=== PATIENT | male | born 1955 | race Caucasian/White ===

== ENCOUNTER → 2019-06-04 08:03 | Outpatient (BNVA) | payer MEDICARE, SELFPAY | PROVIDERS: Family Provider Nurse Practitioner; PCP Nurse Practitioner; Visit Provider Nurse Practitioner Psychiatric/Mental Health | DX: F20.9 Schizophrenia, unspecified (principal); F17.210 Nicotine dependence, cigarettes, uncomplicated; G25.71 Drug induced akathisia | CPT/HCPCS: 99213 ==

== ENCOUNTER → 2019-09-03 07:47 | Outpatient (BNVA) | payer MEDICARE, SELFPAY | PROVIDERS: Family Provider Nurse Practitioner; PCP Nurse Practitioner; Visit Provider Nurse Practitioner Psychiatric/Mental Health | DX: F20.9 Schizophrenia, unspecified (principal); F17.210 Nicotine dependence, cigarettes, uncomplicated; G25.71 Drug induced akathisia | CPT/HCPCS: 99213 ==

== ENCOUNTER → 2019-12-03 08:00 | Outpatient (BNVA) | payer MEDICARE, SELFPAY | PROVIDERS: Family Provider Nurse Practitioner; PCP Nurse Practitioner; Visit Provider Nurse Practitioner Psychiatric/Mental Health | DX: F20.9 Schizophrenia, unspecified (principal); F17.210 Nicotine dependence, cigarettes, uncomplicated; G25.71 Drug induced akathisia; F33.41 Major depressive disorder, recurrent, in partial remission; F41.8 Other specified anxiety disorders | CPT/HCPCS: 99213 ==

== ENCOUNTER → 2020-02-15 12:07 | Outpatient (BNVA) | payer MEDICARE, SELFPAY | PROVIDERS: Family Provider Nurse Practitioner; PCP Nurse Practitioner; Visit Provider Nurse Practitioner Family | DX: E55.9 Vitamin D deficiency, unspecified (principal); E78.2 Mixed hyperlipidemia; I10 Essential (primary) hypertension; Z79.899 Other long term (current) drug therapy; J44.9 Chronic obstructive pulmonary disease, unspecified | CPT/HCPCS: 80053; 80061; 81003; 82306; 83036; 84443; 85025 ==

== ENCOUNTER → 2020-03-03 09:44 | Outpatient (BNVA) | payer MEDICARE, SELFPAY | PROVIDERS: Family Provider Nurse Practitioner; PCP Nurse Practitioner; Visit Provider Nurse Practitioner Psychiatric/Mental Health | DX: F20.9 Schizophrenia, unspecified (principal); F17.210 Nicotine dependence, cigarettes, uncomplicated; G25.71 Drug induced akathisia | CPT/HCPCS: 99214 ==

== ENCOUNTER → 2020-04-05 11:49 | Outpatient (BNVA) | payer MEDICARE, SELFPAY | PROVIDERS: Family Provider Nurse Practitioner; PCP Nurse Practitioner; Visit Provider Nurse Practitioner Family | DX: J44.9 Chronic obstructive pulmonary disease, unspecified (principal); R06.00 Dyspnea, unspecified | CPT/HCPCS: 71046 ==

== ENCOUNTER → 2020-05-12 00:01 | Outpatient (BNVA) | payer MEDICARE, SELFPAY | PROVIDERS: Family Provider Nurse Practitioner; PCP Nurse Practitioner Family; Visit Provider Nurse Practitioner Family | DX: Z20.822 Contact with and (suspected) exposure to COVID-19 (principal); J44.9 Chronic obstructive pulmonary disease, unspecified | CPT/HCPCS: 87635 ==

== ENCOUNTER 2020-05-15 10:58 | Outpatient (CLI) | payer MEDICARE, SELFPAY ==
--- NOTE | 2020-05-15 11:15 | PFTS_ITS ---
Date of Study:05/15/20 Date of Dictation: MECHANICS: Forced vital capacity (FVC) is reduced. Forced expiratory volume in one second (FEV1) is reduced. FEV1/FVC is reduced. FLOW VOLUME LOOP: Reduced flow at all lung volumes. LUNG VOLUMES: Not measured DIFFUSING CAPACITY FOR CARBON MONOXIDE: Normal INTERPRETATION: The prebronchodilator spirometry is consistent with severe airflow obstruction. A component of restriction cannot be ruled out in the absence of lung volume measurement. Gas exchange (DLCO) is normal. MTDD
== END 2020-05-15 10:59 | disposition home or self-care (01) ==
LOC: RT 11:03
PROVIDERS: PCP Nurse Practitioner Family; Visit Provider Internal Medicine Pulmonary Disease
DX: J44.9 Chronic obstructive pulmonary disease, unspecified (principal)
CPT/HCPCS: 94010; 94729

== ENCOUNTER → 2020-06-09 08:42 | Outpatient (BNVA) | payer MEDICARE, SELFPAY | PROVIDERS: PCP Nurse Practitioner Family; Visit Provider Nurse Practitioner Psychiatric/Mental Health | DX: F20.9 Schizophrenia, unspecified (principal); F17.210 Nicotine dependence, cigarettes, uncomplicated; G25.71 Drug induced akathisia | CPT/HCPCS: 99214 ==

== ENCOUNTER → 2020-07-25 09:12 | Outpatient (BNVA) | payer MEDICARE, SELFPAY | PROVIDERS: PCP Nurse Practitioner Family; Visit Provider Nurse Practitioner Family | DX: D64.9 Anemia, unspecified (principal); Z79.899 Other long term (current) drug therapy; N40.0 Benign prostatic hyperplasia without lower urinary tract symptoms | CPT/HCPCS: 80053; 80164; 82607; 82746; 85025 ==

== ENCOUNTER → 2020-12-01 08:12 | Outpatient (BNVA) | payer MEDICARE, SELFPAY | PROVIDERS: PCP Nurse Practitioner Family; Visit Provider Nurse Practitioner Psychiatric/Mental Health | DX: F20.9 Schizophrenia, unspecified (principal); F17.210 Nicotine dependence, cigarettes, uncomplicated; G25.71 Drug induced akathisia; Z79.899 Other long term (current) drug therapy | CPT/HCPCS: 99214 ==

== ENCOUNTER → 2021-01-25 12:11 | Outpatient (BNVA) | payer MEDICARE, SELFPAY | PROVIDERS: PCP Nurse Practitioner Family; Visit Provider Nurse Practitioner Family | DX: I10 Essential (primary) hypertension (principal); D64.9 Anemia, unspecified; Z79.899 Other long term (current) drug therapy; E55.9 Vitamin D deficiency, unspecified; N40.0 Benign prostatic hyperplasia without lower urinary tract symptoms; E78.2 Mixed hyperlipidemia; L98.9 Disorder of the skin and subcutaneous tissue, unspecified | CPT/HCPCS: 80053; 80061; 80164; 81003; 82306; 82746; 83036; 84443; 85025; G0103 ==

== ENCOUNTER → 2021-03-09 08:17 | Outpatient (BNVA) | payer MEDICARE, SELFPAY | PROVIDERS: PCP Nurse Practitioner Family; Visit Provider Nurse Practitioner Psychiatric/Mental Health | DX: F20.9 Schizophrenia, unspecified (principal); F17.210 Nicotine dependence, cigarettes, uncomplicated; G25.71 Drug induced akathisia; Z79.899 Other long term (current) drug therapy | CPT/HCPCS: 81003; 87077; 87086; 87184; 99214 ==

== ENCOUNTER → 2021-04-30 10:54 | Outpatient (BNVA) | payer MEDICARE, SELFPAY | PROVIDERS: PCP Nurse Practitioner Family; Visit Provider Nurse Practitioner Family | DX: I10 Essential (primary) hypertension (principal); D64.9 Anemia, unspecified; Z79.899 Other long term (current) drug therapy | CPT/HCPCS: 80053; 80061; 80164; 81003; 83036; 85025; 87077; 87086; 87184 ==

== ENCOUNTER 2021-05-14 11:16 | Inpatient (IN) | payer MEDICARE, SELFPAY ==
[2021-05-14] VITALS (11 sets, daily range): BP systolic 108–184; BP diastolic 57–99; PULSE 60–100; RESP 16–23; TEMP 36.4–37.3; O2SAT 94–100; BMI 24.4
--- NOTE | 2021-05-14 11:17 | ECG_ITS ---
[facility] Test Date: 2021-05-14 Pat Name: Herson Ovalle Department: Room: Gender: Male Claims Configuration Analyst: : 1955 Requested By: Kelly Cartagena Order Number: [id number] Reading MD: Ricardo Song M.D. Measurements Intervals [place] Rate: 60 P: 84 NV: 148 QRS: 78 QRSD: 90 T: 74 QT: 393 QTc: 395 Interpretive Statements SINUS RHYTHM MODERATE ST DEPRESSION [0.05+ mV ST DEPRESSION] Compared to ECG 04/09/2016 05:36:46 ST (T wave) deviation now present Electronically Signed On 05-15-2021 9:16:55 CDT by Ricardo Song M.D. [email or web address]
--- NOTE | 2021-05-14 11:31 | CT_ITS ---
WS: [email or web address] CT HEAD TECHNIQUE: Noncontrast CT of the head obtained from the skullbase to the vertex. CLINICAL INFORMATION: ams COMPARISON: None. DLP: 1019.[address] scans at [facility] use at least one of these dose optimization techniques: automated e xposure control; mA and/or kV adjustment per patient size (includes targeted exams where dose is matc hed to clinical indication); or iterative reconstruction. FINDINGS: Some images degraded by motion. No evidence of intracranial hemorrhage or mass effect. Ventricular system and basal cisterns are garcia nt. Moderate small vessel changes with moderate parenchymal volume loss. Benign basal ganglia calcifi cations. Tiny chronic lacunar infarct LEFT caudate. No extra-axial fluid collections. No evidence of mass or mass effect. Partial opacification the mastoid tips. Paranasal sinuses are well aerated. IMPRESSION: 1. No evidence of intracranial hemorrhage or mass effect. 2. Moderate small vessel changes with moderate parenchymal volume loss. 3. Partial opacification mastoid tips. 4. No acute intracranial findings.
--- NOTE | 2021-05-14 11:31 | XR_ITS ---
WS: [email or web address] XR femur RT min 2V* 11055 REASON FOR EXAM: fall FINDINGS: Transcervical/intertrochanteric fracture of the right hip. The greater trochanter and lesser trochanter are intact. There may be a small intracapsular fragment inferiorly. Acetabulum appears intact. Superior and inferior pubic rami are intact. From the intertrochanteric region to the knee no abnormality of the right femur is noted. XR/XR femur RT min 2V* 05743 IMPRESSION: Right hip fracture as above.
--- NOTE | 2021-05-14 11:31 | ED_ITS ---
HPI - General Adult General: Chief complaint: Weakness Stated complaint: INCREASED WEAKNESS Time Seen by Provider: 05/14/21 11:17 History of Present Illness: Patient is a 65-year-old male with a history of prior UTI, COPD, anemia, hyperlipidemia, chronic schizophrenia who presents from [facility] for concerns of increased generalized weakness and confusion and fall. On Friday, patient had an unwitnessed episode of fall. Patient complained of generalized weakness and difficulty walking. Per nursing staff, patient was noted to have decreased activity and energy throughout the day. Patient tells me that on Friday he fell and hit his head and has had right thigh pain since then. Patient denies having any chest pain any shortness of breath palpitation or lightheadedness, nausea/vomiting, diarrhea melena hematochezia since Friday. Per EMS, patient drinks excessively water at [facility] and has had found to have hyponatremia in the past. Onset:unknonwn duration of confusion, fall since Friday Duration:ongoing Location:[facility] Severity: moderate Associated symptoms: Deny chest pain, dyspnea, nausea, rash, palpitations or vomiting Review of Systems Const: Denies: fever(s) or chills Eyes: Denies: change in vision ENMT: Denies: mouth pain Card: Denies: chest pain or palpitations Resp: Denies: dyspnea or non-productive cough GI: Denies: abdominal pain, nausea, vomiting or diarrhea : Denies: dysuria Musc: Reports: extremity pain (+R thigh pain) Skin/Breast: Denies: rash or new lesions Neuro: Reports: other (+confusion); Denies: weakness in extremities Psych: Reports: other (Normal mood) Casey/Lymph: Denies: easy bruising PFSH ED PFSH: Medical History (Updated 05/14/21 @ 14:41 by Zoe Moreau MD) Anemia BPH (benign prostatic hyperplasia) Chronic schizophrenia COPD (chronic obstructive pulmonary disease) Essential hypertension Mixed hyperlipidemia Nicotine dependence, cigarettes, uncomplicated On valproate therapy Psychiatric care Tardive akathisia Vitamin D deficiency Social History Smoking and tobacco status: never smoked Quit status (tobacco): not considering quitting Second hand smoke exposure: Yes Smoking risk assessment/counseling performed?: Yes Alcohol intake: former Caregiver/support person: Yes Lives independently: No Household members: other Housing: Assisted Living Facility Marital status: Single service: No Current occupational status: disabled Pets and animals: Yes History of recent travel: No Current gender identity: Male Physical Exam Const: COMMON NORMALS: alert HENMT: COMMON NORMALS: atraumatic HEAD & SCALP: atraumatic MOUTH: moist mucous membranes not abnormal Eye: COMMON NORMALS: EOMs intact bilaterally and conjunctivae normal CONJU NCTIVA: Yes conjunctivae normal Neck/C-Spine: COMMON NORMALS: full ROM and supple Resp: COMMON NORMALS: normal respiratory effort and clear to auscultation bilaterally AUSCULTATION: clear to auscultation bilaterally Cardio: COMMON NORMALS: regular rate RATE: regular rate GI: COMMON NORMALS: Soft to palpation and non-tender PALPATION: Yes Soft to palpation Extremity: COMMON NORMALS: full ROM NARRATIVE EXTREMITY EXAM: + Right lower extreme knee appears to be slightly shortened compared to the left side. Range of motion of the right knee and right hip with mild pain. +Mild mid thigh tenderness to palpation, + 2+ DP/TP pulses on the right lower extremity, sensation and strength in the right lower extremity intact Neuro: SENSORIUM/ORIENTATION: Yes alert MOTOR EXAM: No Abnormal motor strength present and Other motor observations present (no focal motor deficits) OTHER: AAOx 2 (self and location only), following all commands, moving all extremities, cranial nerves II to III are grossly intact. Psych: COMMON NORMALS: speech normal SPEECH: Yes normal speech MOOD & AFFECT: Yes euthymic mood Course Vital Signs: Vital signs: Vital Signs Temperature 98.1 F 05/14/21 11:18 Pulse Rate 64 05/14/21 14:07 Respiratory Rate 22 H 05/14/21 14:07 Blood Pressure 184/87 05/14/21 14:07 Pulse Oximetry 100 05/14/21 14:07 [facility] - General Adult Medical Decision Making Patient is a 65-year-old male with history of UTI, COPD, anemia, hyperlipidemia, schizophrenia who presents from [facility] for concerns of generalized weakness, fall and confusion since Friday. On arrival, patient is AAO x1 but following commands. Patient has mild tenderness to palpation over the right thigh and pain to range of motion of the right hip and right knee. Neurovascular exam of the right lower extremity intact. We will obtain x-ray imaging and CT brain for evaluation of possible fractures and brain bleed. Given new set onset of confusion, we will evaluate to determine whether patient has any medical causes for confusion and altered mental status. Workup: CBC, CMP, Lipase, UA, EKG x 2/ troponin x2, ammonia, XR chest, UA, CT head Intervention: observation, pain control Troponin of 33 with delta < 5. EKG is non ischemic. Hemoglobin 10.6 down from baseline of 12. Rectal exam negative for hemoocult positive stool. No suspicion for GI bleeding. X-ray of the right hip showed right-sided hip fracture. Delta troponin within normal limit. UA showed 2+ leukocyte esterase with 15-25 WBC per high-power field improved compared to prior UA. 3+ urine blood similar to prior. However, given need for possible surgery, will treat empirically with abx. S/p ceftriaxone IV. Case discussed with Dr. Yates who will evaluate patient decide whether patient is a candidate for surgery. Disposition: admission Lab Data : 05/14/21 11:38 05/14/21 11:38 Radiology Impressions Chest X-Ray 05/14/21 11:31 IMPRESSION: No acute abnormality identified. Femur X-Ray 05/14/21 11:31 IMPRESSION: Right hip fracture as above. Hip/Pelvis X-Ray 05/14/21 11:31 IMPRESSION: Right hip fracture. Knee X-Ray 05/14/21 11:31 IMPRESSION: Joint effusion. Soft tissue injury. No bony or joint abnormality. Laboratory Results WBC 10.8 10^3/uL (4.0-10.0) H 05/14/21 11:38 RBC 3.33 10^6/uL (4.1-5.3) L 05/14/21 11:38 Hgb 10.6 g/dL (11.7-16.6) L 05/14/21 11:38 Hct 32.7 % (42.0-52.0) L 05/14/21 11:38 MCV 98.2 fl (80-94) H 05/14/21 11:38 MCH 31.8 pg (28.0-34.0) 05/14/21 11:38 MCHC 32.4 g/dL (30.0-36.0) 05/14/21 11:38 RDW 14.8 % (12.1-15.1) 05/14/21 11:38 Plt Count 159 10^3/cmm (130-400) 05/14/21 11:38 MPV 10.2 fL (7.4-10.4) 05/14/21 11:38 Neut % (Auto) 68.2 % 05/14/21 11:38 Lymph % (Auto) 16.0 % 05/14/21 11:38 [place] % (Auto) 11.7 % 05/14/21 11:38 Eos % (Auto) 3.2 % 05/14/21 11:38 Baso % (Auto) 0.5 % 05/14/21 11:38 Neut # (Auto) 7.35 10^3/uL (1.8-7.7) 05/14/21 11:38 Lymph # (Auto) 1.7 10^3/uL (0.8-4.8) 05/14/21 11:38 [place] # (Auto) 1.3 10^3/uL (0.2-0.9) H 05/14/21 11:38 Eos # (Auto) 0.3 10^3/uL (0.0-0.8) 05/14/21 11:38 Baso # (Auto) 0.1 10^3/uL (0.0-0.1) 05/14/21 11:38 Nucleated RBC % (auto) 0 % 05/14/21 11:38 Nucleated RBCs # 0.0 /100WBC 05/14/21 11:38 Sodium 139 mmol/L (136-145) 05/14/21 11:38 Potassium 4.0 mmol/L (3.5-5.1) 05/14/21 11:38 Chloride 105 mmol/L (98-107) 05/14/21 11:38 Carbon Dioxide 27 mmol/L (22-29) 05/14/21 11:38 Anion Gap 11.0 (5-19) 05/14/21 11:38 BUN 16 mg/dL (8-23) 05/14/21 11:38 Creatinine 0.4 mg/dL (0.7-1.2) L 05/14/21 11:38 GFR Calculation 215.9 mL/min (90-130) H 05/14/21 11:38 Glucose 97 mg/dL (65-115) 05/14/21 11:38 Calculated Osmolality 289 mOsm/kg (285-295) 05/14/21 11:38 Calcium 8.3 mg/dL (8.5-10.5) L 05/14/21 11:38 Total Bilirubin 0.3 mg/dL (0.15-1.2) 05/14/21 11:38 AST 15 U/L (0-40) 05/14/21 11:38 ALT 14 U/L (0-41) 05/14/21 11:38 Alkaline Phosphatase 57 IU/L (40-130) 05/14/21 11:38 Ammonia 48 umol/L (16-60) 05/14/21 11:38 Creatine Kinase 197 U/L (39-308) 05/14/21 11:38 Troponin T Baseline 33 ng/L (0-15) H 05/14/21 11:38 Troponin T 120 Minute 32.74 ng/L (0-15) H 05/14/21 13:38 Delta Troponin T -0.26 ABS# (0-10) L 05/14/21 13:38 Total Protein 6.1 g/dL (6.6-8.7) L 05/14/21 11:38 Albumin 3.5 g/dL (3.5-5.2) 05/14/21 11:38 Globulin 2.6 g/dL (1.3-4.6) 05/14/21 11:38 Lipase 22 U/L (13-60) 05/14/21 11:38 Urine Color Yellow (Yellow) 05/14/21 12:56 Urine Appearance Sl hazy (CLEAR) 05/14/21 12:56 Urine pH 6.5 (5-7) 05/14/21 12:56 Ur Specific [place] 1.015 (1.005-1.030) 05/14/21 12:56 Urine Protein Neg (Negative) 05/14/21 12:56 Urine Glucose (UA) Norm (Normal) 05/14/21 12:56 Urine Ketones Negative (Negative) 05/14/21 12:56 Urine Blood 3+ (Negative) H 05/14/21 12:56 Urine Nitrate Negative (Negative) 05/14/21 12:56 Urine Bilirubin Neg (Negative) 05/14/21 12:56 Urine Urobilinogen Norm mg/dL (Negative) 05/14/21 12:56 Ur Leukocyte Esterase 2+ (Negative) H 05/14/21 12:56 Urine RBC 25-40 /hpf (0-2) H 05/14/21 12:56 Urine WBC 15-25 /hpf (0-5) H 05/14/21 12:56 Ur Squamous Epith Cells 0-4 /hpf (0-5) H 05/14/21 12:56 Amorphous Sediment Not Reportable 05/14/21 12:56 Urine Bacteria 1+ /hpf (NONE) H 05/14/21 12:56 Urine Mucus 3+ /hpf 05/14/21 12:56 Imaging Data Other Imaging: Radiologist's impression: [address] [address] XRay Report Signed Patient: Herson Ovalle Unit #: [id number] : 1955 Age/Sex: 65 / M ADM Date: 05/14/21 Loc: ER Room/Bed: Attending Dr: Ordering Provider/Ordering MD: Kelly Cartagena MD Date of Service: 05/14/21 Procedure(s): XR knee RT 1-2V 00218 Accession Number(s): [id number] Report Number: [id number] WS: [email or web address] XR knee RT 1-2V 80998 REASON FOR EXAM: fall FINDINGS: No fracture or focal bone lesion. Joint spaces of the right knee joint are intact and well preserved. There may be a small joint effusion. There is edema in the infrapatellar fat pad. XR/XR knee RT 1-2V 89306 IMPRESSION: Joint effusion. Soft tissue injury. No bony or joint abnormality. ? ? Dictated By: Philip Mcfarland Jr, MD Signed By: Philip Mcfarland Jr, MD Signed Date/Time: 05/14/21 1227 DD/ [address] [address] XRay Report Signed Patient: Herson Ovalle Unit #: [id number] : 1955 Age/Sex: 65 / M ADM Date: 05/14/21 Loc: ER Room/Bed: Attending Dr: Ordering Provider/Ordering MD: Kelly Cartagena MD Date of Service: 05/14/21 Procedure(s): XR hip RT 2-3V wo/w pel* 78242 Accession Number(s): [id number] Report Number: [id number] WS: [email or web address] XR hip RT 2-3V wo/w pel* 56566 REASON FOR EXAM: fall FINDINGS: Fracture of the right hip. See report of right femur for details. XR/XR hip RT 2-3V wo/w pel* 61974 IMPRESSION: Right hip fracture. ? ? Dictated By: Philip Mcfarland Jr, MD Signed By: Philip Mcfarland Jr, MD Signed Date/Time: 05/14/211255 DD/ [address] [address] [address] Scan Report Signed Patient: Herson Ovalle Unit #: [id number] : 1955 Age/Sex: 65 / M ADM Date: 05/14/21 Loc: ER Room/Bed: Attending Dr: Ordering Provider/Ordering MD: Kelly Cartagena MD Date of Service: 05/14/21 Procedure(s): CT head wo con* 60015 Accession Number(s): [id number] Report Number: [id number] WS: [email or web address] CT HEAD TECHNIQUE: Noncontrast CT of the head obtained from the skullbase to the vertex. CLINICAL INFORMATION: ams COMPARISON: None. DLP: 1019.[address] scans at [facility] use at least one of these dose optimization techniques: automated exposure control; mA and/or kV adjustment per patient size (includes targeted exams where dose is matched to clinical indication); or iterative reconstruction. FINDINGS: Some images degraded by motion. No evidence of intracranial hemorrhage or mass effect. Ventricular system and basal cisterns are patent. Moderate small vessel changes with moderate parenchymal volume loss. Benign basal ganglia calcifications. Tiny chronic lacunar infarct LEFT caudate. No extra-axial fluid collections. No evidence of mass or mass effect. Partial opacification the mastoid tips. Paranasal sinuses are well aerated. ?IMPRESSION: 1.? No evidence of intracranial hemorrhage or mass effect. 2.? Moderate small vessel changes with moderate parenchymal volume loss. 3.? Partial opacification mastoid tips. 4.? No acute intracranial findings. Dictated By: James Carrera MD Signed By: James Carrera MD Signed Date/Time: 05/14/21 1255 DD/ [address] [address] XRay Report Signed Patient: Herson Ovalle Unit #: [id number] : 1955 Age/Sex: 65 / M ADM Date: 05/14/21 Loc: ER Room/Bed: Attending Dr: Ordering Provider/Ordering MD: Kelly Cartagena MD Date of Service: 05/14/21 Procedure(s): XR femur RT min 2V* 23453 Accession Number(s): [id number] Report Number: [id number] WS: [email or web address] XR femur RT min 2V* 82517 REASON FOR EXAM: fall FINDINGS: Transcervical/intertrochanteric fracture of the right hip. The greater trochanter and lesser trochanter are intact. There may be a small intracapsular fragment inferiorly. Acetabulum appears intact. Superior and inferior pubic rami are intact. From the intertrochanteric region to the knee no abnormality of the right femur is noted. XR/XR femur RT min 2V* 04634 IMPRESSION: Right hip fracture as above. ? ? Dictated By: Philip Mcfarland Jr, MD Signed By: Philip Mcfarland Jr, MD Signed Date/Time: 05/14/21 1236 DD/ [address] [address] XRay Report Signed Patient: Herson Ovalle Unit #: [id number] : 1955 Age/Sex: 65 / M ADM Date: 05/14/21 Loc: ER Room/Bed: Attending Dr: Ordering Provider/Ordering MD: Kelly Cartagena MD Date of Service: 05/14/21 Procedure(s): XR femur RT min 2V* 42125 Accession Number(s): [id number] Report Number: [id number] WS: [email or web address] XR femur RT min 2V* 51949 REASON FOR EXAM: fall FINDINGS: Transcervical/intertrochanteric fracture of the right hip. The greater trochanter and lesser trochanter are intact. There may be a small intracapsular fragment inferiorly. Acetabulum appears intact. Superior and inferior pubic rami are intact. From the intertrochanteric region to the knee no abnormality of the right femur is noted. XR/XR femur RT min 2V* 72715 IMPRESSION: Right hip fracture as above. ? ? Dictated By: Philip Mcfarland Jr, MD Signed By: Philip Mcfarland Jr, MD Signed Date/Time: 05/14/21 1236 DD/ [address] [address] XRay Report Signed Patient: Herson Ovalle Unit #: [id number] : 1955 Age/Sex: 65 / M ADM Date: 05/14/21 Loc: ER Room/Bed: Attending Dr: Ordering Provider/Ordering MD: Kelly Cartagena MD Date of Service: 05/14/21 Procedure(s): XR chest 1V portable 77516 Accession Number(s): [id number] Report Number: [id number] WS: [email or web address] XR chest 1V portable 32522 REASON FOR EXAM: fall FINDINGS: The chest is significantly rotated. Moderate tortuosity the thoracic aorta without aneurysmal dilatation. No significant cardiomegaly. Calcified granulomatous disease in both hemithoraces. No acute pulmonary parenchymal or pleural abnormality. No acute abnormality of the bony thorax. Moderate to severe degenerative spondylosis in the mid and lower thoracic spine. XR/XR chest 1V portable 95024 IMPRESSION: No acute abnormality identified. ? ? Dictated By: Philip Mcfarland Jr, MD Signed By: Philip Mcfarland Jr, MD Signed Date/Time: 05/14/21 1209 DD/ 1207 Discharge Plan Discharge Patient Disposition: Admitted As Inpatient Clinical Impression: Confusion, Generalized weakness, Closed hip fracture Condition: Stable Coding Level of Care Code ED Title Department Manager for Chg Fwd Exam Comprehensive
--- NOTE | 2021-05-14 11:31 | XR_ITS ---
WS: [email or web address] XR hip RT 2-3V wo/w pel* 05672 REASON FOR EXAM: fall FINDINGS: Fracture of the right hip. See report of right femur for details. XR/XR hip RT 2-3V wo/w pel* 64372 IMPRESSION: Right hip fracture.
--- NOTE | 2021-05-14 11:31 | XR_ITS ---
WS: [email or web address] XR knee RT 1-2V 58432 REASON FOR EXAM: fall FINDINGS: No fracture or focal bone lesion. Joint spaces of the right knee joint are intact and well preserved. There may be a small joint effusion. There is edema in the infrapatellar fat pad. XR/XR knee RT 1-2V 86273 IMPRESSION: Joint effusion. Soft tissue injury. No bony or joint abnormality.
--- NOTE | 2021-05-14 11:31 | XR_ITS ---
WS: [email or web address] XR chest 1V portable 78513 REASON FOR EXAM: fall FINDINGS: The chest is significantly rotated. Moderate tortuosity the thoracic aorta without aneurysmal dilatation. No significant cardiomegaly. Calcified granulomatous disease in both hemithoraces. No acute pulmonary parenchymal or pleural abnormality. No acute abnormality of the bony thorax. Moderate to severe degenerative spondylosis in the mid and l ower thoracic spine. XR/XR chest 1V portable 48624 IMPRESSION: No acute abnormality identified.
--- NOTE | 2021-05-14 11:50 | PC.NURSE ---
Pt attempted to give UA sample; unsuccessful. Will have pt try again later.
[2021-05-14 12:15] LABS: Basophils # 0.1 10^3/uL (0.0-0.1); Basophils % 0.5 %; Eosinophils # 0.3 10^3/uL (0.0-0.8); Eosinophils % 3.2 %; Hematocrit 32.7 % (42.0-52.0); Hemoglobin 10.6 g/dL (11.7-16.6); Lymphocytes # 1.7 10^3/uL (0.8-4.8); Mean Corpuscular HGB Conc 32.4 g/dL (30.0-36.0); Mean Corpuscular Hemoglobin 31.8 pg (28.0-34.0); Mean Corpuscular Volume 98.2 fl (80-94); Mean Platelet Volume 10.2 fL (7.4-10.4); Monocytes # 1.3 10^3/uL (0.2-0.9); Monocytes % 11.7 %; Neutrophils # 7.35 10^3/uL (1.8-7.7); Neutrophils % 68.2 %; Nucleated Red Blood Cells % 0 %; Platelet Count 159 10^3/cmm (130-400); Red Blood Count 3.33 10^6/uL (4.1-5.3); Red Cell Distribution Width 14.8 % (12.1-15.1); White Blood Count 10.8 10^3/uL (4.0-10.0)
[2021-05-14 12:33] LABS: Slide Review Slide Review Perform
[2021-05-14 12:36] LABS: Ammonia 48 umol/L (16-60)
[2021-05-14 12:43] LABS: Troponin(5th) Baseline 33 ng/L (0-15)
[2021-05-14 12:48] LABS: Alanine Aminotransferase 14 U/L (0-41); Albumin Level 3.5 g/dL (3.5-5.2); Alkaline Phosphatase 57 IU/L (40-130); Aspartate Amino Transferase 15 U/L (0-40); Blood Urea Nitrogen 16 mg/dL (8-23); Calcium 8.3 mg/dL (8.5-10.5); Carbon Dioxide 27 mmol/L (22-29); Chloride 105 mmol/L (98-107); Globulin 2.6 g/dL (1.3-4.6); Glomerular Filtration Rate 215.9 mL/min (90-130); Glucose 97 mg/dL (65-115); Lipase 22 U/L (13-60); Osmolality Calculated 289 mOsm/kg (285-295); Sodium 139 mmol/L (136-145); Total Bilirubin 0.3 mg/dL (0.15-1.2); Total Protein 6.1 g/dL (6.6-8.7)
[2021-05-14 13:15] LABS: Specific Gravity, Urine 1.015 (1.005-1.030); Urine Appearance SL Hazy (CLEAR); Urine Color Yellow (Yellow); pH Urine 6.5 (5-7)
[2021-05-14 13:16] LABS: Add Urine Culture? Yes; Add Urine Microscopic? YES; Bacteria Urine 1+ /hpf; Bilirubin Urine Neg (Negative); Blood Urine 3+ (Negative); Glucose Urine UA Norm (Normal); Ketones Urine Negative (Negative); Leukocyte Esterase Urine 2+ (Negative); Mucus Urine 3+ /hpf; Nitrate Urine Negative (Negative); Protein Urine Neg (Negative); RBC Urine 25-40 /hpf (0-2); Squamous Epithelial Cell Urine 0-4 /hpf (0-5); Urobilinogen Urine Norm (Negative); WBC Urine 15-25 /hpf (0-5)
--- NOTE | 2021-05-14 13:17 | ECG_ITS ---
[facility] Test Date: 2021-05-14 Pat Name: Herson Ovalle Department: Room: Gender: Male Hand Stitcher: : 1955 Requested By: Kelly Cartagena Order Number: [id number] Reading MD: Ricardo Song M.D. Measurements Intervals [place] Rate: 63 P: 75 MT: 141 QRS: 79 QRSD: 88 T: 79 QT: 389 QTc: 399 Interpretive Statements SINUS RHYTHM MODERATE ST DEPRESSION [0.05+ mV ST DEPRESSION] Compared to ECG 05/14/2021 11:33:21 No significant changes Electronically Signed On 05-15-2021 9:24:33 CDT by Ricardo Song M.D. [id number]
--- NOTE | 2021-05-14 13:17 | PC.PHAR ---
pt is from [facility] [phone]
--- NOTE | 2021-05-14 13:42 | PC.NURSE ---
GuardianEdel, given update via phone call.
[2021-05-14 14:01] LABS: Creatine Phosphokinase 197 U/L (39-308)
[2021-05-14] MEDS: morphine 4 mg/mL SDV 1 mL 2 MG IVP (14:06)
--- NOTE | 2021-05-14 14:10 | PC.NURSE ---
Britt (medical hospital sales) from [facility] notifed of pt status by phone call.
--- NOTE | 2021-05-14 14:13 | PC.NURSE ---
Keturah (Guardian) called and notified of pt admission.
[2021-05-14 14:17] LABS: Troponin 5 2HR 32.74 ng/L (0-15)
--- NOTE | 2021-05-14 14:28 | PM.HP ---
Providers/Chief Complaint Admitting Physician: Zoe Moreau MD Primary Care Provider: SERGIO Soto Chief Complaint: INCREASED WEAKNESS History of Present Illness Herson Ovalle is a 65 year old male who resides at [facility]. He presented with complaint of weakness. He has been in bed pretty much all weekend. According to him he had a fall on Friday. Details of exactly what happened with the fall are not clear. Prior to that he would walk up and down the halls without any assistance. He was noted to have an externally rotated right lower extremity and was sent to the emergency room for evaluation. He actually denies significant pain. He was found to have an intertrochanteric fracture of the right hip. Dr. Yates was contacted from orthopedics. Hospitalist were called for admission. He denies any recent chest pain or difficulty breathing. No report of any bleeding difficulties. He has never had any surgical intervention. Records indicate a history of hypertension and hyperlipidemia although he himself declines this. He does have prescriptions for propranolol and simvastatin. He is a longtime smoker and does have some COPD with PFTs that were done rated a year ago showing severe obstructive pattern. He is not on any chronic oxygen. 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 History is limited to what is in the records and obtainable from him. He does not make his own decisions. Mr. Ovalle has a guardian. Her name is Edel Norton and phone number on paperwork sent with patient indicates [phone]. This is a work number to be called during the day. Her cell phone number is [phone] to be used for after hours calls (after approximately 4:30 pm). I spoke to the patient's guardian and she does give permission to admit the patient and proceed with plans for surgery. She is expecting a call from surgeon/anesthesia as well. Patient himself is agreeable to proceeding with surgery. I explained general process here in the hospital as well as after discharge. He had no questions. Currently he is resting comfortably on a gurney in the emergency room. He has had 1 dose of pain medication and received a dose of Rocephin for an abnormal urinalysis. Review of records indicates that he has been on a course of antibiotics monthly going back to January with the most recent being prescribed Augmentin on 05/01/2021 and prior to that, Bactrim, Cipro and nitrofurantoin. He denies any current urinary symptoms. Patient did receive COVID vaccine. Denies ever having had COVID. No recent fever, change in respiratory symptoms or known positive contacts. Review of Systems Const: Denies: fever(s) or chills Eyes: Denies: change in vision ENMT: Denies: throat pain or nasal congestion Card: Denies: chest pain, palpitations or edema Resp: Reports: productive cough (Occasional, not currently) and wheezing (Sometimes, not currently); Denies: dyspnea GI: Denies: abdominal pain, nausea, vomiting, diarrhea, constipation or hematochezia : Denies: difficulty urinating, urinary frequency or hematuria Musc: Reports: extremity pain (Currently denies pain after receiving morphine) and other (Has not been able to bear weight since Friday) Skin/Breast: Reports: other (Does not know of any source on his backside, a few scratches); Denies: rash or pruritus Neuro: Reports: involuntary movements (Chronic, do not bother him); Denies: headache(s), difficulty walking (Prior to fall with injury) or frequent falls (Denies) Psych: Denies: anxiety or depression Casey/Lymph: Denies: easy bruising or easy bleeding Medications/Allergies Home Medications Medication Instructions Recorded Confirmed Last Taken Type aspirin 81 mg tablet,delayed 81 mg PO DAILY@03/08/19 05/14/21 05/14/21 History release (Adult Low Dose Aspirin) ibuprofen 800 mg tablet See Rx Instructions .ROUTE 08/15/20 05/14/21 05/14/21 Rx .COMPLEX #90 tablet aripiprazole 10 mg tablet (Abilify) 10 mg PO DAILY@05/14/21 05/14/21 05/14/21 History budesonide 160 mcg-glycopyr 9 2 inh INHALATION BID 05/14/21 05/14/21 05/14/21 History mcg-formot 4.8 mcg/actuation HFA inhaler (Breztri Aerosphere) divalproex 500 mg tablet,extended 500 mg PO BEDTIME@05/14/21 05/14/21 05/13/21 History release 24 hr (Depakote ER) folic acid 1 mg tablet 1 mg PO DAILY@05/14/21 05/14/21 05/14/21 History lorazepam 0.5 mg tablet 0.5 mg PO BEDTIME@05/14/21 05/14/21 05/13/21 History propranolol 10 mg tablet 10 mg PO BID@05/14/21 05/14/21 05/14/21 History simvastatin 20 mg tablet 20 mg PO DAILY@05/14/21 05/14/21 05/13/21 History tamsulosin 0.4 mg capsule 0.8 mg PO BEDTIME@05/14/21 05/14/21 Unknown History Allergies Allergy/AdvReac Type Severity Reaction Status Date / Time No Known Allergies Allergy Verified 05/14/21 13:07 PFSH Acute PFSH: Medical History (Updated 05/14/21 @ 15:40 by Zoe Moreau MD) Anemia BPH (benign prostatic hyperplasia) Chronic schizophrenia COPD (chronic obstructive pulmonary disease) COVID-19 vaccine administered J&J plus an mRNA booster per patient report Essential hypertension History of PFTs 05/31 severe airflow obstruction, normal gas exchange, decreased FVC, FEV1 40%, FEVI/FVC reduced Mixed hyperlipidemia Nicotine dependence, cigarettes, uncomplicated On valproate therapy Psychiatric care Tardive akathisia Vitamin D deficiency Surgical History (Updated 05/14/21 @ 15:25 by Zeo Moreau MD) No pertinent past surgical history No prior surgical history reported 05/14/2021 Family History (Updated 05/14/21 @ 15:27 by Zoe Moreau MD) Denies family history of CAD (coronary artery disease) Anesthesia complication Bleeding disorder Social History (Updated 05/14/21 @ 15:26 by Zoe Moreau MD) Smoking and tobacco status: current every day smoker cigarettes Years cigarettes smoked: 30 [ Other cigarette details: Currently smoking 4 cigarettes a day] Quit status (tobacco): not considering quitting Second hand smoke exposure: Yes Alcohol intake: former Substance/Drug Use: never Caregiver/support person: Yes Lives independently: No Household members: other Details: Resides at [facility] care facility Housing: Assisted Living Facility Marital status: Single service: No Current occupational status: disabled Pets and animals: Yes Current gender identity: Male Vitals/I&O/Wt Last Vital Signs Temp 98.1 F 05/14/21 11:18 Pulse 64 05/14/21 14:07 Resp 22 H 05/14/21 14:07 BP 184/87 05/14/21 14:07 Pulse Ox 100 05/14/21 14:07 Weight last 48 hrs Weight 79.379 kg Physical Exam Narrative: Constitutional: Awake and alert, cooperative, answers questions HEENT: Pupils are equal reactive, extraocular movements are intact, nasopharynx is clear, oropharynx edentulous with moist mucous membranes, normocephalic Neck: Supple Respiratory: Clear to auscultation bilaterally without any rales rhonchi or wheezes Cardiovascular: Regular rate and rhythm without any murmurs gallops or rubs Abdomen: Soft, nontender, positive bowel sounds : Normal external Extremities: Right lower extremity externally rotated and shortened, no calf tenderness to either lower extremity Skin: Scattered minor scratches, few tattoos noted, not able to visualize posterior hip or sacral area currently due to hip fracture Neuro: Pill-rolling tremor noted to both hands, intermittent involuntary movements of head and neck, both upper extremities, face. Able to wiggle toes on both feet, handgrip is equal. Speech is clear. Face symmetric. Psych: Flat affect Data : 05/14/21 11:38 05/14/21 11:38 Other Labs: Radiology Impressions Chest X-Ray 05/14/21 11:31 IMPRESSION: No acute abnormality identified. Femur X-Ray 05/14/21 11:31 IMPRESSION: Right hip fracture as above. Hip/Pelvis X-Ray 05/14/21 11:31 IMPRESSION: Right hip fracture. Knee X-Ray 05/14/21 11:31 IMPRESSION: Joint effusion. Soft tissue injury. No bony or joint abnormality. Laboratory Results WBC 10.8 10^3/uL (4.0-10.0) H 05/14/21 11:38 RBC 3.33 10^6/uL (4.1-5.3) L 05/14/21 11:38 Hgb 10.6 g/dL (11.7-16.6) L 05/14/21 11:38 Hct 32.7 % (42.0-52.0) L 05/14/21 11:38 MCV 98.2 fl (80-94) H 05/14/21 11:38 MCH 31.8 pg (28.0-34.0) 05/14/21 11:38 MCHC 32.4 g/dL (30.0-36.0) 05/14/21 11:38 RDW 14.8 % (12.1-15.1) 05/14/21 11:38 Plt Count 159 10^3/cmm (130-400) 05/14/21 11:38 MPV 10.2 fL (7.4-10.4) 05/14/21 11:38 Neut % (Auto) 68.2 % 05/14/21 11:38 Lymph % (Auto) 16.0 % 05/14/21 11:38 Gilmer % (Auto) 11.7 % 05/14/21 11:38 Eos % (Auto) 3.2 % 05/14/21 11:38 Baso % (Auto) 0.5 % 05/14/21 11:38 Neut # (Auto) 7.35 10^3/uL (1.8-7.7) 05/14/21 11:38 Lymph # (Auto) 1.7 10^3/uL (0.8-4.8) 05/14/21 11:38 Gilmer # (Auto) 1.3 10^3/uL (0.2-0.9) H 05/14/21 11:38 Eos # (Auto) 0.3 10^3/uL (0.0-0.8) 05/14/21 11:38 Baso # (Auto) 0.1 10^3/uL (0.0-0.1) 05/14/21 11:38 Nucleated RBC % (auto) 0 % 05/14/21 11:38 Nucleated RBCs # 0.0 /100WBC 05/14/21 11:38 Sodium 139 mmol/L (136-145) 05/14/21 11:38 Potassium 4.0 mmol/L (3.5-5.1) 05/14/21 11:38 Chloride 105 mmol/L (98-107) 05/14/21 11:38 Carbon Dioxide 27 mmol/L (22-29) 05/14/21 11:38 Anion Gap 11.0 (5-19) 05/14/21 11:38 BUN 16 mg/dL (8-23) 05/14/21 11:38 Creatinine 0.4 mg/dL (0.7-1.2) L 05/14/21 11:38 GFR Calculation 215.9 mL/min (90-130) H 05/14/21 11:38 Glucose 97 mg/dL (65-115) 05/14/21 11:38 Calculated Osmolality 289 mOsm/kg (285-295) 05/14/21 11:38 Calcium 8.3 mg/dL (8.5-10.5) L 05/14/21 11:38 Total Bilirubin 0.3 mg/dL (0.15-1.2) 05/14/21 11:38 AST 15 U/L (0-40) 05/14/21 11:38 ALT 14 U/L (0-41) 05/14/21 11:38 Alkaline Phosphatase 57 IU/L (40-130) 05/14/21 11:38 Ammonia 48 umol/L (16-60) 05/14/21 11:38 Creatine Kinase 197 U/L (39-308) 05/14/21 11:38 Troponin T Baseline 33 ng/L (0-15) H 05/14/21 11:38 Total Protein 6.1 g/dL (6.6-8.7) L 05/14/21 11:38 Albumin 3.5 g/dL (3.5-5.2) 05/14/21 11:38 Globulin 2.6 g/dL (1.3-4.6) 05/14/21 11:38 Lipase 22 U/L (13-60) 05/14/21 11:38 Urine Color Yellow (Yellow) 05/14/21 12:56 Urine Appearance Sl hazy (CLEAR) 05/14/21 12:56 Urine pH 6.5 (5-7) 05/14/21 12:56 Ur Specific Charlotte 1.015 (1.005-1.030) 05/14/21 12:56 Urine Protein Neg (Negative) 05/14/21 12:56 Urine Glucose (UA) Norm (Normal) 05/14/21 12:56 Urine Ketones Negative (Negative) 05/14/21 12:56 Urine Blood 3+ (Negative) H 05/14/21 12:56 Urine Nitrate Negative (Negative) 05/14/21 12:56 Urine Bilirubin Neg (Negative) 05/14/21 12:56 Urine Urobilinogen Norm mg/dL (Negative) 05/14/21 12:56 Ur Leukocyte Esterase 2+ (Negative) H 05/14/21 12:56 Urine RBC 25-40 /hpf (0-2) H 05/14/21 12:56 Urine WBC 15-25 /hpf (0-5) H 05/14/21 12:56 Ur Squamous Epith Cells 0-4 /hpf (0-5) H 05/14/21 12:56 Amorphous Sediment Not Reportable 05/14/21 12:56 Urine Bacteria 1+ /hpf (NONE) H 05/14/21 12:56 Urine Mucus 3+ /hpf 05/14/21 12:56 A&P Assessment and plan (1) Intertrochanteric fracture of right hip: Status post fall on 05/11/2021 Status: Acute Qualifiers: Encounter type: initial encounter Fracture type: closed Fracture alignment: nondisplaced Qualified Code(s): S72.144A - Nondisplaced intertrochanteric fracture of right femur, initial encounter for closed fracture (2) Anemia: Drop in hemoglobin noted, secondary to acute blood loss from #1 Status: Acute Qualifiers: Anemia type: other cause Other causes of anemia: acute posthemorrhagic Qualified Code(s): D62 - Acute posthemorrhagic anemia (3) Abnormal urinalysis: Present on admission, likely contaminated specimen with epithelial cells noted versus chronic pyuria/colonization. Review of recent urine cultures as noted below. Denies any current urinary symptoms, GI symptoms or fever. Cultures 03/09/21 and 04/30/21 showed 100,000CFU Staph Epi resistant to ampicilin, cipro, levaquin, penicillan, tetracycline, bactrim. 01/29/21 prescribed Cipro, 03/12/21 prescribed Bactrim, 03/15/21 prescribed nitrofurantoin, 05/01/21 prescribed augmentin Status: Acute (4) Essential hypertension: Diagnosis per medical records, has a prescription for propranolol though at lower doses and unclear to me if this is for blood pressure or other diagnoses. Blood pressures here are elevated. Patient is unsure if he took medication this morning. Denies pain. Status: Chronic (5) Mixed hyperlipidemia: Chronically on statin therapy Status: Chronic (6) COPD (chronic obstructive pulmonary disease): Chronically on Breztri Aerosphere, no home oxygen, denies acute exacerbation Status: Chronic Qualifiers: COPD type: emphysema Emphysema type: panlobular Qualified Code(s): J43.1 - Panlobular emphysema (7) Chronic schizophrenia: On Depakote and Abilify chronically as well as Ativan at bedtime Status: Chronic (8) Tardive akathisia: Presumably secondary to psychiatric medications Status: Chronic (9) BPH (benign prostatic hyperplasia): Chronically on Flomax Status: Chronic Qualifiers: Lower urinary tract symptom presence: symptoms absent Qualified Code(s): N40.0 - Benign prostatic hyperplasia without lower urinary tract symptoms (10) Vitamin D deficiency: Diagnosis as per records though I do not see chronic replacement on medication list Status: Chronic (11) Nicotine dependence, cigarettes, uncomplicated: Has smoked for many years, amount smoked has varied from 4 cigarettes per day to a pack per day over the last couple of years, not interested in completely quitting Status: Chronic Plan Elevated baseline troponin without delta Inpatient admission Orthopedic consultation for surgical repair of hip I spoke with patient's guardian who is aware of the injury and need for surgery Mr. Ovalle's guardian is Edel Norton. Day time phone number is [phone]. After hours phone number (after ~4:30pm) is [phone]. Type and cross prior to surgery Continue serial cardiac enzymes and EKGs, making final determination about surgery pending results Will continue empiric Rocephin, follow-up urine culture Continue Flomax Perioperative Ordonez catheter with planned removal Continue home beta-blockade Continue home statin therapy Inhaled budesonide and albuterol as needed Incentive spirometer Continue home Abilify, Depakote and at bedtime Ativan Check vitamin D level Start calcium plus vitamin D Bowel regimen Nicotine patch if needed IV fluids when n.p.o. after midnight for planned surgery tomorrow SCDs for DVT prophylaxis No pharmacological DVT prophylaxis currently secondary to planned surgery within the next 24 hours Case management for assistance with disposition. Patient normally resides at [facility]. I believe he will need skilled placement for rehabilitation prior to eventually going back to [facility], but I am not as familiar with that facility. Findings, concerns and plans were discussed with patient and then reviewed with guardian Anticipate skilled placement prior to eventual disposition back to [facility] Full code Again: Mr. Ovalle's guardian is Edel Norton. Day time phone number is [phone]. After hours phone number (after ~4:30pm) is [phone]. Attestations Medical Necessity Statement*: Anticipated stay greater than two midnights in a gentleman who has sustained a hip fracture status post a fall a couple of days ago and will need surgical intervention. Other issues and plans as noted above. Coding Level of Care Code Acute Leather Toggler for [facility] Fwd Diagnoses Intertrochanteric fracture of right hip S72.144A Encounter type: initial encounter Fracture type: closed Fracture alignment: nondisplaced Essential hypertension I10 Mixed hyperlipidemia E78.2 COPD (chronic obstructive pulmonary disease) J43.1 COPD type: emphysema Emphysema type: panlobular Chronic schizophrenia F20.9 Tardive akathisia G25.71 BPH (benign prostatic hyperplasia) N40.0 Lower urinary tract symptom presence: symptoms absent Vitamin D deficiency E55.9 Nicotine dependence, cigarettes, uncomplicated F17.210 Anemia D62 Anemia type: other cause Other causes of anemia: acute posthemorrhagic Abnormal urinalysis R82.90
[2021-05-14 14:29] LABS: Troponin 5 2HR Delta -0.26 ABS# (0-10)
[2021-05-14] MEDS: cefTRIAXone 1,000 MG in sodium chloride 0.9% (plus) 50 ML 100 MG IV (14:49)
--- NOTE | 2021-05-14 15:40 | PC.NURSE ---
Edel (Guardian) phone numbers: Office: [phone]
[2021-05-14] MEDS: docusate sodium 100 mg Capsule PO (16:34)
[2021-05-14] MEDS: calcium carb-vit d 600mg/400unit 1 Tablet 1 EACH PO (16:35)
[2021-05-14] MEDS: propranolol 20 mg Tablet 10 MG PO (16:35)
[2021-05-14 17:18] LABS: INR 0.99 (0.8-1.2); Partial Thromboplastin Time 31.7 SECONDS (23.9-36.7)
[2021-05-14 18:27] LABS: Troponin 5 6HR 37.61 ng/L (0-15)
[2021-05-14 18:29] LABS: Troponin 5 6HR Delta 4.61 ng/L (0-12)
--- NOTE | 2021-05-14 19:23 | PM.CONSULT ---
Providers/Reason For Consult Consulting Physician/Specialty*: Shawn Yates MD; orthopedic surgery Reason for Consult*: Right femoral neck fracture Attending Physician: Angelika Benitez MD Primary Care Provider: SERGIO Soto History of Present Illness History of Present Illness Herson Ovalle is a 65 year old male Resident of [facility]. He apparently sustained a fall Friday although details are not entirely clear. He generally stayed in bed all weekend. He was noted to have an externally rotated lower extremity was sent to the emergency room. Radiographs revealed a displaced right femoral neck fracture. He is admitted to the medicine service for medical management with planned surgical treatment of the hip tomorrow. Medications/Allergies Home Medications Medication Instructions Recorded Confirmed Last Taken Type aspirin 81 mg tablet,delayed 81 mg PO DAILY@03/08/19 05/14/21 05/14/21 History release (Adult Low Dose Aspirin) ibuprofen 800 mg tablet See Rx Instructions .ROUTE 08/15/20 05/14/21 05/14/21 Rx .COMPLEX #90 tablet aripiprazole 10 mg tablet (Abilify) 10 mg PO DAILY@05/14/21 05/14/21 05/14/21 History budesonide 160 mcg-glycopyr 9 2 inh INHALATION BID 05/14/21 05/14/21 05/14/21 History mcg-formot 4.8 mcg/actuation HFA inhaler (Breztri Aerosphere) divalproex 500 mg tablet,extended 500 mg PO BEDTIME@05/14/21 05/14/21 05/13/21 History release 24 hr (Depakote ER) folic acid 1 mg tablet 1 mg PO DAILY@05/14/21 05/14/21 05/14/21 History lorazepam 0.5 mg tablet 0.5 mg PO BEDTIME@05/14/21 05/14/21 05/13/21 History propranolol 10 mg tablet 10 mg PO BID@05/14/21 05/14/21 05/14/21 History simvastatin 20 mg tablet 20 mg PO DAILY@05/14/21 05/14/21 05/13/21 History tamsulosin 0.4 mg capsule 0.8 mg PO BEDTIME@05/14/21 05/14/21 Unknown History Allergies Allergy/AdvReac Type Severity Reaction Status Date / Time No Known Allergies Allergy Verified 05/14/21 13:07 Current Medications Generic Name Dose Route Start Last Admin Trade Name Noelle PRN Reason Stop Dose Admin Calcium Carbonate 1 each 05/14/21 18:00 05/14/21 16:35 Calcium Carb-Vit D 600mg/400unit 1 Tablet PO 1 each BID TIKI Administration Docusate Sodium 100 mg 05/14/21 18:00 05/14/21 16:34 Docusate Sodium 100 Mg Capsule PO 100 mg BID TIKI Administration Propranolol HCl 10 mg 05/14/21 18:00 05/14/21 16:35 Propranolol 20 Mg Tablet PO 10 mg BID@06,18 TIKI Administration PFSH Acute PFSH: Medical History (Updated 05/14/21 @ 19:27 by Shawn Yates MD) Anemia BPH (benign prostatic hyperplasia) Chronic schizophrenia COPD (chronic obstructive pulmonary disease) COVID-19 vaccine administered J&J plus an mRNA booster per patient report Essential hypertension History of PFTs 05/31 severe airflow obstruction, normal gas exchange, decreased FVC, FEV1 40%, FEVI/FVC reduced Mixed hyperlipidemia Nicotine dependence, cigarettes, uncomplicated On valproate therapy Psychiatric care Tardive akathisia Vitamin D deficiency Surgical History (Updated 05/14/21 @ 15:25 by Zoe Moreau MD) No pertinent past surgical history No prior surgical history reported 05/14/2021 Family History (Updated 05/14/21 @ 15:27 by Zoe Moreau MD) Denies family history of CAD (coronary artery disease) Anesthesia complication Bleeding disorder Social History (Updated 05/14/21 @ 15:26 by Zoe Moreau MD) Smoking and tobacco status: current every day smoker cigarettes Years cigarettes smoked: 30 [ Other cigarette details: Currently smoking 4 cigarettes a day] Quit status (tobacco): not considering quitting Second hand smoke exposure: Yes Alcohol intake: former Substance/Drug Use: never Caregiver/support person: Yes Lives independently: No Household members: other Details: Resides at [facility] residential care facility Housing: Assisted Living Facility Marital status: Single service: No Current occupational status: disabled Pets and animals: Yes Current gender identity: Male Vitals/I&O/Wt Last Vital Signs Temp 97.6 F 05/14/21 16:03 Pulse 89 05/14/21 16:09 Resp 16 05/14/21 16:09 BP 148/71 05/14/21 16:03 Pulse Ox 94 05/14/21 16:09 05/14/21 05/14/21 05/14/21 06:59 14:59 22:59 Intake Total 290 / 290 Output Total 900 / 900 Balance -610 / -610 Weight last 48 hrs Weight 175 lb Physical Exam Narrative: Patient answer simple questions with yes and no not certain he has a great understanding. He has shortening and external rotation of the right hip. There is exquisite pain with motion of the hip. Palpable Dorsalis pedis pulse. Lexiscan toes and his ankles without any motor deficit Urinary Catheter Management: Ordonez: Cath Placed During This Visit: yes Reason for Continuing Indwelling Catheter: Required Immobilization for Trauma or Surgery or Anesthesia Urinary Catheter Date of Insertion: 05/14/21 Urinary Catheter Time of Insertion: 16:51 Data : 05/14/21 11:38 05/14/21 11:38 Other Xray: My impression: 2 views of the right hip 2 views of the right hip are personally interpreted from the emergency room today. Patient has displaced fracture of the right femoral neck. A&P Assessment and plan (1) Displaced fracture of right femoral neck: Herson has a displaced right femoral neck fracture. I discussed treatment options with his guardian Edel Norton as well as Herson. I am not certain that his comprehension was all that great. I told the guardian that with a displaced fracture the chance of this healing with pinning alone would be not good. Additional risk of nonunion, and avascular necrosis were also noted. Pitting would require prolonged period of nonweightbearing of not certain he could reliably comply with this. I think our best options would be a bipolar arthroplasty. I discussed options with the patient and family. I told them possible treatments for displaced femoral neck fracture would include nonoperative treatment, open reduction internal fixation, or hemiarthroplasty. I told them without treatment the patient would experience ongoing of pain that would limit mobility. This would require pain medications and place her at medical risks due to prolonged periods of bed rest. I finally discussed the possibility of hemiarthroplasty. I think this would give the patient the greatest chance of being immediately mobilized. I discussed risk of a bleeding and a possible need for blood products. I discussed risk of deep venous thromboses and pulmonary emboli and the need for anticoagulation. I discussed the use of the TXA that may be utilized to diminish blood loss. I discussed risk of component failure and loosening that could require revision. I discussed the risk of dislocation and a bipolar arthroplasty which is quite unlikely. After a long discussion of options they agree to hemiarthroplasty of the hip. I told him ultimately the patient will likely require long-term placement. Status: Acute Coding Level of Care Code Acute Director Employment for [facility] Diagnoses Displaced fracture of right femoral neck S72.001A
[2021-05-14] MEDS: LORazepam 0.5 mg Tablet PO (20:54)
[2021-05-14] MEDS: sennosides-docusate Tablet 1 TAB PO (20:54)
[2021-05-14] MEDS: divalproex ER 500 mg Tablet (24H) PO (20:54)
[2021-05-14] MEDS: atorvastatin 40 mg Tablet 20 MG PO (20:54)
[2021-05-14] MEDS: tamsulosin 0.4 mg Capsule 0.8 MG PO (20:54)
[2021-05-14] MEDS: HYDROcodone-acetaminophen 5-325 mg Tablet 1 TAB PO (20:54)
[2021-05-14] MEDS: D5-NS 0.45% + KCL 20 mEq 20 MEQ/1,000 ML BAG 75 MEQ IV (23:43)
[2021-05-15] VITALS (23 sets, daily range): BP systolic 89–137; BP diastolic 45–93; PULSE 58–70; RESP 15–20; TEMP 36.3–37.7; O2SAT 93–98
[2021-05-15 04:45] LABS: Basophils % 0.5 %; Eosinophils # 0.2 10^3/uL (0.0-0.8); Hemoglobin 9.7 g/dL (11.7-16.6); Lymphocytes # 1.7 10^3/uL (0.8-4.8); Lymphocytes % 23.1 %; Mean Corpuscular HGB Conc 32.3 g/dL (30.0-36.0); Mean Platelet Volume 9.9 fL (7.4-10.4); Monocytes % 13.6 %; Neutrophils # 4.33 10^3/uL (1.8-7.7); Neutrophils % 59.5 %; Nucleated Red Blood Cells % 0 %; Platelet Count 158 10^3/cmm (130-400); Red Blood Count 3.03 10^6/uL (4.1-5.3); Red Cell Distribution Width 14.6 % (12.1-15.1); White Blood Count 7.3 10^3/uL (4.0-10.0)
[2021-05-15 05:05] LABS: Blood Urea Nitrogen 15 mg/dL (8-23); Calcium 8.1 mg/dL (8.5-10.5); Carbon Dioxide 23 mmol/L (22-29); Chloride 101 mmol/L (98-107); Glomerular Filtration Rate 300.9 mL/min (90-130); Glucose 118 mg/dL (65-115); Osmolality Calculated 274 mOsm/kg (285-295); Sodium 131 mmol/L (136-145)
[2021-05-15] MEDS: ARIPiprazole 10 mg Tablet PO (05:45)
[2021-05-15] MEDS: folic acid 1 mg Tablet PO (05:45)
[2021-05-15] MEDS: propranolol 20 mg Tablet 10 MG PO (05:45)
[2021-05-15] MEDS: budesonide 0.5 mg/2 mL Neb INHALATION (07:43)
--- NOTE | 2021-05-15 07:45 | P.ANESASSM_ITS ---
Pre-Anesthetic Assessment Height/Weight: Height 1.8 m Weight 79.379 kg Temp Pulse Resp BP Pulse Ox 97.8 F 63 18 119/69 95 05/15/21 07:31 05/15/21 07:31 05/15/21 07:31 05/15/21 07:31 05/15/21 07:31 Preop Diagnosis: Right femoral neck fracture Operation Date: 05/15/21 12:00 Proposed Procedures p Right Hemiarthroplasty Hip(Right) - Shawn Yates MD Familial anesthetic complications: None Was Beta Sierra taken within 24 hours: Yes Was Clonidine taken within 24 hours: N/A Last intake: 05/14/2021 Social Tobacco Exam alert, oriented x 3, clear to auscultation bilaterally and regular rate & rhythm Airway Submandibular: within normal limits Cervical ROM: within normal limits Mallampati: Class II Dentition: false Pulmonary Chronic Obstructive Pulmonary Disease CV/HEM Anemia and Hypertension EKG 05/14/21 Interpretive Statements SINUS RHYTHM MODERATE ST DEPRESSION? [0.05+ mV ST DEPRESSION] Compared to ECG 05/14/2021 11:33:21 No significant changes [email or web address] Hepatic None reported GI None reported Metabolic None reported Musc/sk Acute femoral neck fracture Neuropsych Tardive askathisia Hx of schizophrenia CT 05/14/21 IMPRESSION: 1.? No evidence of intracranial hemorrhage or mass effect. 2.? Moderate small vessel changes with moderate parenchymal volume loss. 3.? Partial opacification mastoid tips. 4.? No acute intracranial findings. Anesthetic Plan ASA status: 3 Anesthesia: Anesthesia Evaluation and General Other: Plan and risk discussed with patient and guardian Edel Castellanos. Patient prefers general anesthesia. I discussed with Edel Castellanos (on the phone) and patient in person the risk and benefits of general anesthesia including PONV, sore throat (sometimes severe), corneal abrasion, positioning and peripheral nerve injuries, life threatening allergic reaction, post operative ICU admission requiring prolonged intubation, stroke, heart attack, , and rare incidences of recall. Patient and guardian consent to proceed with general anesthesia. Risk of > 500 ml blood loss (7ml/kg in children): No Medications/Allergies Home Medications Medication Instructions Recorded Confirmed Last Taken Type aspirin 81 mg tablet,delayed 81 mg PO DAILY@03/08/19 05/14/21 05/14/21 Histor y release (Adult Low Dose Aspirin) ibuprofen 800 mg tablet See Rx Instructions .ROUTE 08/15/20 05/14/21 05/14/21 Rx .COMPLEX #90 tablet aripiprazole 10 mg tablet (Abilify) 10 mg PO DAILY@05/14/21 05/14/21 05/14/21 History budesonide 160 mcg-glycopyr 9 2 inh INHALATION BID 05/14/21 05/14/21 05/14/21 History mcg-formot 4.8 mcg/actuation HFA inhaler (Breztri hdtMEDIAphere) divalproex 500 mg tablet,extended 500 mg PO BEDTIME@05/14/21 05/14/21 05/13/21 History release 24 hr (Depakote ER) folic acid 1 mg tablet 1 mg PO DAILY@05/14/21 05/14/21 05/14/21 History lorazepam 0.5 mg tablet 0.5 mg PO BEDTIME@05/14/21 05/14/21 05/13/21 History propranolol 10 mg tablet 10 mg PO BID@05/14/21 05/14/21 05/14/21 History simvastatin 20 mg tablet 20 mg PO DAILY@05/14/21 05/14/21 05/13/21 History tamsulosin 0.4 mg capsule 0.8 mg PO BEDTIME@05/14/21 05/14/21 Unknown History Allergies Allergy/AdvReac Type Severity Reaction Status Date / Time No Known Allergies Allergy Verified 05/14/21 13:07 Current Medications Generic Name Dose Route Start Last Admin Trade Name Freq PRN Reason Stop Dose Admin Hydrocodone Bitart/Acetaminophen 1 tab 05/14/21 16:03 05/14/21 20:54 Hydrocodone-Acetaminophen 5-325 Mg Tablet PO 1 tab Q4H PRN Administration MODERATE TO SEVERE PAIN Albuterol Sulfate 2.5 mg 05/14/21 15:51 05/15/21 07:43 Albuterol 2.5 Mg/0.5 Ml Neb INHALATION 2.5 mg Q6H.RESPIRATORY PRN Administration SHORTNESS OF BREATH Aripiprazole 10 mg 05/15/21 06:00 05/15/21 05:45 Aripiprazole 10 Mg Tablet PO 10 mg DAILY@06 TIKI Administration Atorvastatin Calcium 20 mg 05/14/21 21:00 05/14/21 20:54 Atorvastatin 40 Mg Tablet PO 20 mg BEDTIME TIKI Administration Budesonide 0.5 mg 05/14/21 20:00 05/15/21 07:43 Budesonide 0.5 Mg/2 Ml Neb INHALATION 0.5 mg BID.RESPIRATORY TIKI Administration Calcium Carbonate 1 each 05/14/21 18:00 05/14/21 16:35 Calcium Carb-Vit D 600mg/400unit 1 Tablet PO 1 each BID TIKI Administration Divalproex Sodium 500 mg 05/14/21 21:00 05/14/21 20:54 Divalproex Er 500 Mg Tablet (24h) PO 500 mg BEDTIME@ TIKI Administration Docusate Sodium 100 mg 05/14/21 18:00 05/14/21 16:34 Docusate Sodium 100 Mg Capsule PO 100 mg BID TIKI Administration Folic Acid 1 mg 05/15/21 06:00 05/15/21 05:45 Folic Acid 1 Mg Tablet PO 1 mg DAILY@06 TIKI Administration Potassium Chloride/Dextrose/Sod Cl 20 meq in 1,000 mls @ 75 mls/hr 05/14/21 23:30 05/14/21 23:43 D5-Ns 0.45% + Kcl 20 Meq IV 75 mls/hr .[id number] TIKI Administration Lorazepam 0.5 mg 05/14/21 21:00 05/14/21 20:54 Lorazepam 0.5 Mg Tablet PO 0.5 mg BEDTIME@21 TIKI Administration Propranolol HCl 10 mg 05/14/21 18:00 05/15/21 05:45 Propranolol 20 Mg Tablet PO 10 mg BID@,18 TIKI Administration Senna/Docusate Sodium 1 tab 05/14/21 21:00 05/14/21 20:54 Sennosides-Docusate Tablet PO 1 tab BEDTIME TIKI Administration Tamsulosin HCl 0.8 mg 05/14/21 21:00 05/14/21 20:54 Tamsulosin 0.4 Mg Capsule PO 0.8 mg BEDTIME@21 TIKI Administration PFSH Anesthesia Medical History Anemia BPH (benign prostatic hyperplasia) Chronic schizophrenia COPD (chronic obstructive pulmonary disease) COVID-19 vaccine administered J&J plus an mRNA booster per patient report Essential hypertension History of PFTs 05/31 severe airflow obstruction, normal gas exchange, decreased FVC, FEV1 40%, FEVI/FVC reduced Mixed hyperlipidemia Nicotine dependence, cigarettes, uncomplicated On valproate therapy Psychiatric care Tardive akathisia Vitamin D deficiency Surgical History No pertinent past surgical history No prior surgical history reported 05/14/2021 Family History Denies family history of CAD (coronary artery disease) Anesthesia complication Bleeding disorder Social History Smoking and tobacco status: current every day smoker cigarettes Years cigarettes smoked: 30 [ Other cigarette details: Currently smoking 4 cigarettes a day] Quit status (tobacco): not considering quitting Second hand smoke exposure: Yes Alcohol intake: former Substance/Drug Use: never Caregiver/support person: Yes Lives independently: No Household members: other Details: Resides at [facility] Housing: Assisted Living Facility Marital status: Single service: No Current occupational status: disabled Pets and animals: Yes Current gender identity: Male Data Anesthesia : 05/15/21 04:18 05/15/21 04:18 Short CBC 05/14/21 05/15/21 Range/Units 11:38 04:18 WBC 10.8 H 7.3 (4.0-10.0) 10^3/uL Hgb 10.6 L 9.7 L (11.7-16.6) g/dL Hct 32.7 L 30.0 L (42.0-52.0) % MCV 98.2 H 99.0 H (80-94) fl Plt Count 159 158 (130-400) 10^3/cmm Neut % (Auto) 68.2 59.5 % Neut # (Auto) 7.35 4.33 (1.8-7.7) 10^3/uL BMP 05/14/21 05/15/21 11:38 04:18 Sodium 139 131 L Potassium 4.0 4.0 Chloride 105 101 Carbon Dioxide 27 23 BUN 16 15 Creatinine 0.4 L 0.3 L Glucose 97 118 H Calcium 8.3 L 8.1 L Cardiac Enzymes 05/14/21 05/14/21 05/14/21 Range/Units 11:38 11:38 13:38 Creatine Kinase 197 (39-308) U/L Troponin T Baseline 33 H (0-15) ng/L Troponin T 120 Minute 32.74 H (0-15) ng/L Delta Troponin T -0.26 L (0-10) ABS# Troponin T Hi Sens 6Hr (0-15) ng/L Troponin T Hi Sens 6Hr Delta (0-12) ng/L 05/14/21 Range/Units 17:39 Creatine Kinase (39-308) U/L Troponin T Baseline (0-15) ng/L Troponin T 120 Minute (0-15) ng/L Delta Troponin T (0-10) ABS# Troponin T Hi Sens 6Hr 37.61 H (0-15) ng/L Troponin T Hi Sens 6Hr Delta 4.61 (0-12) ng/L Liver Function 05/14/21 Range/Units 11:38 Total Bilirubin 0.3 (0.15-1.2) mg/dL AST 15 (0-40) U/L ALT 14 (0-41) U/L Alkaline Phosphatase 57 (40-130) IU/L Albumin 3.5 (3.5-5.2) g/dL Urine 05/14/21 Range/Units 12:56 Urine Color Yellow (Yellow) Urine Appearance Sl hazy (CLEAR) Urine pH 6.5 (5-7) Ur Specific [place] 1.015 (1.005-1.030) Urine Protein Neg (Negative) Urine Glucose (UA) Norm (Normal) Urine Ketones Negative (Negative) Urine Nitrate Negative (Negative) Urine Bilirubin Neg (Negative) Ur Leukocyte Esterase 2+ H (Negative) Urine RBC 25-40 H (0-2) /hpf Urine WBC 15-25 H (0-5) /hpf Blood Bank 05/14/21 16:03 Blood Type A Positive Rho(D) Type Positive Antibody Screen Negative Coags 05/14/21 15:56 PT 13.40 INR 0.99 APTT 31.7 Cardiac Studies: No Data to Display
[2021-05-15] MEDS: sodium chloride 0.9% 1,000 ML 30 ML IV (11:30)
--- NOTE | 2021-05-15 11:50 | PM.PN ---
Subjective Subjective: Patient is scheduled for hemiarthroplasty Appreciate orthopedic recommendations PT on board assisted living care manager updated Patient this morning was not endorsing any new complaints Vitals/I&O/Wt Last Vital Signs Temp 100 F H 05/15/21 11:17 Pulse 58 L 05/15/21 11:17 Resp 18 05/15/21 11:17 BP 135/93 05/15/21 11:17 Pulse Ox 98 05/15/21 11:17 05/14/21 05/15/21 05/15/21 22:59 06:59 14:59 Intake Total 390 / 390 Output Total 1500 / 1500 375 / 1875 275 / 275 Balance -1110 / -1110 -375 / -1485 -275 / -275 Weight last 48 hrs Weight 79.379 kg Physical Exam Narrative: Patient is very pleasant and cooperative However fatigued and lethargic Right leg rotated outwards No vascular compromise No signs of skin ulcers Abdomen is soft Ordonez catheter with yellow urine Nonlabored breathing Saturating well on room air Urinary Catheter Management: Ordonez: Cath Placed During This Visit: yes Reason for Continuing Indwelling Catheter: Other Urinary Catheter Date of Insertion: 05/14/21 Urinary Catheter Time of Insertion: 16:51 Data : 05/15/21 04:18 05/15/21 04:18 Micro: Microbiology 05/14/21 12:56 Urine Culture - Preliminary Urine,Clean Catch A&P Assessment and plan (1) Displaced fracture of right femoral neck: Status: Acute (2) Chronic schizophrenia: Status: Chronic (3) Tardive akathisia: Status: Chronic (4) Essential hypertension: Status: Chronic (5) Vitamin D deficiency: Status: Chronic (6) COPD (chronic obstructive pulmonary disease): Status: Chronic Qualifiers: COPD type: emphysema Emphysema type: panlobular Qualified Code(s): J43.1 - Panlobular emphysema (7) BPH (benign prostatic hyperplasia): Status: Chronic Qualifiers: Lower urinary tract symptom presence: symptoms absent Qualified Code(s): N40.0 - Benign prostatic hyperplasia without lower urinary tract symptoms (8) Psychiatric care: Status: Chronic (9) Bacterial UTI: Status: Acute (10) Abnormal urinalysis: Status: Acute Plan Hip fracture, awaiting intervention N.p.o. No overnight events Schizophrenia without acute exacerbation Very pleasant and cooperative Patient is currently normotensive Bradycardia noted Not complaining of active chest pain or shortness of breath He is not confused Tardive dyskinesia with resting coarse tremors Abnormal UA noted, currently on ceftriaxone No leukocytosis, afebrile He is not showing signs of sepsis Will be longterm placement before discharge back to [facility] Attestations Medical Necessity Statement*: Continue medical management Time Spent in Patient Care: 20mins Coding Level of Care Code Acute Dairy Cattle Farm Manager for g Fwd Diagnoses Displaced fracture of right femoral neck S72.001A Chronic schizophrenia F20.9 Tardive akathisia G25.71 Essential hypertension I10 Vitamin D deficiency E55.9 COPD (chronic obstructive pulmonary disease) J43.1 COPD type: emphysema Emphysema type: panlobular BPH (benign prostatic hyperplasia) N40.0 Lower urinary tract symptom presence: symptoms absent Psychiatric care Bacterial UTI N39.0; A49.9 Abnormal urinalysis R82.90
[2021-05-15] MEDS: cefTRIAXone 1,000 MG in sodium chloride 0.9% (plus) 50 ML 100 MG IV (14:35)
[2021-05-15] MEDS: tranexamic acid 1,000 mg/10mL SDV 1000 MG IV (16:55)
[2021-05-15] MEDS: tranexamic acid 1,000 mg/10mL SDV 2000 MG XX (17:09)
--- NOTE | 2021-05-15 18:22 | XR_ITS ---
WS: [id number] XR hip RT 1V wo/w pel [id number] REASON FOR EXAM: Right bipolar arthroplasty FINDINGS: Total right hip arthroplasty. Components of the prosthesis are in proper position and alignment. Normal hip joint alignment. No bony abnormality. XR/XR hip RT 1V wo/w pel [id number] IMPRESSION: Total right hip arthroplasty without abnormality.
--- NOTE | 2021-05-15 18:23 | P.OP_ITS ---
Operative Report Date of procedure: May 15, 2021 Pre-op diagnosis: Preop Diagnosis Right femoral neck fracture Post-op diagnosis: same Procedure done: Hemiarthroplasty right hip Implants: [place] 1) Accolade II stem, size 6 2) 50 bipolar femoral head 3) 28mm/-4 neck length femoral head Pathology: none sent Surgeon: Shawn Yates Anesthesia: General Estimated blood loss (mL): 100 Findings: The patient had the previously described displaced fracture of the right femoral neck Disposition: PACU Procedure: The patient was taken to the operating room and a general anesthesia was provided by the anesthesia service. They were given 2 g of Ancef and 1 g of tranexamic acid and positioned in the lateral position with the hip exposed. A 10 cm long incision was made over the greater trochanter with a scalpel blade. Dissection was carried down through the fascia santo to the greater trochanter. The anterior two thirds of gluteus medius and minimus were elevated off the greater trochanter with electrocautery. The capsule was divided T like fashion. The hip was externally rotated and the neck brought up into the wound. An oscillating saw was really used to resect the neck just above the level of the lesser trochanter. The femoral head was removed and the acetabulumt sized to a 50 mm bipolar head. Sequential reaming and broaching of the canal was accomplished up to a size 6. A size 6 Emmett Accolade II stem was press fit into place. A trial reduction with a -4 mm neck provided excellent stability. The final head and neck were placed and the hip reduced. The anterior capsule were reapproximated with 1 Ethibond. The gluteus medius and minimus were repaired through the greater trochanter with 5 Ethibond and reinforced with 1 Ethibond. The fascia santo was closed with 1 Stratafix. The subcutaneous tissues were closed with 2-0 Stratafixl. The skin was closed with a running 4-0 Stratafix. The incision was covered with a Prineo dressing. Sterile Opsitedressings were applied. The patient was placed in abduction pillow and taken recovery room in stable condition.
[2021-05-16] VITALS (7 sets, daily range): BP systolic 96–121; BP diastolic 59–68; PULSE 61–83; RESP 12–19; TEMP 36.6–37.5; O2SAT 96–98
[2021-05-16 02:11] LABS: Basophils % 0.3 %; Eosinophils # 0.1 10^3/uL (0.0-0.8); Eosinophils % 1.2 %; Hematocrit 29.2 % (42.0-52.0); Hemoglobin 9.8 g/dL (11.7-16.6); Lymphocytes # 1.2 10^3/uL (0.8-4.8); Lymphocytes % 12.9 %; Mean Corpuscular HGB Conc 33.6 g/dL (30.0-36.0); Mean Corpuscular Hemoglobin 31.7 pg (28.0-34.0); Mean Corpuscular Volume 94.5 fl (80-94); Mean Platelet Volume 9.7 fL (7.4-10.4); Monocytes # 1.2 10^3/uL (0.2-0.9); Monocytes % 12.9 %; Neutrophils # 6.91 10^3/uL (1.8-7.7); Neutrophils % 72.5 %; Nucleated Red Blood Cells % 0 %; Platelet Count 134 10^3/cmm (130-400); Red Blood Count 3.09 10^6/uL (4.1-5.3); Red Cell Distribution Width 14.4 % (12.1-15.1); White Blood Count 9.5 10^3/uL (4.0-10.0)
[2021-05-16] MEDS: HYDROcodone-acetaminophen 5-325 mg Tablet 1 TAB PO ×3 (09:09→18:48)
[2021-05-16] MEDS: calcium carb-vit d 600mg/400unit 1 Tablet 1 EACH PO ×2 (09:10→18:49)
[2021-05-16] MEDS: aspirin 325 mg EC Tablet PO (09:10)
--- NOTE | 2021-05-16 09:39 | PM.PN ---
Subjective Subjective: Status post surgical intervention Postop day 1 Hemoglobin 9.8 He saturating well on room air Hemoglobin is stable along blood pressure Patient did not endorse any new complaints, pain under control Vitals/I&O/Wt Last Vital Signs Temp 97.9 F 05/16/21 08:02 Pulse 63 05/16/21 08:39 Resp 16 05/16/21 08:39 BP 109/64 05/16/21 08:02 Pulse Ox 97 05/16/21 08:39 05/15/21 05/16/21 05/16/21 22:59 06:59 14:59 Intake Total 360 / 360 1470 / 1830 Output Total 100 / 825 1350 / 2175 Balance 260 / -465 120 / -345 Weight last 48 hrs Weight 71.078 kg Weight 79.379 kg Physical Exam Narrative: Patient is laying comfortably in his bed No signs of vascular compromise of lower extremities No signs of edema S1, S2 Satting well on room air EOMI, PERRLA Nonfocal neuro exam Abdomen is soft Urinary Catheter Management: Ordonez: Cath Placed During This Visit: yes Reason for Continuing Indwelling Catheter: Other Urinary Catheter Date of Insertion: 05/14/21 Urinary Catheter Time of Insertion: 16:51 Data : 05/16/21 01:58 05/15/21 04:18 Micro: Microbiology 05/14/21 12:56 Urine Culture - Final Urine,Clean Catch A&P Assessment and plan (1) Displaced fracture of right femoral neck: Status: Acute (2) Chronic schizophrenia: Status: Chronic (3) Nicotine dependence, cigarettes, uncomplicated: Status: Chronic (4) Tardive akathisia: Status: Chronic Plan Hip fracture status post intervention postop day 1 No postop complication, hemoglobin 9.8, patient is afebrile Saturating well on room air Continue PT evaluation, he will need rehab before he returns to [facility] We will inform his guardian today Continue ceftriaxone for UTI Tardive dyskinesia without acute exacerbation Bradycardia overnight at the time of my evaluation heart rate is 63 Schizophrenia without acute exacerbation Advance to GI soft DVT prophylaxis aspirin high-dose Attestations Medical Necessity Statement*: Awaiting placement Time Spent in Patient Care: 20minjs Coding Level of Care Code Acute Lumber Straightener for [facility] Fwd Diagnoses Displaced fracture of right femoral neck S72.001A Chronic schizophrenia F20.9 Nicotine dependence, cigarettes, uncomplicated F17.210 Tardive akathisia G25.71
--- NOTE | 2021-05-16 09:57 | ANE.PACU2 ---
Inpatient post-anesthesia follow up: Airway intact: Yes Vital signs: Temperature 97.9 F Pulse Rate 63 Respiratory Rate 16 Blood Pressure 109/64 Pulse Oximetry 97 Oxygen Delivery Me thod [ Room Air Current Rate & Del hum[place]] Oxygen Delivery Me thod Room Air Oxygen Flow Rate 6 Fraction of Inspir ed Oxygen Hydration adequate: Yes Nausea and vomiting: No Pain level: 1 Mental status: Baseline
--- NOTE | 2021-05-16 18:04 | PM.PN ---
Subjective Subjective: No complaints. Tolerating po intake. Up with therapy Vitals/I&O/Wt Last Vital Signs Temp 97.9 F 05/16/21 08:02 Pulse 83 05/16/21 12:26 Resp 16 05/16/21 08:39 BP 96/61 05/16/21 12:26 Pulse Ox 96 05/16/21 12:26 05/16/21 05/16/21 05/16/21 06:59 14:59 22:59 Intake Total 1470 / 1830 60 / 60 60 / 120 Output Total 1350 / 2175 450 / 450 Balance 120 / -345 60 / 60 -390 / -330 Weight last 48 hrs Weight 156 lb 11.2 oz Physical Exam Narrative: Right hip dressing clean and dry. Minimal swelling thigh Urinary Catheter Management: Ordonez: Cath Placed During This Visit: yes Reason for Continuing Indwelling Catheter: Other Urinary Catheter Date of Insertion: 05/14/21 Urinary Catheter Time of Insertion: 16:51 Data : 05/16/21 01:58 05/15/21 04:18 Micro: Microbiology 05/14/21 12:56 Urine Culture - Final Urine,Clean Catch A&P Assessment and plan (1) Status post right hip replacement: Continue to mobilize with therapy. No acute ortho issues. OK for SNF transfer. Status: Acute Attestations Medical Necessity Statement*: Awaiting SNF Coding Level of Care Code Acute Quote Clerk for Geovanna Espinal Diagnoses Status post right hip replacement Z96.641
[2021-05-17] VITALS: BP 98/59; PULSE 64; RESP 16; TEMP 36.9; O2SAT 95
[2021-05-17] MEDS: HYDROcodone-acetaminophen 5-325 mg Tablet 1 TAB PO (02:15)
[2021-05-17 04:00] VITALS: BP 97/55; PULSE 65; RESP 16; TEMP 37; O2SAT 94
[2021-05-17 05:01] LABS: Basophils % 0.4 %; Eosinophils # 0.2 10^3/uL (0.0-0.8); Eosinophils % 2.1 %; Hematocrit 28.7 % (42.0-52.0); Hemoglobin 9.5 g/dL (11.7-16.6); Lymphocytes # 1.5 10^3/uL (0.8-4.8); Lymphocytes % 13.4 %; Mean Corpuscular HGB Conc 33.1 g/dL (30.0-36.0); Mean Corpuscular Hemoglobin 31.4 pg (28.0-34.0); Mean Corpuscular Volume 94.7 fl (80-94); Mean Platelet Volume 10.3 fL (7.4-10.4); Monocytes # 1.9 10^3/uL (0.2-0.9); Neutrophils # 7.29 10^3/uL (1.8-7.7); Neutrophils % 66.5 %; Nucleated Red Blood Cells % 0 %; Platelet Count 145 10^3/cmm (130-400); Red Blood Count 3.03 10^6/uL (4.1-5.3); Red Cell Distribution Width 14.1 % (12.1-15.1)
[2021-05-17 05:17] LABS: Blood Urea Nitrogen 18 mg/dL (8-23); Calcium 8.1 mg/dL (8.5-10.5); Carbon Dioxide 24 mmol/L (22-29); Chloride 99 mmol/L (98-107); Glomerular Filtration Rate 166.9 mL/min (90-130); Glucose 109 mg/dL (65-115); Osmolality Calculated 276 mOsm/kg (285-295); Sodium 132 mmol/L (136-145)
[2021-05-17 05:21] LABS: Anion Gap 13.1 (5-19); Potassium 4.1 mmol/L (3.5-5.1)
[2021-05-17] MEDS: aspirin 325 mg EC Tablet PO (07:43)
[2021-05-17] MEDS: calcium carb-vit d 600mg/400unit 1 Tablet 1 EACH PO (07:43)
[2021-05-17 07:59] VITALS: BP 99/59; PULSE 66; RESP 16; TEMP 36.7; O2SAT 97
[2021-05-17 08:45] VITALS: PULSE 68; RESP 16; O2SAT 95
[2021-05-17 10:59] LABS: SARS Covid-2 Antigen Negative (Negative)
[2021-05-17 12:00] VITALS: BP 99/59; PULSE 65; RESP 18; TEMP 36.7; O2SAT 96
--- NOTE | 2021-05-17 12:30 | PC.NURSE ---
Report called to Britt MURCIA, at [facility]. Pt to DC with joanie
--- NOTE | 2021-05-17 12:31 | PC.SOCIAL ---
IMM update IMM updated with Edel, Guardian. Verbalized an understanding. Initialled, dated, timed, and placed in chart.
--- NOTE | 2021-05-17 14:12 | P.DS_ITS ---
Discharge Providers Date of Admission: 05/14/21 14:24 Date of Discharge: May 17, 2021 Attending Provider at Admission: Zoe Moreau MD Attending Provider at Discharge: Angelika Benitez MD Primary Care Provider: SERGIO Soto Diagnoses at Discharge Discharge Diagnosis (1) Status post right hip replacement: Status: Acute Reason for Visit Reason for Visit: INCREASED WEAKNESS Hospital Course Hospital Course Admission note of Dr. Moreau Herson Ovalle is a 65 year old male who resides at [facility].? He presented with complaint of weakness.? He has been in bed pretty much all weekend.? According to him he had a fall on Friday.? Details of exactly what happened with the fall are not clear.? Prior to that he would walk up and down the halls without any assistance.? He was noted to have an externally rotated right lower extremity and was sent to the emergency room for evaluation.? He actually denies significant pain.? He was found to have an intertrochanteric fracture of the right hip.? Dr. Yates was contacted from [facility].? Hospitalist were called for admission. He denies any recent chest pain or difficulty breathing.? No report of any bleeding difficulties.? He has never had any surgical intervention.? Records indicate a history of hypertension and hyperlipidemia although he himself declines this.? He does have prescriptions for propranolol and simvastatin.? He is a longtime smoker and does have some COPD with PFTs that were done rated a year ago showing severe obstructive pattern.? He is not on any chronic oxygen.? 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 History is limited to what is in the records and obtainable from him.? He does not make his own decisions.??Mr. Ovalle has a guardian.? Her name is Edel Norton and phone number on paperwork sent with patient indicates [phone].? This is a work number to be called during the day.? Her cell phone number is [phone] to be used for after hours calls (after approximately 4:30 pm).? I spoke to the patient's guardian and she does give permission to admit the patient and proceed with plans for surgery.? She is expecting a call from surgeon/anesthesia as well.? Patient himself is agreeable to proceeding with surgery.? I explained general process here in the hospital as well as after discharge.? He had no questions.? Currently he is resting comfortably on a gurney in the emergency room.? He has had 1 dose of pain medication and received a dose of Rocephin for an abnormal urinalysis.? Review of records indicates that he has been on a course of antibiotics monthly going back to January with the most recent being prescribed Augmentin on 05/01/2021 and prior to that, Bactrim, Cipro and nitrofurantoin.? He denies any current urinary symptoms. Patient did receive COVID vaccine.? Denies ever having had COVID.? No recent fever, change in respiratory symptoms or known positive contacts. Hospital course:- Patient was admitted for management and evaluation of right hip fracture. Status post right hip hemiarthroplasty by Dr. Yates, no postop complications noted. Patient was able to participate with physical therapy, recommended rehab which can be done at his facility. Arrangements have been made by disease case manager rn, he will be discharged on 05/17 on DVT prophylaxis high-dose aspirin, I have prescribed him oxycodone and bowel regimen as well. He will see Dr. Yates in his clinic. He remained hemodynamically stable. Physical Exam Narrative: Patient is laying comfortably in his bed No signs of vascular compromise of lower extremities No signs of edema S1, S2 Satting well on room air EOMI, PERRLA Nonfocal neuro exam Abdomen is soft Urinary Catheter Management: Ordonez: Cath Placed During This Visit: yes Reason for Continuing Indwelling Catheter: Other Urinary Catheter Date of Insertion: 05/14/21 Urinary Catheter Time of Insertion: 16:51 Discharge Data Studies Completed and Pending Completed Studies During Hospitalization Category Date Time Status CT head wo con* [id number] Urgent Cat Scan 05/14/21 11:31 Completed XR chest 1V portable [id number] Urgent Exams 05/14/21 11:31 Completed XR femur RT min 2V* [id number] Urgent Exams 05/14/21 11:31 Completed XR hip RT 1V wo/w pel [id number] Routine Exams 05/15/21 18:22 Completed XR hip RT 2-3V wo/w pel* [id number] Urgent Exams 05/14/21 11:31 Completed XR knee RT 1-2V [id number] Urgent Exams 05/14/21 11:31 Completed Pending at discharge Category Date Time Status Vitamin D 1,25 Dihydroxy DAILY Lab 05/15/21 10:20 Received Radiology Impressions Chest X-Ray 05/14/21 11:31 IMPRESSION: No acute abnormality identified. Femur X-Ray 05/14/21 11:31 IMPRESSION: Right hip fracture as above. Hip/Pelvis X-Ray 05/14/21 11:31 IMPRESSION: Right hip fracture. Knee X-Ray 05/14/21 11:31 IMPRESSION: Joint effusion. Soft tissue injury. No bony or joint abnormality. Hip X-Ray 05/15/21 18:22 IMPRESSION: Total right hip arthroplasty without abnormality. Laboratory Results WBC 11.0 10^3/uL (4.0-10.0) H 05/17/21 04:39 RBC 3.03 10^6/uL (4.1-5.3) L 05/17/21 04:39 Hgb 9.5 g/dL (11.7-16.6) L 05/17/21 04:39 Hct 28.7 % (42.0-52.0) L 05/17/21 04:39 MCV 94.7 fl (80-94) H 05/17/21 04:39 MCH 31.4 pg (28.0-34.0) 05/17/21 04:39 MCHC 33.1 g/dL (30.0-36.0) 05/17/21 04:39 RDW 14.1 % (12.1-15.1) 05/17/21 04:39 Plt Count 145 10^3/cmm (130-400) 05/17/21 04:39 MPV 10.3 fL (7.4-10.4) 05/17/21 04:39 Neut % (Auto) 66.5 % 05/17/21 04:39 Lymph % (Auto) 13.4 % 05/17/21 04:39 [place] % (Auto) 17.0 % 05/17/21 04:39 Eos % (Auto) 2.1 % 05/17/21 04:39 Baso % (Auto) 0.4 % 05/17/21 04:39 Neut # (Auto) 7.29 10^3/uL (1.8-7.7) 05/17/21 04:39 Lymph # (Auto) 1.5 10^3/uL (0.8-4.8) 05/17/21 04:39 [place] # (Auto) 1.9 10^3/uL (0.2-0.9) H 05/17/21 04:39 Eos # (Auto) 0.2 10^3/uL (0.0-0.8) 05/17/21 04:39 Baso # (Auto) 0.0 10^3/uL (0.0-0.1) 05/17/21 04:39 Nucleated RBC % (auto) 0 % 05/17/21 04:39 Nucleated RBCs # 0.0 /100WBC 05/17/21 04:39 PT 13.40 SECONDS (12.1-14.9) 05/14/21 15:56 INR 0.99 (0.8-1.2) 05/14/21 15:56 APTT 31.7 SECONDS (23.9-36.7) 05/14/21 15:56 Sodium 132 mmol/L (136-145) L 05/17/21 04:39 Potassium 4.1 mmol/L (3.5-5.1) 05/17/21 04:39 Chloride 99 mmol/L (98-107) 05/17/21 04:39 Carbon Dioxide 24 mmol/L (22-29) 05/17/21 04:39 Anion Gap 13.1 (5-19) 05/17/21 04:39 BUN 18 mg/dL (8-23) 05/17/21 04:39 Creatinine 0.5 mg/dL (0.7-1.2) L 05/17/21 04:39 GFR Calculation 166.9 mL/min (90-130) H 05/17/21 04:39 Glucose 109 mg/dL (65-115) 05/17/21 04:39 Calculated Osmolality 276 mOsm/kg (285-295) L 05/17/21 04:39 Calcium 8.1 mg/dL (8.5-10.5) L 05/17/21 04:39 Total Bilirubin 0.3 mg/dL (0.15-1.2) 05/14/21 11:38 AST 15 U/L (0-40) 05/14/21 11:38 ALT 14 U/L (0-41) 05/14/21 11:38 Alkaline Phosphatase 57 IU/L (40-130) 05/14/21 11:38 Ammonia 48 umol/L (16-60) 05/14/21 11:38 Creatine Kinase 197 U/L (39-308) 05/14/21 11:38 Troponin T Baseline 33 ng/L (0-15) H 05/14/21 11:38 Troponin T 120 Minute 32.74 ng/L (0-15) H 05/14/21 13:38 Delta Troponin T -0.26 ABS# (0-10) L 05/14/21 13:38 Troponin T Hi Sens 6Hr 37.61 ng/L (0-15) H 05/14/21 17:39 Troponin T Hi Sens 6Hr Delta 4.61 ng/L (0-12) 05/14/21 17:39 Total Protein 6.1 g/dL (6.6-8.7) L 05/14/21 11:38 Albumin 3.5 g/dL (3.5-5.2) 05/14/21 11:38 Globulin 2.6 g/dL (1.3-4.6) 05/14/21 11:38 Lipase 22 U/L (13-60) 05/14/21 11:38 Urine Color Yellow (Yellow) 05/14/21 12:56 Urine Appearance Sl hazy (CLEAR) 05/14/21 12:56 Urine pH 6.5 (5-7) 05/14/21 12:56 Ur Specific Rosamond 1.015 (1.005-1.030) 05/14/21 12:56 Urine Protein Neg (Negative) 05/14/21 12:56 Urine Glucose (UA) Norm (Normal) 05/14/21 12:56 Urine Ketones Negative (Negative) 05/14/21 12:56 Urine Blood 3+ (Negative) H 05/14/21 12:56 Urine Nitrate Negative (Negative) 05/14/21 12:56 Urine Bilirubin Neg (Negative) 05/14/21 12:56 Urine Urobilinogen Norm mg/dL (Negative) 05/14/21 12:56 Ur Leukocyte Esterase 2+ (Negative) H 05/14/21 12:56 Urine RBC 25-40 /hpf (0-2) H 05/14/21 12:56 Urine WBC 15-25 /hpf (0-5) H 05/14/21 12:56 Ur Squamous Epith Cells 0-4 /hpf (0-5) H 05/14/21 12:56 Amorphous Sediment Not Reportable 05/14/21 12:56 Urine Bacteria 1+ /hpf (NONE) H 05/14/21 12:56 Urine Mucus 3+ /hpf 05/14/21 12:56 SARS-CoV-2 Ag (Rapid) Negative (Negative) 05/17/21 10:10 Blood Type A Positive 05/14/21 16:03 Rho(D) Type Positive 05/14/21 16:03 Antibody Screen Negative 05/14/21 16:03 Vitals Last Vital Signs Temp 98.1 F 05/17/21 12:00 Pulse 65 05/17/21 12:00 Resp 18 05/17/21 12:00 BP 99/59 05/17/21 12:00 Pulse Ox 96 05/17/21 12:00 Discharge Plan Discharge Patient Disposition: Xfer SNF Condition: Stable Prescriptions: New aspirin 325 mg capsule 325 mg PO DAILY Qty: 30 0RF oxycodone 10 mg tablet 10 mg PO Q8H PRN (Reason: pain) Qty: 20 0RF Senna-S 8.6-50 mg tablet 1 tab-cap PO DAILY Qty: 30 0RF Continued ibuprofen 800 mg tablet See Rx Instructions .ROUTE .COMPLEX Qty: 90 5RF Dose Instruction: TAKE ONE TABLET BY MOUTH THREE TIMES DAILY Rx Instructions: 800mg po bid@06:00,18:00 and may take one tab prn Marinaztri Aerosphere 160-9-4.8 mcg/actuation HFA aerosol inhaler 2 inh INHALATION BID 0RF propranolol 10 mg tablet 10 mg PO BID@,21 0RF lorazepam 0.5 mg tablet 0.5 mg PO BEDTIME@21 0RF tamsulosin 0.4 mg capsule 0.8 mg PO BEDTIME@21 0RF simvastatin 20 mg tablet 20 mg PO DAILY@21 0RF Depakote ER 500 mg tablet extended release 24 hr 500 mg PO BEDTIME@21 0RF folic acid 1 mg tablet 1 mg PO DAILY@06 0RF Abilify 10 mg tablet 10 mg PO DAILY@06 0RF Discontinued aspirin [Adult Low Dose Aspirin] 81 mg tablet,delayed release (DR/EC) 81 mg PO DAILY@06 0RF Discharge Orders: Discharge Order (Routine); Ordered 05/17/21 Ordered By: Angelika Benitez Referrals: EBONY Garvin FNP [Primary Care Provider] - 05/25/21 9:30 am Shawn Yates MD [Physician] - 06/20/21 8:00 am Discharge Diet: Cardiac Discharge Activity: As per PT/OT instructions Patient Instructions: Aspirin (By mouth) (Nancy Extra Strength, Nancy Aspirin Children's,..., Oxycodone, Rapid Release (By mouth) (ETH-Oxydose, Oxy IR,..., Laxative, Stimulant Combination (By mouth) (Maria De Jesus-Colace, Doc-Q-Lax,..., Deep Vein Thrombosis Prevention (DC), Opioid Safety Activity Restrictions/Additional Instructions: OK to shower. WBAT Right lower extremity Discharge Attestations Time Spent in Discharge Care*: less than 30 min Quality Metrics Clinical Quality Measures [ No reported AMI, CVA or VTE this stay] Coding Level of Care Code Acute Chg FW DC note Diagnoses Status post right hip replacement Z96.641
[2021-05-18 11:07] LABS: Vit D 1,25 (Oh)2, Total 27 pg/mL (18-72); Vit D2 1,25 (Oh)2 <8 pg/mL; Vit D3 1,25 (Oh)2 27 pg/mL
== END 2021-05-17 14:31 | disposition home health service (06) | DRG 522 ==
LOC: ER 13:48 → MEDSURG 14:56
PROVIDERS: Orthopaedic Surgery; Admitting Provider Hospitalist; Emergency Provider Emergency Medicine; PCP Nurse Practitioner Family; Visit Provider Internal Medicine
PROC: 0SRR0JA Replacement of Right Hip Joint, Femoral Surface with Synthetic Substitute, Uncemented, Open Approach (ICD-10-PCS; CPT 27125; principal; 2021-05-15 12:00)
DX: S72.141A Displaced intertrochanteric fracture of right femur, initial encounter for closed fracture (principal); D62 Acute posthemorrhagic anemia; W19.XXXA Unspecified fall, initial encounter; I10 Essential (primary) hypertension; R41.0 Disorientation, unspecified; F17.210 Nicotine dependence, cigarettes, uncomplicated; E78.2 Mixed hyperlipidemia; J43.1 Panlobular emphysema; N40.0 Benign prostatic hyperplasia without lower urinary tract symptoms; G25.71 Drug induced akathisia; F20.9 Schizophrenia, unspecified; R82.90 Unspecified abnormal findings in urine; E55.9 Vitamin D deficiency, unspecified
CPT/HCPCS: 36415; 51702; 70450; 71045; 73501; 73502; 73552; 73560; 80048; 80053; 81001; 82140; 82550; 82652; 83690; 84484; 85025; 85610; 85730; 86850; 86900; 87086; 87426; 93005; 94640; 96365; 96375; 97110; 97116; 97161; 97166; 99285; C1776; J0690; J0696; J1580; J2250; J2270; J2704; J2710; J3010; J3490; J7030; J7611; J7626

== ENCOUNTER → 2021-06-08 08:26 | Outpatient (BNVA) | payer MEDICARE, SELFPAY | PROVIDERS: PCP Nurse Practitioner; Visit Provider Nurse Practitioner Psychiatric/Mental Health | DX: F20.9 Schizophrenia, unspecified (principal); F17.210 Nicotine dependence, cigarettes, uncomplicated; G25.71 Drug induced akathisia; Z79.899 Other long term (current) drug therapy | CPT/HCPCS: 99214 ==

== ENCOUNTER → 2021-06-20 07:59 | Outpatient (BNVA) | payer MEDICARE, SELFPAY | PROVIDERS: PCP Nurse Practitioner; Visit Provider Orthopaedic Surgery | DX: Z96.641 Presence of right artificial hip joint (principal) | CPT/HCPCS: 73502 ==

== ENCOUNTER → 2021-08-07 11:17 | Outpatient (BNVA) | payer MEDICARE, SELFPAY | PROVIDERS: PCP Nurse Practitioner; Visit Provider Orthopaedic Surgery | DX: Z96.641 Presence of right artificial hip joint (principal) | CPT/HCPCS: 99024 ==

== ENCOUNTER 2021-08-19 15:35 | Emergency (ER) | payer MEDICARE, MEDICAID, SELFPAY ==
[2021-08-19] VITALS (7 sets, daily range): BP systolic 141–177; BP diastolic 85–102; PULSE 48–155; RESP 16; TEMP 36.8; O2SAT 95–100
--- NOTE | 2021-08-19 15:59 | ECG_ITS ---
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 Measurements Intervals Sabine Rate: 46 P: 56 NC: 165 QRS: 51 QRSD: 92 T: 45 QT: 450 QTc: 396 Interpretive Statements SINUS BRADYCARDIA Compared to ECG 05/14/2021 13:59:25 Sinus rhythm no longer present ST (T wave) deviation no longer present Electronically Signed On 08-19-2021 23:35:00 CDT by Juan Wilde M.D. [id number]
--- NOTE | 2021-08-19 15:59 | XRR_ITS ---
PROCEDURE INFORMATION: Exam: XR Chest Exam date and time: 08/19/2021 4:06 PM Age: 65 years old Clinical indication: Angina; Additional info: Cp TECHNIQUE: Imaging protocol: Radiologic exam of the chest. Views: 1 view. COMPARISON: CR XR chest 1V portable [id number] 05/14/2021 12:05 PM FINDINGS: Lungs: Unremarkable. No consolidation. Pulmonary vascularity is within normal limits. Pleural spaces: Unremarkable. No pleural effusion. No pneumothorax. Heart/Mediastinum: Unremarkable. No cardiomegaly. Bones/joints: No acute abnormality. Unchanged scoliosis and moderate degenerative changes in the spine. XR/XR chest 1V portable [id number] IMPRESSION: No acute findings.
--- NOTE | 2021-08-19 16:02 | ED_ITS ---
HPI - General Adult General: Chief complaint: Airway/Esophagus Foreign Body Stated complaint: CHOKING EPISODE; 3 MIN OF CPR Time Seen by Provider: 08/19/21 15:55 Source: patient and EMS Mode of arrival: EMS Limitations: no limitations History of Present Illness: 65-year-old male [facility] that has extensive history but states that he does have difficulty swallowing at times and has choking episodes he had a choking episode today there had a states that he became unresponsive and did CPR for short amount of time they are unsure if he ever actually lost pulses he woke up and since has been woken up he has been back at his baseline. Patient came by a months EMS states the whole time they had him he was awake alert answering all my questions appropriately. Patient denies any pain denies any vomiting he is swallowing appropriately currently is able to drink water. Associated symptoms: Deny chest pain, dyspnea, headache(s), nausea, rash or vomiting Review of Systems Const: Denies: fever(s), chills, body aches or change in appetite Eyes: Denies: blurry vision or eye discomfort ENMT: Denies: throat pain or dental pain Card: Denies: chest pain Resp: Denies: dyspnea GI: Denies: abdominal pain, nausea, vomiting or diarrhea : Denies: dysuria Musc: Denies: neck pain or back pain Skin/Breast: Denies: rash Neuro: Denies: headache(s) Psych: Denies: depression Casey/Lymph: Denies: easy bruising All/Imm: Denies: urticaria PFSH ED PFSH: Medical History Abnormal urinalysis Anemia Bacterial UTI BPH (benign prostatic hyperplasia) Chronic schizophrenia COPD (chronic obstructive pulmonary disease) COVID-19 vaccine administered J&J plus an mRNA booster per patient report Essential hypertension History of PFTs 05/31 severe airflow obstruction, normal gas exchange, decreased FVC, FEV1 40%, FEVI/FVC reduced Mixed hyperlipidemia Nicotine dependence, cigarettes, uncomplicated On valproate therapy Psychiatric care Tardive akathisia Vitamin D deficiency Surgical History No pertinent past surgical history No prior surgical history reported 05/14/2021 Family History Denies family history of CAD (coronary artery disease) Anesthesia complication Bleeding disorder Social History Smoking and tobacco status: former smoker Quit status (tobacco): has quit using tobacco Year quit tobacco: 2021 Former quit date comment: 1.5ppd x 51 year Hx Second hand smoke exposure: Yes Alcohol intake: former Caregiver/support person: Yes Lives independently: No Household members: other Details: Resides at [facility] care facility Housing: Assisted Living Facility Marital status: Single service: No Current occupational status: disabled Pets and animals: Yes Current gender identity: Male Physical Exam Const: COMMON NORMALS: no acute distress, patient oriented x3 and healthy ap pearing HENMT: COMMON NORMALS: normocephalic and atraumatic HEAD & SCALP: normocephalic and atraumatic Eye: COMMON NORMALS: Equal, round and reactive pupils present and EOMs intact bilaterally PUPIL: Yes Equal, round and reactive pupils present Neck/C-Spine: COMMON NORMALS: full ROM and supple Chest: COMMONS NORMALS: normal inspection of the chest and normal palpation of entire chest wall Resp: COMMON NORMALS: normal respiratory effort, No retractions, No use of accessory muscles and clear to auscultation bilaterally AUSCULTATION: clear to auscultation bilaterally Cardio: COMMON NORMALS: regular rate, regular rhythm and No murmurs present (Cardio) RATE: regular rate RHYTHM: regular rhythm GI: COMMON NORMALS: Normal to inspection, nondistended, normoactive bowel sounds present, Soft to palpation, non-tender and no masses PALPATION: Yes Soft to palpation Extremity: COMMON NORMALS: normal to inspection and full ROM Neuro: COMMON NORMALS: patient oriented x3, moves all extremities and no focal motor deficits Psych: COMMON NORMALS: mental status grossly normal, Normal thought process pr esent and cooperative THOUGHT PROCESS: Normal thought process present Skin: COMMON NORMALS: no rashes or lesions noted and no wounds GENERAL SKIN EXAM: no rashes or lesions noted Course Vital Signs: Vital signs: Vital Signs Temperature 98.2 F 08/19/21 15:53 Pulse Rate 49 L 08/19/21 15:53 Respiratory Rate 16 08/19/21 15:53 Pulse Oximetry 96 08/19/21 15:53 MDM - General Adult Medical Decision Making Patient presents with a ch[facility] episode [facility] he did become unresponsive there they did perform CPR but never had a loss of pulses he has been awake and alert here answering all my questions appropriately. I did offer him admission since he had this unresponsive event he states he feels improved and he wants to go back to the penitentiary his lab work and x-rays here are normal I did at discharge speak to him again and offered him admission which he states he wants to go back to the penitentiary I feel he stable at this time. Lab Data : 08/19/21 14:20 08/19/21 14:20 Radiology Impressions Chest X-Ray 08/19/21 15:59 IMPRESSION: No acute findings. KUB X-Ray 08/19/21 16:21 IMPRESSION: 1. The patient is extremely constipated with a very large amount of stool throughout the colon except for the rectum. 2. No ileus or obstruction. Laboratory Results WBC 7.7 10^3/uL (4.0-10.0) 08/19/21 14:20 RBC 3.95 10^6/uL (4.1-5.3) L 08/19/21 14:20 Hgb 12.2 g/dL (11.7-16.6) 08/19/21 14:20 Hct 36.9 % (42.0-52.0) L 08/19/21 14:20 MCV 93.4 fl (80-94) 08/19/21 14:20 MCH 30.9 pg (28.0-34.0) 08/19/21 14:20 MCHC 33.1 g/dL (30.0-36.0) 08/19/21 14:20 RDW 13.7 % (12.1-15.1) 08/19/21 14:20 Plt Count 184 10^3/cmm (130-400) 08/19/21 14:20 MPV 10.4 fL (7.4-10.4) 08/19/21 14:20 Neut % (Auto) 53.4 % 08/19/21 14:20 Lymph % (Auto) 31.9 % 08/19/21 14:20 [place] % (Auto) 7.8 % 08/19/21 14:20 Eos % (Auto) 4.4 % 08/19/21 14:20 Baso % (Auto) 0.9 % 08/19/21 14:20 Neut # (Auto) 4.11 10^3/uL (1.8-7.7) 08/19/21 14:20 Lymph # (Auto) 2.5 10^3/uL (0.8-4.8) 08/19/21 14:20 [place] # (Auto) 0.6 10^3/uL (0.2-0.9) 08/19/21 14:20 Eos # (Auto) 0.3 10^3/uL (0.0-0.8) 08/19/21 14:20 Baso # (Auto) 0.1 10^3/uL (0.0-0.1) 08/19/21 14:20 Nucleated RBC % (auto) 0 % 08/19/21 14:20 Nucleated RBCs # 0.0 /100WBC 08/19/21 14:20 Sodium 129 mmol/L (136-145) L 08/19/21 14:20 Potassium 4.6 mmol/L (3.5-5.1) 08/19/21 14:20 Chloride 93 mmol/L (98-107) L 08/19/21 14:20 Carbon Dioxide 21 mmol/L (22-29) L 08/19/21 14:20 Anion Gap 19.6 (5-19) H 08/19/21 14:20 BUN 10 mg/dL (8-23) 08/19/21 14:20 Creatinine 0.6 mg/dL (0.7-1.2) L 08/19/21 14:20 GFR Calculation 135.2 mL/min (90-130) H 08/19/21 14:20 Glucose 181 mg/dL (65-115) H 08/19/21 14:20 Calculated Osmolality 272 mOsm/kg (285-295) L 08/19/21 14:20 Calcium 8.2 mg/dL (8.5-10.5) L 08/19/21 14:20 Total Bilirubin 0.3 mg/dL (0.15-1.2) 08/19/21 14:20 AST 75 U/L (0-40) H 08/19/21 14:20 ALT 78 U/L (0-41) H 08/19/21 14:20 Alkaline Phosphatase 115 IU/L (40-130) 08/19/21 14:20 Troponin T Baseline 35 ng/L (0-15) H 08/19/21 14:20 Total Protein 6.9 g/dL (6.6-8.7) 08/19/21 14:20 Albumin 4.1 g/dL (3.5-5.2) 08/19/21 14:20 Globulin 2.8 g/dL (1.3-4.6) 08/19/21 14:20 EKG Data EKG 1: I personally reviewed and interpreted this EKG as follows: EKG interpretation date: 08/19/21 EKG interpretation time: 13:21 Interpretation: sinus jackelyn hr [address] or t wave abnormalities qrs 92 qtc 409 Computer generated interpretation: Chest X-Ray 08/19/21 15:59 IMPRESSION: No acute findings. KUB X-Ray 08/19/21 16:21 IMPRESSION: 1. The patient is extremely constipated with a very large amount of stool throughout the colon except for the rectum. 2. No ileus or obstruction. Discharge Plan Discharge Patient Disposition: Home Clinical Impression: Choking episode Condition: Stable Prescriptions: No Action propranolol 10 mg tablet 10 mg PO BID Qty: 60 3RF Breztri Aerosphere 160-9-4.8 mcg/actuation HFA aerosol inhaler 2 inh INHALATION BID 0RF lorazepam 0.5 mg tablet 0.5 mg PO BEDTIME@21 0RF tamsulosin 0.4 mg capsule 0.8 mg PO BEDTIME@21 0RF simvastatin 20 mg tablet 20 mg PO DAILY@21 0RF folic acid 1 mg tablet 1 mg PO DAILY@06 0RF aspirin 325 mg capsule 325 mg PO DAILY Qty: 30 0RF ibuprofen 800 mg tablet 800 mg PO TID 0RF Abilify 10 mg tablet 10 mg PO DAILY 0RF Discharge Orders: Discharge ED (Routine); Ordered 08/19/21 Ordered By: Johan Scott Referrals: Bernadette Spears FNP [Primary Care Provider] - 1-3 days Discharge Diet: Advance as tolerated Discharge Activity: Resume usual activity Patient Instructions: Choking Coding Level of Care Code ED Personal Care Aide for Chg Fwd Exam Comprehensive
[2021-08-19 16:20] LABS: Basophils # 0.1 10^3/uL (0.0-0.1); Basophils % 0.9 %; Eosinophils # 0.3 10^3/uL (0.0-0.8); Eosinophils % 4.4 %; Hematocrit 36.9 % (42.0-52.0); Hemoglobin 12.2 g/dL (11.7-16.6); Lymphocytes # 2.5 10^3/uL (0.8-4.8); Lymphocytes % 31.9 %; Mean Corpuscular HGB Conc 33.1 g/dL (30.0-36.0); Mean Corpuscular Hemoglobin 30.9 pg (28.0-34.0); Mean Corpuscular Volume 93.4 fl (80-94); Mean Platelet Volume 10.4 fL (7.4-10.4); Monocytes # 0.6 10^3/uL (0.2-0.9); Monocytes % 7.8 %; Neutrophils # 4.11 10^3/uL (1.8-7.7); Neutrophils % 53.4 %; Nucleated Red Blood Cells % 0 %; Platelet Count 184 10^3/cmm (130-400); Red Blood Count 3.95 10^6/uL (4.1-5.3); Red Cell Distribution Width 13.7 % (12.1-15.1); White Blood Count 7.7 10^3/uL (4.0-10.0)
--- NOTE | 2021-08-19 16:21 | XRR_ITS ---
PROCEDURE INFORMATION: Exam: XR Abdomen Exam date and time: 08/19/2021 4:25 PM Age: 65 years old Clinical indication: Other: Chocking; Additional info: Choking TECHNIQUE: Imaging protocol: Radiologic exam of the abdomen. Views: Frontal supine view of the abdomen. 1 View. COMPARISON: CR (CHEST, ) 08/19/2021 4:06 PM FINDINGS: Gastrointestinal tract: The patient is extremely constipated with a very large amount of stool throughout the colon except for the rectum. The stomach is moderately distended with air. No dilated loops of small bowel. No ileus or obstruction. Bones/joints: Moderate degenerative changes in the spine and pelvis are noted. There is a satisfactory appearance of the right hip arthroplasty. Soft tissues: No foreign bodies. Other findings: No calculi. XR/XR KUB [id number] IMPRESSION: 1. The patient is extremely constipated with a very large amount of stool throughout the colon except for the rectum. 2. No ileus or obstruction.
[2021-08-19 17:02] LABS: Alanine Aminotransferase 78 U/L (0-41); Albumin Level 4.1 g/dL (3.5-5.2); Alkaline Phosphatase 115 IU/L (40-130); Anion Gap 19.6 (5-19); Aspartate Amino Transferase 75 U/L (0-40); Blood Urea Nitrogen 10 mg/dL (8-23); Calcium 8.2 mg/dL (8.5-10.5); Carbon Dioxide 21 mmol/L (22-29); Chloride 93 mmol/L (98-107); Globulin 2.8 g/dL (1.3-4.6); Glomerular Filtration Rate 135.2 mL/min (90-130); Glucose 181 mg/dL (65-115); Osmolality Calculated 272 mOsm/kg (285-295); Potassium 4.6 mmol/L (3.5-5.1); Sodium 129 mmol/L (136-145); Total Bilirubin 0.3 mg/dL (0.15-1.2); Total Protein 6.9 g/dL (6.6-8.7)
[2021-08-19 17:05] LABS: Troponin(5th) Baseline 35 ng/L (0-15)
[2021-08-19 18:05] LABS: INR 1.05 (0.8-1.2)
[2021-08-19 18:10] LABS: Troponin 5 2HR 80.88 ng/L (0-15)
[2021-08-19 18:30] LABS: Troponin 5 2HR Delta 45.88 ABS# (0-10)
== END 2021-08-19 19:24 | disposition home or self-care (01) ==
PROVIDERS: Emergency Provider Emergency Medicine; PCP Nurse Practitioner
DX: R09.89 Other specified symptoms and signs involving the circulatory and respiratory systems (principal); Z79.82 Long term (current) use of aspirin; J44.9 Chronic obstructive pulmonary disease, unspecified; I10 Essential (primary) hypertension; E78.2 Mixed hyperlipidemia; Z87.891 Personal history of nicotine dependence
CPT/HCPCS: 71045; 74018; 80053; 84484; 85025; 85610; 93005; 99285

== ENCOUNTER 2021-09-05 10:52 | Outpatient (CLI) | payer MEDICARE, SELFPAY ==
--- NOTE | 2021-09-05 11:00 | FL_ITS ---
WS: [id number] Exam: FL barium swallow modifd [id number] Date/Time of Exam: 09/05/2021 11:07 AM Reason For Exam: R09.89 - Other specified symptoms and signs involving the... Fluoroscopy time: 2.5 minutes # of spot films: 1 Modified barium swallow was performed in conjunction with the speech therapy service. The patient experienced several episodes of the penetration into the laryngeal inlet when ingesting t hin liquid barium solutions. The patient tolerated thick liquid, nectar consistency and pudding consi stency barium foodstuffs without aspiration or penetration. The patient tolerated solid barium mixtur e foodstuffs and a barium tablet without complication. No aspiration was noted during the exam. FL/FL barium swallow modifd [id number] IMPRESSION: 1. The patient experienced laryngeal penetration when ingesting thin liquid bar ium. No other significant finding on this exam. A separate report of recommendations and findings will follow from the speech t herapy service.
== END 2021-09-05 10:53 | disposition home or self-care (01) ==
LOC: RAD 10:53
PROVIDERS: PCP Nurse Practitioner; Visit Provider Nurse Practitioner
DX: R09.89 Other specified symptoms and signs involving the circulatory and respiratory systems (principal); R13.10 Dysphagia, unspecified
CPT/HCPCS: 74230; 92611

== ENCOUNTER 2021-09-19 06:00 | Outpatient (RCR) | payer MEDICARE, MEDICAID, SELFPAY | END 2021-10-10 23:59 | disposition home or self-care (01) | LOC: WST 06:00 | PROVIDERS: PCP Nurse Practitioner; Referring Provider Nurse Practitioner; Visit Provider Nurse Practitioner | DX: R13.12 Dysphagia, oropharyngeal phase (principal) | CPT/HCPCS: 92526; 92610 ==

== ENCOUNTER → 2021-10-09 14:39 | Outpatient (BNVA) | payer MEDICARE, SELFPAY | PROVIDERS: PCP Nurse Practitioner; Visit Provider Nurse Practitioner | DX: R05.9 Cough, unspecified (principal); Z20.822 Contact with and (suspected) exposure to COVID-19 | CPT/HCPCS: 87426 ==

== ENCOUNTER 2021-10-11 06:00 | Outpatient (RCR) | payer MEDICARE, SELFPAY | END 2021-11-09 23:59 | disposition home or self-care (01) | LOC: WST 06:00 | PROVIDERS: PCP Nurse Practitioner; Visit Provider Nurse Practitioner | DX: R13.12 Dysphagia, oropharyngeal phase (principal) | CPT/HCPCS: 92526 ==

== ENCOUNTER → 2022-02-08 12:04 | Outpatient (BNVA) | payer MEDICARE, SELFPAY | PROVIDERS: PCP Nurse Practitioner; Visit Provider Nurse Practitioner | DX: I10 Essential (primary) hypertension (principal); Z79.899 Other long term (current) drug therapy; N39.0 Urinary tract infection, site not specified; Z00.00 Encounter for general adult medical examination without abnormal findings | CPT/HCPCS: 80053; 80061; 81000; 84443; 85025 ==

== ENCOUNTER 2022-02-12 08:24 | Inpatient (IN) | payer MEDICARE, MEDICAID, SELFPAY ==
--- NOTE | 2022-02-12 08:30 | XR_ITS ---
WS: [id number] Right hip, 2 views, AP pelvis, 02/12/2022 Clinical Data: pain Comparison: Pelvis and right hip, 06/20/2021 Findings: There is a left femoral neck fracture. The left femoral head remains within the acetabulum. The right hip arthroplasty remains in good position. There is no loosening or periprosthetic fracture s. The pelvis is unremarkable. XR/XR hip RT 2-3V wo/w pel* [id number] Impression: 1. Left femoral neck fracture. 2. Stable right hip arthroplasty.
[2022-02-12 08:32] VITALS: RESP 18; TEMP 36.4; O2SAT 97
--- NOTE | 2022-02-12 08:36 | W.ED.FALL ---
Documented by User: LLUVIA Gabriel 02/12/22 12:08 HPI - Fall General: Chief Complaint: Fall Stated Complaint: Hip Pain Time Seen by Provider: 02/12/22 08:29 Source: patient and EMS Mode of arrival: EMS Limitations: other (baseline dementia) History of Present Illness: Patient is a 66-year-old male who presents to ED today from [facility] living [facility] in [place], [place] for evaluation following a fall. According to EMS report patient fell out of a chair onto his right hip and is complaining of hip pain. Report states that patient has had a prior right hip replacement. Patient himself seems to have baseline dementia and overall is a poor historian. There is no report of patient striking his head or LOC. Patient is able to point to his right hip when I ask him where he hurts. He does not complain of pain elsewhere. I had staff contact the [facility] directly who tells me a different report. They state patient apparently had a fall while in his room yesterday evening it was unwitnessed. Nursing report states that they found patient on the floor in his room. He was apparently able to ambulate and get up following the fall. They state this morning when they went to change patient (he is chronically incontinent) they found that he was not wanting to bear weight on his right hip but was able to bear full weight on his left leg thus called an ambulance. They do confirm that patient is at his normal mental baseline. After looking at patient's AP pelvis and seeing he has a left femoral neck fracture I am understandably baffled by this history. I had nursing staff contact the [facility] (which later to find this is an assisted living facility) to AGAIN clarify. They now are telling me this morning patient refused to bear weight on either extremity during his morning brief change but did complain of right hip pain. complaint: fall Onset (ago): hour(s) Fall from: chair Fall witnessed: yes, by living facility staff Place fall occurred: [facility] Loss of consciousness: None Prolonged down time: no Symptoms prior to fall: none Location of injury: other (R hip) Associated symptoms-after fall: Reports no associated symptoms; Denies abdominal pain, chest pain, headache(s) or neck pain Review of Systems General: Reports: Other (ROS thought to be fairly inaccurate given his baseline mental status ) Const: Denies: fever(s), chills, body aches, fatigue or malaise Card: Denies: chest pain Resp: Denies: dyspnea GI: Denies: abdominal pain : Reports: other (chronically incontinent) Musc: Reports: joint pain; Denies: neck pain, back pain, extremity pain or extremity swelling Skin/Breast: Denies: rash Neuro: Denies: headache(s) or dizziness PFSH ED PFSH: Medical History (Updated 02/13/22 @ 06:03 by Orville Oh DO) Abnormal urinalysis Anemia Bacterial UTI BPH (benign prostatic hyperplasia) Chronic schizophrenia COPD (chronic obstructive pulmonary disease) COVID-19 vaccine administered J&J plus an mRNA booster per patient report Essential hypertension History of PFTs 05/31 severe airflow obstruction, normal gas exchange, decreased FVC, FEV1 40%, FEVI/FVC reduced Mixed hyperlipidemia Nicotine dependence, cigarettes, uncomplicated On valproate therapy Psychiatric care Tardive akathisia Vitamin D deficiency Surgical History History of hip replacement, total No pertinent past surgical history No prior surgical history reported 05/14/2021 Family History Denies family history of CAD (coronary artery disease) Anesthesia complication Bleeding disorder Social History (Updated 02/12/22 @ 12:40 by Jan Calvert MD) Smoking and tobacco status: former smoker Quit status (tobacco): has quit using tobacco Year quit tobacco: 2021 Former quit date comment: 1.5ppd x 51 year Hx Second hand smoke exposure: Yes Alcohol intake: former Caregiver/support person: Yes Lives independently: No Household members: other Details: Resides at [facility] residential care facility Housing: Assisted Living Facility Marital status: Single service: No Current occupational status: disabled Pets and animals: Yes Current gender identity: Male Physical Exam Const: COMMON NORMALS: no acute distress, no limitations and alert GENERAL APPEARANCE: cooperative ORIENTATION/CONSCIOUSNESS: Yes awake and Yes oriented to person OTHER: baseline dementia/cognitive slowing-[facility] states patient is at his baseline; he can tell me name/; believes he is in [place], [place]; he tells me he is normally able to shower and feed himself in his assisted living facility chronic tremor HENMT: COMMON NORMALS: normocephalic and atraumatic HEAD & SCALP: normal to inspection, normocephalic and atraumatic FACE & SINUS: normal facial exam Neck/C-Spine: GENERAL: Yes normal visual inspection CERVICAL SPINE: No pain with cervical ROM, No Cervical spine tenderness and No step off deformity Chest: COMMONS NORMALS: normal inspection of the chest and normal palpation of entire chest wall Resp: COMMON NORMALS: normal respiratory effort and clear to auscultation bilaterally AUSCULTATION: clear to auscultation bilaterally Cardio: COMMON NORMALS: regular rate and regular rhythm RATE: regular rate RHYTHM: regular rhythm GI: COMMON NORMALS: Normal to inspection, nondistended, normoactive bowel sounds present, Soft to palpation and non-tender PALPATION: Yes Soft to palpation Back/Pelvis: COMMON NORMALS: thoracic and lumbar spine normal to inspection, no thoracic nor lumbar tenderness and thoraco-lumbar ROM normal Extremity: COMMON NORMALS: capillary refill normal, no joint enlargement, no clubbing, cyanosis or edema, no calf tenderness and no pedal edema GENERAL: Yes normal exam except as noted OTHER: left LE is shortened and rotated however patient is able to flex at the hip joint (not fully)-there is some resistance/hesitancy (on first exam he reports zero pain here but on repeat exam he does tell me ROM is painful); he has full ROM of R hip Neuro: JEN COMA SCALE: document GCS findings Cody coma scale eye opening: Spontaneous Cody coma scale verbal response: Orientated Cody coma scale motor response: Obey commands Jen coma scale total score: 15 COMMON NORMALS: moves all extremities, no focal motor deficits and no sensory deficits noted SENSORIUM/ORIENTATION: Yes alert and Yes oriented to person Skin: TRAUMA: no lacerations or abrasions Course Consultations: Consultation #1: Dr. Yates-agrees with decision to admit to hospitalist with ortho to consult Vital Signs: Vital signs: Vital Signs Temperature 99.0 F 02/13/22 04:00 Pulse Rate 63 02/13/22 04:00 Respiratory Rate 16 02/13/22 04:00 Blood Pressure 109/62 02/13/22 04:00 Pulse Oximetry 98 02/13/22 04:00 Oxygen Delivery Me thod 02/13/22 04:00 Oxygen Flow Rate 1 02/12/22 14:06 MDM - Fall Medical Decision Making Patient has a surgical left femoral neck fracture. This was explained to him although his competence and understanding of this I feel is limited. Dr. Yates will consult on patient. Have contacted his legal guardian Edel Norton who gave verbal consent for treatment and surgery. Dr. Oh will see/evaluate and speak to hospitalist for admission. Lab Data 02/12/22 09:00 02/12/22 09:00 Radiology Impressions Chest X-Ray 02/12/22 08:40 Impression: Atherosclerosis. Cervical Spine CT 02/12/22 08:47 IMPRESSION: Advanced multilevel degenerative changes with spondylosis lower cervical spine. No acute abnormalities. Head CT 02/12/22 08:47 IMPRESSION: 1. No acute intracranial abnormalities. 2. Age-related cerebral white and baron matter changes. 3. Partial opacification left mastoid sinus, stable. Hip CT 02/12/22 09:14 IMPRESSION: 1. Acute appearing left femoral neck fracture. 2. Mild left hip and symphysis pubis primary osteoarthritic changes. 3. Left gluteus minimus muscle atrophy. 4. A partially calcified ovoid structure deep to the left rectus abdominus muscle possibly representing a benign calcified lymph node. As this structure is not fully imaged however, recommend non emergent CT of the pelvis for further evaluation. Hip/Pelvis X-Ray 02/12/22 09:14 Impression: Left femoral neck fracture. Laboratory Results WBC 9.5 10^3/uL (4.0-10.0) 02/12/22 09:00 RBC 3.68 10^6/uL (4.1-5.3) L 02/12/22 09:00 Hgb 11.5 g/dL (11.7-16.6) L 02/12/22 09:00 Hct 34.8 % (42.0-52.0) L 02/12/22 09:00 MCV 94.6 fl (80-94) H 02/12/22 09:00 MCH 31.3 pg (28.0-34.0) 02/12/22 09:00 MCHC 33.0 g/dL (30.0-36.0) 02/12/22 09:00 RDW 13.4 % (12.1-15.1) 02/12/22 09:00 Plt Count 168 10^3/cmm (130-400) 02/12/22 09:00 MPV 9.7 fL (7.4-10.4) 02/12/22 09:00 Neut % (Auto) 80.7 % 02/12/22 09:00 Lymph % (Auto) 10.5 % 02/12/22 09:00 [place] % (Auto) 7.3 % 02/12/22 09:00 Eos % (Auto) 0.7 % 02/12/22 09:00 Baso % (Auto) 0.5 % 02/12/22 09:00 Neut # (Auto) 7.64 10^3/uL (1.8-7.7) 02/12/22 09:00 Lymph # (Auto) 1.0 10^3/uL (0.8-4.8) 02/12/22 09:00 [place] # (Auto) 0.7 10^3/uL (0.2-0.9) 02/12/22 09:00 Eos # (Auto) 0.1 10^3/uL (0.0-0.8) 02/12/22 09:00 Baso # (Auto) 0.1 10^3/uL (0.0-0.1) 02/12/22 09:00 Nucleated RBC % (auto) 0 % 02/12/22 09:00 Nucleated RBCs # 0.0 /100WBC 02/12/22 09:00 Sodium 130 mmol/L (136-145) L 02/12/22 09:00 Potassium 4.8 mmol/L (3.5-5.1) 02/12/22 09:00 Chloride 96 mmol/L (98-107) L 02/12/22 09:00 Carbon Dioxide 26 mmol/L (22-29) 02/12/22 09:00 Anion Gap 12.8 (5-19) 02/12/22 09:00 BUN 19 mg/dL (8-23) 02/12/22 09:00 Creatinine 0.9 mg/dL (0.7-1.2) 02/12/22 09:00 GFR Calculation 84.4 mL/min (90-130) L 02/12/22 09:00 Glucose 82 mg/dL (65-115) 02/12/22 09:00 Calculated Osmolality 271 mOsm/kg (285-295) L 02/12/22 09:00 Calcium 9.4 mg/dL (8.5-10.5) 02/12/22 09:00 Total Bilirubin 0.3 mg/dL (0.15-1.2) 02/12/22 09:00 AST 21 U/L (0-40) 02/12/22 09:00 ALT 19 U/L (0-41) 02/12/22 09:00 Alkaline Phosphatase 103 U/L (40-130) 02/12/22 09:00 Creatine Kinase 172 U/L (39-308) 02/12/22 09:00 Troponin T Baseline 42 ng/L (0-15) H 02/12/22 09:00 Troponin T 120 Minute 36.81 ng/L (0-15) H 02/12/22 10:42 Delta Troponin T -5.19 ABS# (0-10) L 02/12/22 10:42 Total Protein 7.5 g/dL (6.6-8.7) 02/12/22 09:00 Albumin 3.9 g/dL (3.5-5.2) 02/12/22 09:00 Globulin 3.6 g/dL (1.3-4.6) 02/12/22 09:00 Urine Color Yellow (Yellow) 02/12/22 09:00 Urine Appearance Clear (CLEAR) 02/12/22 09:00 Urine pH 7 (5-7) 02/12/22 09:00 Ur Specific [place] 1.005 (1.005-1.030) 02/12/22 09:00 Urine Protein Neg (Negative) 02/12/22 09:00 Urine Glucose (UA) Norm (Normal) 02/12/22 09:00 Urine Ketones Negative (Negative) 02/12/22 09:00 Urine Blood Neg (Negative) 02/12/22 09:00 Urine Nitrate Negative (Negative) 02/12/22 09:00 Urine Bilirubin Neg (Negative) 02/12/22 09:00 Urine Urobilinogen Norm mg/dL (Negative) 02/12/22 09:00 Ur Leukocyte Esterase Negative (Negative) 02/12/22 09:00 Discharge Plan Discharge Patient Disposition: Admitted As Inpatient Admit Provider: Jan Calvert Clinical Impression: Closed fracture of neck of left femur, BPH (benign prostatic hyperplasia), Chronic schizophrenia, Essential hypertension, Anemia Condition: Stable Coding Level of Care Code ED Parts Room Associate for Chg Fwd Exam Comprehensive Documented by User: Orville hO DO 02/13/22 06:03 HPI - Fall General: Chief Complaint: Fall Stated Complaint: Hip Pain Time Seen by Provider: 02/12/22 08:29 PFSH ED PFSH: Medical History (Updated 02/13/22 @ 06:03 by Orville Oh DO) Abnormal urinalysis Anemia Bacterial UTI BPH (benign prostatic hyperplasia) Chronic schizophrenia COPD (chronic obstructive pulmonary disease) COVID-19 vaccine administered J&J plus an mRNA booster per patient report Essential hypertension History of PFTs 05/31 severe airflow obstruction, normal gas exchange, decreased FVC, FEV1 40%, FEVI/FVC reduced Mixed hyperlipidemia Nicotine dependence, cigarettes, uncomplicated On valproate therapy Psychiatric care Tardive akathisia Vitamin D deficiency Surgical History History of hip replacement, total No pertinent past surgical history No prior surgical history reported 05/14/2021 Family History Denies family history of CAD (coronary artery disease) Anesthesia complication Bleeding disorder Social History (Updated 02/12/22 @ 12:40 by Jan Calvert MD) Smoking and tobacco status: former smoker Quit status (tobacco): has quit using tobacco Year quit tobacco: 2021 Former quit date comment: 1.5ppd x 51 year Hx Second hand smoke exposure: Yes Alcohol intake: former Caregiver/support person: Yes Lives independently: No Household members: other Details: Resides at [facility] residential care facility Housing: Assisted Living Facility Marital status: Single service: No Current occupational status: disabled Pets and animals: Yes Current gender identity: Male Physical Exam Neuro: JEN COMA SCALE: document GCS findings Jen coma scale total score: 15 Course Vital Signs: Vital signs: Vital Signs Temperature 99.0 F 02/13/22 04:00 Pulse Rate 63 02/13/22 04:00 Respiratory Rate 16 02/13/22 04:00 Blood Pressure 109/62 02/13/22 04:00 Pulse Oximetry 98 02/13/22 04:00 Oxygen Delivery Me thod 02/13/22 04:00 Oxygen Flow Rate 1 02/12/22 14:06 MDM - Fall Medical Decision Making Patient has a surgical left femoral neck fracture. This was explained to him although his competence and understanding of this I feel is limited. Dr. Yates will consult on patient. Have contacted his legal guardian Edel Norton who gave verbal consent for treatment and surgery. Dr. Oh will see/evaluate and speak to hospitalist for admission. Patient seen and evaluated. Reviewed Nicole Quesada's notes interviewed patient and examined the patient. History and physical exam findings consistent with what was documented by Nicole Quesada. Patient has a left femoral neck fracture that is nondisplaced. Will require open reduction internal fixation discussed with hospitalist. We have also consulted Dr. Yates from orthopedic services. Medical Records I reviewed the patient's medical records. Lab Data I reviewed the patient's lab results. 02/12/22 09:00 02/12/22 09:00 Radiology Impressions Chest X-Ray 02/12/22 08:40 Impression: Atherosclerosis. Cervical Spine CT 02/12/22 08:47 IMPRESSION: Advanced multilevel degenerative changes with spondylosis lower cervical spine. No acute abnormalities. Head CT 02/12/22 08:47 IMPRESSION: 1. No acute intracranial abnormalities. 2. Age-related cerebral white and baron matter changes. 3. Partial opacification left mastoid sinus, stable. Hip CT 02/12/22 09:14 IMPRESSION: 1. Acute appearing left femoral neck fracture. 2. Mild left hip and symphysis pubis primary osteoarthritic changes. 3. Left gluteus minimus muscle atrophy. 4. A partially calcified ovoid structure deep to the left rectus abdominus muscle possibly representing a benign calcified lymph node. As this structure is not fully imaged however, recommend non emergent CT of the pelvis for further evaluation. Hip/Pelvis X-Ray 02/12/22 09:14 Impression: Left femoral neck fracture. Laboratory Results WBC 9.5 10^3/uL (4.0-10.0) 02/12/22 09:00 RBC 3.68 10^6/uL (4.1-5.3) L 02/12/22 09:00 Hgb 11.5 g/dL (11.7-16.6) L 02/12/22 09:00 Hct 34.8 % (42.0-52.0) L 02/12/22 09:00 MCV 94.6 fl (80-94) H 02/12/22 09:00 MCH 31.3 pg (28.0-34.0) 02/12/22 09:00 MCHC 33.0 g/dL (30.0-36.0) 02/12/22 09:00 RDW 13.4 % (12.1-15.1) 02/12/22 09:00 Plt Count 168 10^3/cmm (130-400) 02/12/22 09:00 MPV 9.7 fL (7.4-10.4) 02/12/22 09:00 Neut % (Auto) 80.7 % 02/12/22 09:00 Lymph % (Auto) 10.5 % 02/12/22 09:00 [place] % (Auto) 7.3 % 02/12/22 09:00 Eos % (Auto) 0.7 % 02/12/22 09:00 Baso % (Auto) 0.5 % 02/12/22 09:00 Neut # (Auto) 7.64 10^3/uL (1.8-7.7) 02/12/22 09:00 Lymph # (Auto) 1.0 10^3/uL (0.8-4.8) 02/12/22 09:00 [place] # (Auto) 0.7 10^3/uL (0.2-0.9) 02/12/22 09:00 Eos # (Auto) 0.1 10^3/uL (0.0-0.8) 02/12/22 09:00 Baso # (Auto) 0.1 10^3/uL (0.0-0.1) 02/12/22 09:00 Nucleated RBC % (auto) 0 % 02/12/22 09:00 Nucleated RBCs # 0.0 /100WBC 02/12/22 09:00 Sodium 130 mmol/L (136-145) L 02/12/22 09:00 Potassium 4.8 mmol/L (3.5-5.1) 02/12/22 09:00 Chloride 96 mmol/L (98-107) L 02/12/22 09:00 Carbon Dioxide 26 mmol/L (22-29) 02/12/22 09:00 Anion Gap 12.8 (5-19) 02/12/22 09:00 BUN 19 mg/dL (8-23) 02/12/22 09:00 Creatinine 0.9 mg/dL (0.7-1.2) 02/12/22 09:00 GFR Calculation 84.4 mL/min (90-130) L 02/12/22 09:00 Glucose 82 mg/dL (65-115) 02/12/22 09:00 Calculated Osmolality 271 mOsm/kg (285-295) L 02/12/22 09:00 Calcium 9.4 mg/dL (8.5-10.5) 02/12/22 09:00 Total Bilirubin 0.3 mg/dL (0.15-1.2) 02/12/22 09:00 AST 21 U/L (0-40) 02/12/22 09:00 ALT 19 U/L (0-41) 02/12/22 09:00 Alkaline Phosphatase 103 U/L (40-130) 02/12/22 09:00 Creatine Kinase 172 U/L (39-308) 02/12/22 09:00 Troponin T Baseline 42 ng/L (0-15) H 02/12/22 09:00 Troponin T 120 Minute 36.81 ng/L (0-15) H 02/12/22 10:42 Delta Troponin T -5.19 ABS# (0-10) L 02/12/22 10:42 Total Protein 7.5 g/dL (6.6-8.7) 02/12/22 09:00 Albumin 3.9 g/dL (3.5-5.2) 02/12/22 09:00 Globulin 3.6 g/dL (1.3-4.6) 02/12/22 09:00 Urine Color Yellow (Yellow) 02/12/22 09:00 Urine Appearance Clear (CLEAR) 02/12/22 09:00 Urine pH 7 (5-7) 02/12/22 09:00 Ur Specific [place] 1.005 (1.005-1.030) 02/12/22 09:00 Urine Protein Neg (Negative) 02/12/22 09:00 Urine Glucose (UA) Norm (Normal) 02/12/22 09:00 Urine Ketones Negative (Negative) 02/12/22 09:00 Urine Blood Neg (Negative) 02/12/22 09:00 Urine Nitrate Negative (Negative) 02/12/22 09:00 Urine Bilirubin Neg (Negative) 02/12/22 09:00 Urine Urobilinogen Norm mg/dL (Negative) 02/12/22 09:00 Ur Leukocyte Esterase Negative (Negative) 02/12/22 09:00 Discharge Plan Discharge Patient Disposition: Admitted As Inpatient Admit Provider: Jan Calvert Clinical Impression: Closed fracture of neck of left femur, BPH (benign prostatic hyperplasia), Chronic schizophrenia, Essential hypertension, Anemia Condition: Stable Coding Level of Care Code ED Parts Room Associate for Juneg Fwd Exam Comprehensive
--- NOTE | 2022-02-12 08:40 | XR_ITS ---
WS: [id number] Portable AP upright chest, 02/12/2022 Clinical Data: unwitnessed fall Comparison: Portable chest, 08/19/2021 Findings: No nodules, masses or effusions are seen. The heart is normal. The pulmonary vascularity is not increased. No pneumonia or pneumothorax is seen. The aortic arch and descending thoracic aorta s how tortuosity and calcification. XR/XR chest 1V portable [id number] Impression: Atherosclerosis.
--- NOTE | 2022-02-12 08:40 | ECG_ITS ---
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 Measurements Intervals [place] Rate: 51 P: 43 VA: 181 QRS: 76 QRSD: 90 T: 75 QT: 410 QTc: 378 Interpretive Statements SINUS BRADYCARDIA Compared to ECG 08/19/2021 16:21:15 No significant changes Electronically Signed On 02-12-2022 20:25:21 SUPERVISOR OF RESEARCH by Steven Mei M.D. [email or web address] TechnologyEdtripsuniversity hospitals [id number]
--- NOTE | 2022-02-12 08:47 | CTR_ITS ---
PROCEDURE INFORMATION: Exam: CT Head Without Contrast Exam date and time: 02/12/2022 9:12 AM Age: 66 years old Clinical indication: Injury or trauma; Fall; Blunt trauma (contusions or hematomas); Additional info: Unwitnessed fall TECHNIQUE: Imaging protocol: Computed tomography of the head without contrast. Radiation optimization: All CT scans at this facility use at least one of these dose optimization techniques: automated exposure control; mA and/or kV adjustment per patient size (includes targeted exams where dose is matched to clinical indication); or iterative reconstruction. COMPARISON: CT head wo con* [id number] 05/14/2021 12:43 PM RADIATION DOSE METRICS: Total DLP (mGy-cm): 1137.55 FINDINGS: Brain: There is no evidence of intracranial hemorrhage. There are no areas of mass effect, edema or midline shift. There are diffuse indistinct areas of decreased attenuation involving the periventricular white matter likely secondary to chronic white matter microvascular changes. There is age-related cerebral volume loss responsible for prominence of the cortical sulci. Cerebral ventricles: There is mild-moderate ventriculomegaly stable from previous exam and presumed secondary to age related cerebral volume loss. Paranasal sinuses: Visualized sinuses are unremarkable. No fluid levels. Mastoid air cells: There is partial opacification left mastoid sinus unchanged. Bones/joints: Unremarkable. No acute fracture. Soft tissues: Unremarkable. CT/CT head wo con* [id number] IMPRESSION: 1. No acute intracranial abnormalities. 2. Age-related cerebral white and baron matter changes. 3. Partial opacification left mastoid sinus, stable.
--- NOTE | 2022-02-12 08:47 | CTR_ITS ---
PROCEDURE INFORMATION: Exam: CT Cervical Spine Without Contrast Exam date and time: 02/12/2022 9:12 AM Age: 66 years old Clinical indication: Injury or trauma; Fall; Blunt trauma; Additional info: Unwitnessed fall TECHNIQUE: Imaging protocol: Computed tomography of the cervical spine without contrast. Radiation optimization: All CT scans at this facility use at least one of these dose optimization techniques: automated exposure control; mA and/or kV adjustment per patient size (includes targeted exams where dose is matched to clinical indication); or iterative reconstruction. COMPARISON: RF FL barium swallow modifd [id number] 09/05/2021 11:07 AM RADIATION DOSE METRICS: Total DLP (mGy-cm): 159.8 FINDINGS: Bones/joints: There are advanced degenerative changes within the lower cervical spine with diffuse degenerative disc space narrowing, endplate sclerosis, cyst formation and osteophytic lipping. There is accompanying facet arthrosis most pronounced C4-C5 and C5-C6 bilaterally. There is degenerative grade 1 spondylolisthesis C4-C5 and C5-C6. There is no fracture, subluxation or traumatic spondylolisthesis detected. Lungs: Lung apices are normal. Soft tissues: Unremarkable. CT/CT cervical spin wo con* [id number] IMPRESSION: Advanced multilevel degenerative changes with spondylosis lower cervical spine. No acute abnormalities.
[2022-02-12 09:09] LABS: Add Urine Microscopic? NO; Charge for UA Resulting for Rev
--- NOTE | 2022-02-12 09:14 | CTR_ITS ---
PROCEDURE INFORMATION: Exam: CT Left Lower Extremity Without Contrast, Hip Exam date and time: 02/12/2022 9:18 AM Age: 66 years old Clinical indication: Injury or trauma; Fall; Blunt trauma; Hip; Left; Additional info: Abnormal XR TECHNIQUE: Imaging protocol: CT of the Left lower extremity without contrast was performed. Exam focused on the hip. Radiation optimization: All CT scans at this facility use at least one of these dose optimization techniques: automated exposure control; mA and/or kV adjustment per patient size (includes targeted exams where dose is matched to clinical indication); or iterative reconstruction. COMPARISON: Right hip x-ray series with pelvis 02/12/2022 RADIATION DOSE METRICS: Total DLP (mGy-cm): 261.69 FINDINGS: Bones/joints: A fracture of the left femoral neck is noted with moderate apex anterior angulation at the fracture site approximately 1 cm proximal migration of the distal fracture fragment. The fracture line involves portions of the mid and proximal femoral neck in subcapital region. Mild osteophyte formation of the femoral head and acetabulum as well as at the symphysis pubis is noted. Soft tissues: Mild subcutaneous edema in the lateral aspect of the gluteal region and proximal left thigh is noted without evidence of a discrete fluid collection. Extensive fatty atrophy of the left gluteus minimus muscle. A partially imaged ovoid centrally calcified structure deep to the left rectus abdominus muscle is partially imaged measuring 1.7 x 2.5 cm on series 9, image 1. Vasculature: Diffuse atherosclerotic changes are noted. Bowel: Moderate colonic and rectal stool. Urinary bladder: Moderate distention of the urinary bladder. CT/CT hip LT wo con* [id number] IMPRESSION: 1. Acute appearing left femoral neck fracture. 2. Mild left hip and symphysis pubis primary osteoarthritic changes. 3. Left gluteus minimus muscle atrophy. 4. A partially calcified ovoid structure deep to the left rectus abdominus muscle possibly representing a benign calcified lymph node. As this structure is not fully imaged however, recommend non emergent CT of the pelvis for further evaluation.
--- NOTE | 2022-02-12 09:14 | XR_ITS ---
WS: [id number] Left hip, 2 views, 02/12/2022 Clinical Data: abnormal XR findings Comparison: Pelvis and right hip, 02/12/2022 Findings: There is a left femoral neck fracture. Left femoral head remains in the acetabulum. The adjacent left pelvis is unremarkable. XR/XR hip LT 2-3V wo/w pel* [id number] Impression: Left femoral neck fracture.
[2022-02-12 09:15] LABS: Basophils # 0.1 10^3/uL (0.0-0.1); Basophils % 0.5 %; Eosinophils # 0.1 10^3/uL (0.0-0.8); Eosinophils % 0.7 %; Hematocrit 34.8 % (42.0-52.0); Hemoglobin 11.5 g/dL (11.7-16.6); Lymphocytes % 10.5 %; Mean Corpuscular Hemoglobin 31.3 pg (28.0-34.0); Mean Corpuscular Volume 94.6 fl (80-94); Mean Platelet Volume 9.7 fL (7.4-10.4); Monocytes # 0.7 10^3/uL (0.2-0.9); Monocytes % 7.3 %; Neutrophils # 7.64 10^3/uL (1.8-7.7); Neutrophils % 80.7 %; Nucleated Red Blood Cells % 0 %; Platelet Count 168 10^3/cmm (130-400); Red Blood Count 3.68 10^6/uL (4.1-5.3); Red Cell Distribution Width 13.4 % (12.1-15.1); White Blood Count 9.5 10^3/uL (4.0-10.0)
[2022-02-12 09:31] LABS: Bilirubin Urine Neg (Negative); Blood Urine Neg (Negative); Glucose Urine UA Norm (Normal); Ketones Urine Negative (Negative); Leukocyte Esterase Urine Negative (Negative); Nitrate Urine Negative (Negative); Protein Urine Neg (Negative); Specific Gravity, Urine 1.005 (1.005-1.030); Urine Appearance Clear (CLEAR); Urine Color Yellow (Yellow); Urobilinogen Urine Norm (Negative); pH Urine 7 (5-7)
[2022-02-12 09:38] LABS: Alanine Aminotransferase 19 U/L (0-41); Albumin Level 3.9 g/dL (3.5-5.2); Alkaline Phosphatase 103 U/L (40-130); Anion Gap 12.8 (5-19); Aspartate Amino Transferase 21 U/L (0-40); Blood Urea Nitrogen 19 mg/dL (8-23); Calcium 9.4 mg/dL (8.5-10.5); Carbon Dioxide 26 mmol/L (22-29); Chloride 96 mmol/L (98-107); Creatine Phosphokinase 172 U/L (39-308); Globulin 3.6 g/dL (1.3-4.6); Glomerular Filtration Rate 84.4 mL/min (90-130); Glucose 82 mg/dL (65-115); Osmolality Calculated 271 mOsm/kg (285-295); Potassium 4.8 mmol/L (3.5-5.1); Sodium 130 mmol/L (136-145); Total Bilirubin 0.3 mg/dL (0.15-1.2); Total Protein 7.5 g/dL (6.6-8.7)
[2022-02-12 09:39] LABS: Troponin(5th) Baseline 42 ng/L (0-15)
--- NOTE | 2022-02-12 10:40 | ECG_ITS ---
[facility] Test Date: 2022-02-12 Pat Name: Herson Ovalle Department: Room: Gender: Male Instructional Specialist: : 1955 Requested By: Nicole Quesada Order Number: [id number] Lei MD: Steven Mie M.D. Measurements Intervals [place] Rate: 57 P: 94 WA: 187 QRS: 71 QRSD: 86 T: 67 QT: 396 QTc: 386 Interpretive Statements SINUS BRADYCARDIA WITH SINUS ARRHYTHMIA Compared to ECG 02/12/2022 08:55:07 No significant changes Electronically Signed On 02-12-2022 20:47:19 BUSINESS DEVELOPER by Steven Mei M.D. [id number]
[2022-02-12 11:17] LABS: Troponin 5 2HR 36.81 ng/L (0-15)
[2022-02-12 11:18] LABS: Troponin 5 2HR Delta -5.19 ABS# (0-10)
[2022-02-12 12:18] VITALS: BP 124/71; PULSE 63; RESP 16; O2SAT 98
--- NOTE | 2022-02-12 12:36 | PM.HP ---
Providers/Chief Complaint Admitting Physician: Armando Calvert MD Primary Care Provider: Bernadette Spears APN Chief Complaint: Hip Pain History of Present Illness Herson Ovalle is a 66 year old male presenting to the emergency department after being found down at the residential care facility he resides in. Apparently he was having hip pain. He has underlying schizophrenia, and possibly dementia, and is not a good historian. From ER records, and EMS, there are notes that he fell out of a chair. Timing of this could have been yesterday, or this morning according to conflicting reports. Apparently he has not been able to bear weight, as of this morning. Review of Systems General: Reports: 10 or more systems reviewed and unremarkable except in HPI and below (May be unreliable. Patient answers no to many questions.) Const: Denies: fever(s) or chills Eyes: Denies: change in vision ENMT: Denies: throat pain Card: Denies: chest pain Resp: Denies: dyspnea GI: Denies: abdominal pain : Denies: flank pain Musc: Reports: extremity pain Skin/Breast: Denies: rash Neuro: Denies: headache(s) Psych: Denies: anxiety or depression Endo: Denies: polyuria Casey/Lymph: Denies: easy bruising All/Imm: Denies: urticaria Medications/Allergies Home Medications Medication Instructions Recorded Confirmed Last Taken Type aspirin 325 mg capsule 325 mg PO DAILY #30 caps 05/17/21 02/12/22 02/11/22 Rx budesonide 160 mcg-glycopyr 9 See Rx Instructions .Route 09/10/21 02/12/22 02/11/22 Rx mcg-formot 4.8 mcg/actuation HFA .COMPLEX #10.7 grams inhaler (Breztri Aerosphere) DME: [facility] #1 ea 10/12/21 02/12/22 Unknown Rx folic acid 1 mg tablet 1 mg PO DAILY@06 #90 tabs 10/29/21 02/12/22 02/11/22 Rx sulfamethoxazole 800 1 tab PO Q12H 5 days #10 tabs 02/08/22 02/12/22 02/11/22 Rx mg-trimethoprim 160 mg tablet (Bactrim DS) aripiprazole 10 mg tablet (Abilify) 10 mg PO DAILY@0600 02/12/22 02/12/22 02/11/22 History ibuprofen 800 mg tablet 800 mg PO BID 02/12/22 02/12/22 02/11/22 History ibuprofen 800 mg tablet 800 mg PO TID PRN Pain 02/12/22 02/12/22 Unknown History lorazepam 0.5 mg tablet 0.5 mg PO BEDTIME 02/12/22 02/12/22 02/11/22 History propranolol 10 mg tablet 10 mg PO BID 02/12/22 02/12/22 02/11/22 History simvastatin 20 mg tablet 20 mg PO DAILY 02/12/22 02/12/22 02/11/22 History tamsulosin 0.4 mg capsule 0.8 mg PO DAILY 02/12/22 02/12/22 02/11/22 History Allergies Allergy/AdvReac Type Severity Reaction Status Date / Time No Known Allergies Allergy Verified 02/08/22 10:14 PFSH Acute PFSH: Medical History (Updated 02/12/22 @ 12:43 by Jan Calvert MD) Abnormal urinalysis Anemia Bacterial UTI BPH (benign prostatic hyperplasia) Chronic schizophrenia COPD (chronic obstructive pulmonary disease) COVID-19 vaccine administered J&J plus an mRNA booster per patient report Essential hypertension History of PFTs 05/31 severe airflow obstruction, normal gas exchange, decreased FVC, FEV1 40%, FEVI/FVC reduced Mixed hyperlipidemia Nicotine dependence, cigarettes, uncomplicated On valproate therapy Psychiatric care Tardive akathisia Vitamin D deficiency Surgical History History of hip replacement, total No pertinent past surgical history No prior surgical history reported 05/14/2021 Family History Denies family history of CAD (coronary artery disease) Anesthesia complication Bleeding disorder Social History (Updated 02/12/22 @ 12:40 by Jan Calvert MD) Smoking and tobacco status: former smoker Quit status (tobacco): has quit using tobacco Year quit tobacco: 2021 Former quit date comment: 1.5ppd x 51 year Hx Second hand smoke exposure: Yes Alcohol intake: former Caregiver/support person: Yes Lives independently: No Household members: other Details: Resides at [facility] care facility Housing: Assisted Living Facility Marital status: Single service: No Current occupational status: disabled Pets and animals: Yes Current gender identity: Male Vitals/I&O/Wt Last Vital Signs Temp 97.6 F 02/12/22 08:32 Pulse 63 02/12/22 12:18 Resp 16 02/12/22 12:18 BP 124/71 02/12/22 12:18 Pulse Ox 98 02/12/22 12:18 O2 Del Method 02/12/22 12:18 Weight last 48 hrs Weight 76.204 kg Physical Exam Narrative: General exam is a white male, conversant, but difficult historian and likely has baseline confusion. Neurologic: No focal deficits. Dyskinesias noted HEENT: Atraumatic and normocephalic. Pupils equally round. Dentition poor. Neck is supple no lymphadenopathy thyromegaly Cardiovascular regular rate and rhythm without murmur Lungs clear no wheezing or crackles Abdomen is soft nontender positive bowel sounds. No obvious organomegaly exam is deferred Extremities no cyanosis clubbing or edema, left lower extremity externally rotated and shortened Skin no rash Data 02/12/22 09:00 02/12/22 09:00 Other Labs: LFTs are normal Troponin is 42 and repeat 36 Urinalysis negative Chest x-ray negative CT hip, AP pelvis shows left hip fracture, left femoral neck CT head and cervical spine negative EKG demonstrates bradycardic sinus rhythm, normal axis, nonspecific ST-T wave changes A&P Assessment and plan (1) Closed fracture of neck of left femur: Bedrest Orthopedic consultation Place [place] Pain control Qualifiers: Encounter type: initial encounter Qualified Code(s): S72.002A - Fracture of unspecified part of neck of left femur, initial encounter for closed fracture (2) Chronic schizophrenia: Continue home medications (3) Hyponatremia: Appears to be chronic Avoid IV fluids when possible Recheck tomorrow TSH recently checked and normal (4) COPD (chronic obstructive pulmonary disease): Last FEV1 40% of predicted Continue budesonide twice daily DuoNeb 4 times daily Qualifiers: COPD type: emphysema Emphysema type: panlobular Qualified Code(s): J43.1 - Panlobular emphysema (5) Anemia: Appears to be longstanding and stable. Continue to monitor. Qualifiers: Anemia type: other cause Other causes of anemia: acute posthemorrhagic Qualified Code(s): D62 - Acute posthemorrhagic anemia Plan Multiple other medical problems as outlined by past medical history Full code currently Heparin for DVT prophylaxis as long as okay with surgery. We will have to determine timing of surgery, and whether spinal may be entertained considering his COPD. Attestations Medical Necessity Statement*: Will need greater than 2 midnight stay for evaluation and treatment of left-sided hip fracture. Coding Level of Care Code Acute Battery Builder for [facility] Fwd Diagnoses Closed fracture of neck of left femur S72.002A Encounter type: initial encounter Chronic schizophrenia F20.9 Hyponatremia E87.1 COPD (chronic obstructive pulmonary disease) J43.1 COPD type: emphysema Emphysema type: panlobular Anemia D62 Anemia type: other cause Other causes of anemia: acute posthemorrhagic
[2022-02-12 14:06] VITALS: BP 119/72; PULSE 59; RESP 16; O2SAT 100
--- NOTE | 2022-02-12 14:40 | ECG_ITS ---
[facility] Test Date: 2022-02-12 Pat Name: Herson Ovalle Department: Room: 250 Gender: Male Mold Blower: : 1955 Requested By: Nicole Quesada Order Number: [id number] Lei MD: Juan Wilde M.D. Measurements Intervals [place] Rate: 62 P: 84 IL: 166 QRS: 79 QRSD: 85 T: 84 QT: 379 QTc: 387 Interpretive Statements SINUS RHYTHM Compared to ECG 02/12/2022 10:39:03 Sinus bradycardia no longer present Sinus arrhythmia no longer present Electronically Signed On 02-13-2022 10:31:03 FUTURES TRADER by Juan Wilde M.D. [id number]
[2022-02-12 15:13] VITALS: BP 124/67; PULSE 64; RESP 15; TEMP 36.9; O2SAT 100
[2022-02-12] MEDS: heparin 5,000 unit/mL INJ 1 mL 5000 UNIT SUBCUT (15:19)
[2022-02-12 15:42] VITALS: PULSE 60; RESP 18; O2SAT 100
[2022-02-12 16:21] LABS: Troponin 5 6HR 31.16 ng/L (0-15)
--- NOTE | 2022-02-12 16:54 | P.CONIM_ITS ---
Providers/Reason For Consult Consulting Physician/Specialty*: Shawn Yates MD; orthopedic surgery Reason for Consult*: Left femoral neck fracture Attending Physician: Jan Calvert MD Primary Care Provider: Bernadette Spears APN History of Present Illness History of Present Illness Herson Ovalle is a 66 year old male who fell at his residential care facility. He apparently was found down. He has underlying schizophrenia and dementia and can give really no history. He is known to me for previous right femoral neck fracture treated with hemiarthroplasty Medications/Allergies Home Medications Medication Instructions Recorded Confirmed Last Taken Type aspirin 325 mg capsule 325 mg PO DAILY #30 caps 05/17/21 02/12/22 02/11/22 Rx budesonide 160 mcg-glycopyr 9 See Rx Instructions .Route 09/10/21 02/12/22 02/11/22 Rx mcg-formot 4.8 mcg/actuation HFA .COMPLEX #10.7 grams inhaler (Breztri Aerosphere) DME: [facility] #1 ea 10/12/21 02/12/22 Unknown Rx folic acid 1 mg tablet 1 mg PO DAILY@06 #90 tabs 10/29/21 02/12/22 02/11/22 Rx sulfamethoxazole 800 1 tab PO Q12H 5 days #10 tabs 02/08/22 02/12/22 02/11/22 Rx mg-trimethoprim 160 mg tablet (Bactrim DS) aripiprazole 10 mg tablet (Abilify) 10 mg PO DAILY@0600 02/12/22 02/12/22 02/11/22 History ibuprofen 800 mg tablet 800 mg PO BID 02/12/22 02/12/22 02/11/22 History ibuprofen 800 mg tablet 800 mg PO TID PRN Pain 02/12/22 02/12/22 Unknown History lorazepam 0.5 mg tablet 0.5 mg PO BEDTIME 02/12/22 02/12/22 02/11/22 History propranolol 10 mg tablet 10 mg PO BID 02/12/22 02/12/22 02/11/22 History simvastatin 20 mg tablet 20 mg PO DAILY 02/12/22 02/12/22 02/11/22 History tamsulosin 0.4 mg capsule 0.8 mg PO DAILY 02/12/22 02/12/22 02/11/22 History Allergies Allergy/AdvReac Type Severity Reaction Status Date / Time No Known Allergies Allergy Verified 02/08/22 10:14 PFSH Acute PFSH: Medical History (Updated 02/12/22 @ 12:43 by Jan Calvert MD) Abnormal urinalysis Anemia Bacterial UTI BPH (benign prostatic hyperplasia) Chronic schizophrenia COPD (chronic obstructive pulmonary disease) COVID-19 vaccine administered J&J plus an mRNA booster per patient report Essential hypertension History of PFTs 05/31 severe airflow obstruction, normal gas exchange, decreased FVC, FEV1 40%, FEVI/FVC reduced Mixed hyperlipidemia Nicotine dependence, cigarettes, uncomplicated On valproate therapy Psychiatric care Tardive akathisia Vitamin D deficiency Surgical History History of hip replacement, total No pertinent past surgical history No prior surgical history reported 05/14/2021 Family History Denies family history of CAD (coronary artery disease) Anesthesia complication Bleeding disorder Social History (Updated 02/12/22 @ 12:40 by Jan Calvert MD) Smoking and tobacco status: former smoker Quit status (tobacco): has quit using tobacco Year quit tobacco: 2021 Former quit date comment: 1.5ppd x 51 year Hx Second hand smoke exposure: Yes Alcohol intake: former Caregiver/support person: Yes Lives independently: No Household members: other Details: Resides at [facility][1] residential care facility Housing: Assisted Living Facility Marital status: Single service: No Current occupational status: disabled Pets and animals: Yes Current gender identity: Male Vitals/I&O/Wt Last Vital Signs Temp 98.4 F 02/12/22 15:13 Pulse 60 02/12/22 15:42 Resp 18 02/12/22 15:42 BP 124/67 02/12/22 15:13 Pulse Ox 100 02/12/22 15:42 O2 Del Method 02/12/22 15:42 O2 Flow Rate 1 02/12/22 14:06 Weight last 48 hrs Weight 168 lb Physical Exam Narrative: The patient is supine in bed with it right hip flexed over his left which is externally rotated He has exquisite left hip pain with motion He has a palpable left dorsalis pedis pulse. Will flex and extend his left toes and ankle without motor deficits His sensation is intact to light touch. Urinary Catheter Management: 2-way Urethral: Cath Placed During This Visit: yes Urinary Catheter Date of Insertion: 02/12/22 Urinary Catheter Time of Insertion: 15:00 Data 02/12/22 09:00 02/12/22 09:00 Xray Ortho: My impression: 2 views of the left hip are ordered and personally interpreted. Patient has a displaced left femoral neck fracture. A&P Assessment and plan (1) Closed fracture of neck of left femur: I discussed options with the patient and family. I told them possible treatments for displaced femoral neck fracture would include nonoperative treatment, open reduction internal fixation, or hemiarthroplasty. I told them without treatment the patient would experience ongoing of pain that would limit mobility. This would require pain medications and place her at medical risks due to prolonged periods of bed rest. I discussed the possibility of open reduction internal fixation with pins. I warned them that for displaced fractures of the risk of nonunion and malunion is exceptionally high. In addition there is a high likelihood that the blood applied to the femoral head has been disrupted and that even with successful stabilization of the fracture the femoral head will go on to . I finally discussed the possibility of hemiarthroplasty. I think this would give the patient the greatest chance of being immediately mobilized. I discussed risk of a bleeding and a possible need for blood products. I discussed risk of deep venous thromboses and pulmonary emboli and the need for anticoagulation. I discussed the use of the TXA that may be utilized to diminish blood loss. I discussed risk of component failure and loosening that could require revision. I discussed the risk of dislocation and a bipolar arthroplasty which is quite unlikely. After a long discussion of options they agree to hemiarthroplasty of the hip. I told him ultimately the patient will likely require snf placement. Qualifiers: Encounter type: initial encounter Qualified Code(s): S72.002A - Fracture of unspecified part of neck of left femur, initial encounter for closed fracture Coding Level of Care Code Acute Dat Instructor for [facility] Fwd Diagnoses Closed fracture of neck of left femur S72.002A Encounter type: initial encounter
[2022-02-12] MEDS: propranolol 20 mg Tablet 10 MG PO (17:38)
[2022-02-12 20:00] VITALS: PULSE 73; RESP 16; O2SAT 97
[2022-02-12] MEDS: LORazepam 0.5 mg Tablet PO (20:17)
[2022-02-12] MEDS: ipratropium-albuterol 3 mL Neb INHALATION (21:04)
[2022-02-12] MEDS: budesonide 0.5 mg/2 mL Neb INHALATION (21:05)
[2022-02-13] VITALS (24 sets, daily range): BP systolic 90–147; BP diastolic 44–82; PULSE 53–72; RESP 14–18; TEMP 36.2–37.3; O2SAT 96–100
[2022-02-13 04:29] LABS: Basophils % 0.4 %; Eosinophils # 0.1 10^3/uL (0.0-0.8); Hematocrit 30.4 % (42.0-52.0); Hemoglobin 10.5 g/dL (11.7-16.6); Lymphocytes # 1.2 10^3/uL (0.8-4.8); Lymphocytes % 15.8 %; Mean Corpuscular HGB Conc 34.5 g/dL (30.0-36.0); Mean Corpuscular Volume 92.7 fl (80-94); Mean Platelet Volume 10.5 fL (7.4-10.4); Monocytes % 13.4 %; Neutrophils # 5.03 10^3/uL (1.8-7.7); Nucleated Red Blood Cells % 0 %; Platelet Count 164 10^3/cmm (130-400); Red Blood Count 3.28 10^6/uL (4.1-5.3); Red Cell Distribution Width 13.6 % (12.1-15.1); White Blood Count 7.3 10^3/uL (4.0-10.0)
[2022-02-13 04:46] LABS: Anion Gap 14.6 (5-19); Blood Urea Nitrogen 19 mg/dL (8-23); Calcium 8.2 mg/dL (8.5-10.5); Carbon Dioxide 21 mmol/L (22-29); Chloride 103 mmol/L (98-107); Glomerular Filtration Rate 134.8 mL/min (90-130); Glucose 105 mg/dL (65-115); Osmolality Calculated 281 mOsm/kg (285-295); Potassium 4.6 mmol/L (3.5-5.1); Sodium 134 mmol/L (136-145)
--- NOTE | 2022-02-13 05:56 | PC.NURSE ---
Addendum entered by Nicole Bird CNA 02/13/22 06:37: JOCELYNE shaved patients face and changed linens. Original Note: JOCELYNE used a pack of bath wipes already provided in patients room from a later time to wash patients face. Patient had a hepa clense done by JOCELYNE @0545 02/13/22.
--- NOTE | 2022-02-13 06:08 | PC.NURSE ---
Pre surgery bath given. Patient has rested quietly throughout the shift.
[2022-02-13] MEDS: ipratropium-albuterol 3 mL Neb INHALATION ×2 (07:27→20:23)
[2022-02-13] MEDS: budesonide 0.5 mg/2 mL Neb INHALATION ×3 (07:28→20:23)
[2022-02-13] MEDS: propranolol 20 mg Tablet 10 MG PO ×2 (07:58→17:41)
[2022-02-13] MEDS: atorvastatin 40 mg Tablet 20 MG PO (07:59)
[2022-02-13] MEDS: tamsulosin 0.4 mg Capsule 0.8 MG PO (07:59)
[2022-02-13] MEDS: aspirin 325 mg EC Tablet PO (09:15)
--- NOTE | 2022-02-13 09:42 | P.PN_ITS ---
Subjective Subjective: No issues overnight. Denies pain. Surgical intervention expected today. Medications: Reviewed: Yes Vitals/I&O/Wt Last Vital Signs Temp 98.5 F 02/13/22 07:48 Pulse 67 02/13/22 07:48 Resp 16 02/13/22 07:48 BP 119/65 02/13/22 07:48 Pulse Ox 96 02/13/22 07:48 O2 Del Method 02/13/22 07:48 O2 Flow Rate 1 02/12/22 14:06 02/12/22 02/13/22 02/13/22 22:59 06:59 14:59 Intake Total 240 / 240 Output Total 1250 / 1250 800 / 2050 Balance -1010 / -1010 -800 / -1810 Weight last 48 hrs Weight 76.204 kg Physical Exam Narrative: General exam is a white male, no distress Neck supple no lymphadenopathy Cardiovascular regular rate and rhythm without murmur Lungs clear no wheezing or crackles Abdomen is soft nontender positive bowel sounds. No obvious organomegaly Extremities no cyanosis clubbing or edema, left lower extremity externally rotated and shortened Urinary Catheter Management: 2-way Urethral: Cath Placed During This Visit: yes Reason for Continuing Indwelling Catheter: Required Immobilization for Trauma or Surgery or Anesthesia Urinary Catheter Date of Insertion: 02/12/22 Urinary Catheter Time of Insertion: 15:00 Data 02/13/22 03:35 02/13/22 03:35 A&P Assessment and plan (1) Closed fracture of neck of left femur: Bedrest Orthopedic consultation appreciated Continue [place] Pain control Qualifiers: Encounter type: initial encounter Qualified Code(s): S72.002A - Fracture of unspecified part of neck of left femur, initial encounter for closed fracture (2) Chronic schizophrenia: Continue home medications (3) Hyponatremia: Appears to be chronic Appears to be stable TSH recently checked and normal (4) COPD (chronic obstructive pulmonary disease): Last FEV1 40% of predicted Continue budesonide twice daily DuoNeb 4 times daily Qualifiers: COPD type: emphysema Emphysema type: panlobular Qualified Code(s): J43.1 - Panlobular emphysema (5) Anemia: Appears to be longstanding and stable. Continue to monitor. Plan Multiple other medical problems as outlined by past medical history Full code currently 1 dose of heparin given yesterday. Holding dose today for surgery. Will need anticoagulation DVT prophylaxis dosing following surgery. Attestations Medical Necessity Statement*: Needs continued hospitalization for definitive care of his hip fracture Coding Level of Care Code Acute Humanities Division Chair for [facility] Fwd Diagnoses Closed fracture of neck of left femur S72.002A Encounter type: initial encounter Chronic schizophrenia F20.9 Hyponatremia E87.1 COPD (chronic obstructive pulmonary disease) J43.1 COPD type: emphysema Emphysema type: panlobular Anemia D64.9
[2022-02-13] MEDS: sodium chloride 0.9% 1,000 ML 75 ML IV (10:52)
[2022-02-13] MEDS: ceFAZolin 2,000 MG in sodium chloride 0.9% (plus) 50 ML 100 MG IV ×2 (11:38→20:16)
--- NOTE | 2022-02-13 13:47 | P.OP_ITS ---
Operative Report Date of procedure: February 13, 2022 Pre-op diagnosis: Preop Diagnosis Right femoral neck fracture Post-op diagnosis: same Procedure done: Hemiarthroplasty right hip Implants: [place] 1) Accolade 2 stem, size 5 2) 53 bipolar femoral head 3) 28mm/-4mm neck length femoral head Pathology: none sent Surgeon: Shawn Yates Anesthesia: Nerve Block (Spinal) Estimated blood loss (mL): 50 Findings: The patient had the previously described displaced fracture of the femoral neck Disposition: PACU Procedure: The patient was taken to the operating room and a [] anesthesia was provided by the anesthesia service. They were given 2 g of Ancef and 1 g of tranexamic acid and positioned in the lateral position with the hip exposed. A 10 cm long incision was made over the greater trochanter with a scalpel blade. Dissection was carried down through the fascia santo to the greater trochanter. The anterior two thirds of gluteus medius and minimus were elevated off the greater trochanter with electrocautery. The capsule was divided T like fashion. The hip was externally rotated and the neck brought up into the wound. An oscillating saw was really used to resect the neck just above the level of the lesser trochanter. The femoral head was removed and the acetabulum sized to a 53 mm bipolar head. Sequential reaming and broaching of the canal was accomplished up to a size 5. A size [] Emmett Accolade 2 stem was asked for into place. A trial reduction with a -4 mm neck provided excellent stability. The final head and neck were placed and the hip reduced. The anterior capsule were reapproximated with 1 Ethibond. The gluteus medius and minimus were repaired through the greater trochanter with 5 Ethibond and reinforced with 1 Ethibond. The fascia santo was closed with 1 Stratafix. The subcutaneous t issues were closed with 2-0 Stratafix. The skin was closed with a running 4-0 Stratafix. The incision was covered with a Prineo dressing. Sterile Opsitedressings were applied. The patient was placed in abduction pillow and taken recovery room in stable condition.
--- NOTE | 2022-02-13 13:49 | XR_ITS ---
WS: [id number] Left hip, 02/13/2022 Clinical Data: Left hip hemiarthroplasty Comparison: Left hip, 02/12/2022 Findings: A left hip arthroplasty has been performed. The arthroplastic components are in good position. There is minimal air from the surgical procedure surrounding the left hip joint. There is a right hip arthr oplasty in position. There is a fecal impaction. XR/XR hip LT 1V wo/w pel [id number] Impression: Bilateral hip arthroplasties.
--- NOTE | 2022-02-13 13:51 | ANES.PREANE2 ---
Pre-Anesthetic Assessment Height/Weight: Height 1.75 m Weight 76.204 kg Temp Pulse Resp BP Pulse Ox O2 Del Method O2 Flow Rate 97.7 F 53 L 18 105/62 98 1 02/13/22 11:08 02/13/22 11:08 02/13/22 11:08 02/13/22 11:08 02/13/22 11:08 02/13/22 11:08 02/12/22 14:06 Preop Diagnosis: Right femoral neck fracture Operation Date: 02/13/22 12:00 Proposed Procedures p Hemiarthroplasty Hip(Left) - Shawn Yates MD Familial anesthetic complications: none Was Beta Sierra taken within 24 hours: N/A Was Clonidine taken within 24 hours: N/A Last intake: Intake Last Liquid Date 02/12/22 Last Liquid Time 23:59 Last Solid Date 02/12/22 Last Solid Time 18:00 Social Tobacco and No alcohol Exam alert, oriented x 3, clear to auscultation bilaterally and regular rate & rhythm Airway Submandibular: within normal limits Cervical ROM: within normal limits Mallampati: Class II Dentition: false Pulmonary Chronic Obstructive Pulmonary Disease CV/HEM Anemia Metabolic Hyperlipidemia Neuropsych schizophrenia, tardive dyskinesia Anesthetic Plan ASA status: 3 Anesthesia: Regional (specify below) (SAB) Medications/Allergies Home Medications Medication Instructions Recorded Confirmed Last Taken Type aspirin 325 mg capsule 325 mg PO DAILY #30 caps 05/17/21 02/12/22 02/11/22 Rx budesonide 160 mcg-glycopyr 9 See Rx Instructions .Route 09/10/21 02/12/22 02/11/22 Rx mcg-formot 4.8 mcg/actuation HFA .COMPLEX #10.7 grams inhaler (Breztri Aerosphere) DME: Walker #1 ea 10/12/21 02/12/22 Unknown Rx folic acid 1 mg tablet 1 mg PO DAILY@06 #90 tabs 10/29/21 02/12/22 02/11/22 Rx sulfamethoxazole 800 1 tab PO Q12H 5 days #10 tabs 02/08/22 02/12/22 02/11/22 Rx mg-trimethoprim 160 mg tablet (Bactrim DS) aripiprazole 10 mg tablet (Abilify) 10 mg PO DAILY@0600 02/12/22 02/12/22 02/11/22 History ibuprofen 800 mg tablet 800 mg PO BID 02/12/22 02/12/22 02/11/22 History ibuprofen 800 mg tablet 800 mg PO TID PRN Pain 02/12/22 02/12/22 Unknown History lorazepam 0.5 mg tablet 0.5 mg PO BEDTIME 02/12/22 02/12/22 02/11/22 History propranolol 10 mg tablet 10 mg PO BID 02/12/22 02/12/22 02/11/22 History simvastatin 20 mg tablet 20 mg PO DAILY 02/12/22 02/12/22 02/11/22 History tamsulosin 0.4 mg capsule 0.8 mg PO DAILY 02/12/22 02/12/22 02/11/22 History Allergies Allergy/AdvReac Type Severity Reaction Status Date / Time No Known Allergies Allergy Verified 02/08/22 10:14 Current Medications Generic Name Dose Route Start Last Admin Trade Name Freq PRN Reason Stop Dose Admin Albuterol/Ipratropium 3 ml 02/12/22 20:00 02/13/22 13:34 Ipratropium-Albuterol 3 Ml Neb INHALATION Not Given Q6H.RESP TIKI Aripiprazole 10 mg 02/13/22 06:00 02/13/22 06:07 Aripiprazole 10 Mg Tablet PO Not Given DAILY@0600 TIKI Aspirin 325 mg 02/13/22 09:00 02/13/22 09:15 Aspirin 325 Mg Ec Tablet PO 325 mg DAILY TIKI Administration Atorvastatin Calcium 20 mg 02/13/22 09:00 02/13/22 07:59 Atorvastatin 40 Mg Tablet PO 20 mg DAILY TIKI Administration Budesonide 0.5 mg 02/12/22 18:00 02/13/22 08:02 Budesonide 0.5 Mg/2 Ml Neb INHALATION 0.5 mg BID TIKI Administration Folic Acid 1 mg 02/13/22 06:00 02/13/22 06:07 Folic Acid 1 Mg Tablet PO Not Given DAILY@06 TIKI Sodium Chloride 1,000 mls @ 75 mls/hr 02/13/22 09:45 02/13/22 10:52 Sodium Chloride 0.9% IV 75 mls/hr .[id number] TIKI Administration Lorazepam 0.5 mg 02/12/22 21:00 02/12/22 20:17 Lorazepam 0.5 Mg Tablet PO 0.5 mg BEDTIME TIKI Administration Propranolol HCl 10 mg 02/12/22 18:00 02/13/22 07:58 Propranolol 20 Mg Tablet PO 10 mg BID TIKI Administration Tamsulosin HCl 0.8 mg 02/13/22 09:00 02/13/22 07:59 Tamsulosin 0.4 Mg Capsule PO 0.8 mg DAILY TIKI Administration [facility] Anesthesia Medical History (Updated 02/13/22 @ 06:03 by Orville Oh DO) Abnormal urinalysis Anemia Bacterial UTI BPH (benign prostatic hyperplasia) Chronic schizophrenia COPD (chronic obstructive pulmonary disease) COVID-19 vaccine administered J&J plus an mRNA booster per patient report Essential hypertension History of PFTs 05/31 severe airflow obstruction, normal gas exchange, decreased FVC, FEV1 40%, FEVI/FVC reduced Mixed hyperlipidemia Nicotine dependence, cigarettes, uncomplicated On valproate therapy Psychiatric care Tardive akathisia Vitamin D deficiency Surgical History History of hip replacement, total No pertinent past surgical history No prior surgical history reported 05/14/2021 Family History Denies family history of CAD (coronary artery disease) Anesthesia complication Bleeding disorder Social History (Updated 02/12/22 @ 12:40 by Jan Calvert MD) Smoking and tobacco status: former smoker Quit status (tobacco): has quit using tobacco Year quit tobacco: 2021 Former quit date comment: 1.5ppd x 51 year Hx Second hand smoke exposure: Yes Alcohol intake: former Caregiver/support person: Yes Lives independently: No Household members: other Details: Resides at [facility] residential care facility Housing: Assisted Living Facility Marital status: Single service: No Current occupational status: disabled Pets and animals: Yes Current gender identity: Male Data Anesthesia 02/13/22 03:35 02/13/22 03:35 Short CBC 02/12/22 02/13/22 Range/Units 09:00 03:35 WBC 9.5 7.3 (4.0-10.0) 10^3/uL Hgb 11.5 L 10.5 L (11.7-16.6) g/dL Hct 34.8 L 30.4 L (42.0-52.0) % MCV 94.6 H 92.7 (80-94) fl Plt Count 168 164 (130-400) 10^3/cmm Neut % (Auto) 80.7 69.0 % Neut # (Auto) 7.64 5.03 (1.8-7.7) 10^3/uL BMP 02/12/22 02/13/22 09:00 03:35 Sodium 130 L 134 L Potassium 4.8 4.6 Chloride 96 L 103 Carbon Dioxide 26 21 L BUN 19 19 Creatinine 0.9 0.6 L Glucose 82 105 Calcium 9.4 8.2 L Cardiac Enzymes 02/12/22 02/12/22 02/12/22 Range/Units 09:00 09:00 10:42 Creatine Kinase 172 (39-308) U/L Troponin T Baseline 42 H (0-15) ng/L Troponin T 120 Minute 36.81 H (0-15) ng/L Delta Troponin T -5.19 L (0-10) ABS# Troponin T Hi Sens 6Hr (0-15) ng/L Troponin T Hi Sens 6Hr Delta (0-12) ng/L 02/12/22 Range/Units 15:35 Creatine Kinase (39-308) U/L Troponin T Baseline (0-15) ng/L Troponin T 120 Minute (0-15) ng/L Delta Troponin T (0-10) ABS# Troponin T Hi Sens 6Hr 31.16 H (0-15) ng/L Troponin T Hi Sens 6Hr Delta -10.84 L (0-12) ng/L Liver Function 02/12/22 Range/Units 09:00 Total Bilirubin 0.3 (0.15-1.2) mg/dL AST 21 (0-40) U/L ALT 19 (0-41) U/L Alkaline Phosphatase 103 (40-130) U/L Albumin 3.9 (3.5-5.2) g/dL Urine 02/12/22 Range/Units 09:00 Urine Color Yellow (Yellow) Urine Appearance Clear (CLEAR) Urine pH 7 (5-7) Ur Specific [place] 1.005 (1.005-1.030) Urine Protein Neg (Negative) Urine Glucose (UA) Norm (Normal) Urine Ketones Negative (Negative) Urine Nitrate Negative (Negative) Urine Bilirubin Neg (Negative) Ur Leukocyte Esterase Negative (Negative) Cardiac Studies: No Data to Display
--- NOTE | 2022-02-13 14:20 | SUR.PHASEI ---
1415 Scds on when pt arrived from OR at 1340. Pt able to feel sensation at L2-L3.
--- NOTE | 2022-02-13 17:28 | ANE.PACU2 ---
Inpatient post-anesthesia follow up: Airway intact: Yes Vital signs: Temperature 97.4 F Pulse Rate 65 Respiratory Rate 18 Blood Pressure 114/70 Pulse Oximetry 97 Oxygen Delivery Me thod Room Air Oxygen Flow Rate 6 Fraction of Inspir ed Oxygen Hydration adequate: Yes Nausea and vomiting: No Pain level: 1 Mental status: Baseline
[2022-02-13] MEDS: sennosides-docusate Tablet 2 TAB PO (17:41)
[2022-02-13] MEDS: LORazepam 0.5 mg Tablet PO (20:16)
[2022-02-14] VITALS (16 sets, daily range): BP systolic 101–132; BP diastolic 58–75; PULSE 58–72; RESP 15–18; TEMP 36.6–37.1; O2SAT 93–99
[2022-02-14] MEDS: oxyCODONE 5 mg IR Tab/Cap PO ×2 (01:00→10:19)
[2022-02-14] MEDS: ondansetron 2 mg/ML SDV 2 mL 4 MG IVP (01:00)
[2022-02-14 01:28] LABS: Basophils % 0.3 %; Eosinophils % 0.2 %; Hematocrit 31.2 % (42.0-52.0); Hemoglobin 10.3 g/dL (11.7-16.6); Lymphocytes # 0.9 10^3/uL (0.8-4.8); Lymphocytes % 9.5 %; Mean Corpuscular Hemoglobin 31.2 pg (28.0-34.0); Mean Corpuscular Volume 94.5 fl (80-94); Mean Platelet Volume 9.8 fL (7.4-10.4); Monocytes # 0.8 10^3/uL (0.2-0.9); Monocytes % 9.3 %; Neutrophils % 80.4 %; Nucleated Red Blood Cells % 0 %; Platelet Count 162 10^3/cmm (130-400); Red Cell Distribution Width 13.9 % (12.1-15.1)
[2022-02-14 01:52] LABS: Anion Gap 13.4 (5-19); Blood Urea Nitrogen 20 mg/dL (8-23); Carbon Dioxide 24 mmol/L (22-29); Chloride 101 mmol/L (98-107); Glomerular Filtration Rate 134.8 mL/min (90-130); Glucose 129 mg/dL (65-115); Osmolality Calculated 282 mOsm/kg (285-295); Potassium 4.4 mmol/L (3.5-5.1); Sodium 134 mmol/L (136-145)
[2022-02-14] MEDS: metoclopramide 5 mg/mL SDV 2 mL 10 MG IVP (03:05)
[2022-02-14] MEDS: sodium chloride 0.9% 1,000 ML 75 ML IV (03:05)
[2022-02-14] MEDS: ceFAZolin 2,000 MG in sodium chloride 0.9% (plus) 50 ML 100 MG IV ×2 (03:06→11:32)
[2022-02-14] MEDS: morphine 4 mg/mL SDV 1 mL 2 MG IVP (03:23)
[2022-02-14] MEDS: ARIPiprazole 10 mg Tablet PO (06:52)
[2022-02-14] MEDS: folic acid 1 mg Tablet PO (06:52)
--- NOTE | 2022-02-14 07:37 | PC.NURSE ---
Ordonez Catheter dc'd at 0645 without difficulty. Patient was sleeping but wakened easily for AM meds. He swallowed a lot of air prior to giving meds and started hiccuping. Report given to Shobha CHAU at 0725. All questions answered.
[2022-02-14] MEDS: ipratropium-albuterol 3 mL Neb INHALATION ×3 (07:43→20:40)
[2022-02-14] MEDS: budesonide 0.5 mg/2 mL Neb INHALATION ×2 (08:00→20:40)
[2022-02-14] MEDS: sennosides-docusate Tablet 2 TAB PO ×2 (09:37→17:33)
[2022-02-14] MEDS: enoxaparin 40 mg/0.4 mL Syringe SUBCUT (09:37)
[2022-02-14] MEDS: propranolol 20 mg Tablet 10 MG PO ×2 (09:37→17:33)
[2022-02-14] MEDS: tamsulosin 0.4 mg Capsule 0.8 MG PO (09:38)
[2022-02-14] MEDS: atorvastatin 40 mg Tablet 20 MG PO (09:38)
--- NOTE | 2022-02-14 10:42 | P.PN_ITS ---
Subjective Subjective: Patient without complaints this morning. Nurse alerts me that he had vomiting, a little bit of coffee-ground last night. None since. He already had his dose of aspirin Lovenox this morning. No apparent abdominal pain. Medications: Reviewed: Yes Vitals/I&O/Wt Last Vital Signs Temp 98.2 F 02/14/22 07:20 Pulse 72 02/14/22 09:50 Resp 18 02/14/22 10:19 BP 132/62 02/14/22 09:50 Pulse Ox 95 02/14/22 10:19 O2 Del Method 02/14/22 07:44 O2 Flow Rate 6 02/13/22 13:51 02/13/22 02/14/22 02/14/22 22:59 06:59 14:59 Intake Total 530 / 680 1050 / 1730 Output Total 1000 / 1000 Balance 530 / 680 50 / 730 Physical Exam Narrative: General exam is a white male, no distress Neck supple no lymphadenopathy Cardiovascular regular rate and rhythm without murmur Lungs clear no wheezing or crackles Abdomen is soft nontender positive bowel sounds. No obvious organomegaly Extremities no cyanosis clubbing or edema, left lower extremity externally rotated and shortened Urinary Catheter Management: 2-way Urethral: Cath Placed During This Visit: yes Reason for Continuing Indwelling Catheter: Required Immobilization for Trauma or Surgery or Anesthesia Urinary Catheter Date of Insertion: 02/12/22 Urinary Catheter Time of Insertion: 15:00 Data 02/14/22 00:51 02/14/22 00:51 A&P Assessment and plan (1) Closed fracture of neck of left femur: Postoperative day #1 status post left hip repair Orthopedic consultation appreciated Pain control Initiate rehabilitation Qualifiers: Encounter type: initial encounter Qualified Code(s): S72.002A - Fracture of unspecified part of neck of left femur, initial encounter for closed fracture (2) Chronic schizophrenia: Continue home medications (3) Hyponatremia: Appears to be chronic Appears to be stable TSH recently checked and normal Discontinue fluids today (4) COPD (chronic obstructive pulmonary disease): Last FEV1 40% of predicted Continue budesonide twice daily DuoNeb 4 times daily Qualifiers: COPD type: emphysema Emphysema type: panlobular Qualified Code(s): J43.1 - Panlobular emphysema (5) Anemia: Appears to be longstanding and stable. Continue to monitor. Plan 1 episode of emesis late last night/early this morning. Concerned this was coffee ground. None since then patient asymptomatic. Initiate Protonix twice daily. Hold further doses of aspirin or Lovenox until we can see if this is a repetitive concern. Hemoglobin appears stable. Will repeat if he has any further vomiting or concern of bleeding. Avoid all anti-inflammatories. Multiple other medical problems as outlined by past medical history Full code currently Received Lovenox this morning for DVT prophylaxis. Hold further dosing until reassessment tomorrow Potential discharge tomorrow Attestations Medical Necessity Statement*: Needs continued hospital stay, for close monitoring following hip fracture repair Coding Level of Care Code Acute Railroad Car Loader for [facility] Diagnoses Closed fracture of neck of left femur S72.002A Encounter type: initial encounter Chronic schizophrenia F20.9 Hyponatremia E87.1 COPD (chronic obstructive pulmonary disease) J43.1 COPD type: emphysema Emphysema type: panlobular Anemia D64.9
[2022-02-14] MEDS: pantoprazole DR 40 mg Tablet PO ×2 (11:32→17:33)
--- NOTE | 2022-02-14 15:57 | P.PN_ITS ---
Subjective Subjective: Patient resting comfortable. Pain adequately controlled Vitals/I&O/Wt Last Vital Signs Temp 98.0 F 02/14/22 11:45 Pulse 69 02/14/22 13:19 Resp 16 02/14/22 13:15 BP 123/68 02/14/22 11:45 Pulse Ox 93 02/14/22 13:15 O2 Del Method 02/14/22 13:15 O2 Flow Rate 6 02/13/22 13:51 02/14/22 02/14/22 02/14/22 06:59 14:59 22:59 Intake Total 1050 / 1840 1130 / 1130 Output Total 1000 / 1000 Balance 50 / 840 1130 / 1130 Physical Exam Narrative: Left hip dressing clean and dry Urinary Catheter Management: 2-way Urethral: Cath Placed During This Visit: yes Reason for Continuing Indwelling Catheter: Required Immobilization for Trauma or Surgery or Anesthesia Urinary Catheter Date of Insertion: 02/12/22 Urinary Catheter Time of Insertion: 15:00 Data 02/14/22 00:51 02/14/22 00:51 A&P Assessment and plan (1) Closed fracture of neck of left femur: Qualifiers: Encounter type: initial encounter Qualified Code(s): S72.002A - Fracture of unspecified part of neck of left femur, initial encounter for closed fracture (2) Status post right hip replacement: Continue to mobilize with therapy. We will need halfway. Attestations Medical Necessity Statement*: Awaiting placement. Coding Level of Care Code Acute Denial Resolution Specialist for [facility] Diagnoses Closed fracture of neck of left femur S72.002A Encounter type: initial encounter Status post right hip replacement Z96.641
--- NOTE | 2022-02-14 18:14 | PC.NURSE ---
1800 patient unable to void bladderscanned for 360ml straight cathed per aspectic technique and obtained 475 ml of clear radha urine. Dr Mcwilliams notified.
[2022-02-14] MEDS: LORazepam 0.5 mg Tablet PO (21:33)
[2022-02-15] VITALS (7 sets, daily range): BP systolic 101–117; BP diastolic 51–65; PULSE 55–66; RESP 16–26; TEMP 36.4–37.3; O2SAT 96–100
[2022-02-15] MEDS: morphine 4 mg/mL SDV 1 mL 2 MG IVP (01:10)
[2022-02-15] MEDS: metoclopramide 5 mg/mL SDV 2 mL IVP (03:13)
[2022-02-15 05:33] LABS: Basophils # 0.1 10^3/uL (0.0-0.1); Basophils % 0.5 %; Eosinophils # 0.2 10^3/uL (0.0-0.8); Hematocrit 26.3 % (42.0-52.0); Hemoglobin 8.9 g/dL (11.7-16.6); Lymphocytes # 1.7 10^3/uL (0.8-4.8); Lymphocytes % 16.4 %; Mean Corpuscular HGB Conc 33.8 g/dL (30.0-36.0); Mean Corpuscular Hemoglobin 31.8 pg (28.0-34.0); Mean Corpuscular Volume 93.9 fl (80-94); Mean Platelet Volume 10.3 fL (7.4-10.4); Monocytes # 1.2 10^3/uL (0.2-0.9); Monocytes % 11.7 %; Neutrophils # 7.06 10^3/uL (1.8-7.7); Nucleated Red Blood Cells % 0 %; Platelet Count 137 10^3/cmm (130-400); Red Cell Distribution Width 13.6 % (12.1-15.1); White Blood Count 10.2 10^3/uL (4.0-10.0)
[2022-02-15 05:58] LABS: Anion Gap 12.1 (5-19); Blood Urea Nitrogen 17 mg/dL (8-23); Calcium 7.7 mg/dL (8.5-10.5); Carbon Dioxide 22 mmol/L (22-29); Chloride 99 mmol/L (98-107); Glomerular Filtration Rate 215.2 mL/min (90-130); Glucose 102 mg/dL (65-115); Osmolality Calculated 270 mOsm/kg (285-295); Potassium 4.1 mmol/L (3.5-5.1); Sodium 129 mmol/L (136-145)
[2022-02-15] MEDS: folic acid 1 mg Tablet PO (06:19)
[2022-02-15] MEDS: ARIPiprazole 10 mg Tablet PO (06:19)
[2022-02-15] MEDS: ipratropium-albuterol 3 mL Neb INHALATION (07:41)
[2022-02-15] MEDS: budesonide 0.5 mg/2 mL Neb INHALATION (07:52)
[2022-02-15] MEDS: pantoprazole DR 40 mg Tablet PO (08:18)
[2022-02-15] MEDS: tamsulosin 0.4 mg Capsule 0.8 MG PO (08:18)
[2022-02-15] MEDS: atorvastatin 40 mg Tablet 20 MG PO (08:18)
[2022-02-15] MEDS: propranolol 20 mg Tablet 10 MG PO (08:19)
[2022-02-15] MEDS: sennosides-docusate Tablet 2 TAB PO (08:19)
--- NOTE | 2022-02-15 09:49 | PM.DCS ---
Discharge Providers Date of Admission: 02/12/22 12:47 Date of Discharge: February 15, 2022 Attending Provider at Admission: Jan Calvert MD Attending Provider at Discharge: Jan Calvert MD Primary Care Provider: Bernadette Spears APN Diagnoses at Discharge Discharge Diagnosis (1) Closed fracture of neck of left femur: Status: Resolved Qualifiers: Encounter type: initial encounter Qualified Code(s): S72.002A - Fracture of unspecified part of neck of left femur, initial encounter for closed fracture (2) Status post right hip replacement: Status: Acute Reason for Visit Reason for Visit: Hip Pain Hospital Course Hospital Course Herson presented to the hospital from nursing facility with history of mechanical fall. He was found to have a left hip fracture. Orthopedics was consulted and he was placed on bedrest, and pain control. On February 13, hemiarthroplasty left hip occurred without complication. During the postoperative period he had 1 episode of vomiting, and there was a question of coffee-ground emesis. Hemoglobin remained stable, he had no further emesis, and tolerated p.o. well. It was thought he could be discharged on February 15. He is going to avoid all anti-inflammatories. He will continue on Protonix. He will follow-up with orthopedics per their instruction. He will discharge to skilled care. Physical Exam Narrative: General exam no distress Neck is supple Cardiovascular regular rate and rhythm Lungs clear Abdomen is soft, positive bowel sounds Extremities no cyanosis clubbing or edema, left hip incision site clean and dry Skin no rash Urinary Catheter Management: 2-way Urethral: Cath Placed During This Visit: yes Reason for Continuing Indwelling Catheter: Required Immobilization for Trauma or Surgery or Anesthesia Urinary Catheter Date of Insertion: 02/15/22 Urinary Catheter Time of Insertion: 00:55 Discharge Data Studies Completed and Pending Completed Studies During Hospitalization Category Date Time Status CT cervical spin wo con* [id number] Urgent Cat Scan 02/12/22 08:[address] head wo con* [id number] Urgent Cat Scan 02/12/22 08:[address] hip LT wo con* [id number] Stat Cat Scan 02/12/22 09:14 Completed XR chest 1V portable [id number] Urgent Exams 02/12/22 08:40 Completed XR hip LT 1V wo/w pel [id number] Routine Exams 02/13/22 13:49 Completed XR hip LT 2-3V wo/w pel* [id number] Stat Exams 02/12/22 09:14 Completed XR hip RT 2-3V wo/w pel* [id number] Stat Exams 02/12/22 08:30 Completed Radiology Impressions Chest X-Ray 02/12/22 08:40 Impression: Atherosclerosis. Cervical Spine CT 02/12/22 08:47 IMPRESSION: Advanced multilevel degenerative changes with spondylosis lower cervical spine. No acute abnormalities. Head CT 02/12/22 08:47 IMPRESSION: 1. No acute intracranial abnormalities. 2. Age-related cerebral white and baron matter changes. 3. Partial opacification left mastoid sinus, stable. Hip CT 02/12/22 09:14 IMPRESSION: 1. Acute appearing left femoral neck fracture. 2. Mild left hip and symphysis pubis primary osteoarthritic changes. 3. Left gluteus minimus muscle atrophy. 4. A partially calcified ovoid structure deep to the left rectus abdominus muscle possibly representing a benign calcified lymph node. As this structure is not fully imaged however, recommend non emergent CT of the pelvis for further evaluation. Hip/Pelvis X-Ray 02/12/22 09:14 Impression: Left femoral neck fracture. Hip X-Ray 02/13/22 13:49 Impression: Bilateral hip arthroplasties. Laboratory Results WBC 10.2 10^3/uL (4.0-10.0) H 02/15/22 04:30 RBC 2.80 10^6/uL (4.1-5.3) L 02/15/22 04:30 Hgb 8.9 g/dL (11.7-16.6) L 02/15/22 04:30 Hct 26.3 % (42.0-52.0) L 02/15/22 04:30 MCV 93.9 fl (80-94) 02/15/22 04:30 MCH 31.8 pg (28.0-34.0) 02/15/22 04:30 MCHC 33.8 g/dL (30.0-36.0) 02/15/22 04:30 RDW 13.6 % (12.1-15.1) 02/15/22 04:30 Plt Count 137 10^3/cmm (130-400) 02/15/22 04:30 MPV 10.3 fL (7.4-10.4) 02/15/22 04:30 Neut % (Auto) 69.0 % 02/15/22 04:30 Lymph % (Auto) 16.4 % 02/15/22 04:30 [place] % (Auto) 11.7 % 02/15/22 04:30 Eos % (Auto) 2.0 % 02/15/22 04:30 Baso % (Auto) 0.5 % 02/15/22 04:30 Neut # (Auto) 7.06 10^3/uL (1.8-7.7) 02/15/22 04:30 Lymph # (Auto) 1.7 10^3/uL (0.8-4.8) 02/15/22 04:30 [place] # (Auto) 1.2 10^3/uL (0.2-0.9) H 02/15/22 04:30 Eos # (Auto) 0.2 10^3/uL (0.0-0.8) 02/15/22 04:30 Baso # (Auto) 0.1 10^3/uL (0.0-0.1) 02/15/22 04:30 Nucleated RBC % (auto) 0 % 02/15/22 04:30 Nucleated RBCs # 0.0 /100WBC 02/15/22 04:30 Sodium 129 mmol/L (136-145) L 02/15/22 04:30 Potassium 4.1 mmol/L (3.5-5.1) 02/15/22 04:30 Chloride 99 mmol/L (98-107) 02/15/22 04:30 Carbon Dioxide 22 mmol/L (22-29) 02/15/22 04:30 Anion Gap 12.1 (5-19) 02/15/22 04:30 BUN 17 mg/dL (8-23) 02/15/22 04:30 Creatinine 0.4 mg/dL (0.7-1.2) L 02/15/22 04:30 GFR Calculation 215.2 mL/min (90-130) H 02/15/22 04:30 Glucose 102 mg/dL (65-115) 02/15/22 04:30 Calculated Osmolality 270 mOsm/kg (285-295) L 02/15/22 04:30 Calcium 7.7 mg/dL (8.5-10.5) L 02/15/22 04:30 Total Bilirubin 0.3 mg/dL (0.15-1.2) 02/12/22 09:00 AST 21 U/L (0-40) 02/12/22 09:00 ALT 19 U/L (0-41) 02/12/22 09:00 Alkaline Phosphatase 103 U/L (40-130) 02/12/22 09:00 Creatine Kinase 172 U/L (39-308) 02/12/22 09:00 Troponin T Baseline 42 ng/L (0-15) H 02/12/22 09:00 Troponin T 120 Minute 36.81 ng/L (0-15) H 02/12/22 10:42 Delta Troponin T -5.19 ABS# (0-10) L 02/12/22 10:42 Troponin T Hi Sens 6Hr 31.16 ng/L (0-15) H 02/12/22 15:35 Troponin T Hi Sens 6Hr Delta -10.84 ng/L (0-12) L 02/12/22 15:35 Total Protein 7.5 g/dL (6.6-8.7) 02/12/22 09:00 Albumin 3.9 g/dL (3.5-5.2) 02/12/22 09:00 Globulin 3.6 g/dL (1.3-4.6) 02/12/22 09:00 Urine Color Yellow (Yellow) 02/12/22 09:00 Urine Appearance Clear (CLEAR) 02/12/22 09:00 Urine pH 7 (5-7) 02/12/22 09:00 Ur Specific [place] 1.005 (1.005-1.030) 02/12/22 09:00 Urine Protein Neg (Negative) 02/12/22 09:00 Urine Glucose (UA) Norm (Normal) 02/12/22 09:00 Urine Ketones Negative (Negative) 02/12/22 09:00 Urine Blood Neg (Negative) 02/12/22 09:00 Urine Nitrate Negative (Negative) 02/12/22 09:00 Urine Bilirubin Neg (Negative) 02/12/22 09:00 Urine Urobilinogen Norm mg/dL (Negative) 02/12/22 09:00 Ur Leukocyte Esterase Negative (Negative) 02/12/22 09:00 Vitals Last Vital Signs Temp 98.0 F 02/15/22 07:59 Pulse 57 L 02/15/22 07:59 Resp 16 02/15/22 07:59 BP 114/65 02/15/22 07:59 Pulse Ox 96 02/15/22 07:59 O2 Del Method 02/15/22 07:59 O2 Flow Rate 6 02/13/22 13:51 Discharge Plan Discharge Patient Disposition: Xfer SNF Condition: Stable Prescriptions: New oxycodone 5 mg Tablet 5 mg PO Q4H PRN (Reason: Moderate Pain) Qty: 20 0RF sennosides-docusate sodium [Stool Softener-Laxative] 8.6-50 mg Tablet 2 tab PO BID Qty: 60 0RF enoxaparin [Lovenox] 30 mg/0.3 mL syringe 30 mg SUBCUT DAILY Qty: 9 0RF Rx Instructions: Daily for 30 days pantoprazole 40 mg Tablet,Delayed Release (Dr/Ec) 40 mg PO BID Qty: 60 0RF Continued sulfamethoxazole-trimethoprim [Bactrim DS] 800-160 mg tablet 1 tab PO Q12H 5 Days Qty: 10 0RF Rx Instructions: x 5 days Breztri Aerosphere 160-9-4.8 mcg/actuation HFA aerosol inhaler See Rx Instructions .ROUTE .COMPLEX Qty: 10.7 5RF Dose Instruction: USE 2 INHALATIONS BY MOUTH TWICE DAILY Rx Instructions: USE 2 INHALATIONS BY MOUTH TWICE DAILY (DME) DME: Walker [facility] See Rx Instructions .Route Qty: 1 0RF Rx Instructions: Pureed diet with nectar thick liquids all meals folic acid 1 mg tablet 1 mg PO DAILY@06 Qty: 90 3RF propranolol 10 mg tablet 10 mg PO BID lorazepam 0.5 mg tablet 0.5 mg PO BEDTIME Rx Instructions: Take one tablet at bedtime tamsulosin 0.4 mg capsule 0.8 mg PO DAILY Rx Instructions: TAKE 2 CAPSULES BY MOUTH EVERY DAY simvastatin 20 mg tablet 20 mg PO DAILY Abilify 10 mg tablet 10 mg PO DAILY@0600 Rx Instructions: Take one tablet every morning Discontinued aspirin 325 mg capsule 325 mg PO DAILY Qty: 30 0RF ibuprofen 800 mg Tablet 800 mg PO BID ibuprofen 800 mg tablet 800 mg PO TID PRN (Reason: Pain) Discharge Orders: Discharge Order (Routine); Ordered 02/15/22 Ordered By: Jan Calvert Referrals: Bernadette Spears FNP [Primary Care Provider] - 4-7 days Discharge Diet: Usual diet Discharge Activity: Limit activity as instructed Activity Restrictions/Additional Instructions: Restrictions per orthopedics Please obtain orthopedic follow-up instructions prior to discharge Take all medicine as prescribed CBC, BMP in 3 days Patient's Health Concerns: Fractured hip Assessment: Status postrepair Plan of Treatment: Rehabilitation Discharge Attestations Time Spent in Discharge Care*: greater than 30 min Quality Metrics Clinical Quality Measures [ No reported AMI, CVA or VTE this stay] Coding Level of Care Code Acute [facility] note Diagnoses Closed fracture of neck of left femur S72.002A Encounter type: initial encounter Status post right hip replacement Z96.641
--- NOTE | 2022-02-15 11:33 | PC.NURSE ---
1115 IV dc'd and nair catheter removed
--- NOTE | 2022-02-15 13:01 | PC.NURSE ---
1130 report called to mando Flores taking report
--- NOTE | 2022-02-15 13:02 | PC.NURSE ---
1250 patient taken to Private car per wheel chair, and discharged to [facility]. Patient loaded per 2 max assist patient in stable condition
== END 2022-02-15 12:50 | disposition skilled nursing facility (03) | DRG 522 ==
LOC: ER 12:08 → MEDSURG 13:12
PROVIDERS: Orthopaedic Surgery; Physician Assistant; Admitting Provider Internal Medicine; Emergency Provider Family Medicine; PCP Nurse Practitioner; Visit Provider Internal Medicine
PROC: 0SRS0JZ Replacement of Left Hip Joint, Femoral Surface with Synthetic Substitute, Open Approach (ICD-10-PCS; CPT 27125; principal; 2022-02-13 12:00)
DX: S72.002A Fracture of unspecified part of neck of left femur, initial encounter for closed fracture (principal); D62 Acute posthemorrhagic anemia; E87.1 Hypo-osmolality and hyponatremia; W07.XXXA Fall from chair, initial encounter; Y92.129 Unspecified place in nursing home as the place of occurrence of the external cause; F20.9 Schizophrenia, unspecified; F03.90 Unspecified dementia, unspecified severity, without behavioral disturbance, psychotic disturbance, mood disturbance, and anxiety; Z87.440 Personal history of urinary (tract) infections; N40.0 Benign prostatic hyperplasia without lower urinary tract symptoms; Z86.16 Personal history of COVID-19; I10 Essential (primary) hypertension; E78.2 Mixed hyperlipidemia; F17.210 Nicotine dependence, cigarettes, uncomplicated; E55.9 Vitamin D deficiency, unspecified; J43.1 Panlobular emphysema
CPT/HCPCS: 36415; 51702; 70450; 71045; 72125; 73501; 73502; 73700; 80048; 80053; 81003; 82550; 84484; 85025; 93005; 94640; 96365; 96367; 96372; 97110; 97116; 97161; 97166; 97530; 99285; C1776; J0690; J1580; J1644; J1650; J2270; J2405; J2704; J2765; J7030; J7626

== ENCOUNTER → 2022-02-19 11:18 | Outpatient (BNVA) | payer MEDICARE, MEDICAID, SELFPAY | PROVIDERS: PCP Nurse Practitioner; Visit Provider Nurse Practitioner | DX: D64.9 Anemia, unspecified (principal) | CPT/HCPCS: 80048; 85025 ==

== ENCOUNTER 2022-02-25 09:20 | Inpatient (IN) | payer MEDICARE, MEDICAID, SELFPAY ==
[2022-02-25] VITALS (54 sets, daily range): BP systolic 94–141; BP diastolic 58–85; PULSE 53–86; RESP 14–27; TEMP 36.6–36.7; O2SAT 47–100
--- NOTE | 2022-02-25 09:35 | XR_ITS ---
WS: [id number] Left hip, 2 views, AP pelvis, 02/25/2022 Clinical Data: recent surgery; fall; one view pelvis too please Comparison: AP pelvis, 02/13/2022 Findings: There is an intertrochanteric subtrochanteric fracture of the left hip which is occurred since the la st image. The right hip arthroplasty remains in good position. The pelvis is intact. The SI joints a nd pubic symphysis are normal. The soft tissues are normal. XR/XR hip LT 2-3V wo/w pel* [id number] Impression: 1. Intertrochanteric subtrochanteric left hip fracture but the arthroplasty com ponents remain in good position. 2. No change in right hip arthroplasty.
--- NOTE | 2022-02-25 09:35 | USCV_ITS ---
Herson Ovalle Age: 66 Gender: M : 1955 Exam Date: 02/25/2022 10:17 Ordering Phys: Nicole Quesada Technologist: CT Exam [place] [facility] [place] Indication: lt leg pain and swelling PROCEDURES: Venous duplex imaging was performed in only the left lower extremity. The following venous structures were evaluated: common femoral vein, profunda vein, proximal portion of the greater saphenous vein, superficial femoral vein, and the popliteal vein. In addition, the posterior tibial and peroneal trunk were evaluated. On the left side, the common femoral, superficial femoral, profunda femoral, popliteal, posterior tibial, greater saphenous veins, and the peroneal trunk were identified and interrogated in the standard fashion. These veins were found to be easily compressible with spontaneous blood flow. No evidence of insufficiency or thrombus noted. FINDINGS: Normal 2-D Doppler and augmentation and compressibility throughout the lower extremity venous structures. Additional imaging through the proximal calf veins also reveals no thrombus. Limited evaluation of the greater saphenous vein is patent with no thrombus. There is subcutaneous left lower extremity edema noted. CONCLUSIONS No DVT left lower extremity. Dr. Mary Boswell DO (Electronically Signed) Final Date: 25 February 2022 12:04 S
--- NOTE | 2022-02-25 09:36 | ED_ITS ---
Documented by User: LLUVIA Gabriel 02/25/22 11:54 HPI - Fall General: Chief Complaint: Fall Stated Complaint: hip pain & swelling Time Seen by Provider: 02/25/22 09:22 Source: patient and EMS Mode of arrival: EMS Limitations: altered mental status (chronic dementia) History of Present Illness: Patient is a 66-year-old male here from [facility] for evaluation following a fall. According to EMS report staff at [facility] heard patient at roughly 1:30 AM fall out of his bed. They state they responded immediately and was able to help patient back into bed. Not sure the circumstances on why they decided to seek medical evaluation 8 hours later this morning. I saw patient roughly 2 weeks ago for a left femoral neck fracture following a fall. According to EMS report staff told them patient has not been ambulatory since the surgery and requires 2 person assist at all times. On initial assessment of patient his left leg is shortened and rotated similar to when I saw him 2 weeks ago for the acute femoral neck fracture. He does complain of left hip pain. He denies striking his head or LOC during the fall. Patient does have some baseline dementia. Mental status seems to be similar to when I saw him 2 weeks ago. EMS states they noticed left leg is swollen. They also had some concerns in regards to decubitus ulcers that do not seem to be cared for appropriately. EMS states patient was soaked in urine when they picked him up this morning. nursing staffing coordinator contacted [facility] who stated they heard patient fall in his room at roughly 130. When they responded to patient he was not complaining of pain anywhere so they assisted him back to bed. This morning when they went to assist patient to breakfast they noticed it required increased assistance due to him not wanting to bear weight on his left leg. complaint: fall Onset (ago): hour(s) Fall from: out of bed Fall witnessed: no Place fall occurred: longterm[facility] Loss of consciousness: None Prolonged down time: no Symptoms prior to fall: none Context: other (rolled out of bed) Associated symptoms-after fall: Reports difficulty walking; Denies abdominal pain, chest pain, headache(s) or neck pain Review of Systems General: Reports: Other (thought to be unreliable due to chronic dementia) Const: Denies: fever(s), chills, body aches, fatigue or malaise Card: Denies: chest pain Resp: Denies: dyspnea GI: Denies: abdominal pain : Denies: flank pain Musc: Reports: extremity pain (L LE), extremity swelling (L LE), joint pain (L hip), joint swelling (L hip) and limited range of motion; Denies: neck pain or back pain Skin/Breast: Denies: rash Neuro: Reports: difficulty walking; Denies: headache(s), numbness in extremities or sensory changes PFSH ED PFSH: Medical History Anemia BPH (benign prostatic hyperplasia) Chronic schizophrenia COPD (chronic obstructive pulmonary disease) COVID-19 vaccine administered J&J plus an mRNA booster per patient report Essential hypertension History of PFTs 05/31 severe airflow obstruction, normal gas exchange, decreased FVC, FEV1 40%, FEVI/FVC reduced Mixed hyperlipidemia Osteoporosis Psychiatric care Tardive akathisia Vitamin D deficiency Surgical History 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 05/2021 Family History Denies family history of CAD (coronary artery disease) Anesthesia complication Bleeding disorder Social History Smoking and tobacco status: former smoker Quit status (tobacco): has quit using tobacco Year quit tobacco: 2021 Former quit date comment: 1.5ppd x 51 year Hx Second hand smoke exposure: Yes Alcohol intake: former Caregiver/support person: Yes Lives independently: No Household members: other Details: Resides at [facility] assisted living care facility Housing: Assisted Living Facility Marital status: Single service: No Current occupational status: disabled Pets and animals: Yes Current gender identity: Male Physical Exam Const: COMMON NORMALS: no acute distress and alert GENERAL APPEARANCE: cooperative ORIENTATION/CONSCIOUSNESS: Yes awake, Yes oriented to person and Yes oriented to place ( hospital ) HENMT: COMMON NORMALS: normocephalic and atraumatic HEAD & SCALP: normal to inspection, normocephalic and atraumatic Eye: GENERAL EYE: appearance normal, both eyes and all related structures Neck/C-Spine: COMMON NORMALS: full ROM GENERAL: Yes normal visual inspection CERVICAL SPINE: No pain with cervical ROM, No Cervical spine tenderness and No step off deformity Resp: COMMON NORMALS: normal respiratory effort and clear to auscultation bilaterally AUSCULTATION: clear to auscultation bilaterally Cardio: COMMON NORMALS: regular rate and regular rhythm RATE: regular rate RHYTHM: regular rhythm GI: COMMON NORMALS: Normal to inspection, nondistended, normoactive bowel sounds present, Soft to palpation and non-tender PALPATION: Yes Soft to palpation Back/Pelvis: COMMON NORMALS: thoracic and lumbar spine normal to inspection, no thoracic nor lumbar tenderness and thoraco-lumbar ROM normal Extremity: COMMON NORMALS: capillary refill normal GENERAL: Yes normal exam except as noted LEFT LOWER EXTREMITY: Yes hip joint, Yes upper leg and Yes lower leg OTHER: pt has swelling throughout L LE when compared to R; L leg is shortened and rotated; DP/PT pulses and cap refill normal; limited ROM of L hip joint secondary to pain; patient has two decubitus ulcers (stage II)-one located to R lateral thigh (dressing dated 02/12 and is soaked in urine) and the other just above gluteal cleft (undressed); his L lateral thigh surgical incision dressing is soaked in urine-this was removed-incision overall looks fairly well-small area of dehiscence-no drainage or overlying cellulitis Neuro: COMMON NORMALS: moves all extremities, no focal motor deficits and no sensory deficits noted SENSORIUM/ORIENTATION: Yes alert, Yes oriented to person and Yes oriented to place ( hospital ) GAIT: Yes Unable to assess gait Course Vital Signs: Vital signs: Vital Signs Temperature 98.0 F 02/28/22 15:54 Pulse Rate 62 02/28/22 15:54 Respiratory Rate 17 02/28/22 15:54 Blood Pressure 118/61 02/28/22 15:54 Pulse Oximetry 98 02/28/22 15:54 Oxygen Delivery Me thod 02/28/22 12:14 Oxygen Flow Rate 6 02/26/22 09:42 MDM - Fall Medical Decision Making Patient here with a left periprosthesis hip fracture following a fall. There is some concern in regards to patient being cared for at his current facility as his surgical dressing as well as one of his ulcer dressings were completely soaked in urine. EMS states patient was soaked in urine when they picked him up. [facility] and patient does not have 24- hour care which I feel he needs. I spoke to Dr. Yates who will consult on patient. Recommend admission to hospitalist. Spoke to Dr. Oh who will see/evaluate patient and admit. Lab Data 02/25/22 10:10 02/25/22 10:10 Radiology Impressions Hip/Pelvis X-Ray 02/25/22 09:35 Impression: 1. Intertrochanteric subtrochanteric left hip fracture but the arthroplasty components remain in good position. 2. No change in right hip arthroplasty. Chest X-Ray 02/25/22 10:54 Impression: Atherosclerosis. Hip X-Ray 02/26/22 08:50 Impression: Complex revision of subtrochanteric intertrochanteric fracture of the left hip with replacement of old left hip arthroplasty Laboratory Results WBC 9.6 10^3/uL (4.0-10.0) 02/25/22 10:10 RBC 2.82 10^6/uL (4.1-5.3) L 02/25/22 10:10 Hgb 8.8 g/dL (11.7-16.6) L 02/25/22 10:10 Hct 26.6 % (42.0-52.0) L 02/25/22 10:10 MCV 94.3 fl (80-94) H 02/25/22 10:10 MCH 31.2 pg (28.0-34.0) 02/25/22 10:10 MCHC 33.1 g/dL (30.0-36.0) 02/25/22 10:10 RDW 13.7 % (12.1-15.1) 02/25/22 10:10 Plt Count 225 10^3/cmm (130-400) 02/25/22 10:10 MPV 8.8 fL (7.4-10.4) 02/25/22 10:10 Neut % (Auto) 81.3 % 02/25/22 10:10 Lymph % (Auto) 11.4 % 02/25/22 10:10 [place] % (Auto) 6.2 % 02/25/22 10:10 Eos % (Auto) 0.4 % 02/25/22 10:10 Baso % (Auto) 0.4 % 02/25/22 10:10 Neut # (Auto) 7.78 10^3/uL (1.8-7.7) H 02/25/22 10:10 Lymph # (Auto) 1.1 10^3/uL (0.8-4.8) 02/25/22 10:10 [place] # (Auto) 0.6 10^3/uL (0.2-0.9) 02/25/22 10:10 Eos # (Auto) 0.0 10^3/uL (0.0-0.8) 02/25/22 10:10 Baso # (Auto) 0.0 10^3/uL (0.0-0.1) 02/25/22 10:10 Nucleated RBC % (auto) 0 % 02/25/22 10:10 Nucleated RBCs # 0.0 /100WBC 02/25/22 10:10 Sodium 133 mmol/L (136-145) L 02/25/22 10:10 Potassium 4.1 mmol/L (3.5-5.1) 02/25/22 10:10 Chloride 100 mmol/L (98-107) 02/25/22 10:10 Carbon Dioxide 26 mmol/L (22-29) 02/25/22 10:10 Anion Gap 11.1 (5-19) 02/25/22 10:10 BUN 15 mg/dL (8-23) 02/25/22 10:10 Creatinine 0.6 mg/dL (0.7-1.2) L 02/25/22 10:10 GFR Calculation 134.8 mL/min (90-130) H 02/25/22 10:10 Glucose 110 mg/dL (65-115) 02/25/22 10:10 Calculated Osmolality 277 mOsm/kg (285-295) L 02/25/22 10:10 Calcium 8.5 mg/dL (8.5-10.5) 02/25/22 10:10 Total Bilirubin 0.4 mg/dL (0.15-1.2) 02/25/22 10:10 AST 15 U/L (0-40) 02/25/22 10:10 ALT 14 U/L (0-41) 02/25/22 10:10 Alkaline Phosphatase 95 U/L (40-130) 02/25/22 10:10 Total Protein 6.0 g/dL (6.6-8.7) L 02/25/22 10:10 Albumin 2.9 g/dL (3.5-5.2) L 02/25/22 10:10 Globulin 3.1 g/dL (1.3-4.6) 02/25/22 10:10 Urine Color Yellow (Yellow) 02/25/22 12:20 Urine Appearance Hazy (CLEAR) A 02/25/22 12:20 Urine pH 8 (5-7) H 02/25/22 12:20 Ur Specific [place] 1.010 (1.005-1.030) 02/25/22 12:20 Urine Protein Neg (Negative) 02/25/22 12:20 Urine Glucose (UA) Norm (Normal) 02/25/22 12:20 Urine Ketones Negative (Negative) 02/25/22 12:20 Urine Blood Neg (Negative) 02/25/22 12:20 Urine Nitrate Negative (Negative) 02/25/22 12:20 Urine Bilirubin Neg (Negative) 02/25/22 12:20 Prot Sulfosalicylic Acd Negative (Negative) 02/25/22 12:20 Urine Urobilinogen Norm mg/dL (Negative) 02/25/22 12:20 Ur Leukocyte Esterase Negative (Negative) 02/25/22 12:20 Urine RBC 0-4 /hpf (0-2) H 02/25/22 12:20 Urine WBC 0-4 /hpf (0-5) H 02/25/22 12:20 Ur Squamous Epith Cells Rare /hpf (0-5) 02/25/22 12:20 Amorphous Sediment 2+ /hpf 02/25/22 12:20 Urine Bacteria Trace /hpf (NONE) 02/25/22 12:20 Discharge Plan Discharge Patient Disposition: Admitted As Inpatient Admit Provider: Zoe Moreau Clinical Impression: Periprosthetic fracture around internal prosthetic left hip joint, Anemia, Decubitus ulcer Condition: Stable Sign Out Sign Out Data: Patient Sign Out occurred on 02/25/22 at 11:55. Patient's care was discussed, and care was transferred from to Orville Oh DO. Coding Level of Care Code ED Compressor Engineer for [facility] Fwd Exam Comprehensive Documented by User: Orville Oh DO 03/07/22 06:11 HPI - Fall General: Chief Complaint: Fall Stated Complaint: hip pain & swelling Time Seen by Provider: 02/25/22 09:22 History of Present Illness: Patient is a 66-year-old male here from [facility] for evaluation following a fall. According to EMS report staff at [facility] heard patient at roughly 1:30 AM fall out of his bed. They state they responded immediately and was able to help patient back into bed. Not sure the circumstances on why they decided to seek medical evaluation 8 hours later this morning. I saw patient roughly 2 weeks ago for a left femoral neck fracture following a fall. According to EMS report staff told them patient has not been ambulatory since the surgery and requires 2 person assist at all times. On initial assessment of patient his left leg is shortened and rotated similar to when I saw him 2 weeks ago for the acute femoral neck fracture. He does complain of left hip pain. He denies striking his head or LOC during the fall. Patient does have some baseline dementia. Mental status seems to be similar to when I saw him 2 weeks ago. EMS states they noticed left leg is swollen. They also had some concerns in regards to decubitus ulcers that do not seem to be cared for appropriately. EMS states patient was soaked in urine when they picked him up this morning. nursing staffing coordinator contacted [facility] who stated they heard patient fall in his room at roughly 130. When they responded to patient he was not complaining of pain anywhere so they assisted him back to bed. This morning when they went to [facility] patient to breakfast they noticed it required increased assistance due to him not wanting to bear weight on his left leg. [facility] ED PFSH: Medical History Anemia BPH (benign prostatic hyperplasia) Chronic schizophrenia COPD (chronic obstructive pulmonary disease) COVID-19 vaccine administered J&J plus an mRNA booster per patient report Essential hypertension History of PFTs 05/31 severe airflow obstruction, normal gas exchange, decreased FVC, FEV1 40%, FEVI/FVC reduced Mixed hyperlipidemia Osteoporosis Psychiatric care Tardive akathisia Vitamin D deficiency Surgical History 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 05/2021 Family History Denies family history of CAD (coronary artery disease) Anesthesia complication Bleeding disorder Social History Smoking and tobacco status: former smoker Quit status (tobacco): has quit using tobacco Year quit tobacco: 2021 Former quit date comment: 1.5ppd x 51 year Hx Second hand smoke exposure: Yes Alcohol intake: former Caregiver/support person: Yes Lives independently: No Household members: other Details: Resides at [facility] residential assisted living care facility Housing: Assisted Living Facility Marital status: Single service: No Current occupational status: disabled Pets and animals: Yes Current gender identity: Male Course Vital Signs: Vital signs: Vital Signs Temperature 98.0 F 02/28/22 15:54 Pulse Rate 62 02/28/22 15:54 Respiratory Rate 17 02/28/22 15:54 Blood Pressure 118/61 02/28/22 15:54 Pulse Oximetry 98 02/28/22 15:54 Oxygen Delivery Me thod 02/28/22 12:14 Oxygen Flow Rate 6 02/26/22 09:42 MDM - Fall Medical Decision Making Patient here with a left periprosthesis hip fracture following a fall. There is some concern in regards to patient being cared for at his current facility as his surgical dressing as well as one of his ulcer dressings were completely soaked in urine. EMS states patient was soaked in urine when they picked him up. [facility] and patient does not have 24- hour care which I feel he needs. I spoke to Dr. Yates who will consult on patient. Recommend admission to hospitalist. Spoke to Dr. Oh who will see/evaluate patient and admit. Patient care handoff received from Nicole Quesada continuation of ED evaluation. I personally saw and evaluated patient and reperformed [place]over portions of E/M. Patient labs imaging reviewed after taking history and repeating exam. Patient has fracture around the previous hip arthroplasty that will need to be a ddressed. Discussed with orthopedics as well with hospitalist. Will admit hospitalist to provide medical clearance. Dr. Yates anticipates Taking patient to surgery tomorrow. Discussed with patient and family orders have been written. Medical Records I reviewed the patient's medical records. Lab Data I reviewed the patient's lab results. 02/25/22 10:10 02/25/22 10:10 Radiology Impressions Hip/Pelvis X-Ray 02/25/22 09:35 Impression: 1. Intertrochanteric subtrochanteric left hip fracture but the arthroplasty components remain in good position. 2. No change in right hip arthroplasty. Chest X-Ray 02/25/22 10:54 Impression: Atherosclerosis. Hip X-Ray 02/26/22 08:50 Impression: Complex revision of subtrochanteric intertrochanteric fracture of the left hip with replacement of old left hip arthroplasty Laboratory Results WBC 9.6 10^3/uL (4.0-10.0) 02/25/22 10:10 RBC 2.82 10^6/uL (4.1-5.3) L 02/25/22 10:10 Hgb 8.8 g/dL (11.7-16.6) L 02/25/22 10:10 Hct 26.6 % (42.0-52.0) L 02/25/22 10:10 MCV 94.3 fl (80-94) H 02/25/22 10:10 MCH 31.2 pg (28.0-34.0) 02/25/22 10:10 MCHC 33.1 g/dL (30.0-36.0) 02/25/22 10:10 RDW 13.7 % (12.1-15.1) 02/25/22 10:10 Plt Count 225 10^3/cmm (130-400) 02/25/22 10:10 MPV 8.8 fL (7.4-10.4) 02/25/22 10:10 Neut % (Auto) 81.3 % 02/25/22 10:10 Lymph % (Auto) 11.4 % 02/25/22 10:10 [place] % (Auto) 6.2 % 02/25/22 10:10 Eos % (Auto) 0.4 % 02/25/22 10:10 Baso % (Auto) 0.4 % 02/25/22 10:10 Neut # (Auto) 7.78 10^3/uL (1.8-7.7) H 02/25/22 10:10 Lymph # (Auto) 1.1 10^3/uL (0.8-4.8) 02/25/22 10:10 [place] # (Auto) 0.6 10^3/uL (0.2-0.9) 02/25/22 10:10 Eos # (Auto) 0.0 10^3/uL (0.0-0.8) 02/25/22 10:10 Baso # (Auto) 0.0 10^3/uL (0.0-0.1) 02/25/22 10:10 Nucleated RBC % (auto) 0 % 02/25/22 10:10 Nucleated RBCs # 0.0 /100WBC 02/25/22 10:10 Sodium 133 mmol/L (136-145) L 02/25/22 10:10 Potassium 4.1 mmol/L (3.5-5.1) 02/25/22 10:10 Chloride 100 mmol/L (98-107) 02/25/22 10:10 Carbon Dioxide 26 mmol/L (22-29) 02/25/22 10:10 Anion Gap 11.1 (5-19) 02/25/22 10:10 BUN 15 mg/dL (8-23) 02/25/22 10:10 Creatinine 0.6 mg/dL (0.7-1.2) L 02/25/22 10:10 GFR Calculation 134.8 mL/min (90-130) H 02/25/22 10:10 Glucose 110 mg/dL (65-115) 02/25/22 10:10 Calculated Osmolality 277 mOsm/kg (285-295) L 02/25/22 10:10 Calcium 8.5 mg/dL (8.5-10.5) 02/25/22 10:10 Total Bilirubin 0.4 mg/dL (0.15-1.2) 02/25/22 10:10 AST 15 U/L (0-40) 02/25/22 10:10 ALT 14 U/L (0-41) 02/25/22 10:10 Alkaline Phosphatase 95 U/L (40-130) 02/25/22 10:10 Total Protein 6.0 g/dL (6.6-8.7) L 02/25/22 10:10 Albumin 2.9 g/dL (3.5-5.2) L 02/25/22 10:10 Globulin 3.1 g/dL (1.3-4.6) 02/25/22 10:10 Urine Color Yellow (Yellow) 02/25/22 12:20 Urine Appearance Hazy (CLEAR) A 02/25/22 12:20 Urine pH 8 (5-7) H 02/25/22 12:20 Ur Specific [place] 1.010 (1.005-1.030) 02/25/22 12:20 Urine Protein Neg (Negative) 02/25/22 12:20 Urine Glucose (UA) Norm (Normal) 02/25/22 12:20 Urine Ketones Negative (Negative) 02/25/22 12:20 Urine Blood Neg (Negative) 02/25/22 12:20 Urine Nitrate Negative (Negative) 02/25/22 12:20 Urine Bilirubin Neg (Negative) 02/25/22 12:20 Prot Sulfosalicylic Acd Negative (Negative) 02/25/22 12:20 Urine Urobilinogen Norm mg/dL (Negative) 02/25/22 12:20 Ur Leukocyte Esterase Negative (Negative) 02/25/22 12:20 Urine RBC 0-4 /hpf (0-2) H 02/25/22 12:20 Urine WBC 0-4 /hpf (0-5) H 02/25/22 12:20 Ur Squamous Epith Cells Rare /hpf (0-5) 02/25/22 12:20 Amorphous Sediment 2+ /hpf 02/25/22 12:20 Urine Bacteria Trace /hpf (NONE) 02/25/22 12:20 Discharge Plan Discharge Patient Disposition: Admitted As Inpatient Admit Provider: Zoe Moreau Clinical Impression: Periprosthetic fracture around internal prosthetic left hip joint, Anemia, Decubitus ulcer Condition: Stable Sign Out Sign Out Data: Patient Sign Out occurred on 02/25/22 at 11:55. Patient's care was discussed, and care was transferred from to Orville Oh DO. Coding Level of Care Code ED Compressor Engineer for [facility] Fwd Exam Comprehensive
[2022-02-25 10:15] LABS: Basophils % 0.4 %; Eosinophils % 0.4 %; Hematocrit 26.6 % (42.0-52.0); Hemoglobin 8.8 g/dL (11.7-16.6); Lymphocytes # 1.1 10^3/uL (0.8-4.8); Lymphocytes % 11.4 %; Mean Corpuscular HGB Conc 33.1 g/dL (30.0-36.0); Mean Corpuscular Hemoglobin 31.2 pg (28.0-34.0); Mean Corpuscular Volume 94.3 fl (80-94); Mean Platelet Volume 8.8 fL (7.4-10.4); Monocytes # 0.6 10^3/uL (0.2-0.9); Monocytes % 6.2 %; Neutrophils # 7.78 10^3/uL (1.8-7.7); Neutrophils % 81.3 %; Nucleated Red Blood Cells % 0 %; Platelet Count 225 10^3/cmm (130-400); Red Blood Count 2.82 10^6/uL (4.1-5.3); Red Cell Distribution Width 13.7 % (12.1-15.1); White Blood Count 9.6 10^3/uL (4.0-10.0)
[2022-02-25 10:40] LABS: Alanine Aminotransferase 14 U/L (0-41); Albumin Level 2.9 g/dL (3.5-5.2); Alkaline Phosphatase 95 U/L (40-130); Anion Gap 11.1 (5-19); Aspartate Amino Transferase 15 U/L (0-40); Blood Urea Nitrogen 15 mg/dL (8-23); Calcium 8.5 mg/dL (8.5-10.5); Carbon Dioxide 26 mmol/L (22-29); Chloride 100 mmol/L (98-107); Globulin 3.1 g/dL (1.3-4.6); Glomerular Filtration Rate 134.8 mL/min (90-130); Glucose 110 mg/dL (65-115); Osmolality Calculated 277 mOsm/kg (285-295); Potassium 4.1 mmol/L (3.5-5.1); Sodium 133 mmol/L (136-145); Total Bilirubin 0.4 mg/dL (0.15-1.2)
--- NOTE | 2022-02-25 10:54 | XR_ITS ---
WS: [id number] Portable AP semiupright chest, 02/25/2022 Clinical Data: fall Comparison: Portable chest, 02/12/2022 Findings: No nodules, masses or effusions are seen. The heart is normal. The pulmonary vascularity is not increased. No pneumonia or pneumothorax is seen. The aortic arch and descending thoracic aorta s how tortuosity. There are monitor leads on the chest wall. XR/XR chest 1V portable [id number] Impression: Atherosclerosis.
--- NOTE | 2022-02-25 10:54 | ECG_ITS ---
[facility] Test Date: 2022-02-25 Pat Name: Herson Oavlle Department: Room: Gender: Male Customer Facilities Supervisor: : 1955 Requested By: Nicole Quesada Order Number: [id number] Lei MD: Juan Wilde M.D. Measurements Intervals [place] Rate: 61 P: 73 MT: 136 QRS: 63 QRSD: 86 T: 73 QT: 397 QTc: 401 Interpretive Statements SINUS RHYTHM Compared to ECG 02/12/2022 16:19:34 No significant changes Electronically Signed On 02-25-2022 18:50:11 [employer] by Juan Wilde M.D. [id number]
[2022-02-25 13:14] LABS: Urine Appearance Hazy (CLEAR); Urine Color Yellow (Yellow)
[2022-02-25 13:15] LABS: Bilirubin Urine Neg (Negative); Blood Urine Neg (Negative); Glucose Urine UA Norm (Normal); Ketones Urine Negative (Negative); Leukocyte Esterase Urine Negative (Negative); Nitrate Urine Negative (Negative); Protein Urine Neg (Negative); Sulfosalicylic Acid Urine Negative (Negative); Urobilinogen Urine Norm (Negative); pH Urine 8 (5-7)
[2022-02-25 13:16] LABS: Add Urine Microscopic? YES; RBC Urine 0-4 /hpf (0-2); Squamous Epithelial Cell Urine RARE /hpf (0-5); WBC Urine 0-4 /hpf (0-5)
[2022-02-25 13:17] LABS: Add Urine Culture? No; Amorphous Sediment Urine 2+ /hpf; Bacteria Urine TRACE /hpf
--- NOTE | 2022-02-25 14:17 | P.CONIM_ITS ---
Providers/Reason For Consult Consulting Physician/Specialty*: Shawn Yates MD; orthopedic surgeon Reason for Consult*: Periprosthetic hip fracture Attending Physician: Zoe Moreau MD Primary Care Provider: Bernadette Spears APN History of Present Illness History of Present Illness Herson Ovalle is a 66 year old male known to this service after a left bipolar hip arthroplasty on 02/13/2022. He was discharged to retirement on 02/15/2022 after unremarkable hospital course. He is not a great historian. He states that this morning he felt dizzy and fell with immediate pain and deformity of the left hip. Medications/Allergies Home Medications Medication Instructions Recorded Confirmed Last Taken Type DME: Walker #1 ea 10/12/21 02/25/22 Unknown Rx folic acid 1 mg tablet 1 mg PO DAILY@06 #90 tabs 10/29/21 02/25/22 02/25/22 Rx aripiprazole 10 mg tablet (Abilify) 10 mg PO DAILY@0600 02/12/22 02/25/22 02/25/22 History lorazepam 0.5 mg tablet 0.5 mg PO BEDTIME 02/12/22 02/25/22 02/24/22 History propranolol 10 mg tablet 10 mg PO BID 02/12/22 02/25/22 02/25/22 History simvastatin 20 mg tablet 20 mg PO DAILY 02/12/22 02/25/22 02/24/22 History tamsulosin 0.4 mg capsule 0.8 mg PO BEDTIME 02/12/22 02/25/22 02/24/22 History enoxaparin 30 mg/0.3 mL 30 mg (0.3 mL) SUBCUT DAILY #9 mL 02/15/22 02/25/22 02/24/22 Rx subcutaneous syringe (Lovenox) oxycodone 5 mg tablet 5 mg PO Q4H PRN Moderate Pain #20 02/15/22 02/25/22 Unknown Rx tabs pantoprazole 40 mg tablet,delayed 40 mg PO BID #60 tabs 02/15/22 02/25/22 02/25/22 Rx release sennosides 8.6 mg-docusate sodium 2 tab PO BID #60 tabs 02/15/22 02/25/22 02/25/22 Rx 50 mg tablet (Stool Softener-Laxative) budesonide 160 mcg-glycopyr 9 See Rx Instructions .Route 02/25/22 02/25/22 02/25/22 Rx mcg-formot 4.8 mcg/actuation HFA .COMPLEX #10.7 grams inhaler (Breztri Aerosphere) Allergies Allergy/AdvReac Type Severity Reaction Status Date / Time No Known Allergies Allergy Verified 02/19/22 10:58 PFSH Acute 2 PFSH: Medical History Abnormal urinalysis Anemia Bacterial UTI BPH (benign prostatic hyperplasia) Chronic schizophrenia COPD (chronic obstructive pulmonary disease) COVID-19 vaccine administered J&J plus an mRNA booster per patient report Essential hypertension History of PFTs 05/31 severe airflow obstruction, normal gas exchange, decreased FVC, FEV1 40%, FEVI/FVC reduced Mixed hyperlipidemia Nicotine dependence, cigarettes, uncomplicated On valproate therapy Psychiatric care Tardive akathisia Vitamin D deficiency Surgical History History of hip replacement, total No pertinent past surgical history No prior surgical history reported 05/14/2021 Family History Denies family history of CAD (coronary artery disease) Anesthesia complication Bleeding disorder Social History Smoking and tobacco status: former smoker Quit status (tobacco): has quit using tobacco Year quit tobacco: 2021 Former quit date comment: 1.5ppd x 51 year Hx Second hand smoke exposure: Yes Alcohol intake: former Caregiver/support person: Yes Lives independently: No Household members: other Details: Resides at [facility] care facility Housing: Assisted Living Facility Marital status: Single service: No Current occupational status: disabled Pets and animals: Yes Current gender identity: Male Vitals/I&O/Wt Last Vital Signs Temp 98.0 F 02/25/22 09:40 Pulse 56 L 02/25/22 14:05 Resp 17 02/25/22 14:05 BP 129/63 02/25/22 14:05 Pulse Ox 99 02/25/22 14:05 O2 Del Method 02/25/22 13:55 Physical Exam Narrative: Herson supine in bed. He answers simple questions but not oriented to place or time. He has a poor recollection of events leading up to his care here. He has clear shortening and external rotation of the left hip. He has exquisite pain with left hip motion Palpable left dorsalis pedis pulse Will flex and extend left toes and ankles without any motor deficits. Urinary Catheter Management: Ordonez: Cath Placed During This Visit: yes Urinary Catheter Date of Insertion: 02/25/22 Urinary Catheter Time of Insertion: 12:20 Data 02/25/22 10:10 02/25/22 10:10 Other data: Radiographs of the left hip are reviewed. The patient has subsidence of his left stem with displacement of the lesser tuberosity fragment and distortion of normal greater tuberosity anatomy A&P Assessment and plan (1) Periprosthetic fracture around internal prosthetic left hip joint: I tried to contact a Edel Norton who is listed as a guarantee year of the patient. She was unable to be reached. I then spoke with a Daisy [address] at the facility where the patient resided. They stated they have been unable to get a hold of Edel as well but they stated the do have a DURABLE POWER OF LABORER ORCHARD to give consent. I discussed the patient's fracture with him. The patient has a unstable periprosthetic left femur fracture. To improve pain and allow some chance of ambulatory status I think stabilization of the femur would be necessary. Unfortunately with greater and lesser trochanteric involvement this would seem to require more than simple cerclage wires. I think our best option would be to proceed with a revision stem and stabilization of at least the lesser trochanteric fragment with cerclage wires. Risks are noted with the procedure. I discussed risk of refracture with trauma, failure to obtain fixation with the stem, bleeding, infection, dislocation. Certainly there are anesthetic risks with the surgery. Mr. Ovalle is quite anemic. I would expect additional blood loss and we will type and screen him for additional blood. Qualifiers: Encounter type: initial encounter Qualified Code(s): M97.02XA - Periprosthetic fracture around internal prosthetic left hip joint, initial encounter Coding Level of Care Code Acute Code for [facility] Fwd Diagnoses Periprosthetic fracture around internal prosthetic left hip joint M97.02XA Encounter type: initial encounter
[2022-02-25] MEDS: D5-NS 0.45% + KCL 20 mEq 20 MEQ/1,000 ML BAG 100 MEQ IV (15:06)
--- NOTE | 2022-02-25 19:41 | PM.HP ---
Providers/Chief Complaint Admitting Physician: Zoe Moreau MD Primary Care Provider: Bernadette Spears APN Chief Complaint: hip pain & swelling History of Present Illness Herson Ovalle is a 66 year old male who resides chronically at [facility] assisted living/care facility presented to the emergency room after falling out of bed. He was complaining of left hip pain. Mr. Ovalle was hospitalized on February 12 after another fall associated with left hip fracture. He underwent left hemiarthroplasty on February [address] Yates. He was discharged back to [facility] on February 15. I cannot get a clear idea of what therapy, if any, he might of been receiving nor specific details of what happened with his fall today. In the emergency room he was found to have a periprosthetic fracture. Case was discussed with orthopedics. Mr. Ovalle will require surgical repair again. He has some pain in his left hip along with some swelling. He himself does not have any other complaints acutely. No other areas that are hurting. No nausea or vomiting. No chest pain. Breathing okay. Previous history is obtained predominantly from review of available records. Review of Systems Const: Reports: change in weight (Reports weight loss over time); Denies: fever(s) ENMT: Denies: throat pain or nasal discharge Card: Denies: lightheadedness or syncope Resp: Denies: dyspnea GI: Denies: diarrhea, constipation or fecal incontinence : Denies: difficulty urinating or urinary incontinence Skin/Breast: Reports: sores (right hip, buttocks) Neuro: Reports: difficulty walking, frequent falls and involuntary movements; Denies: numbness in extremities Psych: Reports: other (no current hallucinations) Medications/Allergies Home Medications Medication Instructions Recorded Confirmed Last Taken Type DME: Walker #1 ea 10/12/21 02/25/22 Unknown Rx folic acid 1 mg tablet 1 mg PO DAILY@06 #90 tabs 10/29/21 02/25/22 02/25/22 Rx aripiprazole 10 mg tablet (Abilify) 10 mg PO DAILY@0600 02/12/22 02/25/22 02/25/22 History lorazepam 0.5 mg tablet 0.5 mg PO BEDTIME 02/12/22 02/25/22 02/24/22 History propranolol 10 mg tablet 10 mg PO BID 02/12/22 02/25/22 02/25/22 History simvastatin 20 mg tablet 20 mg PO DAILY 02/12/22 02/25/22 02/24/22 History tamsulosin 0.4 mg capsule 0.8 mg PO BEDTIME 02/12/22 02/25/22 02/24/22 History enoxaparin 30 mg/0.3 mL 30 mg (0.3 mL) SUBCUT DAILY #9 mL 02/15/22 02/25/22 02/24/22 Rx subcutaneous syringe (Lovenox) oxycodone 5 mg tablet 5 mg PO Q4H PRN Moderate Pain #20 02/15/22 02/25/22 Unknown Rx tabs pantoprazole 40 mg tablet,delayed 40 mg PO BID #60 tabs 02/15/22 02/25/22 02/25/22 Rx release budesonide 160 mcg-glycopyr 9 2 inh inhalation BID 02/25/22 02/25/22 02/25/22 History mcg-formot 4.8 mcg/actuation HFA inhaler (Breztri Aerosphere) sennosides 8.6 mg tablet (senna) 8.6 mg PO BID 02/25/22 02/25/22 02/25/22 History Allergies Allergy/AdvReac Type Severity Reaction Status Date / Time No Known Allergies Allergy Verified 02/19/22 10:58 PFSH Acute PFSH: Medical History (Updated 02/25/22 @ 20:43 by Zoe Moreau MD) Anemia BPH (benign prostatic hyperplasia) Chronic schizophrenia COPD (chronic obstructive pulmonary disease) COVID-19 vaccine administered J&J plus an mRNA booster per patient report Essential hypertension History of PFTs 05/31 severe airflow obstruction, normal gas exchange, decreased FVC, FEV1 40%, FEVI/FVC reduced Mixed hyperlipidemia Osteoporosis Psychiatric care Tardive akathisia Vitamin D deficiency Surgical History (Updated 02/25/22 @ 19:49 by Zoe Moreau MD) 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 05/2021 Family History Denies family history of CAD (coronary artery disease) Anesthesia complication Bleeding disorder Social History (Updated 02/25/22 @ 19:50 by Zoe Moreau MD) Smoking and tobacco status: former smoker Quit status (tobacco): has quit using tobacco Year quit tobacco: 2021 Former quit date comment: 1.5ppd x 51 year Hx Second hand smoke exposure: Yes Alcohol intake: former Substance/Drug Use: unknown Caregiver/support person: Yes Lives independently: No Household members: other Details: Resides at [facility] residential assisted living care facility Housing: Assisted Living Facility Marital status: Single service: No Current occupational status: disabled Pets and animals: Yes Current gender identity: Male Vitals/I&O/Wt Last Vital Signs Temp 98.0 F 02/25/22 09:40 Pulse 56 L 02/25/22 14:05 Resp 17 02/25/22 14:05 BP 129/63 02/25/22 14:05 Pulse Ox 99 02/25/22 14:05 O2 Del Method 02/25/22 14:44 02/25/22 02/25/22 02/25/22 06:59 14:59 22:59 Output Total 900 / 900 Balance -900 / -900 Physical Exam Narrative: Patient is awake and alert, thin build, normocephalic except for some mild bitemporal wasting, right pupil is slightly larger than left pupil, extraocular movements are intact, neck is supple, lungs are clear to auscultation bilaterally without any rales rhonchi or wheezes noted cardiovascular exam reveals a regular rate and rhythm, abdomen is soft, nontender, positive bowel sounds, Ordonez catheter is in place, right hip with approximately centimeter diameter ulceration near the proximal portion of prior surgical incision, superficial, some sloughing noted. Left thigh is edematous compared to right thigh. Lateral surgical incision is intact though with some portions not lining up on the outer edges due to the degree of swelling. No bruising is noted on easily visible portions of the skin, posterior region not currently evaluated. There is some serous drainage from the surgical incision but not elsewhere. Left lower extremity is externally rotated and shortened. Leg circumference in the pretibial region is approximately equal bilaterally, no calf tenderness, pulses are equal in both feet with good capillary refill. Patient has some involuntary movements of the hands in particular noted. Handgrip is equal, moves toes on both feet. Speech is clear and face is symmetric. Urinary Catheter Management: Ordonez: Cath Placed During This Visit: yes Reason for Continuing Indwelling Catheter: Required Immobilization for Trauma or Surgery or Anesthesia Urinary Catheter Date of Insertion: 02/25/22 Urinary Catheter Time of Insertion: 12:20 Data 02/25/22 10:10 02/25/22 10:10 Other Labs: Radiology Impressions Hip/Pelvis X-Ray 02/25/22 09:35 Impression: 1. Intertrochanteric subtrochanteric left hip fracture but the arthroplasty components remain in good position. 2. No change in right hip arthroplasty. Chest X-Ray 02/25/22 10:54 Impression: Atherosclerosis. Laboratory Results WBC 9.6 10^3/uL (4.0-10.0) 02/25/22 10:10 RBC 2.82 10^6/uL (4.1-5.3) L 02/25/22 10:10 Hgb 8.8 g/dL (11.7-16.6) L 02/25/22 10:10 Hct 26.6 % (42.0-52.0) L 02/25/22 10:10 MCV 94.3 fl (80-94) H 02/25/22 10:10 MCH 31.2 pg (28.0-34.0) 02/25/22 10:10 MCHC 33.1 g/dL (30.0-36.0) 02/25/22 10:10 RDW 13.7 % (12.1-15.1) 02/25/22 10:10 Plt Count 225 10^3/cmm (130-400) 02/25/22 10:10 MPV 8.8 fL (7.4-10.4) 02/25/22 10:10 Neut % (Auto) 81.3 % 02/25/22 10:10 Lymph % (Auto) 11.4 % 02/25/22 10:10 [place] % (Auto) 6.2 % 02/25/22 10:10 Eos % (Auto) 0.4 % 02/25/22 10:10 Baso % (Auto) 0.4 % 02/25/22 10:10 Neut # (Auto) 7.78 10^3/uL (1.8-7.7) H 02/25/22 10:10 Lymph # (Auto) 1.1 10^3/uL (0.8-4.8) 02/25/22 10:10 [place] # (Auto) 0.6 10^3/uL (0.2-0.9) 02/25/22 10:10 Eos # (Auto) 0.0 10^3/uL (0.0-0.8) 02/25/22 10:10 Baso # (Auto) 0.0 10^3/uL (0.0-0.1) 02/25/22 10:10 Nucleated RBC % (auto) 0 % 02/25/22 10:10 Nucleated RBCs # 0.0 /100WBC 02/25/22 10:10 Sodium 133 mmol/L (136-145) L 02/25/22 10:10 Potassium 4.1 mmol/L (3.5-5.1) 02/25/22 10:10 Chloride 100 mmol/L (98-107) 02/25/22 10:10 Carbon Dioxide 26 mmol/L (22-29) 02/25/22 10:10 Anion Gap 11.1 (5-19) 02/25/22 10:10 BUN 15 mg/dL (8-23) 02/25/22 10:10 Creatinine 0.6 mg/dL (0.7-1.2) L 02/25/22 10:10 GFR Calculation 134.8 mL/min (90-130) H 02/25/22 10:10 Glucose 110 mg/dL (65-115) 02/25/22 10:10 Calculated Osmolality 277 mOsm/kg (285-295) L 02/25/22 10:10 Calcium 8.5 mg/dL (8.5-10.5) 02/25/22 10:10 Total Bilirubin 0.4 mg/dL (0.15-1.2) 02/25/22 10:10 AST 15 U/L (0-40) 02/25/22 10:10 ALT 14 U/L (0-41) 02/25/22 10:10 Alkaline Phosphatase 95 U/L (40-130) 02/25/22 10:10 Total Protein 6.0 g/dL (6.6-8.7) L 02/25/22 10:10 Albumin 2.9 g/dL (3.5-5.2) L 02/25/22 10:10 Globulin 3.1 g/dL (1.3-4.6) 02/25/22 10:10 Urine Color Yellow (Yellow) 02/25/22 12:20 Urine Appearance Hazy (CLEAR) A 02/25/22 12:20 Urine pH 8 (5-7) H 02/25/22 12:20 Ur Specific [place] 1.010 (1.005-1.030) 02/25/22 12:20 Urine Protein Neg (Negative) 02/25/22 12:20 Urine Glucose (UA) Norm (Normal) 02/25/22 12:20 Urine Ketones Negative (Negative) 02/25/22 12:20 Urine Blood Neg (Negative) 02/25/22 12:20 Urine Nitrate Negative (Negative) 02/25/22 12:20 Urine Bilirubin Neg (Negative) 02/25/22 12:20 Prot Sulfosalicylic Acd Negative (Negative) 02/25/22 12:20 Urine Urobilinogen Norm mg/dL (Negative) 02/25/22 12:20 Ur Leukocyte Esterase Negative (Negative) 02/25/22 12:20 Urine RBC 0-4 /hpf (0-2) H 02/25/22 12:20 Urine WBC 0-4 /hpf (0-5) H 02/25/22 12:20 Ur Squamous Epith Cells Rare /hpf (0-5) 02/25/22 12:20 Amorphous Sediment 2+ /hpf 02/25/22 12:20 Urine Bacteria Trace /hpf (NONE) 02/25/22 12:20 Blood Type A Positive 02/25/22 16:07 Rho(D) Type Positive 02/25/22 16:07 Antibody Screen Negative 02/25/22 16:07 A&P Assessment and plan (1) Fall from bed: In a patient with multiple falls lately and second fracture involving the left hip in the last couple of weeks Qualifiers: Encounter type: initial encounter Qualified Code(s): W06.XXXA - Fall from bed, initial encounter (2) Periprosthetic fracture around internal prosthetic left hip joint: With significant edema in the left thigh and some serous drainage noted around incision site Qualifiers: Encounter type: initial encounter Qualified Code(s): M97.02XA - Periprosthetic fracture around internal prosthetic left hip joint, initial encounter (3) Status post left hip replacement: Postop day 12 from original left hemiarthroplasty performed by Dr. Yates on February 13 On Lovenox for dvt prophylaxis On ibuprofen and oxycodone for pain control (4) Anemia: Acute postoperative anemia on chronic anemia type unknown Chronically on folic acid (5) Chronic schizophrenia: On chronic Abilify daily and lorazepam at bedtime (6) Hyponatremia: Chronically low sodium in the 130-135 range (7) Tardive akathisia: Chronically on propranolol (8) Essential hypertension: Chronically on propranolol (9) Mixed hyperlipidemia: Chronically on statin therapy (10) COPD (chronic obstructive pulmonary disease): Chronically on Breztri Aero Not currently acute Qualifiers: COPD type: emphysema Emphysema type: panlobular Qualified Code(s): J43.1 - Panlobular emphysema (11) BPH (benign prostatic hyperplasia): Chronically on Flomax (12) Wound of right lower extremity: Superficial ulceration right lateral thigh measuring about 1cm diameter nearer to proximal end of old surgical scarpresent on admission (13) Sacral decubitus ulcer: Stage I-II present on admission (14) Osteoporosis: Plan Inpatient admission Orthopedics consultation Current plan is for probable surgical repair in the morning pending discussion with power of senior trial attorney/guardian Monitor left thigh swelling and serous drainage to ensure adequate wound healing postoperatively Monitor for further drop in hemoglobin Check iron level, initiate iron therapy Type and screen Continue home folic acid IV fluids while n.p.o. Watch sodium for drop beyond usual values for patient Continue home propranolol Continue home simvastatin Continue home Flomax Continue home PPI Continue home Abilify and lorazepam Substitute breathing treatment options based on formulary equivalents Intermittent pneumatic compression currently for DVT prophylaxis with plan to resume Lovenox postoperatively for DVT prophylaxis Ordonez catheter currently in the perioperative timeframe Wound care to nonsurgical sites as needed along with monitoring Add calcium plus vitamin D Case management for skilled placement upon discharge Supportive care otherwise Patient tolerated surgery within the last 2 weeks without any significant perioperative complications identified, no additional preoperative valuation at this time Findings, concerns and plans were reviewed with the patient and he was given an opportunity to ask questions. Primary concern currently is pain and pain control. He understands tentative plan for surgery in the morning. Anticipate likely discharge this time to skilled facility rather than back to residential care facility for more facilitated therapy and support at least initially. High fall risk. Attestations Medical Necessity Statement*: Anticipated stay greater than 2 midnights in a gentleman who has again fallen and sustained this time a periprosthetic fracture in his left hip that will again require surgical intervention. Other issues and plans as noted above. Coding Level of Care Code Acute Code for [facility] Fwd Diagnoses Fall from bed W06.XXXA Encounter type: initial encounter Periprosthetic fracture around internal prosthetic left hip joint M97.02XA Encounter type: initial encounter Status post left hip replacement Z96.642 Anemia D64.9 Chronic schizophrenia F20.9 Hyponatremia E87.1 Tardive akathisia G25.71 Essential hypertension I10 Mixed hyperlipidemia E78.2 COPD (chronic obstructive pulmonary disease) J43.1 COPD type: emphysema Emphysema type: panlobular BPH (benign prostatic hyperplasia) N40.0 Wound of right lower extremity S81.801A Sacral decubitus ulcer L89.159 Osteoporosis M81.0
[2022-02-25] MEDS: propranolol 20 mg Tablet 10 MG PO (21:20)
[2022-02-25] MEDS: LORazepam 0.5 mg Tablet PO (21:21)
[2022-02-25] MEDS: tamsulosin 0.4 mg Capsule 0.8 MG PO (21:21)
[2022-02-25] MEDS: atorvastatin 40 mg Tablet 20 MG PO (21:21)
[2022-02-26] VITALS (18 sets, daily range): BP systolic 97–130; BP diastolic 52–82; PULSE 53–68; RESP 16–20; TEMP 36.2–37; O2SAT 95–100
[2022-02-26] MEDS: D5-NS 0.45% + KCL 20 mEq 20 MEQ/1,000 ML BAG 100 MEQ IV (03:13)
[2022-02-26] MEDS: folic acid 1 mg Tablet PO (05:48)
[2022-02-26] MEDS: ARIPiprazole 10 mg Tablet PO (05:48)
[2022-02-26 06:04] LABS: Basophils % 0.4 %; Eosinophils # 0.2 10^3/uL (0.0-0.8); Eosinophils % 2.3 %; Hemoglobin 7.9 g/dL (11.7-16.6); Lymphocytes # 1.4 10^3/uL (0.8-4.8); Lymphocytes % 17.1 %; Mean Corpuscular HGB Conc 32.9 g/dL (30.0-36.0); Mean Corpuscular Hemoglobin 30.6 pg (28.0-34.0); Mean Platelet Volume 9.3 fL (7.4-10.4); Monocytes # 0.8 10^3/uL (0.2-0.9); Neutrophils # 5.68 10^3/uL (1.8-7.7); Neutrophils % 69.7 %; Nucleated Red Blood Cells % 0 %; Platelet Count 223 10^3/cmm (130-400); Red Blood Count 2.58 10^6/uL (4.1-5.3); Red Cell Distribution Width 13.7 % (12.1-15.1); White Blood Count 8.1 10^3/uL (4.0-10.0)
[2022-02-26 06:22] LABS: Iron 17 ug/dL (59-158); Percent Saturation 8.7 % (20-50); Total Iron Binding Capacity 195 mcg/dl; Unsaturated Iron Binding 178 ug/dL (112-347)
[2022-02-26 06:24] LABS: Anion Gap 11.3 (5-19); Blood Urea Nitrogen 13 mg/dL (8-23); Calcium 8.1 mg/dL (8.5-10.5); Carbon Dioxide 25 mmol/L (22-29); Chloride 98 mmol/L (98-107); Glomerular Filtration Rate 166.4 mL/min (90-130); Glucose 119 mg/dL (65-115); Magnesium 1.8 mg/dL (1.7-2.3); Osmolality Calculated 271 mOsm/kg (285-295); Phosphorus 3.1 mg/dL (2.5-4.5); Potassium 4.3 mmol/L (3.5-5.1); Sodium 130 mmol/L (136-145)
[2022-02-26] MEDS: sodium chloride 0.9% 1,000 ML 30 ML IV (06:59)
[2022-02-26] MEDS: ceFAZolin 2,000 MG in sodium chloride 0.9% (plus) 50 ML 100 MG IV ×3 (07:00→22:26)
[2022-02-26] MEDS: tranexamic acid 1,000 mg/10mL SDV 1000 MG IV (07:30)
--- NOTE | 2022-02-26 07:37 | ANES.PREANE2 ---
Pre-Anesthetic Assessment Height/Weight: Height 1.75 m Weight 71.486 kg Temp Pulse Resp BP Pulse Ox O2 Del Method 98.3 F 53 L 18 108/54 98 02/26/22 06:17 02/26/22 06:17 02/26/22 06:17 02/26/22 06:17 02/26/22 06:17 02/26/22 06:17 Preop Diagnosis: Right periprosthetic femoral fracture Operation Date: 02/26/22 07:00 Proposed Procedures p Hip Arthroplasty Revision(Left) - Shawn Yates MD Familial anesthetic complications: none Was Beta Seirra taken within 24 hours: Yes Was Clonidine taken within 24 hours: N/A Last intake: Intake Last Liquid Date 02/26/22 Last Liquid Time 23:00 Last Solid Date 02/25/22 Last Solid Time 18:00 Social Tobacco and No alcohol Exam alert, oriented x 3 and regular rate & rhythm Airway Submandibular: within normal limits Cervical ROM: within normal limits Mallampati: Class II Dentition: false Pulmonary Chronic Obstructive Pulmonary Disease CV/HEM Anemia and Hypertension GI Gastroesophageal Reflux Disease Metabolic Hyperlipidemia Neuropsych schizophrenia Anesthetic Plan Anesthesia: Regional (specify below) (SAB ) Medications/Allergies Home Medications Medication Instructions Recorded Confirmed Last Taken Type DME: Walker #1 ea 10/12/21 02/25/22 Unknown Rx folic acid 1 mg tablet 1 mg PO DAILY@06 #90 tabs 10/29/21 02/25/22 02/25/22 Rx aripiprazole 10 mg tablet (Abilify) 10 mg PO DAILY@0600 02/12/22 02/25/22 02/25/22 History lorazepam 0.5 mg tablet 0.5 mg PO BEDTIME 02/12/22 02/25/22 02/24/22 History propranolol 10 mg tablet 10 mg PO BID 02/12/22 02/25/22 02/25/22 History simvastatin 20 mg tablet 20 mg PO DAILY 02/12/22 02/25/22 02/24/22 History tamsulosin 0.4 mg capsule 0.8 mg PO BEDTIME 02/12/22 02/25/22 02/24/22 History enoxaparin 30 mg/0.3 mL 30 mg (0.3 mL) SUBCUT DAILY #9 mL 02/15/22 02/25/22 02/24/22 Rx subcutaneous syringe (Lovenox) oxycodone 5 mg tablet 5 mg PO Q4H PRN Moderate Pain #20 02/15/22 02/25/22 Unknown Rx tabs pantoprazole 40 mg tablet,delayed 40 mg PO BID #60 tabs 02/15/22 02/25/22 02/25/22 Rx release budesonide 160 mcg-glycopyr 9 2 inh inhalation BID 02/25/22 02/25/22 02/25/22 History mcg-formot 4.8 mcg/actuation HFA inhaler (Breztri Aerosphere) sennosides 8.6 mg tablet (senna) 8.6 mg PO BID 02/25/22 02/25/22 02/25/22 History Allergies Allergy/AdvReac Type Severity Reaction Status Date / Time No Known Allergies Allergy Verified 02/19/22 10:58 Current Medications Generic Name Dose Route Start Last Admin Trade Name Freq PRN Reason Stop Dose Admin Aripiprazole 10 mg 02/26/22 06:00 02/26/22 05:48 Aripiprazole 10 Mg Tablet PO 10 mg DAILY@0600 TIKI Administration Atorvastatin Calcium 20 mg 02/25/22 21:00 02/25/22 21:21 Atorvastatin 40 Mg Tablet PO 20 mg BEDTIME TIKI Administration Folic Acid 1 mg 02/26/22 06:00 02/26/22 05:48 Folic Acid 1 Mg Tablet PO 1 mg DAILY@06 TIKI Administration Potassium Chloride/Dextrose/Sod Cl 20 meq in 1,000 mls @ 100 mls/hr 02/25/22 14:20 02/26/22 03:13 D5-Ns 0.45% + Kcl 20 Meq IV 100 mls/hr .Q10H TIKI Administration Sodium Chloride 1,000 mls @ 30 mls/hr 02/26/22 06:15 02/26/22 06:59 Sodium Chloride 0.9% IV 02/27/22 06:14 30 mls/hr .Q24H TIKI Administration Lorazepam 0.5 mg 02/25/22 21:00 02/25/22 21:21 Lorazepam 0.5 Mg Tablet PO 0.5 mg BEDTIME TIKI Administration Propranolol HCl 10 mg 02/25/22 21:00 02/25/22 21:20 Propranolol 20 Mg Tablet PO 10 mg BID@09,21 TIKI Administration Tamsulosin HCl 0.8 mg 02/25/22 21:00 02/25/22 21:21 Tamsulosin 0.4 Mg Capsule PO 0.8 mg BEDTIME TIKI Administration PFSH Anesthesia Medical History (Updated 02/25/22 @ 20:43 by Zoe Moreau MD) Anemia BPH (benign prostatic hyperplasia) Chronic schizophrenia COPD (chronic obstructive pulmonary disease) COVID-19 vaccine administered J&J plus an mRNA booster per patient report Essential hypertension History of PFTs 05/31 severe airflow obstruction, normal gas exchange, decreased FVC, FEV1 40%, FEVI/FVC reduced Mixed hyperlipidemia Osteoporosis Psychiatric care Tardive akathisia Vitamin D deficiency Surgical History (Updated 02/25/22 @ 19:49 by Zoe Moreau MD) 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 05/2021 Family History Denies family history of CAD (coronary artery disease) Anesthesia complication Bleeding disorder Social History (Updated 02/25/22 @ 19:50 by Zoe Moreau MD) Smoking and tobacco status: former smoker Quit status (tobacco): has quit using tobacco Year quit tobacco: 2021 Former quit date comment: 1.5ppd x 51 year Hx Second hand smoke exposure: Yes Alcohol intake: former Substance/Drug Use: unknown Caregiver/support person: Yes Lives independently: No Household members: other Details: Resides at [facility] residential assisted living care facility Housing: Assisted Living Facility Marital status: Single service: No Current occupational status: disabled Pets and animals: Yes Current gender identity: Male Data Anesthesia 02/26/22 05:18 02/26/22 05:18 Short CBC 02/25/22 02/26/22 Range/Units 10:10 05:18 WBC 9.6 8.1 (4.0-10.0) 10^3/uL Hgb 8.8 L 7.9 L (11.7-16.6) g/dL Hct 26.6 L 24.0 L (42.0-52.0) % MCV 94.3 H 93.0 (80-94) fl Plt Count 225 223 (130-400) 10^3/cmm Neut % (Auto) 81.3 69.7 % Neut # (Auto) 7.78 H 5.68 (1.8-7.7) 10^3/uL BMP 01/16/23 01/17/23 10:10 05:18 Sodium 133 L 130 L Potassium 4.1 4.3 Chloride 100 98 Carbon Dioxide 26 25 BUN 15 13 Creatinine 0.6 L 0.5 L Glucose 110 119 H Calcium 8.5 8.1 L Liver Function 02/25/22 Range/Units 10:10 Total Bilirubin 0.4 (0.15-1.2) mg/dL AST 15 (0-40) U/L ALT 14 (0-41) U/L Alkaline Phosphatase 95 (40-130) U/L Albumin 2.9 L (3.5-5.2) g/dL Urine 02/25/22 Range/Units 12:20 Urine Color Yellow (Yellow) Urine Appearance Hazy A (CLEAR) Urine pH 8 H (5-7) Ur Specific [place] 1.010 (1.005-1.030) Urine Protein Neg (Negative) Urine Glucose (UA) Norm (Normal) Urine Ketones Negative (Negative) Urine Nitrate Negative (Negative) Urine Bilirubin Neg (Negative) Ur Leukocyte Esterase Negative (Negative) Urine RBC 0-4 H (0-2) /hpf Urine WBC 0-4 H (0-5) /hpf Blood Bank 02/25/22 16:07 Blood Type A Positive Rho(D) Type Positive Antibody Screen Negative Cardiac Studies: No Data to Display
--- NOTE | 2022-02-26 08:08 | XR_ITS ---
WS: [id number] Left hip, portable AP left hip, 02/26/2022 Clinical Data: hardware check PORTABLE left hip Comparison: Pelvis and left hip, 02/25/2022 Findings: The old left hip arthroplasty components have been removed. There is a new arthroplastic component to be inserted into the left acetabulum. There is a long intramedullary bennett in the proximal left femur. Surgical devices surround the left hip. XR/XR hip LT 1V wo/w pel [id number] Impression: Operating room view of insertion of left hip arthroplasty components.
--- NOTE | 2022-02-26 08:50 | XR_ITS ---
WS: [id number] Left hip, AP portable view, 02/26/2022 0849 hours Clinical Data: intra-op Comparison: Portable left hip in the OR, 02/26/2022, 0820 hours Findings: There is a orthopedic cup inserted into the left acetabulum. There is a long stem orthopedic applianc e in the proximal left femur and a curved left femoral neck replacement in good position. There are circumferential wires around the greater and lesser trochanters and subtrochanteric region. Surgical support devices are adjacent to the left hip. XR/XR hip LT 1V wo/w pel [id number] Impression: Complex revision of subtrochanteric intertrochanteric fracture of the left hip with replacement of old left hip arthroplasty
--- NOTE | 2022-02-26 09:39 | PM.OP ---
Operative Report Date of procedure: February 26, 2022 Pre-op diagnosis: Preop Diagnosis Right periprosthetic femoral fracture Post-op diagnosis: same Procedure done: Revision of right femoral stem Implants: Emmett [employer] Modular 17 mm x 155 mm stem and 21 mm/+0 calcar LFIT V40 femoral head 53 mm / 28 mm universal bipolar component 2.0 mm Polleverywhere beaded cable and sleeps at x2 Pathology: none sent Surgeon: Shawn Yates Anesthesia: General Estimated blood loss (mL): 350 Complications: None Findings: The patient had a comminuted proximal femur fracture with a loose stem consisting of greater and lesser trochanteric fragments Condition: stable Disposition: PACU Brief History: Hali Ovalle underwent elective bipolar arthroplasty on 02/13/2022. He sustained a fall in the group home with a unstable stem and a comminuted proximal femur. Revision of the femoral stem was done to stabilize the proximal femur allowing for mobilization and better pain control Procedure: The patient was taken to the operating room and given a seizure. He was given 2 g of Ancef. He was prepped and draped in the lateral position with his left hip exposed. A timeout was performed. The left hip was opened down the line with the previous eschar. The fascia santo was divided. The anterior gluteus medius were torn free of the greater trochanter capsular repair was taken down and the hip dislocated. The stem was easily manually removed. The large lesser trochanteric and large greater trochanteric fracture fragments were identified. Reaming of the stem was accomplished up to 17 mm were a significant resistance was encountered. The final 17 x 155 mm stem was then impacted into place. A trial reduction with the 21 mm head and neck was done with a satisfactory reduction. Preliminary cable was passed just around the lesser trochanteric fragment above the lesser trochanter. Reduction clamps were used to reduce the greater and lesser trochanter fragments to the shaft. Intraoperative imaging showed reduction of the fracture fragments and satisfactory fill of the stem in the canal. The hip was then dislocated. The final body and neck and bipolar head were placed and the hip was reduced. A second cable was passed around the lesser trochanteric fragment just distal to the lesser trochanter. With the fragments are reduced the most superior cable was secured as proximal as possible around the greater trochanter and tightened drawing of the lesser and greater trochanters into position. The cable of beneath the lesser trochanter was secured more inferiorly. Intraoperative imaging showed satisfactory reduction of the fragments and in satisfactory position of the stem. The's were then crimped and cables cut. The hip was brought through motion found to be stable. The gluteus medius and minimus were repaired to the greater trochanter with #5 Ethibond and reinforced with 1 Ethibond. The fascia santo was closed with a running 1-0 Stratafix. The subcutaneous tissues were closed with a running 2-0 Stratafix. The skin was then closed with a running 4-0 Stratafix. A Prineo skin glue dressing was applied. Patient was placed in abduction pillow and taken recovery room in stable condition.
[2022-02-26] MEDS: acetaminophen 500 mg Tablet 1000 MG PO (10:50)
[2022-02-26] MEDS: sodium chloride 0.9% 1,000 ML 100 ML IV ×2 (10:51→21:11)
[2022-02-26 11:50] LABS: Hematocrit 33.8 % (42.0-52.0); Hemoglobin 11.1 g/dL (11.7-16.6)
--- NOTE | 2022-02-26 11:51 | P.PN_ITS ---
Subjective Subjective: Seen postop today. Feeding Jell-O in bed says has no complaints at this time. Denies any pain at this moment. Not very talkative. Mainly answers in yes and no. Vitals/I&O/Wt Last Vital Signs Temp 97.4 F L 02/26/22 10:40 Pulse 57 L 02/26/22 10:02 Resp 20 H 02/26/22 10:40 BP 121/66 02/26/22 10:40 Pulse Ox 95 02/26/22 10:40 O2 Del Method 02/26/22 10:40 O2 Flow Rate 6 02/26/22 09:42 02/25/22 02/26/22 02/26/22 22:59 06:59 14:59 Intake Total 120 / 120 1000 / 1120 700 / 700 Output Total 900 / 900 850 / 1750 1850 / 1850 Balance -780 / -780 150 / -630 -1150 / -1150 Weight last 48 hrs Weight 71.486 kg Physical Exam Narrative: Cachectic male seen sitting up in bed. Not very talkative. Focusing on eating Jell-O. Does not answer very many questions however does say yes or no when asked if he is in pain. Lungs clear to auscultation bilaterally. No wheezes no rhonchi Normal S1-S2, no gross murmurs Abdomen soft nontender SCDs in place bilateral lower extremities. He is postop. I did not take the dressing down. Left hip area covered with Band-Aid. Urinary Catheter Management: Ordonez: Cath Placed During This Visit: yes Reason for Continuing Indwelling Catheter: Required Immobilization for Trauma or Surgery or Anesthesia Urinary Catheter Date of Insertion: 02/25/22 Urinary Catheter Time of Insertion: 12:20 Data 02/26/22 05:18 02/26/22 05:18 A&P Assessment and plan (1) Chronic schizophrenia: (2) Tardive akathisia: (3) Essential hypertension: (4) Mixed hyperlipidemia: (5) Vitamin D deficiency: (6) COPD (chronic obstructive pulmonary disease): Qualifiers: COPD type: emphysema Emphysema type: panlobular Qualified Code(s): J43.1 - Panlobular emphysema (7) BPH (benign prostatic hyperplasia): (8) Anemia: (9) Closed fracture of neck of left femur: Qualifiers: Encounter type: initial encounter Qualified Code(s): S72.002A - Fracture of unspecified part of neck of left femur, initial encounter for closed fracture (10) Hyponatremia: (11) Periprosthetic fracture around internal prosthetic left hip joint: Qualifiers: Encounter type: initial encounter Qualified Code(s): M97.02XA - Periprosthetic fracture around internal prosthetic left hip joint, initial encounter (12) Status post left hip replacement: (13) Fall from bed: Qualifiers: Encounter type: initial encounter Qualified Code(s): W06.XXXA - Fall from bed, initial encounter (14) Wound of right lower extremity: (15) Sacral decubitus ulcer: (16) Osteoporosis: Plan #Status post fall causing a second fracture involving left hip status post revision #Postoperative anemia #History of schizophrenia #Chronic hyponatremia #Tardive akathisia #Hypertension #Hyperlipidemia #COPD #BPH #Right lower extremity wound #Sacral decubitus ulcer #Osteoporosis ? Patient is postop day 12 from original left hemiarthroplasty performed by Dr. Yates on February 13. He sustained multiple falls lately and a second fracture involving left hip. He was brought to the hospital with significant edema on left thigh and anterior drainage around incision site. ? She was taken back to the OR for a revision today. ? Hemoglobin this a.m. 7.9 prior to surgery ? We will recheck CBC every 12 hours ? Continue propanolol, simvastatin, Flomax, PPI, Abilify, lorazepam ? Continue SCDs. ? We will plan to resume Lovenox for DVT prophylaxis once cleared by surgery ? DuoNeb every 6 hours as needed ? Pain management ? Patient is a high fall risk. Will place on fall precautions. - Will likely return to facility [facility] at discharge. -PT OT as per Ortho recommendations. Full code DVT prophylaxis: SCDs and Lovenox. Attestations Medical Necessity Statement*: Status post revision hip surgery today. Expect him to stay in the hospital at least 48 hours. Coding Level of Care Code Acute Code for Chg Fwd Diagnoses Chronic schizophrenia F20.9 Tardive akathisia G25.71 Essential hypertension I10 Mixed hyperlipidemia E78.2 Vitamin D deficiency E55.9 COPD (chronic obstructive pulmonary disease) J43.1 COPD type: emphysema Emphysema type: panlobular BPH (benign prostatic hyperplasia) N40.0 Anemia D64.9 Closed fracture of neck of left femur S72.002A Encounter type: initial encounter Hyponatremia E87.1 Periprosthetic fracture around internal prosthetic left hip joint M97.02XA Encounter type: initial encounter Status post left hip replacement Z96.642 Fall from bed W06.XXXA Encounter type: initial encounter Wound of right lower extremity S81.801A Sacral decubitus ulcer L89.159 Osteoporosis M81.0
--- NOTE | 2022-02-26 14:15 | ANE.PACU2 ---
Inpatient post-anesthesia follow up: Airway intact: Yes Vital signs: Temperature 98.4 F Pulse Rate 68 Respiratory Rate 18 Blood Pressure 121/82 Pulse Oximetry 99 Oxygen Delivery Me thod Room Air Oxygen Flow Rate 6 Fraction of Inspir ed Oxygen Hydration adequate: Yes Nausea and vomiting: No Pain level: 2 Mental status: Baseline
[2022-02-26] MEDS: ferrous sulfate EC 325 mg Tablet PO (17:14)
[2022-02-26] MEDS: calcium carb-vit d 600mg/400unit 1 Tablet 1 EACH PO (17:14)
[2022-02-26] MEDS: sennosides 8.6 mg Tablet PO (17:15)
[2022-02-26] MEDS: pantoprazole DR 40 mg Tablet PO (17:15)
[2022-02-26] MEDS: acetaminophen 325 mg Tablet 650 MG PO (17:15)
[2022-02-26] MEDS: LORazepam 0.5 mg Tablet PO (21:11)
[2022-02-26] MEDS: tamsulosin 0.4 mg Capsule 0.8 MG PO (21:11)
[2022-02-26] MEDS: propranolol 20 mg Tablet 10 MG PO (21:12)
[2022-02-26] MEDS: atorvastatin 40 mg Tablet 20 MG PO (21:12)
[2022-02-27] MEDS: acetaminophen 500 mg Tablet 1000 MG PO ×2 (01:37→10:07)
[2022-02-27 03:57] VITALS: BP 129/72; PULSE 58; RESP 18; TEMP 36.9; O2SAT 98
[2022-02-27] MEDS: ARIPiprazole 10 mg Tablet PO (05:35)
[2022-02-27] MEDS: folic acid 1 mg Tablet PO (05:35)
[2022-02-27 05:56] LABS: Basophils % 0.3 %; Eosinophils # 0.1 10^3/uL (0.0-0.8); Eosinophils % 0.9 %; Hematocrit 29.5 % (42.0-52.0); Lymphocytes # 1.1 10^3/uL (0.8-4.8); Lymphocytes % 8.4 %; Mean Corpuscular HGB Conc 33.9 g/dL (30.0-36.0); Mean Corpuscular Hemoglobin 30.6 pg (28.0-34.0); Mean Corpuscular Volume 90.2 fl (80-94); Monocytes # 1.2 10^3/uL (0.2-0.9); Monocytes % 8.7 %; Neutrophils # 10.96 10^3/uL (1.8-7.7); Neutrophils % 81.1 %; Nucleated Red Blood Cells % 0 %; Platelet Count 179 10^3/cmm (130-400); Red Blood Count 3.27 10^6/uL (4.1-5.3); White Blood Count 13.5 10^3/uL (4.0-10.0)
[2022-02-27] MEDS: ceFAZolin 2,000 MG in sodium chloride 0.9% (plus) 50 ML 100 MG IV (06:01)
[2022-02-27] MEDS: sodium chloride 0.9% 1,000 ML 100 ML IV ×2 (06:02→16:47)
[2022-02-27 06:18] LABS: Anion Gap 12.2 (5-19); Blood Urea Nitrogen 10 mg/dL (8-23); Calcium 7.5 mg/dL (8.5-10.5); Carbon Dioxide 23 mmol/L (22-29); Chloride 97 mmol/L (98-107); Glomerular Filtration Rate 215.2 mL/min (90-130); Glucose 114 mg/dL (65-115); Osmolality Calculated 266 mOsm/kg (285-295); Potassium 4.2 mmol/L (3.5-5.1); Sodium 128 mmol/L (136-145)
--- NOTE | 2022-02-27 07:00 | PC.NURSE ---
Bedside report give by Mary CHAU at this time.
[2022-02-27 08:00] VITALS: BP 114/65; PULSE 54; TEMP 36.8; O2SAT 98
[2022-02-27] MEDS: budesonide 0.5 mg/2 mL Neb 0.25 MG INHALATION (09:12)
[2022-02-27 09:13] VITALS: PULSE 78; RESP 16; O2SAT 97
[2022-02-27] MEDS: pantoprazole DR 40 mg Tablet PO ×2 (10:08→17:42)
[2022-02-27] MEDS: calcium carb-vit d 600mg/400unit 1 Tablet 1 EACH PO ×2 (10:08→17:42)
[2022-02-27] MEDS: ferrous sulfate EC 325 mg Tablet PO ×2 (10:08→17:42)
[2022-02-27] MEDS: sennosides 8.6 mg Tablet PO ×2 (10:09→17:42)
[2022-02-27] MEDS: propranolol 20 mg Tablet 10 MG PO ×2 (10:13→20:44)
[2022-02-27 11:50] VITALS: BP 106/64; PULSE 64; TEMP 36.7; O2SAT 90
--- NOTE | 2022-02-27 12:01 | P.PN_ITS ---
Subjective Subjective: NAEO Seen today resting comfortably in bed denies pain Vitals/I&O/Wt Last Vital Signs Temp 98.1 F 02/27/22 11:50 Pulse 64 02/27/22 11:50 Resp 16 02/27/22 09:13 BP 106/64 02/27/22 11:50 Pulse Ox 90 02/27/22 11:50 O2 Del Method 02/27/22 09:13 O2 Flow Rate 6 02/26/22 09:42 02/26/22 02/27/22 02/27/22 22:59 06:59 14:59 Intake Total 2820 / 3520 1135 / 4655 Output Total 1000 / 2850 Balance 2820 / 1670 135 / 1805 Weight last 48 hrs Weight 71.486 kg Physical Exam Narrative: Cachectic male seen sitting up in bed. Not very talkative. Lungs clear to auscultation bilaterally. No wheezes no rhonchi Normal S1-S2, no gross murmurs Abdomen soft nontender SCDs in place bilateral lower extremities. He is postop. I did not take the dressing down. Left hip area covered with Band-Aid. Urinary Catheter Management: Ordonez: Cath Placed During This Visit: yes Reason for Continuing Indwelling Catheter: Acute Urinary Retention or Obstruction Urinary Catheter Date of Insertion: 02/25/22 Urinary Catheter Time of Insertion: 12:20 Data 02/27/22 05:45 02/27/22 05:45 A&P Assessment and plan (1) Chronic schizophrenia: (2) Tardive akathisia: (3) Essential hypertension: (4) Mixed hyperlipidemia: (5) Vitamin D deficiency: (6) COPD (chronic obstructive pulmonary disease): Qualifiers: COPD type: emphysema Emphysema type: panlobular Qualified Code(s): J 43.1 - Panlobular emphysema (7) BPH (benign prostatic hyperplasia): (8) Anemia: (9) Closed fracture of neck of left femur: Qualifiers: Encounter type: initial encounter Qualified Code(s): S72.002A - Fracture of unspecified part of neck of left femur, initial encounter for closed fracture (10) Hyponatremia: (11) Periprosthetic fracture around internal prosthetic left hip joint: Qualifiers: Encounter type: initial encounter Qualified Code(s): M97.02XA - Periprosthetic fracture around internal prosthetic left hip joint, initial encounter (12) Status post left hip replacement: (13) Fall from bed: Qualifiers: Encounter type: initial encounter Qualified Code(s): W06.XXXA - Fall from bed, initial encounter (14) Wound of right lower extremity: (15) Sacral decubitus ulcer: (16) Osteoporosis: Plan #Status post fall causing a second fracture involving left hip status post revision #Postoperative anemia #History of schizophrenia #Chronic hyponatremia #Tardive akathisia #Hypertension #Hyperlipidemia #COPD #BPH #Right lower extremity wound #Sacral decubitus ulcer #Osteoporosis ? Patient is postop day 12 from original left hemiarthroplasty performed by Dr. Yates on February 13. He sustained multiple falls lately and a second fracture involving left hip. He was brought to the hospital with significant edema on left thigh and anterior drainage around incision site. ? She was taken back to the OR for a revision today. ? Hemoglobin this a.m. 7.9 prior to surgery ? We will recheck CBC every 12 hours ? Continue propanolol, simvastatin, Flomax, PPI, Abilify, lorazepam ? Continue SCDs. ? DuoNeb every 6 hours as needed ? Pain management ? Patient is a high fall risk. Will place on fall precautions. - Continue to work with PT. -PT OT as per Ortho recommendations. - Hb stable at 10. Cotninue to recheck till stablizes - Rehab at me Full code DVT prophylaxis: SCDs and Lovenox. Attestations Medical Necessity Statement*: Status post revision hip surgery today. Expect him to stay in the hospital at least 48 hours. Coding Level of Care Code Acute Code for Chg Fwd Diagnoses Chronic schizophrenia F20.9 Tardive akathisia G25.71 Essential hypertension I10 Mixed hyperlipidemia E78.2 Vitamin D deficiency E55.9 COPD (chronic obstructive pulmonary disease) J43.1 COPD type: emphysema Emphysema type: panlobular BPH (benign prostatic hyperplasia) N40.0 Anemia D64.9 Closed fracture of neck of left femur S72.002A Encounter type: initial encounter Hyponatremia E87.1 Periprosthetic fracture around internal prosthetic left hip joint M97.02XA Encounter type: initial encounter Status post left hip replacement Z96.642 Fall from bed W06.XXXA Encounter type: initial encounter Wound of right lower extremity S81.801A Sacral decubitus ulcer L89.159 Osteoporosis M81.0
[2022-02-27 16:00] VITALS: BP 100/59; PULSE 61; TEMP 36.9; O2SAT 96
--- NOTE | 2022-02-27 18:07 | PM.PN ---
Subjective Subjective: Patient appears comfortable. Vitals/I&O/Wt Last Vital Signs Temp 98.5 F 02/27/22 16:00 Pulse 61 02/27/22 16:00 Resp 16 02/27/22 09:13 BP 100/59 02/27/22 16:00 Pulse Ox 96 02/27/22 16:00 O2 Del Method 02/27/22 09:13 O2 Flow Rate 6 02/26/22 09:42 02/27/22 02/27/22 02/27/22 06:59 14:59 22:59 Intake Total 1135 / 4655 500 / 500 1000 / 1500 Output Total 1000 / 2850 1800 / 1800 Balance 135 / 1805 -1300 / -1300 1000 / -300 Weight last 48 hrs Weight 157 lb 9.6 oz Physical Exam Narrative: Left hip dressing clean and dry. Expected swelling left thigh. Urinary Catheter Management: Ordonez: Cath Placed During This Visit: yes Reason for Continuing Indwelling Catheter: Acute Urinary Retention or Obstruction Urinary Catheter Date of Insertion: 02/25/22 Urinary Catheter Time of Insertion: 12:20 Data 02/27/22 05:45 02/27/22 05:45 A&P Assessment and plan (1) Periprosthetic fracture around internal prosthetic left hip joint: Continue to mobilize with therapy. We will need group home placement. Qualifiers: Encounter type: initial encounter Qualified Code(s): M97.02XA - Periprosthetic fracture around internal prosthetic left hip joint, initial encounter Attestations Medical Necessity Statement*: Awaiting placement Coding Level of Care Code Acute Code for Chg Fwd Diagnoses Periprosthetic fracture around internal prosthetic left hip joint M97.02XA Encounter type: initial encounter
[2022-02-27 20:00] VITALS: BP 115/66; PULSE 60; RESP 17; TEMP 36.7; O2SAT 98
[2022-02-27] MEDS: atorvastatin 40 mg Tablet 20 MG PO (20:44)
[2022-02-27] MEDS: tamsulosin 0.4 mg Capsule 0.8 MG PO (20:44)
[2022-02-27] MEDS: enoxaparin 40 mg/0.4 mL Syringe SUBCUT (20:45)
[2022-02-27] MEDS: LORazepam 0.5 mg Tablet PO (20:45)
[2022-02-28 00:19] VITALS: BP 117/70; PULSE 61; RESP 20; TEMP 36.6; O2SAT 96
[2022-02-28 00:26] VITALS: PULSE 60; RESP 16; O2SAT 98
[2022-02-28] MEDS: acetaminophen 500 mg Tablet 1000 MG PO ×2 (01:30→10:30)
[2022-02-28] MEDS: sodium chloride 0.9% 1,000 ML 100 ML IV (01:31)
[2022-02-28 04:08] VITALS: BP 103/59; PULSE 56; RESP 21; TEMP 36.7; O2SAT 98
[2022-02-28 04:49] LABS: Basophils % 0.4 %; Eosinophils # 0.2 10^3/uL (0.0-0.8); Eosinophils % 2.2 %; Hematocrit 25.7 % (42.0-52.0); Hemoglobin 8.6 g/dL (11.7-16.6); Lymphocytes # 1.2 10^3/uL (0.8-4.8); Lymphocytes % 11.9 %; Mean Corpuscular HGB Conc 33.5 g/dL (30.0-36.0); Mean Corpuscular Hemoglobin 30.2 pg (28.0-34.0); Mean Corpuscular Volume 90.2 fl (80-94); Mean Platelet Volume 9.3 fL (7.4-10.4); Monocytes # 1.1 10^3/uL (0.2-0.9); Monocytes % 10.3 %; Neutrophils # 7.64 10^3/uL (1.8-7.7); Neutrophils % 74.6 %; Nucleated Red Blood Cells % 0 %; Platelet Count 182 10^3/cmm (130-400); Red Blood Count 2.85 10^6/uL (4.1-5.3); Red Cell Distribution Width 13.8 % (12.1-15.1); White Blood Count 10.2 10^3/uL (4.0-10.0)
[2022-02-28] MEDS: ARIPiprazole 10 mg Tablet PO (05:25)
[2022-02-28] MEDS: folic acid 1 mg Tablet PO (05:25)
--- NOTE | 2022-02-28 07:15 | PC.NURSE ---
Bedside report received from Radha CHAU at this time.
--- NOTE | 2022-02-28 07:43 | PM.PN ---
Vitals/I&O/Wt Last Vital Signs Temp 98.0 F 02/28/22 04:08 Pulse 56 L 02/28/22 04:08 Resp 21 H 02/28/22 04:08 BP 103/59 02/28/22 04:08 Pulse Ox 98 02/28/22 04:08 O2 Del Method 02/28/22 04:08 O2 Flow Rate 6 02/26/22 09:42 02/27/22 02/28/22 02/28/22 22:59 06:59 14:59 Intake Total 1680 / 2180 1713.333 / 3893.333 Output Total 750 / 2550 750 / 3300 Balance 930 / -370 963.333 / 593.333 Physical Exam Urinary Catheter Management: Ordonez: Cath Placed During This Visit: yes Reason for Continuing Indwelling Catheter: Acute Urinary Retention or Obstruction Urinary Catheter Date of Insertion: 02/25/22 Urinary Catheter Time of Insertion: 12:20 Data 02/28/22 04:15 02/27/22 05:45 Coding Level of Care Code Acute Code for Chg Kylie
[2022-02-28] MEDS: pantoprazole DR 40 mg Tablet PO (08:25)
[2022-02-28] MEDS: propranolol 20 mg Tablet 10 MG PO (08:25)
[2022-02-28] MEDS: sennosides 8.6 mg Tablet PO (08:25)
[2022-02-28] MEDS: ferrous sulfate EC 325 mg Tablet PO (08:25)
[2022-02-28] MEDS: calcium carb-vit d 600mg/400unit 1 Tablet 1 EACH PO (08:25)
[2022-02-28 08:28] VITALS: BP 110/64; PULSE 63; RESP 15; TEMP 36.8; O2SAT 96
--- NOTE | 2022-02-28 10:20 | PC.SOCIAL ---
IMM update IMM updated with patient's guardian Edel Errol. Verbalized an understanding. Initialled, dated, timed, and placed in chart.
[2022-02-28 10:57] LABS: SARS Covid-2 Antigen negative (Negative)
[2022-02-28 12:14] VITALS: BP 118/61; PULSE 62; RESP 17; TEMP 36.7; O2SAT 98
--- NOTE | 2022-02-28 12:27 | PM.DCS ---
Discharge Providers Date of Admission: 02/25/22 14:20 Date of Discharge: February 28, 2022 Attending Provider at Admission: Zoe Moreau MD Attending Provider at Discharge: Raquel Claudio MD Primary Care Provider: Bernadette Spears APN Diagnoses at Discharge Discharge Diagnosis (1) Periprosthetic fracture around internal prosthetic left hip joint: Status: Acute Qualifiers: Encounter type: initial encounter Qualified Code(s): M97.02XA - Periprosthetic fracture around internal prosthetic left hip joint, initial encounter Reason for Visit Reason for Visit: hip pain & swelling Brief History: Herson Ovalle is a 66 year old male who resides chronically at [facility] presented to the emergency room after falling out of bed.? He was complaining of left hip pain.? Mr. Ovalle was hospitalized on February 12 after another fall associated with left hip fracture.? He underwent left hemiarthroplasty on February [address] Yates.? He was discharged back to [facility] on February 15.? I cannot get a clear idea of what therapy, if any, he might of been receiving nor specific details of what happened with his fall today.? In the emergency room he was found to have a periprosthetic fracture.? Case was discussed with orthopedics.? Mr. Ovalle will require surgical repair again.? He has some pain in his left hip along with some swelling.? He himself does not have any other complaints acutely.? No other areas that are hurting.? No nausea or vomiting.? No chest pain.? Breathing okay.? Previous history is obtained predominantly from review of available records. Hospital Course Hospital Course - Patient is postop day 12 from original left hemiarthroplasty performed by Dr. Yates on February 13.? He sustained multiple falls lately and a second fracture involving left hip.? He was brought to the hospital with significant edema on left thigh and anterior drainage around incision site. ? She was taken back to the OR for a revision - PT eval pt and sent to [place] Physical Exam Narrative: Cachectic male seen sitting up in bed. Not very talkative. Lungs clear to auscultation bilaterally. No wheezes no rhonchi Normal S1-S2, no gross murmurs Abdomen soft nontender SCDs in place bilateral lower extremities. He is postop. examined by ortho. Left hip area covered with Band-Aid. Urinary Catheter Management: Ordonez: Cath Placed During This Visit: yes Reason for Continuing Indwelling Catheter: Acute Urinary Retention or Obstruction Urinary Catheter Date of Insertion: 02/25/22 Urinary Catheter Time of Insertion: 12:20 Discharge Data Studies Completed and Pending Completed Studies During Hospitalization Category Date Time Status XR chest 1V portable 08003 Urgent Exams 02/25/22 10:54 Completed XR hip LT 1V wo/w pel [id number] Routine Exams 02/26/22 08:50 Completed XR hip LT 1V wo/w pel [id number] Stat Exams 02/26/22 08:08 Completed XR hip LT 2-3V wo/w pel* [id number] Stat Exams 02/25/22 09:35 Completed US venous duplex lower extremity LT [CV venous duplex Ultrasound 02/25/22 09:35 [place] [address]] Stat Pending at discharge Category Date Time Status Complete Blood Count w/Auto AM LABS Lab 03/01/22 04:00 Ordered Radiology Impressions Hip/Pelvis X-Ray 02/25/22 09:35 Impression: 1. Intertrochanteric subtrochanteric left hip fracture but the arthroplasty components remain in good position. 2. No change in right hip arthroplasty. Chest X-Ray 02/25/22 10:54 Impression: Atherosclerosis. Hip X-Ray 02/26/22 08:50 Impression: Complex revision of subtrochanteric intertrochanteric fracture of the left hip with replacement of old left hip arthroplasty Laboratory Results WBC 10.2 10^3/uL (4.0-10.0) H 02/28/22 04:15 RBC 2.85 10^6/uL (4.1-5.3) L 02/28/22 04:15 Hgb 8.6 g/dL (11.7-16.6) L 02/28/22 04:15 Hct 25.7 % (42.0-52.0) L 02/28/22 04:15 MCV 90.2 fl (80-94) 02/28/22 04:15 MCH 30.2 pg (28.0-34.0) 02/28/22 04:15 MCHC 33.5 g/dL (30.0-36.0) 02/28/22 04:15 RDW 13.8 % (12.1-15.1) 02/28/22 04:15 Plt Count 182 10^3/cmm (130-400) 02/28/22 04:15 MPV 9.3 fL (7.4-10.4) 02/28/22 04:15 Neut % (Auto) 74.6 % 02/28/22 04:15 Lymph % (Auto) 11.9 % 02/28/22 04:15 [place] % (Auto) 10.3 % 02/28/22 04:15 Eos % (Auto) 2.2 % 02/28/22 04:15 Baso % (Auto) 0.4 % 02/28/22 04:15 Neut # (Auto) 7.64 10^3/uL (1.8-7.7) 02/28/22 04:15 Lymph # (Auto) 1.2 10^3/uL (0.8-4.8) 02/28/22 04:15 [place] # (Auto) 1.1 10^3/uL (0.2-0.9) H 02/28/22 04:15 Eos # (Auto) 0.2 10^3/uL (0.0-0.8) 02/28/22 04:15 Baso # (Auto) 0.0 10^3/uL (0.0-0.1) 02/28/22 04:15 Nucleated RBC % (auto) 0 % 02/28/22 04:15 Nucleated RBCs # 0.0 /100WBC 02/28/22 04:15 Sodium 128 mmol/L (136-145) L 02/27/22 05:45 Potassium 4.2 mmol/L (3.5-5.1) 02/27/22 05:45 Chloride 97 mmol/L (98-107) L 02/27/22 05:45 Carbon Dioxide 23 mmol/L (22-29) 02/27/22 05:45 Anion Gap 12.2 (5-19) 02/27/22 05:45 BUN 10 mg/dL (8-23) 02/27/22 05:45 Creatinine 0.4 mg/dL (0.7-1.2) L 02/27/22 05:45 GFR Calculation 215.2 mL/min (90-130) H 02/27/22 05:45 Glucose 114 mg/dL (65-115) 02/27/22 05:45 Calculated Osmolality 266 mOsm/kg (285-295) L 02/27/22 05:45 Calcium 7.5 mg/dL (8.5-10.5) L 02/27/22 05:45 Phosphorus 3.1 mg/dL (2.5-4.5) 02/26/22 05:18 Magnesium 1.8 mg/dL (1.7-2.3) 02/26/22 05:18 Iron 17 ug/dL (59-158) L 02/26/22 05:18 TIBC 195 mcg/dl 02/26/22 05:18 % Saturation 8.7 % (20-50) L 02/26/22 05:18 Unsat Iron Binding 178 ug/dL (112-347) 02/26/22 05:18 Total Bilirubin 0.4 mg/dL (0.15-1.2) 02/25/22 10:10 AST 15 U/L (0-40) 02/25/22 10:10 ALT 14 U/L (0-41) 02/25/22 10:10 Alkaline Phosphatase 95 U/L (40-130) 02/25/22 10:10 Total Protein 6.0 g/dL (6.6-8.7) L 02/25/22 10:10 Albumin 2.9 g/dL (3.5-5.2) L 02/25/22 10:10 Globulin 3.1 g/dL (1.3-4.6) 02/25/22 10:10 Urine Color Yellow (Yellow) 02/25/22 12:20 Urine Appearance Hazy (CLEAR) A 02/25/22 12:20 Urine pH 8 (5-7) H 02/25/22 12:20 Ur Specific [place] 1.010 (1.005-1.030) 02/25/22 12:20 Urine Protein Neg (Negative) 02/25/22 12:20 Urine Glucose (UA) Norm (Normal) 02/25/22 12:20 Urine Ketones Negative (Negative) 02/25/22 12:20 Urine Blood Neg (Negative) 02/25/22 12:20 Urine Nitrate Negative (Negative) 02/25/22 12:20 Urine Bilirubin Neg (Negative) 02/25/22 12:20 Prot Sulfosalicylic Acd Negative (Negative) 02/25/22 12:20 Urine Urobilinogen Norm mg/dL (Negative) 02/25/22 12:20 Ur Leukocyte Esterase Negative (Negative) 02/25/22 12:20 Urine RBC 0-4 /hpf (0-2) H 02/25/22 12:20 Urine WBC 0-4 /hpf (0-5) H 02/25/22 12:20 Ur Squamous Epith Cells Rare /hpf (0-5) 02/25/22 12:20 Amorphous Sediment 2+ /hpf 02/25/22 12:20 Urine Bacteria Trace /hpf (NONE) 02/25/22 12:20 SARS-CoV-2 Ag (Rapid) negative (Negative) 02/28/22 10:30 Blood Type A Positive 02/25/22 16:07 Rho(D) Type Positive 02/25/22 16:07 Antibody Screen Negative 02/25/22 16:07 Crossmatch See Detail 02/25/22 16:07 Vitals Last Vital Signs Temp 98.2 F 02/28/22 08:28 Pulse 63 02/28/22 08:28 Resp 15 02/28/22 08:28 BP 110/64 02/28/22 08:28 Pulse Ox 96 02/28/22 08:28 O2 Del Method 02/28/22 08:28 O2 Flow Rate 6 02/26/22 09:42 Discharge Plan Discharge Patient Disposition: Xfer SNF Condition: Stable Prescriptions: Continued (DME) DME: [facility] See Rx Instructions .Route Qty: 1 0RF Rx Instructions: Pureed diet with nectar thick liquids all meals folic acid 1 mg tablet 1 mg PO DAILY@06 Qty: 90 3RF propranolol 10 mg tablet 10 mg PO BID lorazepam 0.5 mg tablet 0.5 mg PO BEDTIME Rx Instructions: Take one tablet at bedtime tamsulosin 0.4 mg capsule 0.8 mg PO BEDTIME Rx Instructions: TAKE 2 CAPSULES BY MOUTH EVERY DAY simvastatin 20 mg tablet 20 mg PO DAILY aripiprazole [Abilify] 10 mg tablet 10 mg PO DAILY@0600 Rx Instructions: Take one tablet every morning pantoprazole 40 mg Tablet,Delayed Release (Dr/Ec) 40 mg PO BID Qty: 60 0RF oxycodone 5 mg Tablet 5 mg PO Q4H PRN (Reason: Moderate Pain) Qty: 20 0RF senna 8.6 mg Tablet 8.6 mg PO BID Breztri Aerosphere 160-9-4.8 mcg/actuation HFA aerosol inhaler 2 inh inhalation BID Rx Instructions: USE 2 INHALATIONS BY MOUTH TWICE DAILY Lovenox 30 mg/0.3 mL syringe 30 mg SUBCUT DAILY 30 Days Qty: 9 0RF Rx Instructions: Daily for 30 days Discharge Orders: Discharge Order (Routine); Ordered 02/28/22 Ordered By: Raquel Claudio Other Ambulatory Orders: Complete Blood Count w/Auto (Routine) Timeframe: 3 Days Location: Determined by Patient Ordered By: Raquel Claudio Referrals: [facility] [Outside] Bernadette Spears FNP [Primary Care Provider] - 4-7 days Grabiel Gordon FNP [Physician Instructional Support Technician] - 04/04/22 8:30 am Activity Restrictions/Additional Instructions: Okay to shower. No soaking incision in tub Exercises per physical therapy. May weight-bear as tolerated on total hip arthroplasty IF HAVE ANY PROBLEMS OR QUESTIONS CALL HOSPITAL ELECTRICAL MAINTENANCE TECHNICIAN AT AND ASK TO HAVE DR. RACHELLE VARGAS. Discharge Attestations Time Spent in Discharge Care*: other Quality Metrics Clinical Quality Measures [ No reported AMI, CVA or VTE this stay] Coding Level of Care Code Acute Chg FW DC note Diagnoses Periprosthetic fracture around internal prosthetic left hip joint M97.02XA Encounter type: initial encounter
--- NOTE | 2022-02-28 15:47 | PC.NURSE ---
Patient has voided 2 times since having his Ordonez catheter removed. Patient states that he is not getting it all out. Patient states he has trouble voiding. Bladder scan shows 790 in his bladder. Ordonez catheter replaced by verbal order from Dr. Claudio. [facility] called and updated that patient had a large bowel movement and had his Ordonez Catheter replaced. [facility] also updated to do a voiding trial with patient. Suzan MEHTA at [facility] was updated.
[2022-02-28 15:54] VITALS: BP 118/61; PULSE 62; RESP 17; TEMP 36.7; O2SAT 98
--- NOTE | 2022-02-28 15:55 | PC.NURSE ---
Sent patients clothes and all ice packs and Abduction pill
== END 2022-02-28 15:56 | disposition skilled nursing facility (03) | DRG 467 ==
LOC: ER 14:03 → MEDSURG 14:18
PROVIDERS: Orthopaedic Surgery; Physician Assistant; Admitting Provider Hospitalist; Emergency Provider Family Medicine; PCP Nurse Practitioner; Visit Provider Internal Medicine
PROC: 0SRS03Z Replacement of Left Hip Joint, Femoral Surface with Ceramic Synthetic Substitute, Open Approach (ICD-10-PCS; principal; 2022-02-26 07:00)
DX: M97.02XA Periprosthetic fracture around internal prosthetic left hip joint, initial encounter (principal); E87.1 Hypo-osmolality and hyponatremia; L97.111 Non-pressure chronic ulcer of right thigh limited to breakdown of skin; W06.XXXA Fall from bed, initial encounter; R29.6 Repeated falls; D64.89 Other specified anemias; F03.90 Unspecified dementia, unspecified severity, without behavioral disturbance, psychotic disturbance, mood disturbance, and anxiety; L89.152 Pressure ulcer of sacral region, stage 2; N40.0 Benign prostatic hyperplasia without lower urinary tract symptoms; J43.1 Panlobular emphysema; F20.9 Schizophrenia, unspecified; I10 Essential (primary) hypertension; E78.2 Mixed hyperlipidemia; M81.0 Age-related osteoporosis without current pathological fracture; G25.71 Drug induced akathisia; Z96.642 Presence of left artificial hip joint; Z87.891 Personal history of nicotine dependence
CPT/HCPCS: 36415; 36430; 51702; 71045; 73501; 73502; 80048; 80053; 81001; 83540; 83550; 83735; 84100; 85014; 85018; 85025; 86850; 86900; 86920; 87426; 93005; 93971; 94640; 96372; 97161; 97167; 97530; 97535; 99285; C1713; C1776; J0690; J1580; J1650; J1940; J2370; J2704; J7030; J7626; P9016

== ENCOUNTER 2022-03-24 16:40 | Emergency (ER) | payer MEDICARE, MEDICAID, SELFPAY ==
[2022-03-24 16:50] VITALS: BP 144/94; PULSE 68; RESP 16; TEMP 36.8; O2SAT 99
[2022-03-24 17:09] VITALS: PULSE 68
--- NOTE | 2022-03-24 17:11 | CTR_ITS ---
PROCEDURE INFORMATION: Exam: CT Left Lower Extremity With Contrast, Hip Exam date and time: 03/24/2022 6:02 PM Age: 66 years old Clinical indication: Pain; Prior surgery; Surgery date: <1 month; Surgery type: Left hip replacement/repair of left hip replacement; Additional info: L hip incisional seroma TECHNIQUE: Imaging protocol: CT of the Left lower extremity with intravenous contrast was performed. Exam focused on the hip. Radiation optimization: All CT scans at this facility use at least one of these dose optimization techniques: automated exposure control; mA and/or kV adjustment per patient size (includes targeted exams where dose is matched to clinical indication); or iterative reconstruction. Contrast material: OMNI 350; Contrast volume: 100 ml; Contrast route: INTRAVENOUS (IV); Other protocol: This patient has received 4 known CTs and 0 known cardiac nuclear medicine studies in the 12 months prior to the current study. COMPARISON: 1. CT hip LT wo con* [id number] 02/12/2022 9:18 AM 2. CR XR hip LT 1V wo/w pel [id number] 02/26/2022 8:49 AM RADIATION DOSE METRICS: Total DLP (mGy-cm): 409.91 FINDINGS: Bones/joints: Resection of the left femoral head and neck with a bipolar prosthesis. Mildly displaced intertrochanteric femur fracture with cerclage wire placement. Fluid and gas bubbles in the anterior left hip joint. Soft tissues: Enlargement of the left iliacus and gluteus medius muscles, consistent with intramuscular edema and probable hemorrhage. Soft tissue hemorrhage surrounding the proximal left femur. Enlargement of the vastus lateralis muscle most likely represents intramuscular edema and hemorrhage. Postsurgical changes in the lateral hip soft tissues with stranding, small amount of fluid, and a few gas bubbles. Diffuse soft tissue edema in the left thigh. Urinary bladder: Ordonez catheter in a decompressed urinary bladder. CT/CT hip LT w con [id number] IMPRESSION: 1. Left hip arthroplasty changes with cerclage wires around a mildly displaced intertrochanteric femur fracture. 2. Fluid and gas bubbles in the anterior left hip joint is most likely related to recent surgery. Infection cannot be excluded. 3. Enlargement of the left iliacus, gluteus medius, and vastus lateralis muscles. This is consistent with intramuscular edema and possible hemorrhage. 4. Subcutaneous soft tissue stranding in the left thigh and hip region. This could represent edema or cellulitis. 5. Small amount of fluid with small gas bubbles in the left hip incision. This may be normal postsurgical changes or seroma. Small abscess formation is not excluded.
--- NOTE | 2022-03-24 17:33 | W.ED.EXTPRO ---
HPI - Extremity Problem General: Chief complaint: Extremity Problem,Nontraumatic Stated complaint: LEFT HIP ABSCESS Time Seen by Provider: 03/24/22 16:41 Source: patient History of Present Illness: 66-year-old male who had a fracture repair at the beginning of February to the left hip. This involves a left hip hemiarthroplasty. He was sent from the shelter today regarding some drainage from the inferior portion of his lateral incision of the left hip. There is a fluid collection there. There was some worry that it could be an abscess. No history of fever. The patient's not having significant pain. MD Complaint: other Onset (ago): day(s) Pain Consistency: other Location: left and lower extremity Exacerbating factors: nothing Associated symptoms: Reports other; Deny chest pain or fever(s) Review of Systems Const: Denies: fever(s) Card: Denies: chest pain Resp: Denies: dyspnea GI: Denies: abdominal pain or vomiting PFSH ED PFSH: Medical History Anemia BPH (benign prostatic hyperplasia) Chronic schizophrenia COPD (chronic obstructive pulmonary disease) COVID-19 vaccine administered J&J plus an mRNA booster per patient report Essential hypertension History of PFTs 05/31 severe airflow obstruction, normal gas exchange, decreased FVC, FEV1 40%, FEVI/FVC reduced Mixed hyperlipidemia Osteoporosis Psychiatric care Tardive akathisia Vitamin D deficiency Surgical History 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 05/2021 Family History Denies family history of CAD (coronary artery disease) Anesthesia complication Bleeding disorder Social History Smoking and tobacco status: former smoker Quit status (tobacco): has quit using tobacco Year quit tobacco: 2021 Former quit date comment: 1.5ppd x 51 year Hx Second hand smoke exposure: Yes Alcohol intake: former Caregiver/support person: Yes Lives independently: No Household members: other Details: Resides at [facility] residential assisted living care facility Housing: Assisted Living Facility Marital status: Single service: No Current occupational status: disabled Pets and animals: Yes Current gender identity: Male Physical Exam Const: COMMON NORMALS: no acute distress and alert GENERAL APPEARANCE: cooperative and frail appearing; not ill appearing HENMT: COMMON NORMALS: normocephalic, atraumatic and Normal external nose present HEAD & SCALP: normocephalic and atraumatic NOSE: Normal external nose present Eye: COMMON NORMALS: Equal, round and reactive pupils present and EOMs intact bilaterally PUPIL: Yes Equal, round and reactive pupils present Neck/C-Spine: GENERAL: Yes trachea midline Chest: CHEST: Yes Symmetrical chest wall rise Resp: COMMON NORMALS: normal respiratory effort and No use of accessory muscles AUSCULTATION: rhonchi (Intermittent) Cardio: COMMON NORMALS: regular rate and regular rhythm RATE: regular rate RHYTHM: regular rhythm GI: COMMON NORMALS: Normal to inspection, nondistended, normoactive bowel sounds present and Soft to palpation PALPATION: Yes Soft to palpation Extremity: NARRATIVE EXTREMITY EXAM: Examination of the left hip reveals a noncellulitic appearing left hip incision. There is a tiny amount of drainage from the inferior portion. Palpation reveals a fluid collection under the incision, mostly inferior. There is no cellulitis or red streaking surrounding. There is no overt heat. There is no significant tenderness to the area Neuro: SENSORIUM/ORIENTATION: Yes alert Skin: COMMON NORMALS: no rashes or lesions noted NARRATIVE SKIN EXAM: See above GENERAL SKIN EXAM: no rashes or lesions noted Course Vital Signs: Vital signs: Vital Signs Temperature 98.2 F 03/24/22 16:50 Pulse Rate 73 03/24/22 19:40 Respiratory Rate 12 03/24/22 19:40 Blood Pressure 131/79 03/24/22 19:40 Pulse Oximetry 93 03/24/22 19:40 MDM - Extremity (Nontraumatic) Medical Decision Making Apparent seroma of the left hip incision. No evidence for infection. CT to determine size. Patient is afebrile. White blood cell count is 7. CRP is mildly elevated at 48. ESR is 63. CT reveals enlargement of the left iliac us gluteus medius and vastus lateralis consistent with intramuscular edema with some possible blood loss. Hemoglobin is 9.5, which is increased from his prior hospitalization. Small amount of fluid with small gas bubbles around the left hip incision. Appears to be a seroma. A small area of the skin that appeared noncellulitic was prepped in a sterile fashion using Betadine. 18-gauge needle was inserted in an attempt to aspirate fluid from the seroma after local anesthetic was applied. No fluid was obtained. With no apparent cellulitis surrounding the incision, and no increased tenderness on account of the patient, exam does not speak towards infection. He will be covered with antibiotics, and asked to follow-up. Lab Data 03/24/22 17:43 03/24/22 17:[address] 03/24/22 17:11 IMPRESSION: 1. Left hip arthroplasty changes with cerclage wires around a mildly displaced intertrochanteric femur fracture. 2. Fluid and gas bubbles in the anterior left hip joint is most likely related to recent surgery. Infection cannot be excluded. 3. Enlargement of the left iliacus, gluteus medius, and vastus lateralis muscles. This is consistent with intramuscular edema and possible hemorrhage. 4. Subcutaneous soft tissue stranding in the left thigh and hip region. This could represent edema or cellulitis. 5. Small amount of fluid with small gas bubbles in the left hip incision. This may be normal postsurgical changes or seroma. Small abscess formation is not excluded. Laboratory Results WBC 7.4 10^3/uL (4.0-10.0) 03/24/22: RBC 3.40 10^6/uL (4.1-5.3) L 03/24/22 17:43 Hgb 9.5 g/dL (11.7-16.6) L 03/24/22 17:43 Hct 30.0 % (42.0-52.0) L 03/24/22: MCV 88.2 fl (80-94) 03/24/22 17:43 MCH 27.9 pg (28.0-34.0) L 03/24/22: MCHC 31.7 g/dL (30.0-36.0) 03/24/22: RDW 14.4 % (12.1-15.1) 03/24/22 17:43 Plt Count 304 10^3/cmm (130-400) 03/24/22 17: MPV 8.8 fL (7.4-10.4) 03/24/22: Neut % (Auto) 59.3 % 03/24/22 17:43 Lymph % (Auto) 27.1 % 03/24/22 17:43 [place] % (Auto) 10.9 % 03/24/22 17:43 Eos % (Auto) 1.9 % 03/24/22 17:43 Baso % (Auto) 0.4 % 03/24/22 17:43 Neut # (Auto) 4.37 10^3/uL (1.8-7.7) 03/24/22 17:43 Lymph # (Auto) 2.0 10^3/uL (0.8-4.8) 03/24/22 17:43 [place] # (Auto) 0.8 10^3/uL (0.2-0.9) 03/24/22 17:43 Eos # (Auto) 0.1 10^3/uL (0.0-0.8) 03/24/22 17:43 Baso # (Auto) 0.0 10^3/uL (0.0-0.1) 03/24/22 17:43 Nucleated RBC % (auto) 0 % 03/24/22 17:43 Nucleated RBCs # 0.0 /100WBC 03/24/22 17:43 ESR 63 mm/hr (0-10) H 03/24/22 17:43 Sodium 133 mmol/L (136-145) L 03/24/22 17:43 Potassium 4.0 mmol/L (3.5-5.1) 03/24/22 17:43 Chloride 97 mmol/L (98-107) L 03/24/22 17:43 Carbon Dioxide 25 mmol/L (22-29) 03/24/22 17:43 Anion Gap 15.0 (5-19) 03/24/22 17:43 BUN 11 mg/dL (8-23) 03/24/22 17:43 Creatinine 0.4 mg/dL (0.7-1.2) L 03/24/22 17:43 GFR Calculation 215.2 mL/min (90-130) H 03/24/22 17:43 Glucose 92 mg/dL (65-115) 03/24/22 17:43 Calculated Osmolality 275 mOsm/kg (285-295) L 03/24/22 17:43 Calcium 8.2 mg/dL (8.5-10.5) L 03/24/22 17:43 Total Bilirubin 0.4 mg/dL (0.15-1.2) 03/24/22 17:43 AST 16 U/L (0-40) 03/24/22 17:43 ALT 16 U/L (0-41) 03/24/22 17:43 Alkaline Phosphatase 110 U/L (40-130) 03/24/22 17:43 C-Reactive Protein 48.0 mg/L (0.0-4.9) H 03/24/22 17:43 Total Protein 6.2 g/dL (6.6-8.7) L 03/24/22 17:43 Albumin 2.6 g/dL (3.5-5.2) L 03/24/22 17:43 Globulin 3.6 g/dL (1.3-4.6) 03/24/22 17:43 Discharge Plan Discharge Patient Disposition: Home Clinical Impression: Postoperative seroma Condition: Stable Prescriptions: New cephalexin 500 mg capsule 500 mg PO Q6H 10 Days Qty: 40 0RF No Action (DME) DME: [facility] See Rx Instructions .Route Qty: 1 0RF Rx Instructions: Pureed diet with nectar thick liquids all meals folic acid 1 mg tablet 1 mg PO DAILY@06 Qty: 90 3RF propranolol 10 mg tablet 10 mg PO BID lorazepam 0.5 mg tablet 0.5 mg PO BEDTIME Rx Instructions: Take one tablet at bedtime tamsulosin 0.4 mg capsule 0.8 mg PO BEDTIME Rx Instructions: TAKE 2 CAPSULES BY MOUTH EVERY DAY simvastatin 20 mg tablet 20 mg PO DAILY aripiprazole [Abilify] 10 mg tablet 10 mg PO DAILY@0600 Rx Instructions: Take one tablet every morning pantoprazole 40 mg Tablet,Delayed Release (Dr/Ec) 40 mg PO BID Qty: 60 0RF oxycodone 5 mg Tablet 5 mg PO Q4H PRN (Reason: Moderate Pain) Qty: 20 0RF senna 8.6 mg Tablet 8.6 mg PO BID Breztri Aerosphere 160-9-4.8 mcg/actuation HFA aerosol inhaler 2 inh inhalation BID Rx Instructions: USE 2 INHALATIONS BY MOUTH TWICE DAILY Lovenox 30 mg/0.3 mL syringe 30 mg SUBCUT DAILY 30 Days Qty: 9 0RF Rx Instructions: Daily for 30 days Discharge Orders: Discharge ED (Routine); Ordered 03/24/22 Ordered By: Сергей Corona Referrals: Bernadette Spears FNP [Primary Care Provider] - Patient Instructions: Seroma (DC), Opioid Safety, Pain Management Activity Restrictions/Additional Instructions: Return for fever greater than 100, worsening drainage, worsening redness or streaking surrounding the incision. Call your surgeon Friday, and follow-up in clinic for wound check. Keep clean bandage over the surgical area due to drainage. Change twice daily until seen. Antibiotic coverage as directed. Coding Level of Care Code ED Station Baggage Agent for Geovanna Espinal
[2022-03-24 17:50] LABS: Basophils % 0.4 %; Eosinophils # 0.1 10^3/uL (0.0-0.8); Eosinophils % 1.9 %; Hemoglobin 9.5 g/dL (11.7-16.6); Lymphocytes % 27.1 %; Mean Corpuscular HGB Conc 31.7 g/dL (30.0-36.0); Mean Corpuscular Hemoglobin 27.9 pg (28.0-34.0); Mean Corpuscular Volume 88.2 fl (80-94); Mean Platelet Volume 8.8 fL (7.4-10.4); Monocytes # 0.8 10^3/uL (0.2-0.9); Monocytes % 10.9 %; Neutrophils # 4.37 10^3/uL (1.8-7.7); Neutrophils % 59.3 %; Nucleated Red Blood Cells % 0 %; Platelet Count 304 10^3/cmm (130-400); Red Cell Distribution Width 14.4 % (12.1-15.1); White Blood Count 7.4 10^3/uL (4.0-10.0)
[2022-03-24 17:56] LABS: Erythrocyte Sedimentation Rate 63 mm/hr (0-10)
[2022-03-24 18:19] LABS: Alanine Aminotransferase 16 U/L (0-41); Albumin Level 2.6 g/dL (3.5-5.2); Alkaline Phosphatase 110 U/L (40-130); Aspartate Amino Transferase 16 U/L (0-40); Blood Urea Nitrogen 11 mg/dL (8-23); Calcium 8.2 mg/dL (8.5-10.5); Carbon Dioxide 25 mmol/L (22-29); Chloride 97 mmol/L (98-107); Globulin 3.6 g/dL (1.3-4.6); Glomerular Filtration Rate 215.2 mL/min (90-130); Glucose 92 mg/dL (65-115); Osmolality Calculated 275 mOsm/kg (285-295); Sodium 133 mmol/L (136-145); Total Bilirubin 0.4 mg/dL (0.15-1.2); Total Protein 6.2 g/dL (6.6-8.7)
[2022-03-24 18:30] LABS: Creatinine Clr Calc Pharmacy 97.6209
[2022-03-24] MEDS: iohexol 350 mg/mL 500 mL Btl (per mL) IV (18:35)
[2022-03-24 19:40] VITALS: BP 131/79; PULSE 73; RESP 12; O2SAT 93
== END 2022-03-24 22:12 | disposition home or self-care (01) ==
PROVIDERS: Emergency Provider Emergency Medicine; PCP Nurse Practitioner
DX: L76.34 Postprocedural seroma of skin and subcutaneous tissue following other procedure (principal); J44.9 Chronic obstructive pulmonary disease, unspecified; I10 Essential (primary) hypertension; E78.2 Mixed hyperlipidemia; Z96.643 Presence of artificial hip joint, bilateral; Z87.891 Personal history of nicotine dependence; Z98.890 Other specified postprocedural states
CPT/HCPCS: 73701; 80053; 85025; 85651; 86140; 99285; Q9967

== ENCOUNTER 2022-03-28 18:03 | Emergency (ER) | payer MEDICARE, MEDICAID, SELFPAY ==
[2022-03-28 18:13] VITALS: BP 166/70; PULSE 69; RESP 16; TEMP 37; O2SAT 96
--- NOTE | 2022-03-28 18:27 | ED_ITS ---
HPI - General Adult General: Chief complaint: General Medical Stated complaint: wound infection Time Seen by Provider: 03/28/22 18:09 History of Present Illness: Patient is brought in by EMS from longterm for wound infection. The patient had left hip surgery on February [address] Yates. The patient reportedly has oozing and drainage from the left surgical site. Patient was recently here and saw Dr. Corona in the ER. An extensive work-up was done at that time. The patient was afebrile with a normal white count. He was sent back to the longterm on antibiotic medication. Per EMS, the longterm states that the patient has had a change in the color of the drainage from the surgical site and he also has a black wound on the bottom of his left heel. They report patient fever up to 101 Review of Systems Const: Reports: fever(s) and chills Skin/Breast: Reports: other (ozing left hip incision; black wound left heel) PFSH ED PFSH: Medical History Anemia BPH (benign prostatic hyperplasia) Chronic schizophrenia COPD (chronic obstructive pulmonary disease) COVID-19 vaccine administered J&J plus an mRNA booster per patient report Essential hypertension History of PFTs 05/31 severe airflow obstruction, normal gas exchange, decreased FVC, FEV1 40%, FEVI/FVC reduced Mixed hyperlipidemia Osteoporosis Psychiatric care Tardive akathisia Vitamin D deficiency Surgical History 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 05/2021 Family History Denies family history of CAD (coronary artery disease) Anesthesia complication Bleeding disorder Social History Smoking and tobacco status: former smoker Quit status (tobacco): has quit using tobacco Year quit tobacco: 2021 Former quit date comment: 1.5ppd x 51 year Hx Second hand smoke exposure: Yes Alcohol intake: former Caregiver/support person: Yes Lives independently: No Household members: other Details: Resides at [facility] residential assisted living care facility Housing: Assisted Living Facility Marital status: Single service: No Current occupational status: disabled Pets and animals: Yes Current gender identity: Male Physical Exam Const: OTHER: Patient is in bed alert answers a couple yes/no questions. Noted tremor of his face/head. EMS answers most questions for patient Neck/C-Spine: COMMON NORMALS: no JVD Resp: COMMON NORMALS: normal respiratory effort, No use of accessory muscles and clear to auscultation bilaterally AUSCULTATION: clear to auscultation bilaterally Cardio: COMMON NORMALS: no JVD, regular rate, regular rhythm, S1 normal heart sound present and S2 normal heart sound present RATE: regular rate RHYTHM: regular rhythm HEART SOUNDS: S1 normal heart sound present and S2 normal heart sound present Skin: OTHER: Postsurgical incision left side hip distal end of the incision with surrounding erythema and oozing serous drainage. Mild tenderness to palpation. Patient is healed there is a half dollar sized black eschar noted. Patient has dried flaking skin to the entire foot with thick discolored nails. Course ED course: 2047?CT shows 3.1 cm abscess left psoas unchanged in size with new gas bubble formation. I discussed this case with Dr. Scott who recommends paging orthopedics and discussing the case with them. I paged Dr. Way who is on-call. Dr. Way recommended I called Dr. Yates who actually did the surgery. I spoke with Dr. Yates at 2052 and advised him of CT report, current labs, exam findings. Dr. Yates advised that he is not concerned at this time if the patient is doing well. He advised that this could be a suture abscess. He recommends continuing the patient on same antibiotic Keflex discharging back to the longterm with a follow-up in office on Friday. I discussed this also with Dr. Scott who advised to give 1 dose of vancomycin here prior to discharge. Vital Signs: Vital signs: Vital Signs Temperature 98.6 F 03/28/22 18:13 Pulse Rate 65 03/28/22 22:00 Respiratory Rate 16 03/28/22 22:00 Blood Pressure 145/77 03/28/22 22:00 Pulse Oximetry 93 03/28/22 22:00 Oxygen Delivery Me thod 03/28/22 22:00 MDM - General Adult Medical Decision Making 66-year-old male patient in today for possible infection of the incision on his left hip. Patient had hip arthroplasty by Dr. Yates on February 26. He was seen on [address] Corona in the ER for a possible seroma to the incision. Patient was placed on antibiotics at that time. Patient was sent back to the longterm. The longterm reports the patient developed a fever today and has worsening drainage from the wound. CT scan reveals similar size psoas abscess on the left however new gas bubble formation. I did call and speak with Dr. Yates who advised to keep patient on same antibiotic discharged back to the longterm for follow-up on Friday. I discussed this case also with Dr. Scott, ER physician. He advised give 1 dose of vancomycin prior to discharge. Patient is discharged back to the longterm via EMS. Case management is consulted. Patient also has an eschar wounded to the left heel that appears chronic in nature. This is not addressed at this ER visit. I recommended with case management that patient be referred to wound care or podiatry to help fur ther evaluate this and get appropriate treatment started on an outpatient basis. Lab Data 03/28/22 18:37 03/28/22 18:[address] 03/28/22 19:32 IMPRESSION: 1. Small abscess in the distal left psoas muscle measuring 3.1 cm. In retrospect, this is unchanged in size, but has new gas bubbles. 2. Fluid and persistent gas bubbles anterior to the proximal left femur fracture. This is suspicious for soft tissue infection with possible abscess formation. 3. Slightly improved edema or hemorrhage within the left iliacus and gluteus medius muscles. Stable fluid or hemorrhage within the left vastus lateralis muscle. 4. Left hip arthroplasty with intertrochanteric fracture, treated with cerclage wires. 5. Constipation with rectal impaction. Laboratory Results WBC 9.3 10^3/uL (4.0-10.0) 03/28/22 18:37 RBC 3.44 10^6/uL (4.1-5.3) L 03/28/22 18:37 Hgb 9.5 g/dL (11.7-16.6) L 03/28/22 18:37 Hct 29.6 % (42.0-52.0) L 03/28/22 18:37 MCV 86.0 fl (80-94) 03/28/22 18:37 MCH 27.6 pg (28.0-34.0) L 03/28/22 18:37 MCHC 32.1 g/dL (30.0-36.0) 03/28/22 18:37 RDW 14.6 % (12.1-15.1) 03/28/22 18:37 Plt Count 318 10^3/cmm (130-400) 03/28/22 18:37 MPV 9.1 fL (7.4-10.4) 03/28/22 18:37 Neut % (Auto) 69.2 % 03/28/22 18:37 Lymph % (Auto) 20.5 % 03/28/22 18:37 [place] % (Auto) 8.5 % 03/28/22 18:37 Eos % (Auto) 0.9 % 03/28/22 18:37 Baso % (Auto) 0.5 % 03/28/22 18:37 Neut # (Auto) 6.45 10^3/uL (1.8-7.7) 03/28/22 18:37 Lymph # (Auto) 1.9 10^3/uL (0.8-4.8) 03/28/22 18:37 [place] # (Auto) 0.8 10^3/uL (0.2-0.9) 03/28/22 18:37 Eos # (Auto) 0.1 10^3/uL (0.0-0.8) 03/28/22 18:37 Baso # (Auto) 0.1 10^3/uL (0.0-0.1) 03/28/22 18:37 Nucleated RBC % (auto) 0 % 03/28/22 18:37 Nucleated RBCs # 0.0 /100WBC 03/28/22 18:37 Sodium 134 mmol/L (136-145) L 03/28/22 18:37 Potassium 3.5 mmol/L (3.5-5.1) 03/28/22 18:37 Chloride 99 mmol/L (98-107) 03/28/22 18:37 Carbon Dioxide 25 mmol/L (22-29) 03/28/22 18:37 Anion Gap 13.5 (5-19) 03/28/22 18:37 BUN 8 mg/dL (8-23) 03/28/22 18:37 Creatinine 0.5 mg/dL (0.7-1.2) L 03/28/22 18:37 GFR Calculation 166.4 mL/min (90-130) H 03/28/22 18:37 Glucose 110 mg/dL (65-115) 03/28/22 18:37 Calculated Osmolality 277 mOsm/kg (285-295) L 03/28/22 18:37 Lactic Acid 1.0 mmol/L (0.5-2.2) 03/28/22 18:37 Calcium 8.2 mg/dL (8.5-10.5) L 03/28/22 18:37 Total Bilirubin 0.3 mg/dL (0.15-1.2) 03/28/22 18:37 AST 13 U/L (0-40) 03/28/22 18:37 ALT 13 U/L (0-41) 03/28/22 18:37 Alkaline Phosphatase 108 U/L (40-130) 03/28/22 18:37 C-Reactive Protein 30.3 mg/L (0.0-4.9) H 03/28/22 18:37 Total Protein 6.1 g/dL (6.6-8.7) L 03/28/22 18:37 Albumin 2.7 g/dL (3.5-5.2) L 03/28/22 18:37 Globulin 3.4 g/dL (1.3-4.6) 03/28/22 18:37 Discharge Plan Discharge Patient Disposition: Home Clinical Impression: Psoas abscess, left, Pressure ulcer of heel Condition: Stable Prescriptions: No Action (DME) DME: [facility] See Rx Instructions .Route Qty: 1 0RF Rx Instructions: Pureed diet with nectar thick liquids all meals folic acid 1 mg tablet 1 mg PO DAILY@06 Qty: 90 3RF propranolol 10 mg tablet 10 mg PO BID lorazepam 0.5 mg tablet 0.5 mg PO BEDTIME Rx Instructions: Take one tablet at bedtime tamsulosin 0.4 mg capsule 0.8 mg PO BEDTIME Rx Instructions: TAKE 2 CAPSULES BY MOUTH EVERY DAY simvastatin 20 mg tablet 20 mg PO DAILY aripiprazole [Abilify] 10 mg tablet 10 mg PO DAILY@0600 Rx Instructions: Take one tablet every morning pantoprazole 40 mg Tablet,Delayed Release (Dr/Ec) 40 mg PO BID Qty: 60 0RF oxycodone 5 mg Tablet 5 mg PO Q4H PRN (Reason: Moderate Pain) Qty: 20 0RF senna 8.6 mg Tablet 8.6 mg PO BID Breztri Aerosphere 160-9-4.8 mcg/actuation HFA aerosol inhaler 2 inh inhalation BID Rx Instructions: USE 2 INHALATIONS BY MOUTH TWICE DAILY Lovenox 30 mg/0.3 mL syringe 30 mg SUBCUT DAILY 30 Days Qty: 9 0RF Rx Instructions: Daily for 30 days cephalexin 500 mg capsule 500 mg PO Q6H 10 Days Qty: 40 0RF Discharge Orders: Discharge ED (Routine); Ordered 03/28/22 Ordered By: Jessica Ji Referrals: Bernadette Spears FNP [Primary Care Provider] - Discharge Diet: Usual diet Discharge Activity: Limit activity as instructed Activity Restrictions/Additional Instructions: Keep the wound clean and dry. Continue antibiotics as previously ordered. The patient needs to follow-up with Dr. Yates on Friday for reevaluation. Ongoing evaluation of the heel wound should be done outpatient through podiatry or wound clinic. Return to the emergency department for worsening fever despite antibiotics, worsening redness, pain, drainage at the wound site. Wound culture was sent in ER today. Coding Level of Care Code ED Valuation Consultant for Geovanna Espinal
[2022-03-28 19:04] LABS: Basophils # 0.1 10^3/uL (0.0-0.1); Basophils % 0.5 %; Eosinophils # 0.1 10^3/uL (0.0-0.8); Eosinophils % 0.9 %; Hematocrit 29.6 % (42.0-52.0); Hemoglobin 9.5 g/dL (11.7-16.6); Lymphocytes # 1.9 10^3/uL (0.8-4.8); Lymphocytes % 20.5 %; Mean Corpuscular HGB Conc 32.1 g/dL (30.0-36.0); Mean Corpuscular Hemoglobin 27.6 pg (28.0-34.0); Mean Platelet Volume 9.1 fL (7.4-10.4); Monocytes # 0.8 10^3/uL (0.2-0.9); Monocytes % 8.5 %; Neutrophils # 6.45 10^3/uL (1.8-7.7); Neutrophils % 69.2 %; Nucleated Red Blood Cells % 0 %; Platelet Count 318 10^3/cmm (130-400); Red Blood Count 3.44 10^6/uL (4.1-5.3); Red Cell Distribution Width 14.6 % (12.1-15.1); White Blood Count 9.3 10^3/uL (4.0-10.0)
[2022-03-28 19:21] LABS: Alanine Aminotransferase 13 U/L (0-41); Albumin Level 2.7 g/dL (3.5-5.2); Alkaline Phosphatase 108 U/L (40-130); Anion Gap 13.5 (5-19); Aspartate Amino Transferase 13 U/L (0-40); Blood Urea Nitrogen 8 mg/dL (8-23); C Reactive Protein 30.3 mg/L (0.0-4.9); Calcium 8.2 mg/dL (8.5-10.5); Carbon Dioxide 25 mmol/L (22-29); Chloride 99 mmol/L (98-107); Globulin 3.4 g/dL (1.3-4.6); Glomerular Filtration Rate 166.4 mL/min (90-130); Glucose 110 mg/dL (65-115); Osmolality Calculated 277 mOsm/kg (285-295); Potassium 3.5 mmol/L (3.5-5.1); Sodium 134 mmol/L (136-145); Total Bilirubin 0.3 mg/dL (0.15-1.2); Total Protein 6.1 g/dL (6.6-8.7)
--- NOTE | 2022-03-28 19:32 | CTR_ITS ---
PROCEDURE INFORMATION: Exam: CT Left Lower Extremity With Contrast, Hip Exam date and time: 03/28/2022 7:50 PM Age: 66 years old Clinical indication: Swelling, leg or foot; Prior surgery; Surgery date: 1-6 months; Surgery type: Left deep on 02/13/2022; Patient HX: Swelling and open drainage of incision site from deep. ; Additional info: Concern for incision site infection. Fever and drainage TECHNIQUE: Imaging protocol: CT of the Left lower extremity with intravenous contrast was performed. Exam focused on the hip. Radiation optimization: All CT scans at this facility use at least one of these dose optimization techniques: automated exposure control; mA and/or kV adjustment per patient size (includes targeted exams where dose is matched to clinical indication); or iterative reconstruction. Contrast material: OMNI 350; Contrast volume: 100 ml; Contrast route: INTRAVENOUS (IV); Other protocol: This patient has received 5 known CTs and 0 known cardiac nuclear medicine studies in the 12 months prior to the current study. COMPARISON: CT hip LT w con [id number] 03/24/2022 6:02 PM RADIATION DOSE METRICS: Total DLP (mGy-cm): 390.11 FINDINGS: Bones/joints: Resection of the left femoral head and neck with a bipolar prosthesis. Mildly displaced intertrochanteric femur fracture with cerclage wire placement. Fluid and gas bubbles in the anterior left hip joint. Soft tissues: Fluid collection with gas bubbles and peripheral enhancement in the distal left psoas muscle measuring 1.9 x 1.6 x 3.1 cm. Mild enlargement of the left iliacus and gluteus medius muscles is slightly improved. Soft tissue hemorrhage and fluid surrounding the proximal left femur fracture with anterior gas bubbles. Stable enlargement of the vastus lateralis muscle most likely represents intramuscular edema and hemorrhage. Postsurgical changes in the lateral hip soft tissues with stranding, small amount of fluid, and resolution of the previous gas bubbles. Diffuse soft tissue edema in the left thigh. Stable heterotopic ossification developing around the proximal left femur. Bowel: Large amount of stool in the distal sigmoid colon and rectum. Urinary bladder: Gas bubbles in the urinary bladder, which is decompressed. Bladder wall thickness is 9 mm. Ordonez catheter in the urinary bladder. CT/CT hip LT w con [id number] IMPRESSION: 1. Small abscess in the distal left psoas muscle measuring 3.1 cm. In retrospect, this is unchanged in size, but has new gas bubbles. 2. Fluid and persistent gas bubbles anterior to the proximal left femur fracture. This is suspicious for soft tissue infection with possible abscess formation. 3. Slightly improved edema or hemorrhage within the left iliacus and gluteus medius muscles. Stable fluid or hemorrhage within the left vastus lateralis muscle. 4. Left hip arthroplasty with intertrochanteric fracture, treated with cerclage wires. 5. Constipation with rectal impaction.
[2022-03-28] MEDS: iohexol 350 mg/mL 500 mL Btl (per mL) IV (19:53)
[2022-03-28] MEDS: vancomycin 1,000 MG in sodium chloride 0.9% 250 ML 250 MG IV (21:10)
[2022-03-28 22:00] VITALS: BP 145/77; PULSE 65; RESP 16; O2SAT 93
--- NOTE | 2022-03-28 22:44 | PC.NURSE ---
Report called to Rizwana at [facility].
[2022-03-29 02:12] VITALS: BP 127/83; PULSE 72; RESP 18; O2SAT 97
--- NOTE | 2022-04-01 09:03 | DCPLANNER ---
Addendum entered by Sarah Head 04/03/22 15:26: rate manager received the following message from the Wound Care clinic regarding follow up appointment: [facility] no [facility] he now lives in [place] in [place]. Spoke with staff at the care home and was told pt is seeing a surgon tomorrow and follows with wound care in there facility. They will call if they change there mind and want him seen at [facility]. Thank you Sweta Dunbar completed item. Patient had a follow up appointment scheduled with 04.02.22 with ortho - patient did attend appointment. Original Note: rate manager had message to schedule a follow up appointment for patient with ortho. rate manager sent patients information to the front office staff at ortho. Patients information will be printed and reviewed. Clinic will call patient with appointment information. rate manager also had message to schedule a follow up appointment for patient with Wound Care. rate manager sent patients information to the front office staff at Wound Care. Patients information will be printed and reviewed. Clinic will call patient with appointment information.
== END 2022-03-29 02:14 | disposition home or self-care (01) ==
PROVIDERS: Emergency Provider Nurse Practitioner Family; PCP Nurse Practitioner
DX: K68.12 Psoas muscle abscess (principal); L89.629 Pressure ulcer of left heel, unspecified stage; J44.9 Chronic obstructive pulmonary disease, unspecified; I10 Essential (primary) hypertension; E78.2 Mixed hyperlipidemia; Z87.891 Personal history of nicotine dependence; Z96.643 Presence of artificial hip joint, bilateral
CPT/HCPCS: 73701; 80053; 83605; 85025; 86140; 87070; 87075; 87077; 87186; 87205; 96374; 99284; J3370; J7050; Q9967

== ENCOUNTER → 2022-04-02 08:56 | Outpatient (BNVA) | payer OTHER, SELFPAY | PROVIDERS: PCP Nurse Practitioner; Visit Provider Orthopaedic Surgery | DX: Z98.890 Other specified postprocedural states (principal) | CPT/HCPCS: 87070; 87075; 87077; 87186; 87205; 99024 ==

== ENCOUNTER → 2022-04-10 09:12 | Outpatient (BNVA) | payer MEDICARE, MEDICAID, SELFPAY | PROVIDERS: PCP Nurse Practitioner; Visit Provider Orthopaedic Surgery | DX: M97.02XA Periprosthetic fracture around internal prosthetic left hip joint, initial encounter (principal); Z96.642 Presence of left artificial hip joint; L02.416 Cutaneous abscess of left lower limb | CPT/HCPCS: 99024 ==

== ENCOUNTER 2022-04-23 17:14 | Emergency (ER) | payer MEDICARE, MEDICAID, SELFPAY ==
--- NOTE | 2022-04-23 17:34 | XRR_ITS ---
PROCEDURE INFORMATION: Exam: XR Left Hip Exam date and time: 04/23/2022 5:43 PM Age: 66 years old Clinical indication: Hip pain; Left hip; Prior surgery; Surgery date: 1-6 months; Surgery type: Nikhil hip surgeries TECHNIQUE: Imaging protocol: Radiologic exam of the left hip. Views: 2 or 3 views hip with pelvis when performed. COMPARISON: CT hip LT w con [id number] 03/28/2022 7:50 PM FINDINGS: Bones/joints: Dislocation the left hip bipolar hemiarthroplasty. Superior migration of the femur. Dysplastic appearance of the left acetabulum. Negative for acute fracture. Right hip bipolar hemiarthroplasty alignment is unremarkable. Soft tissues: Unremarkable. Vasculature: Diffuse atherosclerosis. XR/XR hip LT 2-3V wo/w pel* [id number] IMPRESSION: Left hip arthroplasty dislocation injury.
--- NOTE | 2022-04-23 17:50 | ED_ITS ---
HPI - Extremity Problem General: Chief complaint: Extremity Injury, Lower Stated complaint: HIP ISSUES Time Seen by Provider: 04/23/22 17:20 Source: patient Mode of arrival: ambulatory Limitations: no limitations History of Present Illness: 66-year-old male presents emergency room with complaint of left hip pain. He previously had a intertrochanteric hip fracture underwent hip arthroplasty. He is complicated by postop infection comes in today after having worsening pain and deformity plain x-ray was done at the longterm was reported to have been abnormal. No fever sweats chills denies chest pain or abdominal pain no other complaints at this time. Onset (ago): unknown Location: left (Hip) Quality: aching Relieving factors: nothing Exacerbating factors: nothing Associated symptoms: Deny arthralgias, chest pain, fever(s), myalgias, rash or short of breath Review of Systems Const: Denies: fever(s), chills, fatigue or malaise ENMT: Denies: throat pain, ear or mastoid pain, nasal discharge or nasal congestion Card: Denies: chest pain, palpitations, irregular heart rhythm or edema Resp: Denies: dyspnea, productive cough or non-productive cough GI: Denies: abdominal pain, nausea, vomiting, hematemesis, coffee ground emes is, diarrhea, constipation, bloating, hematochezia or melena : Denies: flank pain, dysuria, urinary frequency or urinary urgency Musc: Reports: joint swelling; Denies: joint pain Skin/Breast: Denies: rash or pruritus PFSH ED PFSH: Medical History Anemia BPH (benign prostatic hyperplasia) Chronic schizophrenia COPD (chronic obstructive pulmonary disease) COVID-19 vaccine administered J&J plus an mRNA booster per patient report Essential hypertension History of PFTs 05/31 severe airflow obstruction, normal gas exchange, decreased FVC, FEV1 4 0%, FEVI/FVC reduced Mixed hyperlipidemia Osteoporosis Psychiatric care Tardive akathisia Vitamin D deficiency Surgical History 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 05/2021 Family History Denies family history of CAD (coronary artery disease) Anesthesia complication Bleeding disorder Social History Smoking and tobacco status: former smoker Quit status (tobacco): has quit using tobacco Year quit tobacco: 2021 Former quit date comment: 1.5ppd x 51 year Hx Second hand smoke exposure: Yes Alcohol intake: former Caregiver/support person: Yes Lives independently: No Household members: other Details: Resides at [facility] residential assisted living care facility Housing: Assisted Living Facility Marital status: Single service: No Current occupational status: disabled Pets and animals: Yes Current gender identity: Male Physical Exam Const: GENERAL APPEARANCE: cooperative and comfortable ORIENTATION/CONSCIOUSNESS: Yes awake HENMT: COMMON NORMALS: normocephalic, atraumatic and hearing grossly normal bilaterally HEAD & SCALP: normocephalic and atraumatic Resp: COMMON NORMALS: normal respiratory effort, No retractions, No use of accessory muscles and clear to auscultation bilaterally AUSCULTATION: clear to auscultation bilaterally Cardio: COMMON NORMALS: regular rate, regular rhythm and No murmurs present (Cardio) RATE: regular rate RHYTHM: regular rhythm GI: COMMON NORMALS: Soft to palpation and No hepatosplenomegaly present AUSCULTATION: Yes normoactive bowel sounds PALPATION: Yes Soft to palpation, No Tenderness to palpation present (GI), No Guarding due to palpation present (GI) and Yes No hepatosplenomegaly present Extremity: COMMON NORMALS: normal to inspection, capillary refill normal, no clubbing, cyanosis or edema, no calf tenderness and no pedal edema Skin: COMMON NORMALS: no rashes or lesions noted GENERAL SKIN EXAM: no rashes or lesions noted Course Vital Signs: Vital signs: Vital Signs Pulse Rate 79 04/23/22 20:27 Respiratory Rate 16 04/23/22 20:27 Blood Pressure 154/98 04/23/22 20:27 Pulse Oximetry 97 04/23/22 20:27 Oxygen Delivery Me thod 04/23/22 18:22 MDM - Extremity (Nontraumatic) Medical Decision Making Patient denies pain at this time. We did call the longterm. They did not really give any specific time or incident that the could relate the joint disp lacement 2. X-ray shows that the bipolar prosthesis has dislodged and is displaced superiorly. Patient has obvious shortening of the left leg. X-ray confirms displacement. Does not appear to be any periprosthetic fractures. Called discussed with Dr. Yates. This patient has had quite an adventure with his hip fracture. He had a periprosthetic fracture previously they repaired it now its displaced he also had some postop infections. Postop infection grew out staph and E. coli he still has some drainage which we did culture but it appears to be more of a sterile drainage its mucousy there is a 6 relatively superficial feeling some minor fluctuant pocket. Dr. Yates related that if the patient was having any pain he could probably be sent back to the longterm kept at bedrest and they would make plans to surgically remove the prosthesis at a later date. Checked on the patient again after he been here sometime and had reviewed his history and talk to Dr. Yates. He still is not having any pain. He is somewhat slow to answer. 1 week to check to see if there are any family contacts and found that he had a court appointed guardian. Call and talk to the court-appointed guardian presented the case and discussed with her what Dr. Yates had recommended at this point she was comfortable proceeding with recommendation of discharging back to the longterm and a planned revision at a later date. Called Dr. Yates back and discussed with him again advised him that the patient does not have family but does have a court appointed guardian who has agreed to this plan. He would like to proceed with this and he plans to do follow-up tomorrow in his schedule a revision as a planned case. Patient will be transferred back to the longterm. Kept at bedrest pain control as needed, he has oxycodone his medication list. Medical Records I reviewed the patient's medical records. Lab Data I reviewed the patient's lab results. 04/23/22 18:19 04/23/22 18:19 Radiology Impressions Hip/Pelvis X-Ray 04/23/22 17:34 IMPRESSION: Left hip arthroplasty dislocation injury. Laboratory Results WBC 6.9 10^3/uL (4.0-10.0) 04/23/22 18:19 RBC 4.01 10^6/uL (4.1-5.3) L 04/23/22 18:19 Hgb 10.6 g/dL (11.7-16.6) L 04/23/22 18:19 Hct 33.0 % (42.0-52.0) L 04/23/22 18:19 MCV 82.3 fl (80-94) 04/23/22 18:19 MCH 26.4 pg (28.0-34.0) L 04/23/22 18:19 MCHC 32.1 g/dL (30.0-36.0) 04/23/22 18:19 RDW 15.9 % (12.1-15.1) H 04/23/22 18:19 Plt Count 369 10^3/cmm (130-400) 04/23/22 18:19 MPV 9.0 fL (7.4-10.4) 04/23/22 18:19 Neut % (Auto) 53.7 % 04/23/22 18:19 Lymph % (Auto) 36.0 % 04/23/22 18:19 Rabun % (Auto) 7.6 % 04/23/22 18:19 Eos % (Auto) 2.0 % 04/23/22 18:19 Baso % (Auto) 0.4 % 04/23/22 18:19 Neut # (Auto) 3.68 10^3/uL (1.8-7.7) 04/23/22 18:19 Lymph # (Auto) 2.5 10^3/uL (0.8-4.8) 04/23/22 18:19 Rabun # (Auto) 0.5 10^3/uL (0.2-0.9) 04/23/22 18:19 Eos # (Auto) 0.1 10^3/uL (0.0-0.8) 04/23/22 18:19 Baso # (Auto) 0.0 10^3/uL (0.0-0.1) 04/23/22 18:19 Nucleated RBC % (auto) 0 % 04/23/22 18:19 Nucleated RBCs # 0.0 /100WBC 04/23/22 18:19 Sodium 136 mmol/L (136-145) 04/23/22 18:19 Potassium 3.2 mmol/L (3.5-5.1) L 04/23/22 18:19 Chloride 95 mmol/L (98-107) L 04/23/22 18:19 Carbon Dioxide 30 mmol/L (22-29) H 04/23/22 18:19 Anion Gap 14.2 (5-19) 04/23/22 18:19 BUN 10 mg/dL (8-23) 04/23/22 18:19 Creatinine 0.5 mg/dL (0.7-1.2) L 04/23/22 18:19 GFR Calculation 166.4 mL/min (90-130) H 04/23/22 18:19 Glucose 104 mg/dL (65-115) 04/23/22 18:19 Calculated Osmolality 281 mOsm/kg (285-295) L 04/23/22 18:19 Calcium 8.8 mg/dL (8.5-10.5) 04/23/22 18:19 Total Bilirubin 0.3 mg/dL (0.15-1.2) 04/23/22 18:19 AST 14 U/L (0-40) 04/23/22 18:19 ALT 10 U/L (0-41) 04/23/22 18:19 Alkaline Phosphatase 146 U/L (40-130) H 04/23/22 18:19 Total Protein 8.0 g/dL (6.6-8.7) 04/23/22 18:19 Albumin 3.3 g/dL (3.5-5.2) L 04/23/22 18:19 Globulin 4.7 g/dL (1.3-4.6) H 04/23/22 18:19 Discharge Plan Discharge Patient Disposition: Home Clinical Impression: Failure of left total hip arthroplasty with dislocation of hip Condition: Stable Prescriptions: No Action (DME) DME: [facility] See Rx Instructions .Route Qty: 1 0RF Rx Instructions: Pureed diet with nectar thick liquids all meals folic acid 1 mg tablet 1 mg PO DAILY@06 Qty: 90 3RF propranolol 10 mg tablet 10 mg PO BID lorazepam 0.5 mg tablet 0.5 mg PO BEDTIME Rx Instructions: Take one tablet at bedtime tamsulosin 0.4 mg capsule 0.8 mg PO BEDTIME Rx Instructions: TAKE 2 CAPSULES BY MOUTH EVERY DAY simvastatin 20 mg tablet 20 mg PO DAILY aripiprazole [Abilify] 10 mg tablet 10 mg PO DAILY@0600 Rx Instructions: Take one tablet every morning pantoprazole 40 mg Tablet,Delayed Release (Dr/Ec) 40 mg PO BID Qty: 60 0RF oxycodone 5 mg Tablet 5 mg PO Q4H PRN (Reason: Moderate Pain) Qty: 20 0RF senna 8.6 mg Tablet 8.6 mg PO BID Breztri Aerosphere 160-9-4.8 mcg/actuation HFA aerosol inhaler 2 inh inhalation BID Rx Instructions: USE 2 INHALATIONS BY MOUTH TWICE DAILY Lovenox 30 mg/0.3 mL syringe 30 mg SUBCUT DAILY 30 Days Qty: 9 0RF Rx Instructions: Daily for 30 days Discharge Orders: Discharge ED (Routine); Ordered 04/23/22 Ordered By: Orville Oh Referrals: Bernadette Spears FNP [Primary Care Provider] - Discharge Diet: Usual diet Discharge Activity: Limit activity as instructed Patient Instructions: Opioid Safety, Pain Management Activity Restrictions/Additional Instructions: You were seen today for dislocation of your hip arthroplasty. We discussed with your orthopedic surgeon at this point given the number of complications he did not feel there is any intervention since you are not having severe pain. He recommends discharging to the longterm and following up as an outpatient. Coding Level of Care Code ED Repair Department Manager for Geovanna Espinal
[2022-04-23 17:57] VITALS: BP 164/91; PULSE 70; RESP 16; O2SAT 95
[2022-04-23 18:22] VITALS: BP 132/76; PULSE 68; RESP 16; O2SAT 99
[2022-04-23 18:42] LABS: Basophils % 0.4 %; Eosinophils # 0.1 10^3/uL (0.0-0.8); Hemoglobin 10.6 g/dL (11.7-16.6); Lymphocytes # 2.5 10^3/uL (0.8-4.8); Mean Corpuscular HGB Conc 32.1 g/dL (30.0-36.0); Mean Corpuscular Hemoglobin 26.4 pg (28.0-34.0); Mean Corpuscular Volume 82.3 fl (80-94); Monocytes # 0.5 10^3/uL (0.2-0.9); Monocytes % 7.6 %; Neutrophils # 3.68 10^3/uL (1.8-7.7); Neutrophils % 53.7 %; Nucleated Red Blood Cells % 0 %; Platelet Count 369 10^3/cmm (130-400); Red Blood Count 4.01 10^6/uL (4.1-5.3); Red Cell Distribution Width 15.9 % (12.1-15.1); White Blood Count 6.9 10^3/uL (4.0-10.0)
[2022-04-23 18:59] LABS: Alanine Aminotransferase 10 U/L (0-41); Albumin Level 3.3 g/dL (3.5-5.2); Alkaline Phosphatase 146 U/L (40-130); Anion Gap 14.2 (5-19); Aspartate Amino Transferase 14 U/L (0-40); Blood Urea Nitrogen 10 mg/dL (8-23); Calcium 8.8 mg/dL (8.5-10.5); Carbon Dioxide 30 mmol/L (22-29); Chloride 95 mmol/L (98-107); Globulin 4.7 g/dL (1.3-4.6); Glomerular Filtration Rate 166.4 mL/min (90-130); Glucose 104 mg/dL (65-115); Osmolality Calculated 281 mOsm/kg (285-295); Potassium 3.2 mmol/L (3.5-5.1); Sodium 136 mmol/L (136-145); Total Bilirubin 0.3 mg/dL (0.15-1.2)
[2022-04-23 20:27] VITALS: BP 154/98; PULSE 79; RESP 16; O2SAT 97
--- NOTE | 2022-04-26 13:33 | PC.NURSE ---
Called [facility] to notify charge nurse, Suzan, of antibiotics to be called in, Doxycycine 100mg PO BID x14 days. Suzan requests medication to be faxed to [facility] in [place] and to fax results to [place], fax #: [phone]
== END 2022-04-23 20:27 | disposition home or self-care (01) ==
PROVIDERS: Emergency Provider Family Medicine; PCP Nurse Practitioner
DX: T84.021A Dislocation of internal left hip prosthesis, initial encounter (principal); Y79.2 Prosthetic and other implants, materials and accessory orthopedic devices associated with adverse incidents; Z87.891 Personal history of nicotine dependence; J44.9 Chronic obstructive pulmonary disease, unspecified; I10 Essential (primary) hypertension; E78.2 Mixed hyperlipidemia
CPT/HCPCS: 36415; 73502; 80053; 85025; 87040; 87070; 87075; 87077; 87186; 87205; 99284

== ENCOUNTER → 2022-04-24 07:50 | Outpatient (BNVA) | payer MEDICARE, MEDICAID, SELFPAY | PROVIDERS: PCP Nurse Practitioner; Visit Provider Orthopaedic Surgery | DX: L02.416 Cutaneous abscess of left lower limb (principal); T84.021D Dislocation of internal left hip prosthesis, subsequent encounter; X58.XXXD Exposure to other specified factors, subsequent encounter | CPT/HCPCS: 99213 ==

== ENCOUNTER 2022-05-27 16:35 | Inpatient (IN) | payer MEDICARE, MEDICAID, SELFPAY ==
[2022-05-20 10:48] VITALS: BMI 19.5
--- NOTE | 2022-05-20 11:25 | P.ANESASSM_ITS ---
Pre-Anesthetic Assessment Height/Weight: Height 1.75 m Weight 60.146 kg Preop Diagnosis: Right periprosthetic femoral fracture Operation Date: 05/27/22 13:15 Proposed Procedures p hardware removal left hip L02.416,T84.021A(Left) - Shawn Yates MD Familial anesthetic complications: None Social No alcohol and No tobacco former smoker Exam alert, oriented x 3, clear to auscultation bilaterally and regular rate & rhythm Airway Mallampati: Class III Dentition: false Pulmonary Chronic Obstructive Pulmonary Disease CV/HEM Anemia and Hypertension GI Gastroesophageal Reflux Disease Metabolic Hyperlipidemia Musc/skel infected hip - wheelchair bound Neuropsych schizophrenia Anesthetic Plan ASA status: 4 Anesthesia: General Risk of > 500 ml blood loss (7ml/kg in children): No Medications/Allergies Home Medications Medication Instructions Recorded Confirmed Last Taken Type DME: Walker #1 ea 10/12/21 04/24/22 Unknown Rx folic acid 1 mg tablet 1 mg PO DAILY@06 #90 tabs 10/29/21 05/20/22 05/20/22 Rx aripiprazole 10 mg tablet (Abilify) 10 mg PO DAILY@0600 02/12/22 05/20/22 05/20/22 History lorazepam 0.5 mg tablet 0.5 mg PO BEDTIME 02/12/22 05/20/22 05/20/22 History propranolol 10 mg tablet 10 mg PO BID 02/12/22 05/20/22 05/20/22 History simvastatin 20 mg tablet 20 mg PO DAILY 02/12/22 05/20/22 05/20/22 History tamsulosin 0.4 mg capsule 0.8 mg PO BEDTIME 02/12/22 05/20/22 05/20/22 History oxycodone 5 mg tablet 5 mg PO Q4H PRN Moderate Pain #20 02/15/22 05/20/22 05/20/22 Rx tabs pantoprazole 40 mg tablet,delayed 40 mg PO BID #60 tabs 02/15/22 05/20/22 05/20/22 Rx release sennosides 8.6 mg tablet (senna) 8.6 mg PO BID 02/25/22 05/20/22 05/20/22 History Allergies Allergy/AdvReac Type Severity Reaction Status Date / Time No Known Allergies Allergy Verified 04/24/22 07:52 PFSH Anesthesia Medical History Anemia BPH (benign prostatic hyperplasia) Chronic schizophrenia COPD (chronic obstructive pulmonary disease) COVID-19 vaccine administered J&J plus an mRNA booster per patient report Essential hypertension History of PFTs 05/31 severe airflow obstruction, normal gas exchange, decreased FVC, FEV1 40%, FEVI/FVC reduced Mixed hyperlipidemia Osteoporosis Psychiatric care Tardive akathisia Vitamin D deficiency Surgical History 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 05/2021 Family History Denies family history of CAD (coronary artery disease) Anesthesia complication Bleeding disorder Social History Smoking and tobacco status: former smoker Quit status (tobacco): has quit using tobacco Year quit tobacco: 2021 Former quit date comment: 1.5ppd x 51 year Hx Second hand smoke exposure: Yes Alcohol intake: former Caregiver/support person: Yes Lives independently: No Household members: other Details: Resides at [facility] residential assisted living care facility Housing: Assisted Living Facility Marital status: Single service: No Current occupational status: disabled Pets and animals: Yes Current gender identity: Male Data Anesthesia Cardiac Studies: No Data to Display
[2022-05-27] VITALS (18 sets, daily range): BP systolic 106–152; BP diastolic 60–91; PULSE 63–82; RESP 15–20; TEMP 36.2–37.3; O2SAT 96–100
--- NOTE | 2022-05-27 12:36 | W.PM.OPSFHP ---
Same Day Surgery H&P Indication for Procedure/HPI DATE OF PROCEDURE: May 27, 2022 CHIEF COMPLAINT/INDICATIONFOR SURGICAL PROCEDURE: Deep infection dislocated left hip PREOP DIAGNOSIS: Infected left total hip arthroplasty PLANNED PROCEDURE: Operation Date: 05/27/22 14:40 Proposed Procedures p hardware removal left hip L02.416,T84.021A(Left) - Shawn Yates MD Herson is here for removal of a dislocated infected left hip he is status post hemiarthroplasty for fracture on 02/13/2022.? He sustained a fall with resulting periprosthetic fracture and underwent revision to a modular femoral stem on 02/25/2022.? He was seen in the emergency room on 03/28/2022 with drainage from his most distal incision.? Cultures ultimately revealed a E. coli species. ?He has been treated with Cipro 750mg BID with improvement in the drainage.? Apparently this weekend he was noted to have shortening of the left leg relative to the right.? He was evaluated at [facility] ED on 04/23/2022 for evaluation of the hip dislocation.? The [facility] is not aware of any trauma to cause that dislocation, he is here today for removal of infected dislocated component Medications/Allergies* Home Medications Medication Instructions Recorded Confirmed Type aripiprazole 10 mg tablet (Abilify) 10 mg PO DAILY@0600 02/12/22 05/27/22 History lorazepam 0.5 mg tablet 0.5 mg PO BEDTIME 02/12/22 05/27/22 History propranolol 10 mg tablet 10 mg PO BID 02/12/22 05/27/22 History simvastatin 20 mg tablet 20 mg PO DAILY 02/12/22 05/27/22 History tamsulosin 0.4 mg capsule 0.8 mg PO BEDTIME 02/12/22 05/27/22 History sennosides 8.6 mg tablet (senna) 8.6 mg PO BID 02/25/22 05/27/22 History bisacodyl 10 mg rectal suppository 10 mg AK DAILY PRN Constipation 05/20/22 05/20/22 History docusate sodium 100 mg tablet 200 mg PO BID 05/20/22 05/27/22 History magnesium hydroxide 400 mg/5 mL 15 ml PO DAILY PRN Constipation 05/20/22 05/20/22 History oral suspension (Milk of Magnesia) naloxone 2 mg/2 mL syringe kit 2 mg IM Q3M PRN Drug Intoxication 05/20/22 05/20/22 History Symptoms arginine-vitamin C-vitamin E oral 4.5 g PO BID 05/27/22 05/27/22 History 4.5 gram-156 mg/9.2 gram powder pkt (Arginaid) Allergies/Adverse Reactions Allergy/AdvReac Type Severity Reaction Status Date / Time No Known Allergies Allergy Verified 05/27/22 12:25 Pertinent History/Comorbid Conditions* Medical History (Updated 05/01/22 @ 00:04 by EVGENY Diaz) Anemia BPH (benign prostatic hyperplasia) Chronic schizophrenia COPD (chronic obstructive pulmonary disease) COVID-19 vaccine administered J&J plus an mRNA booster per patient report Essential hypertension History of PFTs 05/31 severe airflow obstruction, normal gas exchange, decreased FVC, FEV1 40%, FEVI/FVC reduced Mixed hyperlipidemia Osteoporosis Psychiatric care Tardive akathisia Vitamin D deficiency Surgical History (Updated 02/25/22 @ 19:49 by Zoe Moreau MD) 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 05/2021 Family History (Updated 05/14/21 @ 15:27 by Zoe Moreau MD) Denies family history of CAD (coronary artery disease) Anesthesia complication Bleeding disorder Social History Smoking and tobacco status: former smoker Quit status (tobacco): has quit using tobacco Year quit tobacco: 2021 Former quit date comment: 1.5ppd x 51 year Hx Second hand smoke exposure: Yes Alcohol intake: former Caregiver/support person: Yes Lives independently: No Household members: other Details: Resides at [facility] residential assisted living care facility Housing: Assisted Living Facility Marital status: Single service: No Current occupational status: disabled Pets and animals: Yes Current gender identity: Male Pertinent Exam Findings alert, oriented x 3, clear to auscultation bilaterally, regular rate & rhythm and operative site marked He has clear shortening of the left hip. There is no pain with motion of the left hip. There is a slight amount of serous drainage from the most distal aspect of the incision.? There is no erythema of the leg. He has a palpable left dorsalis pedis pulse. Will flex extend his toes and his ankle without obvious motor deficits but fine motor exam is limited due to his mental status Recommendations Surgery/Procedure today Other Plans: Herson likely has a deep infection in his left hip.? He has a previous periprosthetic fracture and now dislocation.? Fortunately he is in no pain.? At this point I am not certain I have a good salvageable option.? With the chronic schizophrenia and his mental status I think he is a poor candidate for aggressive reconstruction.? Unfortunate that our best option may be a Girdlestone arthroplasty.? We could remove components and get good deep cultures.? I suppose if mental status improves down the road reconstruction could be considered at a later date.??We will proceed with removal of components today. Obtain deep cultures and we will treat him with appropriate IV antibiotics. Coding Level of Care Code Acute Code for Chg Fwd Diagnoses
[2022-05-27 12:44] LABS: Basophils % 0.5 %; Eosinophils # 0.2 10^3/uL (0.0-0.8); Hematocrit 33.3 % (42.0-52.0); Hemoglobin 10.4 g/dL (11.7-16.6); Lymphocytes # 1.8 10^3/uL (0.8-4.8); Lymphocytes % 28.4 %; Mean Corpuscular HGB Conc 31.2 g/dL (30.0-36.0); Mean Corpuscular Hemoglobin 25.8 pg (28.0-34.0); Mean Corpuscular Volume 82.6 fl (80-94); Mean Platelet Volume 8.9 fL (7.4-10.4); Monocytes # 0.6 10^3/uL (0.2-0.9); Neutrophils # 3.73 10^3/uL (1.8-7.7); Neutrophils % 58.8 %; Nucleated Red Blood Cells % 0 %; Platelet Count 284 10^3/cmm (130-400); Red Blood Count 4.03 10^6/uL (4.1-5.3); Red Cell Distribution Width 18.6 % (12.1-15.1); White Blood Count 6.3 10^3/uL (4.0-10.0)
[2022-05-27 12:59] LABS: Anion Gap 13.1 (5-19); Blood Urea Nitrogen 9 mg/dL (8-23); Calcium 8.4 mg/dL (8.5-10.5); Carbon Dioxide 27 mmol/L (22-29); Chloride 98 mmol/L (98-107); Glomerular Filtration Rate 215.2 mL/min (90-130); Glucose 84 mg/dL (65-115); Osmolality Calculated 278 mOsm/kg (285-295); Potassium 3.1 mmol/L (3.5-5.1); Sodium 135 mmol/L (136-145)
--- NOTE | 2022-05-27 13:00 | P.ANESUD_ITS ---
Pre-Anesthetic Update Pre-Anesthetic Assessment: Date of Surgery/Procedure: 05/27/22 Preop Judi gnosis: Infected left total hip arthroplasty Proposed Procedure: Operation Date: 05/27/22 14:40 Proposed Procedures p hardware removal left hip L02.416,T84.021A(Left) - Shawn Yates MD Any changes to Pre-Anesthetic Assessment?: No Last Intake: Intake Last Liquid Date 05/26/22 Last Liquid Time 18:00 Last Solid Date 05/27/22 Last Solid Time 18:00 Labs Last 48hrs: Short CBC 05/27/22 Range/Units 12:30 WBC 6.3 (4.0-10.0) 10^3/ uL Hgb 10.4 L (11.7-16.6) g/dL Hct 33.3 L (42.0-52.0) % MCV 82.6 (80-94) fl Plt Count 284 (130-400) 10^3/c mm Neut % (Auto) 58.8 % Neut # (Auto) 3.73 (1.8-7.7) 10^3/u L BMP 05/27/22 12:30 Chloride 98 Carbon Dioxide 27 BUN 9 Glucose 84 Vitals: Temperature 99.2 F 05/27/22 12:33 Temperature Source Temporal Artery S can 05/27/22 12:33 Pulse Rate 69 05/27/22 12:33 Respiratory Rate 18 05/27/22 12:33 Blood Pressure 152/91 05/27/22 12:33 Blood Pressure Emani n 111 05/27/22 12:33 Pulse Oximetry 98 05/27/22 12:33 Oxygen Delivery Me thod Room Air 05/27/22 12:37 Exam: Pre-Anes Outpt Exam: alert, oriented x 3, clear to auscultation bilaterally and regular rate & rhythm Cardiac Studies: No Data to Display
[2022-05-27] MEDS: ceFAZolin 1,000 MG in sodium chloride 0.9% (plus) 50 ML 100 MG IV (14:25)
--- NOTE | 2022-05-27 15:12 | XR_ITS ---
WS: [id number] Left hip, AP view, 05/27/2022 Clinical Data: Status post resection arthroplasty Comparison: Left hip, 04/23/2022 Findings: The left hip arthroplasty has been removed. The proximal femur shows abundant periosteal new bone for mation. The position of the femur relative to the left acetabulum is proximal and lateral. There is a ir in the operative site. XR/XR hip LT 1V wo/w pel [id number] Impression: Removal of left hip arthroplasty.
--- NOTE | 2022-05-27 15:13 | PM.OP ---
Operative Report Date of procedure: May 27, 2022 Pre-op diagnosis: Preop Diagnosis Infected left bipolar hip arthroplasty Post-op diagnosis: same Procedure done: Removal infected left bipolar hip Pathology: other Pathology: Routine and anaerobic cultures sent x4 Surgeon: Shawn Yates Anesthesia: General Estimated blood loss (mL): 250 Findings: The patient had purulent abscess along the inferior aspect of incision which appeared to track down to the hip with cloudy fluid and inflammatory tissue about the proximal prosthesis. The stem was stable. Condition: stable Disposition: PACU Brief History: See admission history and physical Procedure: The patient was taken to the operating room and given a general anesthesia. He was positioned in the lateral position with his left hip exposed. His hip was prepped and draped in the usual fashion. Initially the most distal incision was opened revealing a loculated area of abscess tissue and subcutaneous tissues beneath the incision. Routine and anaerobic swabs of this were taken. The incision was then extended up proximally. The fascia santo was divided bringing us down to large amounts of heterotopic bone about the greater trochanter and anterior hip. Tissues were elevated up the off the anterior femur and trochanteric remnants and heterotopic bone removed. Initially the most inferior cable was identified. The cable was cut with wire cutters and fully removed. Dissection was then carried down proximally revealed the more proximal cable. It was covered with heterotopic bone laterally. This bone was debrided back revealing the cramping mechanism. The cable was cut and it was removed. Dissection was then carried down along the anterior femur in that area revealing the dislocated stem. 2 sets of cultures were taken from's cloudy fluid and counted within the area of the stem. The hip was then dislocated. The ball was removed with a tamp and hammer. A slaphammer was engaged into the stem and with several firm taps the prosthesis removed. The hip was then irrigated aggressively with saline. The fascia santo was closed with interrupted 1 Vicryl. The subcutaneous tissue was closed with 2-0 Vicryl. The skin was closed with interrupted 1 Prolene. Sterile dressings were applied. The patient was taken to the recovery room in stable condition.
--- NOTE | 2022-05-27 15:50 | ANE.PACU2 ---
Inpatient post-anesthesia follow up: Airway intact: Yes Vital signs: Temperature 99.2 F Pulse Rate 69 Respiratory Rate 18 Blood Pressure 152/91 Pulse Oximetry 98 Oxygen Delivery Me thod Room Air Oxygen Flow Rate 6 Fraction of Inspir ed Oxygen Hydration adequate: Yes Nausea and vomiting: No Pain level: 3 Mental status: Baseline
[2022-05-27] MEDS: sodium chloride 0.9% 1,000 ML 80 ML IV (18:22)
--- NOTE | 2022-05-27 19:22 | PM.CONSULT ---
Providers/Reason For Consult Consulting Physician/Specialty*: Delores Mallory MD/ Infectious disease Reason for Consult*: prosthetic joint infection Requesting Physician: Dr. Shawn Yates MD Attending Physician: Shawn Yates MD Primary Care Provider: Bernadette Spears APN History of Present Illness History of Present Illness Herson Ovalle is a 66 year old male with PMH schizophrenia, and possibly dementia, poor historian who initially suffered a fracture after a fall and underwent right hip replacement in May 2021. He is currently a resident at [facility]. He has sustained multiple falls. Most recently he underwent a left hip hemiarthroplasty in February 13 2022. He tolerated the procedure well and was discharged on February 15, 2022 after an unremarkable hospital stay. On February 25 he sustained a fall and suffered a periprosthetic fracture around the femur and underwent revision of the left femoral stem. He was able to be discharged by February 28. By March 24, 2022 he was noted to have drainage from the inferior portion of his lateral incision on the left hip. There was also noted to be a fluid collection there concerning for an abscess. CRP at this time was at 48, ESR 63. CT scan showed left iliac gluteus medius and vastus lateralis enlargement and small amount of gas bubbles with differential to be intramuscular edema versus hematoma versus a seroma. No fluid was able to be aspirated in the ER. He received treatment with cephalexin for 10 days. By April 02 he started reporting low-grade fevers. Wound cultures were taken at this time and cephalexin was continued. Cx was taken which showed E. Coli s/t cefuroxime, resistant to FQ. He presented to ortho as outpatient on April 10, 2022 with persistent drainage, antibiotics were changed from cephalexin to ciprofloxacin 750 p.o. twice daily. By April 23 he was having worsening pain and deformity. X-rays taken at this time showed dislodged bipolar prosthesis with shortening of the left leg. Wound culture taken in the ER on April 23 showed MRSA and E. coli. Ciprofloxacin 750 mg p.o. twice daily was continued. On May 27, 2022 he underwent removal of all infected hardware from the left hip. Intra-Op findings found a purulent abscess along the inferior aspect of the incision which tracked down to the hip with cloudy fluid and inflammatory tissue about the proximal prosthesis. Currently patient has no spacers or any remaining hardware in place. He may be considered for replacement of the hip prosthesis down the line should he recover significantly with regards to infection and other comorbidities. No history is obtainable from the patient due to his poor mentation, per notes review appears to be contributed by dementia. He denies any specific complaints to me. Does not know why he is in the hospital and does not understand or the surgical revision that has been done. Review of Systems General: Reports: ROS unobtainable due to medical condition Medications/Allergies Home Medications Medication Instructions Recorded Confirmed Last Taken Type DME: Walker #1 ea 10/12/21 05/28/22 Unknown Rx aripiprazole 10 mg tablet (Abilify) 10 mg PO DAILY@0700 02/12/22 05/28/22 02/25/22 History lorazepam 0.5 mg tablet 0.5 mg PO BEDTIME@02/12/22 05/28/22 05/26/22 20:00 History propranolol 10 mg tablet 10 mg PO BID@08,02/12/22 05/28/22 02/25/22 History simvastatin 20 mg tablet 20 mg PO BEDTIME@02/12/22 05/28/22 02/24/22 History tamsulosin 0.4 mg capsule 0.8 mg PO BEDTIME@20 02/12/22 05/28/22 02/24/22 History oxycodone 5 mg tablet 5 mg PO Q4H PRN Moderate Pain #20 02/15/22 05/28/22 Unknown Rx tabs pantoprazole 40 mg tablet,delayed 40 mg PO BID #60 tabs 02/15/22 05/28/22 02/25/22 Rx release bisacodyl 10 mg rectal suppository 10 mg [place] DAILY PRN Constipation 05/20/22 05/28/22 Unknown History docusate sodium 100 mg tablet 200 mg PO BID@08,20 05/20/22 05/28/22 Unknown History magnesium hydroxide 400 mg/5 mL 30 ml PO DAILY PRN Constipation 05/20/22 05/28/22 Unknown History oral suspension (Milk of Magnesia) naloxone 2 mg/2 mL syringe kit 2 mg IM Q3M PRN overdose 05/20/22 05/28/22 Unknown History arginine-vitamin C-vitamin E oral 4.5 g PO BID@,05/27/22 05/28/22 Unknown History 4.5 gram-156 mg/9.2 gram powder pkt (Arginaid) Medplus 120 ml PO TID 05/28/22 05/28/22 Unknown History Prostat Liquid 30 ml PO TID 05/28/22 05/28/22 Unknown History folic acid 1 mg tablet 1 mg PO DAILY@08 05/28/22 05/28/22 Unknown History sennosides 8.6 mg-docusate sodium 2 tab PO BID@08,05/28/22 05/28/22 Unknown History 50 mg tablet (Senna-S) Allergies Allergy/AdvReac Type Severity Reaction Status Date / Time No Known Allergies Allergy Verified 05/27/22 12:25 Current Medications Generic Name Dose Route Start Last Admin Trade Name Freq PRN Reason Stop Dose Admin Cefazolin Sodium 1,000 mg/ 50 mls @ 100 mls/hr 05/27/22 23:00 05/27/22 18:11 Sodium Chloride IV 05/28/22 15:29 Infused Q8H TIKI Infusion Protocol Sodium Chloride 1,000 mls @ 80 mls/hr 05/27/22 15:15 05/27/22 18:22 Sodium Chloride 0.9% IV 80 mls/hr .[id number] TIKI Administration Pantoprazole Sodium 40 mg 05/27/22 18:00 05/27/22 18:[address] 40 Mg Tablet PO Not Given BID TIKI Propranolol HCl 10 mg 05/27/22 18:00 05/27/22 18:08 Propranolol 20 Mg Tablet PO Not Given BID TIKI PFSH Acute PFSH: Medical History Anemia BPH (benign prostatic hyperplasia) Chronic schizophrenia COPD (chronic obstructive pulmonary disease) COVID-19 vaccine administered J&J plus an mRNA booster per patient report Essential hypertension History of PFTs 05/31 severe airflow obstruction, normal gas exchange, decreased FVC, FEV1 40%, FEVI/FVC reduced Mixed hyperlipidemia Osteoporosis Psychiatric care Tardive akathisia Vitamin D deficiency Surgical History 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 05/2021 Family History Denies family history of CAD (coronary artery disease) Anesthesia complication Bleeding disorder Social History Smoking and tobacco status: former smoker Quit status (tobacco): has quit using tobacco Year quit tobacco: 2021 Former quit date comment: 1.5ppd x 51 year Hx Second hand smoke exposure: Yes Alcohol intake: former Caregiver/support person: Yes Lives independently: No Household members: other Details: Resides at [facility] residential assisted living care facility Housing: Assisted Living Facility Marital status: Single service: No Current occupational status: disabled Pets and animals: Yes Current gender identity: Male Vitals/I&O/Wt Last Vital Signs Temp 97.2 F L 05/27/22 16:33 Pulse 71 05/27/22 16:33 Resp 18 05/27/22 16:33 BP 106/68 05/27/22 16:33 Pulse Ox 97 05/27/22 16:33 O2 Del Method Room Air 05/27/22 17:48 O2 Flow Rate 6 05/27/22 15:41 05/27/22 05/27/22 05/27/22 06:59 14:59 22:59 Intake Total 150 / 150 Output Total 600 / 600 Balance -450 / -450 Physical Exam Narrative: General: No acute distress, AO x1-2 HEENT: PERRLA, pupils bilaterally equal and reactive, pallors not present Chest: Normal vesicular breath sounds, no added sounds, equal good air entry bilaterally CVS: S1-S2 regular, no murmurs, no tachycardia, no gallops, no rubs Abdomen: Soft, nontender, no organomegaly, bowel sounds present Neuro: No focal deficits, no facial deformity, AO x1-2, power 5/5 in all limbs, left lower extremity not tested. Extremities: Surgical dressing over left hip not open for examination by me. Urinary Catheter Management: Ordonez: Cath Placed During This Visit: no Data 05/28/22 08:42 05/28/22 10:40 Micro: Microbiology 05/27/22 14:09 Gram Stain - Final Hip - #7 05/27/22 14:09 Gram Stain - Final Hip - #4 05/27/22 14:09 Gram Stain - Final Hip - #5 05/27/22 14:09 Gram Stain - Final Hip - #2 [facility] [address] [place] [id number] BAILEE SANCHEZ, COPY MACHINE OPERATOR NAME: Herson Ovalle LOC: ER U #: [id number] AGE/SX: 66/M ROOM: RE04/23/[address]: Orville Oh DO : 1955 BED: DIS: FAX #: STATUS: DEP ER TLOC: Spec #: [id number] Paddy: 04/23/22-1736 Status: COMP Req #: [id number] Recd: 04/23/22-[address]: Orville Oh DO Src: Hip SpDesc: #1 Ordered: WC and GS Procedure Result Verified Site Gram Stain Final 04/24/22-075 Result RARE WHITE BLOOD CELLS NO ORGANISMS SEEN Wound Culture Final 04/26/22-1234 Organism 1 Escherichia coli Growth MODERATE Organism 2 Methicillin Resis Staph Aureus Growth MODERATE FEW MIXED SUPERFICIAL SHELDON ON DAY 3 CRITICAL RESULT YES/NO: YES CRITICAL CALLED BY: RT TO AND READ BACK BY: JOEY DATE: 04/26/22 TIME: 1234 E coli MRSA M.I.C. RX M.I.C. RX --------- ------ --------- ------ * Amikacin <=16 S * Amoxicillin/Clavulanate <=8/4 S * Ampicillin >16 R >8 R * Ampicillin/Sulbactam 16/8 I * Aztreonam <=4 S * Cefepime <=8 S * Ceftriaxone <=1 S * Cefuroxime <=4 S * Ciprofloxacin >2 R >2 R * Clindamycin <=0.5 S * Erythromycin >4 R * Gentamicin >8 R <=4 S * Imipenem <=1 S * Levofloxacin >4 R >4 R * Linezolid 4 S * Oxacillin >2 R * Penicillin >8 R * Rifampin <=1 S * Tetracycline <=4 S <=4 S * Tobramycin 8 I * Trimethoprim/Sulfamethoxazole >2/38 R <=0.5/9.5 S Vancomycin 2 S * Piperacillin/Tazobactam <=16 S Daptomycin <=0.5 S Wound Culture Preliminary (changed) 04/25/22-1250 Organism 1 Escherichia coli Growth MODERATE Organism 2 Coag positive Staphylococcus Growth MODERATE FEW MIXED SUPERFICIAL SHELDON ON DAY 2 RESULTS TO FOLLOW E coli M.I.C. RX --------- ------ * Amikacin <=16 S * Amoxicillin/Clavulanate <=8/4 S * Ampicillin >16 R * Ampicillin/Sulbactam 16/8 I * Aztreonam <=4 S * Cefepime <=8 S * Ceftriaxone <=1 S * Cefuroxime <=4 S * Ciprofloxacin >2 R * Gentamicin >8 R * Imipenem <=1 S * Levofloxacin >4 R * Tetracycline <=4 S * Tobramycin 8 I * Trimethoprim/Sulfamethoxazole >2/38 R * Piperacillin/Tazobactam <=16 S Wound Culture Preliminary (changed) 04/24/22-1347 Organism 1 Gram Negative Rods Growth MODERATE FEW MIXED SUPERFICIAL SHELDON ON DAY [address] [facility] [address] [place] [id number] BAILEE SANCHEZ, COPY MACHINE OPERATOR NAME: Herson Ovalle LOC: [facility] #: [id number] AGE/SX: 66/M ROOM: RE04/02/[address]: Shawn Yates MD : 1955 BED: DIS: FAX #: STATUS: DEP AMB TLOC: Spec #: [id number] Paddy: 04/02/22 Status: COMP Req #: [id number] Recd: 04/02/[address]: Shawn Yates MD Src: Incision SpDesc: Ordered: WC and GS, Anaer Procedure Result Verified Site Gram Stain Final 04/02/22-1802 Result RARE WHITE BLOOD CELLS NO ORGANISMS SEEN Anaerobic Culture Final 04/09/22-1411 NO ANAEROBES ISOLATED ON DAY 7 Anaerobic Culture Preliminary (changed) 04/08/22-1312 NO ANAEROBES ISOLATED ON DAY 6 Anaerobic Culture Preliminary (changed) 04/07/22-1139 NO ANAEROBES ISOLATED ON DAY 5 Anaerobic Culture Preliminary (changed) 04/06/22-1735 NO ANAEROBES ISOLATED ON DAY 4 Anaerobic Culture Preliminary (changed) 04/05/22-172 NO ANAEROBES ISOLATED ON DAY 3 Anaerobic Culture Preliminary (changed) 04/04/22-1814 NO ANAEROBES ISOLATED ON DAY 2 Anaerobic Culture Preliminary (changed) 04/03/22-1545 NO ANAEROBES ISOLATED ON DAY 1 Wound Culture Final 04/04/22-1113 Organism 1 Escherichia coli Growth RARE DAY 2 E coli M.I.C. RX --------- ------ * Amikacin <=16 S * Amoxicillin/Clavulanate <=8/4 S * Ampicillin >16 R * Ampicillin/Sulbactam 16/8 I * Aztreonam <=4 S * Cefepime <=8 S * Ceftriaxone <=1 S * Cefuroxime 8 S * Ciprofloxacin >2 R * Gentamicin >8 R * Imipenem <=1 S * Levofloxacin >4 R * Tetracycline <=4 S * Tobramycin >8 R * Trimethoprim/Sulfamethoxazole >2/38 R * Piperacillin/Tazobactam <=16 S Wound Culture Preliminary (changed) 04/03/22-1131 Organism 1 Gram Negative Rods Growth RARE DAY 1, RESULTS TO FOLLOW [facility] [address] [place] [address] DR. BAILEE SANCHEZ, COPY MACHINE OPERATOR NAME: Herson Ovalle LOC: U #: [id number] AGE/SX: 66/M ROOM: RE03/28/[address]: Jessiac Ji : 1955 BED: DIS: FAX #: STATUS: DEP ER TLOC: Spec #: [id number] Paddy: 03/28/22 Status: COMP Req #: [id number] Recd: 03/28/[address]: Jessica Ji Src: Incision SpDesc: Ordered: WC and GS Comments: Comment left hip Procedure Result Verified Site Gram Stain Final 03/29/22-1526 Result FEW GRAM POSITIVE COCCI IN CLUSTERS MODERATE POLYMORPHONUCLEAR NEUTROPHILS MODERATE WHITE BLOOD CELLS Wound Culture Final 03/31/22-1249 Organism 1 Escherichia coli Growth FEW FEW NORMAL SKIN SHELDON PRESENT ON DAY 3 E coli M.I.C. RX --------- ------ * Amikacin <=16 S * Amoxicillin/Clavulanate <=8/4 S * Ampicillin >16 R * Ampicillin/Sulbactam 16/8 I * Aztreonam <=4 S * Cefepime <=8 S * Ceftriaxone <=1 S * Cefuroxime <=4 S * Ciprofloxacin >2 R * Gentamicin >8 R * Imipenem <=1 S * Levofloxacin >4 R * Tetracycline <=4 S * Tobramycin >8 R * Trimethoprim/Sulfamethoxazole >2/38 R * Piperacillin/Tazobactam <=16 S Wound Culture Preliminary (changed) 03/29/22 Organism 1 Gram Negative Rods Growth FEW FEW NORMAL SKIN SHELDON PRESENT ON DAY 1 Wound Culture Preliminary (changed) 03/29/22 Organism 1 Gram Negative Rods Growth FEW FEW NORMAL SKIN SHELDON PRESENT ON DAY 1 Other data: XRay Report Signed Patient: Herson Ovalle Unit #: [id number] : 1955 Age/Sex: 66 / M ADM Date: 04/23/22 Loc: ER Room/Bed: Attending Dr: Ordering Provider/Ordering MD: Orville Oh DO Date of Service: 04/23/22 Procedure(s): XR hip LT 2-3V wo/w pel* [id number] Accession Number(s): [id number] Report Number: [id number] PROCEDURE INFORMATION: Exam: XR Left Hip Exam date and time: 04/23/2022 5:43 PM Age: 66 years old Clinical indication: Hip pain; Left hip; Prior surgery; Surgery date: 1-6 months; Surgery type: Nikhil hip surgeries TECHNIQUE: Imaging protocol: Radiologic exam of the left hip. Views: 2 or 3 views hip with pelvis when performed. COMPARISON: CT hip LT w con [id number] 03/28/2022 7:50 PM FINDINGS: Bones/joints: Dislocation the left hip bipolar hemiarthroplasty. Superior migration of the femur. Dysplastic appearance of the left acetabulum. Negative for acute fracture. Right hip bipolar hemiarthroplasty alignment is unremarkable. Soft tissues: Unremarkable. Vasculature: Diffuse atherosclerosis. XR/XR hip LT 2-3V wo/w pel* [id number] IMPRESSION: Left hip arthroplasty dislocation injury. ? Launch?[place] [address] XRay Report Signed Patient: Herson Ovalle Unit #: [id number] : 1955 Age/Sex: 66 / M ADM Date: 05/27/22 Loc: OR Room/Bed: Attending Dr: Shawn Yates MD Ordering Provider/Ordering MD: Shawn Yates MD Date of Service: 05/27/22 Procedure(s): XR hip LT 1V wo/w pel [id number] Accession Number(s): [id number] Report Number: [id number] WS: [id number] Left hip, AP view, 05/27/2022 Clinical Data: Status post resection arthroplasty Comparison: Left hip, 04/23/2022 Findings: The left hip arthroplasty has been removed. The proximal femur shows abundant periosteal new bone formation. The position of the femur relative to the left acetabulum is proximal and lateral. There is air in the operative site. XR/XR hip LT 1V wo/w pel [id number] Impression: Removal of left hip arthroplasty. [facility] [place] [address] CT Scan Report Signed Patient: Herson Ovalle Unit #: [id number] : 1955 Age/Sex: 66 / M ADM Date: 03/24/22 Loc: ER Room/Bed: Attending Dr: Ordering Provider/Ordering MD: Сергей Corona DO Date of Service: 03/24/22 Procedure(s): CT hip LT w con [id number] Accession Number(s): [id number] Report Number: [id number] PROCEDURE INFORMATION: Exam: CT Left Lower Extremity With Contrast, Hip Exam date and time: 03/24/2022 6:02 PM Age: 66 years old Clinical indication: Pain; Prior surgery; Surgery date: <1 month; Surgery type: Left hip replacement/repair of left hip replacement; Additional info: L hip incisional seroma TECHNIQUE: Imaging protocol: CT of the Left lower extremity with intravenous contrast was performed. Exam focused on the hip. Radiation optimization: All CT scans at this facility use at least one of these dose optimization techniques: automated exposure control; mA and/or kV adjustment per patient size (includes targeted exams where dose is matched to clinical indication); or iterative reconstruction. Contrast material: OMNI 350; Contrast volume: 100 ml; Contrast route: INTRAVENOUS (IV);? Other protocol: This patient has received 4 known CTs and 0 known cardiac nuclear medicine studies in the 12 months prior to the current study. COMPARISON: 1. CT hip LT wo con* [id number] 02/12/2022 9:18 AM 2. CR XR hip LT 1V wo/w pel [id number] 02/26/2022 8:49 AM RADIATION DOSE METRICS: Total DLP (mGy-cm): 409.91 FINDINGS: Bones/joints: Resection of the left femoral head and neck with a bipolar prosthesis. Mildly displaced intertrochanteric femur fracture with cerclage wire placement. Fluid and gas bubbles in the anterior left hip joint. Soft tissues: Enlargement of the left iliacus and gluteus medius muscles, consistent with intramuscular edema and probable hemorrhage. Soft tissue hemorrhage surrounding the proximal left femur. Enlargement of the vastus lateralis muscle most likely represents intramuscular edema and hemorrhage. Postsurgical changes in the lateral hip soft tissues with stranding, small amount of fluid, and a few gas bubbles.? Diffuse soft tissue edema in the left thigh. Urinary bladder: Ordonez catheter in a decompressed urinary bladder. CT/CT hip LT w con [id number] IMPRESSION: 1. Left hip arthroplasty changes with cerclage wires around a mildly displaced intertrochanteric femur fracture. 2. Fluid and gas bubbles in the anterior left hip joint is most likely related to recent surgery.? Infection cannot be excluded. 3. Enlargement of the left iliacus, gluteus medius, and vastus lateralis muscles. This is consistent with intramuscular edema and possible hemorrhage. 4. Subcutaneous soft tissue stranding in the left thigh and hip region. This could represent edema or cellulitis.? 5. Small amount of fluid with small gas bubbles in the left hip incision.? This may be normal postsurgical changes or seroma. Small abscess formation is not excluded. ? 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 He is status post extended course of antibiotics as outpatient with cephalexin and then followed by ciprofloxacin. He has received oral antibiotics over the course of more than a month recently. Continue to have progressive infection to the point of having a displaced left hip now. Most recently patient is now status post removal of all infected hardware on May 27, 2022. Currently he has no spacers or any remaining hardware in place. Cultures from the OR, prosthetic cultures are currently awaited. Given that his most recent outpatient wound cultures were with E. coli and MRSA, recommend to start treatment with ceftriaxone 2 g IV every 24 hours and vancomycin with a target trough of 15-20. We will follow-up on pending prostatic cultures to come up with a definitive plan. Most recent CRP from March 28, 2022 is at 30. ESR at 63. Anticipate patient will need at least 4 to 6 weeks of organism directed antibiotic therapy. (2) Abscess of left hip: Consult Attestations Medical Necessity Statement: Prosthetic joint infection, need for IV antibiotics. Coding Level of Care Code Acute Code for [facility] Diagnoses Infected prosthesis of left hip T84.52XA Abscess of left hip L02.416
--- NOTE | 2022-05-27 19:37 | PC.PHAR ---
Pharmacokinetic dosing service Date: Time: Objective: Patient: Floor: Age: 66 yo Serum creatinine: 0.7 mg/dL Height: 68.9 Inches Weight (kg): 60 IBW (kg): 70.47 Dosing wt(kg): 60 Estimated Creatinine clearance (ml/min): 88.1 CRCL method: Cockcroft and Gault using ibw(default). Drug selected: Vancomycin Loading dose (mg): Vd (liters): 42.0 (factor used: 0.7 L/kg) Demar (hr-1): 0.078 Half life (hrs): 8.89 CLvanco=?? 3.276 L/hr Recommended dose: 1000 mg Interval: 12 hrs Infusion time (hrs): 1 Predicted peak (mcg/mL): 37.7 Predicted trough (mcg/mL): 15.99 Total body weight is being used for vancomycin dosing. Recommendations: Give Vancomycin 1000 mg q 12 hrs with an expected Cpeak of 37.7 mcg/ml and an expected Ctrough of 15.99 mcg/ml AUC 0-24 /CHERELLE Data: CHERELLE 0.5 mcg/mL:?? AUC/CHERELLE:? 1221.0 CHERELLE 1.0 mcg/mL:?? AUC/CHERELLE:? 610.5 --------- CHERELLE 1.5 mcg/mL:?? AUC/CHERELLE:? 407.0 CHERELLE 2.0 mcg/mL:?? AUC/CHERELLE:? 305.3 Renal dosing of other antibiotics (review renal dosing of other medications and list guidelines here): Thank you for the consult, will continue to follow. Signature: Nick Wood
[2022-05-27] MEDS: cefTRIAXone 2,000 MG in sodium chloride 0.9% (plus) 50 ML 100 MG IV (20:04)
[2022-05-27] MEDS: LORazepam 0.5 mg Tablet PO (20:05)
[2022-05-27] MEDS: vancomycin 1,000 MG in sodium chloride 0.9% 250 ML 250 MG IV (20:47)
[2022-05-28] VITALS (7 sets, daily range): BP systolic 104–155; BP diastolic 61–87; PULSE 60–81; RESP 15–17; TEMP 36.6–37; O2SAT 97–100
--- NOTE | 2022-05-28 07:55 | PM.PN ---
Subjective Subjective: Mr Ovalle appears comfortable Vitals/I&O/Wt Last Vital Signs Temp 98.6 F 05/28/22 04:03 Pulse 81 05/28/22 04:03 Resp 17 05/28/22 04:03 BP 122/78 05/28/22 04:03 Pulse Ox 98 05/28/22 04:03 O2 Del Method Room Air 05/27/22 17:48 O2 Flow Rate 6 05/27/22 15:41 05/27/22 05/28/22 05/28/22 22:59 06:59 14:59 Intake Total 690 / 690 1426 / 2116 Output Total 600 / 600 200 / 800 Balance 90 / 90 1226 / 1316 Physical Exam Narrative: Left hip dressing clean and dry. Left heal dressing clean and dry. Minimal swelling. Moves toes and ankle. Urinary Catheter Management: Ordonez: Cath Placed During This Visit: no Data 05/27/22 12:30 05/27/22 12:30 Micro: Microbiology 05/27/22 14:09 Gram Stain - Final Hip - #7 05/27/22 14:09 Gram Stain - Final Hip - #4 05/27/22 14:09 Gram Stain - Final Hip - #5 05/27/22 14:09 Gram Stain - Final Hip - #2 A&P Assessment and plan (1) Infected prosthesis of left hip: Bipolar hip and fracture fixation removed. Infectious disease to assist with antibiotic management. With schizophrenia and resulting noncompliance with multiple falls and reinjury I am not thinking that the patient is a candidate for reconstruction at this time. If his mental status improves it certainly could be considered at a later date. (2) Decubitus ulcer of left heel: Superficial eschar removed in surgery with healthy appearing base. Will apply heel protector and watch closely. Attestations Medical Necessity Statement*: Continue admission for IV antibioitics Coding Level of Care Code Acute Code for [facility] Diagnoses Infected prosthesis of left hip T84.52XA Decubitus ulcer of left heel L89.629
[2022-05-28] MEDS: vancomycin 1,000 MG in sodium chloride 0.9% 250 ML 250 MG IV ×2 (08:45→20:30)
[2022-05-28] MEDS: propranolol 20 mg Tablet 10 MG PO ×2 (08:47→18:16)
[2022-05-28] MEDS: atorvastatin 40 mg Tablet 20 MG PO (08:47)
[2022-05-28] MEDS: pantoprazole DR 40 mg Tablet PO ×2 (08:47→18:16)
[2022-05-28] MEDS: enoxaparin 40 mg/0.4 mL Syringe SUBCUT (08:48)
[2022-05-28 09:04] LABS: Basophils % 0.5 %; Eosinophils # 0.1 10^3/uL (0.0-0.8); Eosinophils % 0.7 %; Hematocrit 29.4 % (42.0-52.0); Hemoglobin 9.3 g/dL (11.7-16.6); Lymphocytes % 23.7 %; Mean Corpuscular HGB Conc 31.6 g/dL (30.0-36.0); Mean Corpuscular Volume 82.1 fl (80-94); Mean Platelet Volume 9.4 fL (7.4-10.4); Monocytes # 0.8 10^3/uL (0.2-0.9); Monocytes % 9.5 %; Neutrophils # 5.38 10^3/uL (1.8-7.7); Neutrophils % 65.2 %; Nucleated Red Blood Cells % 0 %; Platelet Count 243 10^3/cmm (130-400); Red Blood Count 3.58 10^6/uL (4.1-5.3); Red Cell Distribution Width 18.8 % (12.1-15.1); White Blood Count 8.2 10^3/uL (4.0-10.0)
[2022-05-28] MEDS: sodium chloride 0.9% 1,000 ML 80 ML IV ×2 (10:19→22:23)
--- NOTE | 2022-05-28 10:33 | PC.CHAP ---
Pastoral Care Encounter/Spiritual Assessment Type of Contact [] Declined pump and blower operator visit [] Patient/Family/Request visit [] Outpatient visit [] Follow-up visit [] Physician referral [] Code/Alert [x] Routine visit [] Staff referral [] Actively dying [] Patient sleeping [] Family support [] [] Out of room [] Palliative care [] [] Receiving care in room [] Pre-surgical visit [] Trauma [] Long length of stay [] ICU visit [] Other: Relational/Emotional Strength [] Patient feels connected with others/family/visitors/staff [] Distress [] Loneliness/isolation [] Abandonment Spirituality of Patient [] Person of Safia [] Attends Gnosticist of their Safia [x] Believes in Prayer [] Reads Bible or Yarsani materials [] There are Spiritual issues to be addressed Swimming Instructor Interventions [x] Prayer [] Active listening [x] Non-anxious presence [] Spiritual/emotional support [] Crisis/trauma care [] Spiritual counseling [] Bereavement support [] Provided bereavement packet [] Provided Bible/devotional materials [] Provided toy/stuffed animal, coloring book to patient or family member [] Provided Communion [] Anointing/[place]lina [] Salvation [x] Completed spiritual assessment [] Other: Impact on Illness or Injury [] Angry [] Fearful [] Anxious [] Often cries [] Exhaustion [] Unable to work [] Unable to attend baptism [] Unable to walk/stand [] Unable to read [] Unable to drive [] Unable to eat/drink [] Unable to sleep [] Unable to be with family [] Patient intubated [] Other: Summary Time spent with patient 5 min
[2022-05-28 11:23] LABS: Anion Gap 13.4 (5-19); Blood Urea Nitrogen 9 mg/dL (8-23); Calcium 7.4 mg/dL (8.5-10.5); Carbon Dioxide 22 mmol/L (22-29); Chloride 103 mmol/L (98-107); Glomerular Filtration Rate 215.2 mL/min (90-130); Glucose 97 mg/dL (65-115); Osmolality Calculated 279 mOsm/kg (285-295); Potassium 3.4 mmol/L (3.5-5.1); Sodium 135 mmol/L (136-145)
--- NOTE | 2022-05-28 13:40 | PC.PHAR ---
pt is from [facility]
[2022-05-28] MEDS: cefTRIAXone 2,000 MG in sodium chloride 0.9% (plus) 50 ML 100 MG IV (19:45)
[2022-05-28] MEDS: LORazepam 0.5 mg Tablet PO (20:32)
[2022-05-29 03:30] VITALS: BP 118/75; PULSE 61; RESP 17; TEMP 37; O2SAT 99
--- NOTE | 2022-05-29 07:27 | XR_ITS ---
WS: [id number] Portable AP upright chest, 05/29/2022 Clinical Data: Post PICC insertion Comparison: Portable chest, 02/25/2022 Findings: The right PICC line ends in the superior vena cava. No pneumothorax is seen. XR/XR chest 1V portable [id number] Impression: Satisfactory insertion of right PICC line.
--- NOTE | 2022-05-29 07:44 | PM.PN ---
Subjective Subjective: Responsive to voice. Does not respond to questions Vitals/I&O/Wt Last Vital Signs Temp 98.6 F 05/29/22 03:30 Pulse 61 05/29/22 03:30 Resp 17 05/29/22 03:30 BP 118/75 05/29/22 03:30 Pulse Ox 99 05/29/22 03:30 O2 Del Method Room Air 05/29/22 03:30 O2 Flow Rate 6 05/27/22 15:41 05/28/22 05/29/22 05/29/22 22:59 06:59 14:59 Intake Total 2450 / 3354 600 / 3954 Output Total 450 / 450 400 / 850 Balance 2000 / 2904 200 / 3104 Physical Exam Narrative: Left hip dressing change. Normal bloody drainage. Urinary Catheter Management: Ordonez: Cath Placed During This Visit: no Data 05/28/22 08:42 05/28/22 10:40 Micro: Microbiology 05/27/22 14:09 Anaerobic Culture - Preliminary Hip - #3 05/27/22 14:09 Anaerobic Culture - Preliminary Hip - #1 05/27/22 14:09 Anaerobic Culture - Preliminary Hip - #6 05/27/22 14:09 Gram Stain - Final Hip - #5 Wound Culture - Preliminary Gram Negative Rods 05/27/22 14:09 Gram Stain - Final Hip - #4 Tissue Culture - Preliminary Gram Negative Rods 05/27/22 14:09 Gram Stain - Final Hip - #2 Wound Culture - Preliminary Gram Negative Rods 05/27/22 14:09 Gram Stain - Final Hip - #7 Wound Culture - Preliminary Gram Negative Rods A&P Assessment and plan (1) Infected prosthesis of left hip: Continue antibiotics per ID service. Can consider reimplantation of hip after treatment of infection, documentation of resolution, and if mental status improves. Attestations Medical Necessity Statement*: Awaiting definitive cultures and sensitivities and antibiotic plan per ID Coding Level of Care Code Acute Code for Chg Fwd Diagnoses Infected prosthesis of left hip T84.52XA
--- NOTE | 2022-05-29 08:46 | PC.NURSE ---
PICC line inserted into right basilic vein without difficulty. Trimmed length 35 cm with 0 cm external length. Mid-arm circumference measured 10 cm from right AC and noted at 24 cm. EBL less than 5 mL. Pt tolerated well. Chest xray confirms tip in SVC and good to use. Dressing due to be changed tomorrow, 05/30/22. Report given to pt care nurse, Ruby.
[2022-05-29 08:52] VITALS: BP 133/76; PULSE 59; RESP 15; TEMP 36.6; O2SAT 97
[2022-05-29 08:53] LABS: Vancomycin Trough 9.3 ug/mL (10-15)
[2022-05-29] MEDS: propranolol 20 mg Tablet 10 MG PO ×2 (09:58→18:44)
[2022-05-29] MEDS: atorvastatin 40 mg Tablet 20 MG PO (09:58)
[2022-05-29] MEDS: pantoprazole DR 40 mg Tablet PO ×2 (10:00→18:44)
[2022-05-29] MEDS: enoxaparin 40 mg/0.4 mL Syringe SUBCUT (10:00)
--- NOTE | 2022-05-29 10:00 | PM.PN ---
Subjective Subjective: Patient is status post placement of a PICC line yesterday. He tolerated the procedure well. Unable to tell me his symptoms in any meaningful way. No acute overnight events reported. Prosthesis culture thus far with gram-negative rods. Medications: Reviewed: Yes Vitals/I&O/Wt Last Vital Signs Temp 98 F 05/29/22 08:52 Pulse 59 L 05/29/22 08:52 Resp 15 05/29/22 08:52 BP 133/76 05/29/22 08:52 Pulse Ox 97 05/29/22 08:52 O2 Del Method Room Air 05/29/22 08:52 O2 Flow Rate 6 05/27/22 15:41 05/28/22 05/29/22 05/29/22 22:59 06:59 14:59 Intake Total 2450 / 3354 600 / 3954 Output Total 450 / 450 400 / 850 Balance 2000 / 2904 200 / 3104 Physical Exam Narrative: General: No acute distress, AO x1-2 HEENT: PERRLA, pupils bilaterally equal and reactive, pallors not present Chest: Normal vesicular breath sounds, no added sounds, equal good air entry bilaterally CVS: S1-S2 regular, no murmurs, no tachycardia, no gallops, no rubs Abdomen: Soft, nontender, no organomegaly, bowel sounds present Neuro: No focal deficits, no facial deformity, AO x1-2, power 5/5 in all limbs Urinary Catheter Management: Ordonez: Cath Placed During This Visit: no Data 05/28/22 08:42 05/28/22 10:40 Micro: Microbiology 05/27/22 14:09 Anaerobic Culture - Preliminary Hip - #3 05/27/22 14:09 Anaerobic Culture - Preliminary Hip - #1 05/27/22 14:09 Anaerobic Culture - Preliminary Hip - #6 05/27/22 14:09 Gram Stain - Final Hip - #5 Wound Culture - Preliminary Gram Negative Rods 05/27/22 14:09 Gram Stain - Final Hip - #4 Tissue Culture - Preliminary Gram Negative Rods 05/27/22 14:09 Gram Stain - Final Hip - #2 Wound Culture - Preliminary Gram Negative Rods 05/27/22 14:09 Gram Stain - Final Hip - #7 Wound Culture - Preliminary Gram Negative Rods A&P Assessment and plan (1) Infected prosthesis of left hip: Patient with a history of left hemiarthroplasty in February 2022 complicated by wound dehiscence and infection, thereafter progressed to 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 He is status post extended course of antibiotics as outpatient with cephalexin and then followed by ciprofloxacin. He has received oral antibiotics over the course of more than a month recently. Continued to have progressive infection to the point of having a displaced left hip now. He is now status post removal of all infected hardware on May 27, 2022. Currently he has no spacers or any remaining hardware in place. Cultures from the OR, prosthetic cultures are currently awaited. Shows GNR preliminarily . Most recent deep outpatient wound cultures were with E. coli s/t CTX, resistant FQs, and MRSA Currently prosthetic cx only with GNR however possibility of MRSA contributing cannot be excluded given that he was on an extended course of Cipro as outpatient which could be the cause of negative prosthetic cx for GPCs. Will plan to treat patient with treatment directed towards GNR, presumable E. coli and MRSA Recommend ceftriaxone 2 g IV every 24 hours and vancomycin with a target trough of 15-20 for total duration of 6 weeks (05/27-07/08/22). Patient has pICC lien to facilitate above He is planned to be discharged to SNF possibly today Will follow-up on finalization of joint cultures Most recent CRP from March 28, 2022 is at 30. ESR at 63. While on abx check weekly labs CBC, cr, vanc trough and LFTs and fax to ID clinic stable for discharge from ID standpoint F/up in ID clinic via telehealth (pt. will be non ambulatory) on June 20, 2022 (2) Abscess of left hip: Attestations Medical Necessity Statement*: per admitting Coding Level of Care Code Acute Code for Chg Fwd Diagnoses Infected prosthesis of left hip T84.52XA Abscess of left hip L02.416
[2022-05-29] MEDS: vancomycin 1,500 MG/300 ML PIGGYBACK 200 MG IV ×2 (10:01→23:59)
--- NOTE | 2022-05-29 11:21 | PC.NURSE ---
Notified Dr. Yates at 1046 due to patient bleeding from left hip. Changed dressing, applied Maxorb extra Ag, 4x4 gauze Abds and compression tape. Dr. Yates said Okay .
[2022-05-29 11:59] VITALS: BP 116/66; PULSE 58; RESP 12; TEMP 36.5; O2SAT 98
[2022-05-29] MEDS: sodium chloride 0.9% 1,000 ML 80 ML IV (12:42)
[2022-05-29 15:55] VITALS: BP 115/72; PULSE 66; RESP 12; TEMP 36.8; O2SAT 99
[2022-05-29 19:11] VITALS: BP 129/74; PULSE 62; RESP 17; TEMP 36.9; O2SAT 98
[2022-05-29] MEDS: cefTRIAXone 2,000 MG in sodium chloride 0.9% (plus) 50 ML 100 MG IV (23:14)
[2022-05-29] MEDS: LORazepam 0.5 mg Tablet PO (23:14)
[2022-05-29 23:52] VITALS: BP 119/67; PULSE 60; RESP 16; TEMP 36.7; O2SAT 97
[2022-05-30] VITALS (19 sets, daily range): BP systolic 106–173; BP diastolic 47–85; PULSE 55–62; RESP 16–22; TEMP 36.4–36.9; O2SAT 96–99
[2022-05-30] MEDS: sodium chloride 0.9% 1,000 ML 80 ML IV ×2 (00:02→21:48)
--- NOTE | 2022-05-30 08:22 | PM.DCS ---
Discharge Providers Date of Admission: 05/27/22 16:35 Date of Discharge: May 30, 2022 Attending Provider at Admission: Shawn Yates MD Attending Provider at Discharge: Shawn Yates MD Consults: Delores Mallory MD; Infectious disesase Primary Care Provider: Bernadette Spears APN Diagnoses at Discharge Discharge Diagnosis (1) Infected prosthesis of left hip: Status: Acute (2) Decubitus ulcer of left heel: Status: Acute (3) Chronic schizophrenia: Status: Chronic (4) Anemia: Status: Chronic Reason for Visit Reason for Visit: L02.416, T84.021A Brief History: Patient was admitted for a dislocated infected left hip. He has a complicated history of a hemiarthroplasty for fracture on 02/13/2022 with a subsequent of fall and periprosthetic fracture treated with revision on 02/25/2022. He developed drainage from his distal incision noted in the emergency room on 03/28/2022 antibiotic suppression was attempted however on 04/23/2022 he showed up with a left hip dislocation. Removal of the infected total hip arthroplasty was chosen. Due to repeated falls and trauma and noncompliance with his associated psychiatric condition reimplantation was deferred until his medical and psychiatric status could be improved Hospital Course Hospital Course The patient was admitted to the hospital on 05/27/2022 and underwent removal of the infected left hip. He was admitted to the floor with infectious disease consultation was obtained. Ultimate cultures grew E. coli. Infectious disease consultation was obtained and decision was made to treat with vancomycin and ceftriaxone. He was cleared for discharge by the ID service on 05/29/2022. He had some drainage from his left hip incision on that date. A hemoglobin on 05/30/2022 was decreased to 6.3. He was transfused with improvement of his hemoglobin to 9.8. He was discharged on 05/31/2022. Lovenox was discontinued until bleeding subsided. Physical Exam Narrative: On the day of discharge, 05/30/2022 his incision was free of erythema. Bloody drainage was decreasing. Some bloody staining of his inferior dressing. Urinary Catheter Management: Ordonez: Cath Placed During This Visit: no Discharge Data Studies Completed and Pending Completed Studies During Hospitalization Category Date Time Status CXRP [XR chest 1V portable [id number]] Routine Exams 05/29/22 07:27 Completed XR hip LT 1V wo/w pel [id number] Routine Exams 05/27/22 15:12 Completed Pending at discharge Category Date Time Status Anaerobic Culture Routine Lab 05/27/22 14:09 Results Anaerobic Culture Routine Lab 05/27/22 14:09 Results Anaerobic Culture Routine Lab 05/27/22 14:09 Results HGB [Hemoglobin] Stat Lab 05/30/22 08:13 Ordered Vancomycin Trough Timed Lab 05/30/22 21:00 Ordered Radiology Impressions Hip X-Ray 05/27/22 15:12 Impression: Removal of left hip arthroplasty. Chest X-Ray 05/29/22 07:27 Impression: Satisfactory insertion of right PICC line. Laboratory Results WBC 8.2 10^3/uL (4.0-10.0) 05/28/22 08:42 RBC 3.58 10^6/uL (4.1-5.3) L 05/28/22 08:42 Hgb 9.3 g/dL (11.7-16.6) L 05/28/22 08:42 Hct 29.4 % (42.0-52.0) L 05/28/22 08:42 MCV 82.1 fl (80-94) 05/28/22 08:42 MCH 26.0 pg (28.0-34.0) L 05/28/22 08:42 MCHC 31.6 g/dL (30.0-36.0) 05/28/22 08:42 RDW 18.8 % (12.1-15.1) H 05/28/22 08:42 Plt Count 243 10^3/cmm (130-400) 05/28/22 08:42 MPV 9.4 fL (7.4-10.4) 05/28/22 08:42 Neut % (Auto) 65.2 % 05/28/22 08:42 Lymph % (Auto) 23.7 % 05/28/22 08:42 Lynn % (Auto) 9.5 % 05/28/22 08:42 Eos % (Auto) 0.7 % 05/28/22 08:42 Baso % (Auto) 0.5 % 05/28/22 08:42 Neut # (Auto) 5.38 10^3/uL (1.8-7.7) 05/28/22 08:42 Lymph # (Auto) 2.0 10^3/uL (0.8-4.8) 05/28/22 08:42 Lynn # (Auto) 0.8 10^3/uL (0.2-0.9) 05/28/22 08:42 Eos # (Auto) 0.1 10^3/uL (0.0-0.8) 05/28/22 08:42 Baso # (Auto) 0.0 10^3/uL (0.0-0.1) 05/28/22 08:42 Nucleated RBC % (auto) 0 % 05/28/22 08:42 Nucleated RBCs # 0.0 /100WBC 05/28/22 08:42 Sodium 135 mmol/L (136-145) L 05/28/22 10:40 Potassium 3.4 mmol/L (3.5-5.1) L 05/28/22 10:40 Chloride 103 mmol/L (98-107) 05/28/22 10:40 Carbon Dioxide 22 mmol/L (22-29) 05/28/22 10:40 Anion Gap 13.4 (5-19) 05/28/22 10:40 BUN 9 mg/dL (8-23) 05/28/22 10:40 Creatinine 0.4 mg/dL (0.7-1.2) L 05/28/22 10:40 GFR Calculation 215.2 mL/min (90-130) H 05/28/22 10:40 Glucose 97 mg/dL (65-115) 05/28/22 10:40 Calculated Osmolality 279 mOsm/kg (285-295) L 05/28/22 10:40 Calcium 7.4 mg/dL (8.5-10.5) L 05/28/22 10:40 Vancomycin Trough 9.3 ug/mL (10-15) L 05/29/22 08:25 Vitals Last Vital Signs Temp 98.1 F 05/30/22 08:00 Pulse 60 05/30/22 08:00 Resp 16 05/30/22 08:00 BP 138/75 05/30/22 08:00 Pulse Ox 96 05/30/22 08:00 O2 Del Method Room Air 05/29/22 15:55 O2 Flow Rate 0 05/29/22 23:23 Discharge Plan Discharge Patient Disposition: Xfer SNF Condition: Stable Prescriptions: New oxycodone 5 mg tablet 5 mg PO Q4H PRN (Reason: pain) Qty: 40 0RF Continued (DME) DME: [facility] See Rx Instructions .Route Qty: 1 0RF Rx Instructions: Pureed diet with nectar thick liquids all meals propranolol 10 mg tablet 10 mg PO BID@08,20 lorazepam 0.5 mg tablet 0.5 mg PO BEDTIME@20 Rx Instructions: Take one tablet at bedtime tamsulosin 0.4 mg capsule 0.8 mg PO BEDTIME@20 simvastatin 20 mg tablet 20 mg PO BEDTIME@20 aripiprazole [Abilify] 10 mg tablet 10 mg PO DAILY@0700 pantoprazole 40 mg Tablet,Delayed Release (Dr/Ec) 40 mg PO BID Qty: 60 0RF Rx Instructions: @08:00,20:00 oxycodone 5 mg Tablet 5 mg PO Q4H PRN (Reason: Moderate Pain) Qty: 20 0RF magnesium hydroxide [Milk of Magnesia] 400 mg/5 mL Suspension 30 ml PO DAILY PRN (Reason: Constipation) bisacodyl 10 mg Suppository 10 mg MA DAILY PRN (Reason: Constipation) docusate sodium 100 mg Tablet 200 mg PO BID@08,20 naloxone 2 mg/2 mL Syringe Kit 2 mg IM Q3M PRN (Reason: overdose) Rx Instructions: NTExceed 10 mg total dose/episode Arginaid 4.5 gram-156 mg/9.2 gram Powder In Packet 4.5 g PO BID@08,18 Senna-S 8.6-50 mg Tablet 2 tab PO BID@08,20 folic acid 1 mg Tablet 1 mg PO DAILY@08 Medplus 120 ml PO TID Rx Instructions: at med pass Prostat Liquid 30 ml PO TID Discharge Orders: Discharge Order (Routine); Ordered 05/31/22 Ordered By: Shawn Yates Other Ambulatory Orders: DME: Miscellaneous (Order) Location: None Selected Ordered By: Shawn Yates Referrals: [facility] [Outside] Bernadette Spears FNP [Primary Care Provider] - (Message sent to clinic.) Shawn Yates MD [Physician] - 06/11/22 10:30 am Patient Instructions: Opioid Safety Discharge Attestations Time Spent in Discharge Care*: other Quality Metrics Clinical Quality Measures [ No reported AMI, CVA or VTE this stay] Coding Level of Care Code Acute Code for Chg Fwd Diagnoses Infected prosthesis of left hip T84.52XA Decubitus ulcer of left heel L89.629 Chronic schizophrenia F20.9 Anemia D64.9
[2022-05-30] MEDS: atorvastatin 40 mg Tablet 20 MG PO (08:40)
[2022-05-30] MEDS: enoxaparin 40 mg/0.4 mL Syringe SUBCUT (08:41)
[2022-05-30] MEDS: pantoprazole DR 40 mg Tablet PO ×2 (08:41→18:06)
[2022-05-30] MEDS: propranolol 20 mg Tablet 10 MG PO ×2 (08:41→18:06)
[2022-05-30] MEDS: vancomycin 1,500 MG/300 ML PIGGYBACK 200 MG IV ×2 (10:18→21:48)
--- NOTE | 2022-05-30 10:38 | PC.NURSE ---
Notified Dr. Yates of possible 6.1 Hgb. This nurse shut fluides off, flushed with 10cc in Picc line on right upper arm, wasted 10cc, jacey small about for hematology and flushed with 20. Specimen is going to be repeated by lab drawing on left side.
--- NOTE | 2022-05-30 10:43 | PC.SOCIAL ---
Pg 2 IMM Explained to pt's guardian, Edel Norton, Pg 2 IMM. No questions voiced. Provided pt a copy. Initialed, dated, & timed a copy & placed in chart.
[2022-05-30 10:53] LABS: Basophils % 0.3 %; Eosinophils # 0.2 10^3/uL (0.0-0.8); Eosinophils % 2.9 %; Lymphocytes # 1.6 10^3/uL (0.8-4.8); Lymphocytes % 21.5 %; Mean Corpuscular Hemoglobin 25.3 pg (28.0-34.0); Mean Corpuscular Volume 84.3 fl (80-94); Mean Platelet Volume 9.2 fL (7.4-10.4); Monocytes # 0.7 10^3/uL (0.2-0.9); Neutrophils # 4.74 10^3/uL (1.8-7.7); Neutrophils % 65.9 %; Nucleated Red Blood Cells % 0 %; Platelet Count 204 10^3/cmm (130-400); Red Blood Count 2.49 10^6/uL (4.1-5.3); Red Cell Distribution Width 18.6 % (12.1-15.1); White Blood Count 7.2 10^3/uL (4.0-10.0)
[2022-05-30 11:03] LABS: Hemoglobin 6.3 g/dL (11.7-16.6)
--- NOTE | 2022-05-30 11:12 | PC.NURSE ---
Notified Dr. Yates of critical hgb of 6.3. Verbal orders to do 2 units PRBC then discharge patient.
--- NOTE | 2022-05-30 12:32 | PM.PN ---
Subjective Subjective: Patient examined at bedside this morning. More awake and alert. Vitals/I&O/Wt Last Vital Signs Temp 98.1 F 05/30/22 08:00 Pulse 60 05/30/22 08:00 Resp 16 05/30/22 08:00 BP 138/75 05/30/22 08:00 Pulse Ox 96 05/30/22 08:00 O2 Del Method Room Air 05/29/22 15:55 O2 Flow Rate 0 05/29/22 23:23 05/29/22 05/30/22 05/30/22 22:59 06:59 14:59 Intake Total 2009 1376.667 / 3386.667 150 / 150 Balance 420 / 1360 1376.667 / 2736.667 150 / 150 Physical Exam Narrative: Left hip dressing change. Some distal staining of dressing but no visible drainage. Dressing change Urinary Catheter Management: Ordonez: Cath Placed During This Visit: no Data 05/30/22 10:45 05/28/22 10:40 Micro: Microbiology 05/27/22 14:09 Anaerobic Culture - Preliminary Hip - #3 05/27/22 14:09 Anaerobic Culture - Preliminary Hip - #6 05/27/22 14:09 Anaerobic Culture - Preliminary Hip - #1 05/27/22 14:09 Gram Stain - Final Hip - #7 Wound Culture - Final Escherichia coli 05/27/22 14:09 Gram Stain - Final Hip - #5 Wound Culture - Final Escherichia coli 05/27/22 14:09 Gram Stain - Final Hip - #2 Wound Culture - Final Escherichia coli 05/27/22 14:09 Gram Stain - Final Hip - #4 Tissue Culture - Final Escherichia coli A&P Assessment and plan (1) Infected prosthesis of left hip: Antibiotics will be arranged by infectious disease. Okay for discharge from their standpoint (2) Decubitus ulcer of left heel: Podus boot ordered for left foot. (3) Anemia: Hemoglobin decreased additionally to 6.3. We will give 2 units of packed red blood cells before discharge. Attestations Medical Necessity Statement*: Okay for discharge after blood transfusion Coding Level of Care Code Acute Code for Chg Fwd Diagnoses Infected prosthesis of left hip T84.52XA Decubitus ulcer of left heel L89.629 Anemia D64.9
[2022-05-30] MEDS: sodium chloride 0.9% (100 ml) 100 ML 125 ML ×2 (13:30→16:41)
[2022-05-30 16:46] LABS: SARS Covid-2 Antigen negative (Negative)
[2022-05-30] MEDS: LORazepam 0.5 mg Tablet PO (21:48)
[2022-05-31 04:00] VITALS: BP 145/81; PULSE 83; RESP 20; TEMP 36.6; O2SAT 94
--- NOTE | 2022-05-31 07:02 | PM.PN ---
Subjective Subjective: No complaints. Resting comfortably Vitals/I&O/Wt Last Vital Signs Temp 97.9 F 05/31/22 04:00 Pulse 83 05/31/22 04:00 Resp 20 H 05/31/22 04:00 BP 145/81 05/31/22 04:00 Pulse Ox 94 05/31/22 04:00 O2 Del Method Room Air 05/29/22 15:55 O2 Flow Rate 0 05/29/22 23:23 05/30/22 05/31/22 05/31/22 22:59 06:59 14:59 Intake Total 1140 / 2690 1600 / 4290 Output Total 1400 / 1400 1800 / 3200 Balance -260 / 1290 -200 / 1090 Physical Exam Narrative: Drainage improved left hip minimal swelling Urinary Catheter Management: Ordonez: Cath Placed During This Visit: no Data 05/30/22 10:45 05/28/22 10:40 Micro: Microbiology 05/27/22 14:09 Anaerobic Culture - Preliminary Hip - #6 05/27/22 14:09 Anaerobic Culture - Preliminary Hip - #3 05/27/22 14:09 Anaerobic Culture - Preliminary Hip - #1 A&P Assessment and plan (1) Infected prosthesis of left hip: Continue antibiotics per ID service. Okay for discharge today (2) Anemia: Received packed red blood cells yesterday. Hemoglobin pending (3) Decubitus ulcer of left heel: Left heel padded Attestations Medical Necessity Statement*: Okay for discharge today Coding Level of Care Code Acute Code for Chg Fwd Diagnoses Infected prosthesis of left hip T84.52XA Anemia D64.9 Decubitus ulcer of left heel L89.629
[2022-05-31 07:45] LABS: Hemoglobin 9.8 g/dL (11.7-16.6)
[2022-05-31 07:48] VITALS: BP 183/89; PULSE 58; RESP 16; TEMP 36.5; O2SAT 98
[2022-05-31] MEDS: atorvastatin 40 mg Tablet 20 MG PO (08:43)
[2022-05-31] MEDS: pantoprazole DR 40 mg Tablet PO (08:44)
[2022-05-31] MEDS: propranolol 20 mg Tablet 10 MG PO (08:44)
[2022-05-31] MEDS: enoxaparin 40 mg/0.4 mL Syringe SUBCUT (08:44)
--- NOTE | 2022-05-31 09:01 | PC.NURSE ---
Report called to Suzan at [facility] at this time.
[2022-05-31 09:56] LABS: Vancomycin Trough 13.2 ug/mL (10-15)
[2022-05-31 10:52] VITALS: BP 145/50; PULSE 60; RESP 16; TEMP 36.5; O2SAT 98
== END 2022-05-31 10:50 | disposition skilled nursing facility (03) | DRG 464 ==
LOC: MEDSURG 17:13
PROVIDERS: Student in an Organized Health Care Education/Training Program; Admitting Provider Orthopaedic Surgery; PCP Nurse Practitioner; Visit Provider Orthopaedic Surgery
PROC: 0SPB0JZ Removal of Synthetic Substitute from Left Hip Joint, Open Approach (ICD-10-PCS; CPT 20694; principal; 2022-05-27 14:20)
DX: T84.52XA Infection and inflammatory reaction due to internal left hip prosthesis, initial encounter (principal); L02.91 Cutaneous abscess, unspecified; T81.41XA Infection following a procedure, superficial incisional surgical site, initial encounter; Y79.8 Miscellaneous orthopedic devices associated with adverse incidents, not elsewhere classified; E78.5 Hyperlipidemia, unspecified; M81.0 Age-related osteoporosis without current pathological fracture; G25.71 Drug induced akathisia; L89.629 Pressure ulcer of left heel, unspecified stage; Z86.14 Personal history of Methicillin resistant Staphylococcus aureus infection; B96.20 Unspecified Escherichia coli [E. coli] as the cause of diseases classified elsewhere; Z91.81 History of falling; F03.90 Unspecified dementia, unspecified severity, without behavioral disturbance, psychotic disturbance, mood disturbance, and anxiety; Z87.891 Personal history of nicotine dependence; F25.9 Schizoaffective disorder, unspecified; Z79.891 Long term (current) use of opiate analgesic; Z91.199 Patient's noncompliance with other medical treatment and regimen due to unspecified reason; D64.9 Anemia, unspecified; J44.9 Chronic obstructive pulmonary disease, unspecified; I10 Essential (primary) hypertension
CPT/HCPCS: 36415; 36430; 36569; 36592; 71045; 73501; 80048; 80202; 85018; 85025; 86850; 86900; 86920; 87070; 87075; 87077; 87176; 87186; 87205; 87426; 96372; 97110; 97162; 97530; J0690; J0696; J1100; J1650; J2370; J2405; J2704; J3010; J3370; J7030; J7050; P9016

== ENCOUNTER 2022-06-02 11:58 | Emergency (ER) | payer MEDICARE, MEDICAID, SELFPAY ==
--- NOTE | 2022-06-02 12:09 | W.ED.GENADLT ---
HPI - General Adult General: Chief complaint: General Medical Stated complaint: NEED PICC LINE PLACEMENT Time Seen by Provider: 06/02/22 12:08 Limitations: altered mental status History of Present Illness: Mr. Ovalle is a 66-year-old gentleman presenting to the emergency department for need for IV access. He provides very limited history. Per EMS report patient pulled out his PICC line. He is unsure why he did. He has PICC line per chart review for continuous antibiotics secondary to infected prosthetic joint. History is otherwise limited by mental state though patient denies any actual concerns. Onset (ago): minute(s) Review of Systems General: Reports: ROS unobtainable due to mental status PFSH ED PFSH: Medical History Anemia BPH (benign prostatic hyperplasia) Chronic schizophrenia COPD (chronic obstructive pulmonary disease) COVID-19 vaccine administered J&J plus an mRNA booster per patient report Essential hypertension History of PFTs 05/31 severe airflow obstruction, normal gas exchange, decreased FVC, FEV1 40%, FEVI/FVC reduced Mixed hyperlipidemia Osteoporosis Psychiatric care Tardive akathisia Vitamin D deficiency Surgical History 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 05/2021 Family History Denies family history of CAD (coronary artery disease) Anesthesia complication Bleeding disorder Social History Smoking and tobacco status: former smoker Quit status (tobacco): has quit using tobacco Year quit tobacco: 2021 Former quit date comment: 1.5ppd x 51 year Hx Second hand smoke exposure: Yes Alcohol intake: former Substance/Drug Use: unknown Caregiver/support person: Yes Lives independently: No Household members: other Details: Resides at [facility] residential assisted living care facility Housing: Assisted Living Facility Marital status: Single service: No Current occupational status: disabled Pets and animals: Yes Do you think of yourself as: Straight/Heterosexual Current gender identity: Male Physical Exam Const: COMMON NORMALS: alert GENERAL APPEARANCE: cooperative and well developed HENMT: COMMON NORMALS: normocephalic and atraumatic HEAD & SCALP: normocephalic and atraumatic Eye: COMMON NORMALS: conjunctivae normal CONJUNCTIVA: Yes conjunctivae normal SCLERA: sclerae normal Neck/C-Spine: COMMON NORMALS: supple GENERAL: Yes trachea midline Resp: COMMON NORMALS: normal respiratory effort EFFORT & INSPECTION: Yes able to speak in complete sentences Cardio: COMMON NORMALS: regular rate and regular rhythm RATE: regular rate RHYTHM: regular rhythm GI: COMMON NORMALS: Soft to palpation PALPATION: Yes Soft to palpation and No Tenderness to palpation present (GI) PERCUSSION: normal to percussion Extremity: NARRATIVE EXTREMITY EXAM: Right upper arm appears without complicated, no active bleeding or significant hematoma. No evidence of cellulitis. GENERAL: Yes normal exam except as noted and No edema Neuro: COMMON NORMALS: moves all extremities SENSORIUM/ORIENTATION: Yes alert and Yes Orientation impaired Psych: MEMORY/COGNITION: Yes memory grossly impaired Course Vital Signs: Vital signs: Vital Signs Temperature 97.3 F L 06/02/22 12:27 Pulse Rate 93 06/02/22 14:36 Respiratory Rate 20 H 06/02/22 14:36 Blood Pressure 171/85 06/02/22 14:36 Pulse Oximetry 91 06/02/22 14:36 Oxygen Delivery Me thod Room Air 06/02/22 12:56 MDM - General Adult Medical Decision Making 66-year-old gentleman presenting due to PICC line being dislodged. No evidence of hemorrhage or significant complication associated with this. Patient provides very limited history however is no focal neurologic deficits appreciated. PICC line was replaced and chest x-ray reviewed without evidence of complication. Satisfactory for continued outpatient management. Medical Records I reviewed the patient's medical records. Lab Data I reviewed the patient's lab results. Radiology Impressions Chest X-Ray 06/02/22 14:31 IMPRESSION: Right PICC line in proper positioning. Discharge Plan Discharge Patient Disposition: [facility] Clinical Impression: Displacement of peripherally inserted central catheter (PICC) Condition: Stable Discharge Orders: Discharge ED (Routine); Ordered 06/02/22 Ordered By: Luis Martinez Referrals: Bernadette Spears FNP [Primary Care Provider] - Discharge Diet: As Directed Discharge Activity: Limit activity as instructed Patient Instructions: PICC (Peripherally Inserted Central Catheter) (DC) Activity Restrictions/Additional Instructions: Please follow all previously given instructions. Return as needed. Coding Level of Care Code ED Viticulturist for Geovanna Espinal
--- NOTE | 2022-06-02 12:19 | XRR_ITS ---
PROCEDURE INFORMATION: Exam: XR Chest Exam date and time: 06/02/2022 12:25 PM Age: 66 years old Clinical indication: Other: Pulled picc line out TECHNIQUE: Imaging protocol: Radiologic exam of the chest. Views: 1 view. COMPARISON: CR XR chest 1V portable [id number] 08/19/2021 4:06 PM FINDINGS: Tubes, catheters and devices: No visualized PICC line. Lungs: Unremarkable. No consolidation. Pleural spaces: Unremarkable. No pleural effusion. No pneumothorax. Heart/Mediastinum: Unremarkable. No cardiomegaly. Bones/joints: Unremarkable. XR/XR chest 1V portable [id number] IMPRESSION: No visualized PICC line. No acute findings.
[2022-06-02 12:27] VITALS: BP 162/85; PULSE 60; RESP 16; TEMP 36.3; O2SAT 99; BMI 19.2
[2022-06-02 12:56] VITALS: BP 150/80; PULSE 63; RESP 16; O2SAT 96
--- NOTE | 2022-06-02 14:31 | XRR_ITS ---
PROCEDURE INFORMATION: Exam: XR Chest Exam date and time: 06/02/2022 2:33 PM Age: 66 years old Clinical indication: Device placement; Other: Post picc line placement TECHNIQUE: Imaging protocol: Radiologic exam of the chest. Views: 1 view. COMPARISON: CR (CHEST, ) 06/02/2022 12:25 PM FINDINGS: Tubes, catheters and devices: Right PICC line terminates at the distal SVC. Lungs: No consolidation. Pleural spaces: No pleural effusion. No pneumothorax. Heart/Mediastinum: No cardiomegaly. Bones/joints: Visualized osseous structures are intact. XR/XR chest 1V portable [id number] IMPRESSION: Right PICC line in proper positioning.
[2022-06-02 14:36] VITALS: BP 171/85; PULSE 93; RESP 20; O2SAT 91
--- NOTE | 2022-06-02 14:55 | PC.NURSE ---
Consulted for PICC placement on a pt who pulled out previous PICC line for LTA. Upon arrival noted pt is A&O to person, place, month and year, reoriented to date. Pt understood situation as well. Discussed procedure and pt signed consent. Assessed RUE and noted old insertion site 2/3 to [address] upper right arm. Noted site is scabbed over, but no s/s of infection. US reveals a basilic vein that was 6mm in diameter and no s/s of thrombus, stenosis, and was compressible. Using US guidance, MST, and sterile technique the R basilic vein was accessed x 1 stick. Device fed easily. Device aspirates and flushes easily. Device secured and dressed. EBL 5 ml. Pt tolerated well. Chest xray ordered and physician read as distal SVC. RUE is 24 cm in circumference at 10 cm above the AC fossa. Report to ISAC Dos Santos.
== END 2022-06-02 16:05 ==
PROVIDERS: Emergency Provider Emergency Medicine; PCP Nurse Practitioner
DX: T82.524A Displacement of infusion catheter, initial encounter (principal); J44.9 Chronic obstructive pulmonary disease, unspecified; I10 Essential (primary) hypertension; E78.2 Mixed hyperlipidemia; Z87.891 Personal history of nicotine dependence; Y82.9 Unspecified medical devices associated with adverse incidents; Y92.019 Unspecified place in single-family (private) house as the place of occurrence of the external cause
CPT/HCPCS: 36569; 71045; 99285

== ENCOUNTER 2022-06-06 08:38 | Outpatient (CLI) | payer MEDICARE, MEDICAID, SELFPAY ==
--- NOTE | 2022-06-06 08:54 | FL_ITS ---
WS: [id number] Exam: FL barium swallow modifd [id number] Date/Time of Exam: 06/06/2022 8:54 AM Reason For Exam: Other dysphagia Fluoroscopy time: 3min [id number] minutes # of spot films: Modified barium swallow was performed in conjunction with the speech therapy service. Swallowing function at the level of the oropharynx was grossly normal. The patient experienced penetr ation and mild aspiration when ingesting nectar consistency and thick liquid barium foodstuffs. The p atient tolerated the remaining consistencies of barium foodstuffs without significant difficulty. The patient swallowed a barium pill which passed into the stomach without complication. FL/FL barium swallow modifd [id number] IMPRESSION: 1. The patient experienced penetration and mild aspiration when ingesting necta r consistency and very thick liquid barium foodstuffs. Additional information recommendations will follow from the speech therapy serv ice.
== END 2022-06-06 08:39 | disposition home or self-care (01) ==
PROVIDERS: PCP Nurse Practitioner; Visit Provider Internal Medicine
DX: R13.19 Other dysphagia (principal)
CPT/HCPCS: 74230; 92611

== ENCOUNTER → 2022-06-11 10:26 | Outpatient (BNVA) | payer MEDICARE, MEDICAID, SELFPAY | PROVIDERS: PCP Nurse Practitioner; Visit Provider Nurse Practitioner Family | DX: T84.52XA Infection and inflammatory reaction due to internal left hip prosthesis, initial encounter (principal); Y79.2 Prosthetic and other implants, materials and accessory orthopedic devices associated with adverse incidents | CPT/HCPCS: 73502; 99024; 99213 ==

== ENCOUNTER → 2022-07-09 08:03 | Outpatient (BNVA) | payer MEDICARE, MEDICAID, SELFPAY | PROVIDERS: PCP Nurse Practitioner; Visit Provider Nurse Practitioner Family | DX: T84.52XA Infection and inflammatory reaction due to internal left hip prosthesis, initial encounter (principal); Y79.2 Prosthetic and other implants, materials and accessory orthopedic devices associated with adverse incidents | CPT/HCPCS: 99213 ==

== ENCOUNTER → 2022-07-23 09:14 | Outpatient (BNVA) | payer MEDICARE, MEDICAID, SELFPAY | PROVIDERS: PCP Nurse Practitioner; Visit Provider Nurse Practitioner Family | DX: T84.52XA Infection and inflammatory reaction due to internal left hip prosthesis, initial encounter (principal); Y79.2 Prosthetic and other implants, materials and accessory orthopedic devices associated with adverse incidents; F20.9 Schizophrenia, unspecified; F42.4 Excoriation (skin-picking) disorder | CPT/HCPCS: 73502; 99214 ==

== ENCOUNTER 2022-11-24 17:42 | Emergency (ER) | payer MEDICARE, MEDICAID, SELFPAY ==
[2022-11-24 17:49] VITALS: BP 134/46; PULSE 60; RESP 18; TEMP 37; O2SAT 99; BMI 19.2
[2022-11-24 18:37] LABS: Basophils # 0.1 10^3/uL (0.0-0.1); Basophils % 0.7 %; Eosinophils # 0.2 10^3/uL (0.0-0.8); Eosinophils % 2.6 %; Hematocrit 31.8 % (37-53); Lymphocytes # 1.5 10^3/uL (0.8-4.8); Lymphocytes % 17.6 %; Mean Corpuscular HGB Conc 33.3 g/dL (30-55); Mean Corpuscular Hemoglobin 28.6 pg (27-33); Mean Corpuscular Volume 85.7 fl (82-101); Mean Platelet Volume 8.4 fL (7.4-10.4); Monocytes # 0.9 10^3/uL (0.2-0.9); Neutrophils # 6.03 10^3/uL (1.8-7.7); Neutrophils % 68.9 %; Nucleated Red Blood Cells % 0 %; Platelet Count 249 10^3/cmm (157-399); Red Blood Count 3.71 10^6/uL (3.85-5.65); Red Cell Distribution Width 14.5 % (12.1-15.1); White Blood Count 8.76 10^3/uL (3.29-11.43)
[2022-11-24 19:01] LABS: Alanine Aminotransferase 13 U/L (0-41); Albumin Level 2.7 g/dL (3.5-5.2); Alkaline Phosphatase 130 U/L (40-130); Anion Gap 11.9 (5-19); Aspartate Amino Transferase 21 U/L (0-40); Blood Urea Nitrogen 21 mg/dL (8-23); Calcium 8.3 mg/dL (8.5-10.5); Carbon Dioxide 22 mmol/L (22-29); Chloride 96 mmol/L (98-107); Globulin 4.5 g/dL (1.3-4.6); Glomerular Filtration Rate 214.6 mL/min (90-130); Glucose 130 mg/dL (65-115); Osmolality Calculated 267 mOsm/kg (285-295); Potassium 3.9 mmol/L (3.5-5.1); Sodium 126 mmol/L (136-145); Total Bilirubin 0.2 mg/dL (0.15-1.2); Total Protein 7.2 g/dL (6.6-8.7)
--- NOTE | 2022-11-24 19:03 | W.ED.WOUNDLC ---
HPI - Wound/Laceration General: Chief Complaint: Wound/Laceration Stated Complaint: RASH Time Seen by Provider: 11/24/22 17:55 History of Present Illness: 67-year-old male from a local [facility] due to possible wound infection. According to past medical record patient had hip replacement done in May of this year. The [facility] staff noticed some wound along the circular surgical scar with some drainage. Patient is a poor historian but denies any fever, leg pain, nausea or vomiting. Associated symptoms: Denies chills or fever(s) Review of Systems General: Reports: 10 or more systems reviewed and unremarkable except in HPI and below Const: Denies: fever(s), chills, body aches or change in appetite Resp: Denies: dyspnea or productive cough Skin/Breast: Reports: sores, surgical incision and other PFSH ED PFSH: Medical History Anemia BPH (benign prostatic hyperplasia) Chronic schizophrenia COPD (chronic obstructive pulmonary disease) COVID-19 vaccine administered J&J plus an mRNA booster per patient report Essential hypertension History of PFTs 05/31 severe airflow obstruction, normal gas exchange, decreased FVC, FEV1 40%, FEVI/FVC reduced Mixed hyperlipidemia Osteoporosis Psychiatric care Tardive akathisia Vitamin D deficiency Surgical History 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 05/2021 Family History Denies family history of CAD (coronary artery disease) Anesthesia complication Bleeding disorder Social History Smoking and tobacco/nicotine status: former use of tobacco/nicotine Quit status (tobacco/nicotine): has quit using Year quit tobacco: 2021 Former quit date comment: 1.5ppd x 51 year Hx Second hand smoke exposure: Yes Alcohol intake: former Substance/Drug Use: unknown Caregiver/support person: Yes Lives independently: No Household members: other Details: Resides at [facility] residential assisted living care facility Housing: Assisted Living Facility Marital status: Single service: No Current occupational status: disabled Pets and animals: Yes Do you think of yourself as: Straight/Heterosexual Current gender identity: Male Physical Exam Const: EXAM LIMITATIONS: physical limitations Eye: COMMON NORMALS: Equal, round and reactive pupils present, EOMs intact bilaterally, conjunctivae normal, no scleral icterus, no papilledema, normal visual zamora by confrontation and fundi normal bilaterally CONJUNCTIVA: Yes conjunctivae normal PUPIL: Yes Equal, round and reactive pupils present DIRECT OPHTHALMOSCOPY: Yes no papilledema and Yes fundi normal bilaterally Neck/C-Spine: COMMON NORMALS: no JVD Chest: COMMONS NORMALS: normal inspection of the chest, normal palpation of entire chest wall, normal inspection of the breasts and normal palpation of the breasts Breast/axilla inspection: Yes normal inspection of the breasts BREAST/AXILLA PALPATION: Yes normal palpation of the breasts Resp: COMMON NORMALS: normal respiratory effort, No retractions, No use of accessory muscles, clear to auscultation bilaterally and percussion normal AUSCULTATION: clear to auscultation bilaterally PERCUSSION: percussion normal Cardio: COMMON NORMALS: no JVD, regular rate, regular rhythm, S1 normal heart sound present, S2 normal heart sound present, No gallops present (Cardio), No clicks present (Cardio), No murmurs present (Cardio), No rub (Cardio) and Peripheral pulses 2+ throughout RATE: regular rate RHYTHM: regular rhythm HEART SOUNDS: S1 normal heart sound present and S2 normal heart sound present PERIPHERAL PULSES: Peripheral pulses 2+ throughout Extremity: OTHER: Left heel with decubitus ulcer but no bleeding no drainage Skin: WOUNDS: Yes surgical site, No fistulous tract and Yes wounds noted size (Small) and drainage (Minimal) serous; not purulent OTHER: Left thigh on the lateral aspect of the thigh is surgical scar with small superficial wound with minimal drainage.. No acute bleeding Course Vital Signs: Vital signs: Vital Signs Temperature 98.6 F 11/24/22 17:49 Pulse Rate 60 11/24/22 17:49 Respiratory Rate 18 11/24/22 17:49 Blood Pressure 107/50 11/24/22 21:54 Pulse Oximetry 97 11/24/22 21:54 Oxygen Delivery Me thod Room Air 11/24/22 17:49 MDM - Wound/Laceration Medical Decision Making Patient made comfortable emergency room and had extensive work-up with CBC, CMP wound culture. Patient was given IV fluid and IV antibiotics. Patient be discharged home with oral antibiotics. Plan is to recheck sodium in few days. Differential Diagnosis Likely laceration, abscess, abrasion and avulsion of skin Lab Data 11/24/22 18:11/24/22 18: Laboratory Results WBC 8.76 10^3/uL (3.29-11.43) 11/24/22 18: RBC 3.71 10^6/uL (3.85-5.65) L 11/24/22 18: Hgb 10.60 g/dL (11.27-16.99) L 11/24/22 18: Hct 31.8 % (37-53) L 11/24/22: MCV 85.7 fl (82-101) 11/24/22 18: MCH 28.6 pg (27-33) 11/24/22 18: MCHC 33.3 g/dL (30-55) 11/24/22 18: RDW 14.5 % (12.1-15.1) 11/24/22 18: Plt Count 249 10^3/cmm (157-399) 11/24/22 18: MPV 8.4 fL (7.4-10.4) 11/24/22 18: Neut % (Auto) 68.9 % 11/24/22 18: Lymph % (Auto) 17.6 % 11/24/22 18: [place] % (Auto) 10.0 % 11/24/22 18: Eos % (Auto) 2.6 % 11/24/22: Baso % (Auto) 0.7 % 11/24/22: Neut # (Auto) 6.03 10^3/uL (1.8-7.7) 11/24/22 18: Lymph # (Auto) 1.5 10^3/uL (0.8-4.8) 11/24/22: [place] # (Auto) 0.9 10^3/uL (0.2-0.9) 11/24/22 18: Eos # (Auto) 0.2 10^3/uL (0.0-0.8) 11/24/22 18: Baso # (Auto) 0.1 10^3/uL (0.0-0.1) 11/24/22 18:28 Nucleated RBC % (auto) 0 % 11/24/22 18: Nucleated RBCs # 0.0 /100WBC 11/24/22 18:28 Sodium 126 mmol/L (136-145) L 11/24/22 18:28 Potassium 3.9 mmol/L (3.5-5.1) 11/24/22 18:28 Chloride 96 mmol/L (98-107) L 11/24/22 18:28 Carbon Dioxide 22 mmol/L (22-29) 11/24/22 18:28 Anion Gap 11.9 (5-19) 11/24/22 18:28 BUN 21 mg/dL (8-23) 11/24/22 18:28 Creatinine 0.4 mg/dL (0.7-1.2) L 11/24/22 18:28 GFR Calculation 214.6 mL/min (90-130) H 11/24/22 18:28 Glucose 130 mg/dL (65-115) H 11/24/22 18:28 Calculated Osmolality 267 mOsm/kg (285-295) L 11/24/22 18:28 Calcium 8.3 mg/dL (8.5-10.5) L 11/24/22 18:28 Total Bilirubin 0.2 mg/dL (0.15-1.2) 11/24/22 18:28 AST 21 U/L (0-40) 11/24/22 18:28 ALT 13 U/L (0-41) 11/24/22 18:28 Alkaline Phosphatase 130 U/L (40-130) 11/24/22 18:28 Total Protein 7.2 g/dL (6.6-8.7) 11/24/22 18:28 Albumin 2.7 g/dL (3.5-5.2) L 11/24/22 18:28 Globulin 4.5 g/dL (1.3-4.6) 11/24/22 18:28 No radiology studies performed this visit Discharge Plan Discharge Patient Disposition: Home Clinical Impression: Wound disruption, Decubitus ulcer of left heel, Acute hyponatremia Condition: Stable Prescriptions: New doxycycline hyclate 100 mg tablet 100 mg PO BID 10 Days Qty: 20 0RF No Action (DME) DME: [facility] See Rx Instructions .Route Qty: 1 0RF Rx Instructions: Pureed diet with nectar thick liquids all meals Incruse Ellipta 62.5 mcg/actuation blister with device 1 inh inhalation DAILY Qty: 30 6RF propranolol 10 mg tablet 10 mg PO BID@08,20 lorazepam 0.5 mg tablet 0.5 mg PO BEDTIME@20 Rx Instructions: Take one tablet at bedtime tamsulosin 0.4 mg capsule 0.8 mg PO BEDTIME@20 simvastatin 20 mg tablet 20 mg PO BEDTIME@20 aripiprazole [Abilify] 10 mg tablet 10 mg PO DAILY@0700 pantoprazole 40 mg Tablet,Delayed Release (Dr/Ec) 40 mg PO BID Qty: 60 0RF Rx Instructions: @08:00,20:00 magnesium hydroxide [Milk of Magnesia] 400 mg/5 mL Suspension 30 ml PO DAILY PRN (Reason: Constipation) bisacodyl 10 mg Suppository 10 mg UT DAILY PRN (Reason: Constipation) docusate sodium 100 mg Tablet 200 mg PO BID@08,20 naloxone 2 mg/2 mL Syringe Kit 2 mg IM Q3M PRN (Reason: overdose) Rx Instructions: NTExceed 10 mg total dose/episode Arginaid 4.5 gram-156 mg/9.2 gram Powder In Packet 4.5 g PO BID@08,18 Senna-S 8.6-50 mg Tablet 2 tab PO BID@08,20 folic acid 1 mg Tablet 1 mg PO DAILY@08 Medplus 120 ml PO TID Rx Instructions: at med pass Prostat Liquid 30 ml PO TID Discharge Orders: Discharge ED (Routine); Ordered 11/24/22 Ordered By: Megan Ellis Referrals: Benitez Fitzpatrick MD [Primary Care Provider] - Discharge Diet: Advance as tolerated Discharge Activity: Resume usual activity Patient Instructions: Opioid Safety, Pain Management Coding Level of Care Code ED Director [employer] for Geovanna Espinal
[2022-11-24] MEDS: vancomycin 1,000 MG in sodium chloride 0.9% 250 ML 250 MG IV (19:49)
[2022-11-24] MEDS: sodium chloride 0.9% 1,000 ML 999 ML IV (19:50)
[2022-11-24 20:48] VITALS: BP 106/47; O2SAT 100
[2022-11-24 21:54] VITALS: BP 107/50; O2SAT 97
== END 2022-11-24 21:56 | disposition home or self-care (01) ==
PROVIDERS: Emergency Provider Family Medicine; PCP Internal Medicine
DX: L89.629 Pressure ulcer of left heel, unspecified stage (principal); E87.1 Hypo-osmolality and hyponatremia; T81.31XA Disruption of external operation (surgical) wound, not elsewhere classified, initial encounter; J44.9 Chronic obstructive pulmonary disease, unspecified; I10 Essential (primary) hypertension; E78.2 Mixed hyperlipidemia; Z96.643 Presence of artificial hip joint, bilateral; Z87.891 Personal history of nicotine dependence; Y83.8 Other surgical procedures as the cause of abnormal reaction of the patient, or of later complication, without mention of misadventure at the time of the procedure
CPT/HCPCS: 36415; 80053; 85025; 87040; 87070; 87077; 87186; 96374; 99284; J3370; J7030; J7050

== ENCOUNTER → 2023-03-12 09:02 | Outpatient (BNVA) | payer MEDICARE, MEDICAID, SELFPAY | PROVIDERS: PCP Internal Medicine; Visit Provider Thoracic Surgery (Cardiothoracic Vascular Surgery) | DX: I96 Gangrene, not elsewhere classified (principal); L89.154 Pressure ulcer of sacral region, stage 4 | CPT/HCPCS: 11044; 11047; 87070; 87077; 87176; 87186; 87205; 99213 ==

== ENCOUNTER → 2023-03-21 09:34 | Outpatient (BNVA) | payer MEDICARE, MEDICAID, SELFPAY | PROVIDERS: PCP Internal Medicine; Visit Provider Thoracic Surgery (Cardiothoracic Vascular Surgery) | DX: I96 Gangrene, not elsewhere classified (principal); L89.154 Pressure ulcer of sacral region, stage 4 | CPT/HCPCS: 97597; 97598 ==

== ENCOUNTER → 2023-07-02 10:52 | Outpatient (BNVA) | payer MEDICARE, MEDICAID, SELFPAY | PROVIDERS: PCP Internal Medicine; Visit Provider Internal Medicine Pulmonary Disease | DX: J43.1 Panlobular emphysema (principal); Z71.6 Tobacco abuse counseling; F17.210 Nicotine dependence, cigarettes, uncomplicated; G25.71 Drug induced akathisia | CPT/HCPCS: 99214 ==

== ENCOUNTER 2023-12-07 08:01 | Emergency (ER) | payer MEDICARE, MEDICAID, SELFPAY ==
[2023-12-07 08:02] VITALS: BP 121/55; PULSE 71; RESP 18; TEMP 36.7; O2SAT 98; BMI 17.5
[2023-12-07 08:23] LABS: Glucose Point of Care 126 mg/dL (70-110)
--- NOTE | 2023-12-07 08:32 | W.ED.AMS ---
HPI - Altered Mental Status General: Chief Complaint: Altered Mental Status Stated Complaint: AMS Time Seen by Provider: 12/07/23 08:10 History of Present Illness: Patient brought in by EMS for complaints of low sodium and altered mental status. Nursing talk to nursing and states that he was at his normal baseline. The sodium was approximately 128 yesterday. When EMS arrived there the patient's blood glucose was 62 they gave him 1 dose of oral glucose blood glucose went down to 57 the given a second dose or glucose and went up to 71. Patient is awake alert. Related Data Home Medications Medication Instructions Recorded Confirmed aripiprazole 10 mg tablet (Abilify) 10 mg PO DAILY@0700 02/12/22 07/02/23 lorazepam 0.5 mg tablet 0.5 mg PO BEDTIME@02/12/22 07/02/23 propranolol 10 mg tablet 10 mg PO BID@08,20 02/12/22 07/02/23 simvastatin 20 mg tablet 20 mg PO BEDTIME@20 02/12/22 07/02/23 tamsulosin 0.4 mg capsule 0.8 mg PO BEDTIME@20 02/12/22 07/02/23 bisacodyl 10 mg rectal suppository 10 mg AL DAILY PRN Constipation 05/20/22 07/02/23 docusate sodium 100 mg tablet 200 mg PO BID@,05/20/22 07/02/23 magnesium hydroxide 400 mg/5 mL 30 ml PO DAILY PRN Constipation 05/20/22 07/02/23 oral suspension (Milk of Magnesia) naloxone 2 mg/2 mL syringe kit 2 mg IM Q3M PRN overdose 05/20/22 07/02/23 arginine-vitamin C-vitamin E oral 4.5 g PO BID@,18 05/27/22 07/02/23 4.5 gram-156 mg/9.2 gram powder pkt (Arginaid) Medplus 120 ml PO TID 05/28/22 07/02/23 Prostat Liquid 30 ml PO TID 05/28/22 07/02/23 folic acid 1 mg tablet 1 mg PO DAILY@08 05/28/22 07/02/23 sennosides 8.6 mg-docusate sodium 2 tab PO BID@08,05/28/22 07/02/23 50 mg tablet (Senna-S) Previous Rx's Medication Instructions Recorded DME: [place] #1 ea 10/12/21 pantoprazole 40 mg tablet,delayed 40 mg PO BID #60 tabs 02/15/22 release umeclidinium 62.5 mcg/actuation 1 inh inhalation DAILY #30 ea 10/10/22 blister powder for inhalation (Incruse Ellipta) sodium chloride 1,000 mg soluble 1,000 mg PO BID #60 tabs 12/07/23 tablet Allergies Allergy/AdvReac Type Severity Reaction Status Date / Time No Known Allergies Allergy Verified 07/02/23 09:39 Review of Systems General: Reports: 10 or more systems reviewed and unremarkable except in HPI and below PFSH ED PFSH: Medical History Osteoporosis COVID-19 vaccine administered J&J plus an mRNA booster per patient report History of PFTs 05/31 severe airflow obstruction, normal gas exchange, decreased FVC, FEV1 40%, FEVI/FVC reduced Anemia BPH (benign prostatic hyperplasia) COPD (chronic obstructive pulmonary disease) Vitamin D deficiency Mixed hyperlipidemia Essential hypertension Tardive akathisia Chronic schizophrenia Surgical History 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 05/2021 Family History Denies family history of CAD (coronary artery disease) Anesthesia complication Bleeding disorder Social History Smoking and tobacco/nicotine status: former use of tobacco/nicotine Quit status (tobacco/nicotine): has quit using Year quit tobacco: 2021 Former quit date comment: 1.5ppd x 51 year Hx Second hand smoke exposure: Yes Alcohol intake: former Substance/Drug Use: unknown Caregiver/support person: Yes Lives independently: No Household members: other Details: Resides at [facility] residential assisted living care facility Housing: Assisted Living Facility Marital status: Single service: No Current occupational status: disabled Pets and animals: Yes Do you think of yourself as: Straight/Heterosexual Current gender identity: Male Physical Exam Const: COMMON NORMALS: no acute distress, average body habitus, healthy appearing, alert and well nourished HENMT: COMMON NORMALS: normocephalic, atraumatic, hearing grossly normal bilaterally, external ears normal and Normal nasal mucous membranes and turbinates present HEAD & SCALP: normocephalic and atraumatic NOSE: Normal nasal mucous membranes and turbinates present EXTERNAL EAR: Yes external ears normal Neck/C-Spine: COMMON NORMALS: no JVD Chest: COMMONS NORMALS: normal inspection of the chest and normal palpation of entire chest wall Resp: COMMON NORMALS: normal respiratory effort, No retractions, No use of accessory muscles and clear to auscultation bilaterally AUSCULTATION: clear to auscultation bilaterally Cardio: COMMON NORMALS: no JVD, regular rate, regular rhythm, S1 normal heart sound present, S2 normal heart sound present, No gallops present (Cardio), No clicks present (Cardio), No murmurs present (Cardio) and No rub (Cardio) RATE: regular rate RHYTHM: regular rhythm HEART SOUNDS: S1 normal heart sound present and S2 normal heart sound present GI: COMMON NORMALS: Normal to inspection, nondistended, normoactive bowel sounds present, Soft to palpation, non-tender, No hepatosplenomegaly present and no masses PALPATION: Yes Soft to palpation and Yes No hepatosplenomegaly present Neuro: SENSORIUM/ORIENTATION: Yes alert Course Vital Signs: Vital signs: Vital Signs Temperature 98.1 F 12/07/23 08:02 Pulse Rate 84 12/07/23 11:31 Respiratory Rate 18 12/07/23 08:02 Blood Pressure 107/65 12/07/23 08:38 Pulse Oximetry 100 12/07/23 11:31 Oxygen Delivery Me thod Room Air 12/07/23 11:31 MDM - Altered Mental Status Medical Decision Making Lab work was obtained which revealed sodium 127, patient has been chronically hyponatremic per records. Patient be placed on 2 g salt tablets a day. And instructed to have his sodium redrawn in approximately 10 days. Medical Records I reviewed the patient's medical records. Lab Data I reviewed the patient's lab results. 12/07/23 08:27 12/07/23 08:27 Laboratory Results WBC 8.22 10^3/uL (3.29-11.43) 12/07/23 08:27 RBC 3.87 10^6/uL (3.85-5.65) 12/07/23 08:27 Hgb 10.30 g/dL (11.27-16.99) L 12/07/23 08: Hct 31.8 % (37-53) L 12/07/23: MCV 82.2 fl (82-101) 12/07/23 08: MCH 26.6 pg (27-33) L 12/07/23 08: MCHC 32.4 g/dL (30-55) 12/07/23: RDW 17.1 % (12.1-15.1) H 12/07/23 08: Plt Count 216 10^3/cmm (157-399) 12/07/23 08: MPV 9.3 fL (7.4-10.4) 12/07/23: Neut % (Auto) 69.4 % 12/07/23 08: Lymph % (Auto) 16.2 % 12/07/23: [place] % (Auto) 8.9 % 12/07/23: Eos % (Auto) 4.4 % 12/07/23 08: Baso % (Auto) 0.6 % 12/07/23: Neut # (Auto) 5.71 10^3/uL (1.8-7.7) 12/07/23: Lymph # (Auto) 1.3 10^3/uL (0.8-4.8) 12/07/23: [place] # (Auto) 0.7 10^3/uL (0.2-0.9) 12/07/23: Eos # (Auto) 0.4 10^3/uL (0.0-0.8) 12/07/23: Baso # (Auto) 0.1 10^3/uL (0.0-0.1) 12/07/23: Nucleated RBC % (auto) 0 % 12/07/23: Nucleated RBCs # 0.0 /100WBC 12/07/23 08: Sodium 127 mmol/L (136-145) L 12/07/23 08: Potassium 4.2 mmol/L (3.5-5.1) 12/07/23 08: Chloride 93 mmol/L (98-107) L 12/07/23 08:27 Carbon Dioxide 26 mmol/L (22-29) 12/07/23 08:27 Anion Gap 12.2 (5-19) 12/07/23 08:27 BUN 16 mg/dL (8-23) 12/07/23 08:27 Creatinine 0.4 mg/dL (0.7-1.2) L 12/07/23 08:27 GFR Calculation 213.9 mL/min (90-130) H 12/07/23 08:27 Glucose 107 mg/dL (65-115) 12/07/23 08:27 POC Glucose 126 mg/dL (70-110) H 12/07/23 08:19 Calculated Osmolality 266 mOsm/kg (285-295) L 12/07/23 08:27 Calcium 8.4 mg/dL (8.5-10.5) L 12/07/23 08:27 Total Bilirubin 0.3 mg/dL (0.15-1.2) 12/07/23 08:27 AST 42 U/L (0-40) H 12/07/23 08:27 ALT 23 U/L (0-41) 12/07/23 08:27 Alkaline Phosphatase 167 U/L (40-130) H 12/07/23 08:27 Total Protein 8.4 g/dL (6.6-8.7) 12/07/23 08:27 Albumin 3.0 g/dL (3.5-5.2) L 12/07/23 08:27 Globulin 5.4 g/dL (1.3-4.6) H 12/07/23 08:27 Urine Color Yellow (Yellow) 12/07/23 08:37 Urine Appearance Cloudy (CLEAR) A 12/07/23 08:37 Urine pH 6.5 (5-7) 12/07/23 08:37 Ur Specific [place] 1.021 (1.005-1.030) 12/07/23 08:37 Urine Protein Neg (Negative) 12/07/23 08:37 Urine Glucose (UA) Norm (Normal) 12/07/23 08:37 Urine Ketones Negative (Negative) 12/07/23 08:37 Urine Blood Neg (Negative) 12/07/23 08:37 Urine Nitrate Negative (Negative) 12/07/23 08:37 Urine Bilirubin Neg (Negative) 12/07/23 08:37 Urine Urobilinogen 1.0 mg/dL (Negative) 12/07/23 08:37 Ur Leukocyte Esterase 1+ (Negative) H 12/07/23 08:37 Urine RBC 0-4 /hpf (0-2) H 12/07/23 08:37 Urine WBC 15-25 /hpf (0-5) H 12/07/23 08:37 Ur Squamous Epith Cells 0-4 /hpf (0-5) H 12/07/23 08:37 Amorphous Sediment Not Reportable 12/07/23 08:37 Urine Bacteria 1+ /hpf (NONE) H 12/07/23 08:37 Urine Mucus Trace /hpf 12/07/23 08:37 All radiology interpretation(s) finalized by discharge Discharge Plan Discharge Patient Disposition: Home Clinical Impression: Hyponatremia Condition: Stable Prescriptions: New sodium chloride 1,000 mg tablet,soluble 1,000 mg PO BID Qty: 60 0RF No Action (DME) DME: [facility] See Rx Instructions .Route Qty: 1 0RF Rx Instructions: Pureed diet with nectar thick liquids all meals Incruse Ellipta 62.5 mcg/actuation blister with device 1 inh inhalation DAILY Qty: 30 6RF propranolol 10 mg tablet 10 mg PO BID@08,20 lorazepam 0.5 mg tablet 0.5 mg PO BEDTIME@20 Rx Instructions: Take one tablet at bedtime tamsulosin 0.4 mg capsule 0.8 mg PO BEDTIME@20 simvastatin 20 mg tablet 20 mg PO BEDTIME@20 aripiprazole [Abilify] 10 mg tablet 10 mg PO DAILY@0700 pantoprazole 40 mg Tablet,Delayed Release (Dr/Ec) 40 mg PO BID Qty: 60 0RF Rx Instructions: @08:00,20:00 magnesium hydroxide [Milk of Magnesia] 400 mg/5 mL Suspension 30 ml PO DAILY PRN (Reason: Constipation) bisacodyl 10 mg Suppository 10 mg AL DAILY PRN (Reason: Constipation) docusate sodium 100 mg Tablet 200 mg PO BID@08,20 naloxone 2 mg/2 mL Syringe Kit 2 mg IM Q3M PRN (Reason: overdose) Rx Instructions: NTExceed 10 mg total dose/episode Arginaid 4.5 gram-156 mg/9.2 gram Powder In Packet 4.5 g PO BID@08,18 Senna-S 8.6-50 mg Tablet 2 tab PO BID@, folic acid 1 mg Tablet 1 mg PO DAILY@08 Medplus 120 ml PO TID Rx Instructions: at med pass Prostat Liquid 30 ml PO TID Discharge Orders: Discharge ED (Routine); Ordered 12/07/23 Ordered By: Jens Alfredo Referrals: Benitez Fitzpatrick MD [Primary Care Provider] - 1 week Patient Instructions: Hyponatremia (ED) Activity Restrictions/Additional Instructions: Please follow-up with your family practice physician within the next 10 days to have your sodium rechecked. Please take all your medicine as prescribed. Thank you for choosing [facility] for your healthcare needs today. Please realize that you were seen in the emergency department and that we are providing you with an emergency medical screening exam and this may not be a complete and all exclusive of all testing and/or medical workup we may need to determine your element or severity of your illness. It is very important that you follow-up as instructed with your primary care provider or specialist for the additional evaluation and to discuss your medical treatment plan. You may return to the emergency department should you have concerns or if your condition changes or worsens in any way. Coding Level of Care Code ED Schedule [employer]anger for Geovanna Espinal
[2023-12-07 08:35] LABS: Basophils # 0.1 10^3/uL (0.0-0.1); Basophils % 0.6 %; Eosinophils # 0.4 10^3/uL (0.0-0.8); Eosinophils % 4.4 %; Hematocrit 31.8 % (37-53); Lymphocytes # 1.3 10^3/uL (0.8-4.8); Lymphocytes % 16.2 %; Mean Corpuscular HGB Conc 32.4 g/dL (30-55); Mean Corpuscular Hemoglobin 26.6 pg (27-33); Mean Corpuscular Volume 82.2 fl (82-101); Mean Platelet Volume 9.3 fL (7.4-10.4); Monocytes # 0.7 10^3/uL (0.2-0.9); Monocytes % 8.9 %; Neutrophils # 5.71 10^3/uL (1.8-7.7); Neutrophils % 69.4 %; Nucleated Red Blood Cells % 0 %; Platelet Count 216 10^3/cmm (157-399); Red Blood Count 3.87 10^6/uL (3.85-5.65); Red Cell Distribution Width 17.1 % (12.1-15.1); White Blood Count 8.22 10^3/uL (3.29-11.43)
[2023-12-07 08:38] VITALS: BP 107/65; PULSE 71; O2SAT 100
[2023-12-07 08:48] LABS: Alanine Aminotransferase 23 U/L (0-41); Alkaline Phosphatase 167 U/L (40-130); Anion Gap 12.2 (5-19); Aspartate Amino Transferase 42 U/L (0-40); Blood Urea Nitrogen 16 mg/dL (8-23); Calcium 8.4 mg/dL (8.5-10.5); Carbon Dioxide 26 mmol/L (22-29); Chloride 93 mmol/L (98-107); Creatinine Clr Calc Pharmacy 67.4713; Globulin 5.4 g/dL (1.3-4.6); Glomerular Filtration Rate 213.9 mL/min (90-130); Glucose 107 mg/dL (65-115); Osmolality Calculated 266 mOsm/kg (285-295); Potassium 4.2 mmol/L (3.5-5.1); Sodium 127 mmol/L (136-145); Total Bilirubin 0.3 mg/dL (0.15-1.2); Total Protein 8.4 g/dL (6.6-8.7)
[2023-12-07 08:58] LABS: Bilirubin Urine Neg (Negative); Blood Urine Neg (Negative); Glucose Urine UA Norm (Normal); Leukocyte Esterase Urine 1+ (Negative); Nitrate Urine Negative (Negative); Protein Urine Neg (Negative); Specific Gravity, Urine 1.021 (1.005-1.030); Urine Appearance Cloudy (CLEAR); Urine Color Yellow (Yellow); pH Urine 6.5 (5-7)
[2023-12-07 08:59] LABS: Add Urine Culture? Yes; Add Urine Microscopic? YES; Bacteria Urine 1+ /hpf; Ketones Urine Negative (Negative); Mucus Urine TRACE /hpf; RBC Urine 0-4 /hpf (0-2); Squamous Epithelial Cell Urine 0-4 /hpf (0-5); UA Manual Slide Review YES; WBC Urine 15-25 /hpf (0-5)
[2023-12-07] MEDS: sodium chloride 0.9% 1,000 ML 999 ML IV (09:21)
[2023-12-07 11:31] VITALS: PULSE 84; O2SAT 100
[2023-12-07 12:48] LABS: Glucose Point of Care 62 mg/dL (70-110)
[2023-12-07 13:23] VITALS: BP 116/77; PULSE 87; O2SAT 97
== END 2023-12-07 13:51 | disposition home or self-care (01) ==
PROVIDERS: Emergency Provider Emergency Medicine; PCP Internal Medicine
DX: E87.1 Hypo-osmolality and hyponatremia (principal); I10 Essential (primary) hypertension; E78.2 Mixed hyperlipidemia; E55.9 Vitamin D deficiency, unspecified; J44.9 Chronic obstructive pulmonary disease, unspecified; Z87.891 Personal history of nicotine dependence
CPT/HCPCS: 36415; 36416; 80053; 81001; 82962; 85025; 87086; 96360; 99284; J7030

== ENCOUNTER 2023-12-12 17:15 | Emergency (ER) | payer MEDICARE, MEDICAID, SELFPAY ==
[2023-12-12 17:25] VITALS: BP 70/56; PULSE 67; RESP 17; TEMP 36.5; O2SAT 98
--- NOTE | 2023-12-12 17:31 | CTR_ITS ---
PROCEDURE INFORMATION: Exam: CT Cervical Spine Without Contrast Exam date and time: 12/12/2023 5:51 PM Age: 68 years old Clinical indication: Injury or trauma; Blunt trauma; Patient HX: EMS arrival from shelter for fall. States hitting head. C/O head and neck pain. ; Additional info: Fall/hit head TECHNIQUE: Imaging protocol: Computed tomography of the cervical spine without contrast. Radiation optimization: All CT scans at this facility use at least one of these dose optimization techniques: automated exposure control; mA and/or kV adjustment per patient size (includes targeted exams where dose is matched to clinical indication); or iterative reconstruction. COMPARISON: CT cervical spin wo con* [id number] 02/12/2022 9:12 AM RADIATION DOSE METRICS: Total DLP (mGy-cm): 904.9 FINDINGS: Bones: Cervical vertebral body heights appear maintained. Diffuse spondylotic degenerative change noted involving cervical vertebra and facets. Degenerative disc disease is seen C3-C4 through C7-T1 levels. Loss of the normal cervical curvature is seen with reversal centered at the C5 level on the sagittal images. Chronic grade 1 degenerative spondylolisthesis noted C3-C4 and C4-C5 levels when correlated with prior exam. No fracture or compression deformity. No acute subluxation. No severe spinal stenosis. Lungs: Visualized lung apices appear unremarkable. Soft tissues: Paravertebral soft tissues show no acute abnormality. CT/CT cervical spin wo con* [id number] IMPRESSION: Multilevel degenerative changes of the cervical spine, without significant change with prior exam. No fracture or acute findings.
--- NOTE | 2023-12-12 17:31 | XRR_ITS ---
PROCEDURE INFORMATION: Exam: XR Bilateral Hips Exam date and time: 12/12/2023 5:58 PM Age: 68 years old Clinical indication: Hip pain and pelvic pain; Left hip; Patient HX: Bilateral hip pain post fall TECHNIQUE: Imaging protocol: Radiologic exam of the bilateral hips. Views: 2 views of hips with pelvis when performed. COMPARISON: CR XR hip LT 2-3V wo/w pel* [id number] 07/23/2022 9:14 AM FINDINGS: Bones/joints: Right hip hemiarthroplasty prosthesis. Mild lucency around the proximal part of the femoral stem may indicate mild loosening although the distal part of the stem is unremarkable. Overall stable appearance compared to 07/23/2022. No periprosthetic or other acute fracture identified in the proximal hips or pelvic ring . Severely limited assessment of the left hip due to severe end-stage arthrosis. Previously demonstrated postsurgical and posttraumatic changes in April-July 2022. Stable appearance compared to 07/23/2022. Extensive heterotopic ossification around the left proximal femur . Previously resected left femoral head and neck. Soft tissues: [id number] amount retained stool in the colon and rectal vault again demonstrated. XR/XR hip BI 3-4V wo/w pel [id number] IMPRESSION: No acute fracture identified in the pelvic ring or proximal femurs on plain radiography. Other chronic and postsurgical findings detailed above.
--- NOTE | 2023-12-12 17:31 | CTR_ITS ---
PROCEDURE INFORMATION: Exam: CT Head Without Contrast Exam date and time: 12/12/2023 5:51 PM Age: 68 years old Clinical indication: Injury or trauma; Blunt trauma (contusions or hematomas); Patient HX: EMS arrival from [place] for fall. States hitting head. C/O head and neck pain. ; Additional info: Fall/hit head TECHNIQUE: Imaging protocol: Computed tomography of the head without contrast. Radiation optimization: All CT scans at this facility use at least one of these dose optimization techniques: automated exposure control; mA and/or kV adjustment per patient size (includes targeted exams where dose is matched to clinical indication); or iterative reconstruction. COMPARISON: CT head wo con* [id number] 02/12/2022 9:12 AM RADIATION DOSE METRICS: Total DLP (mGy-cm): 754.1 FINDINGS: Brain: Moderate atrophy or volume loss. No intracranial hemorrhage or hematoma is seen. No mass effect or shift of midline structures. No findings to indicate territorial or large vessel ischemic infarct. Small benign basal ganglia calcifications bilaterally. No significant change with prior exam. Cerebral ventricles: Moderate ventriculomegaly with atrophy, unchanged with prior exam. Paranasal sinuses: Visualized sinuses are unremarkable. No fluid levels. Mastoid air cells: Visualized mastoid air cells are well aerated. Bones: Bone windows of the skull show no skull fracture. Soft tissues: Unremarkable. CT/CT head wo con* [id number] IMPRESSION: No acute intracranial abnormality or significant change with prior exam. Moderate atrophic changes.
--- NOTE | 2023-12-12 17:33 | W.ED.FALL ---
Documented by User: [email or web address] Jarquin 12/12/23 21:33 HPI - Fall General: Chief Complaint: Extremity Injury, Lower Stated Complaint: right hip pain, fall Time Seen by Provider: 12/12/23 17:24 Source: RN notes reviewed Mode of arrival: EMS Limitations: altered mental status History of Present Illness: Patient is a 68-year-old male with past medical history of COPD and hyponatremia who presents to the emergency department via ambulance from [facility] due to a fall that happened prior to arrival. This was reportedly witnessed, patient falling out of bed and did hit his head, no loss of consciousness. Obviously unable to get up under his own power, he chronically keeps his legs crossed and had been telling EMS and half-way that his right hip was bothering him. Per half-way staff the patient does not have a left hip. He was seen here couple of days ago and evaluated for his chronic hyponatremia, was found to be 127 at that time and was prescribed salt tablets. He was told to be rechecked in 10 days. At this time patient cannot provide any review of systems, however he is able to state his name and birthdate. Reportedly, this is his baseline mentation. complaint: fall Onset (ago): hour(s) Fall from: out of bed Fall witnessed: yes, by living facility staff Place fall occurred: half-way/SNF Loss of consciousness: None Prolonged down time: no Symptoms prior to fall: none Location of injury: head Location of injury - extremities: Bilateral: thigh (HIPS, right worse than left) Related Data Home Medications Medication Instructions Recorded Confirmed aripiprazole 10 mg tablet (Abilify) 10 mg PO DAILY@0700 02/12/22 07/02/23 lorazepam 0.5 mg tablet 0.5 mg PO BEDTIME@02/12/22 07/02/23 propranolol 10 mg tablet 10 mg PO BID@08,02/12/22 07/02/23 simvastatin 20 mg tablet 20 mg PO BEDTIME@02/12/22 07/02/23 tamsulosin 0.4 mg capsule 0.8 mg PO BEDTIME@02/12/22 07/02/23 bisacodyl 10 mg rectal suppository 10 mg SD DAILY PRN Constipation 05/20/22 07/02/23 docusate sodium 100 mg tablet 200 mg PO BID@08,20 05/20/22 07/02/23 magnesium hydroxide 400 mg/5 mL 30 ml PO DAILY PRN Constipation 05/20/22 07/02/23 oral suspension (Milk of Magnesia) naloxone 2 mg/2 mL syringe kit 2 mg IM Q3M PRN overdose 05/20/22 07/02/23 arginine-vitamin C-vitamin E oral 4.5 g PO BID@08,18 05/27/22 07/02/23 4.5 gram-156 mg/9.2 gram powder pkt (Arginaid) Medplus 120 ml PO TID 05/28/22 07/02/23 Prostat Liquid 30 ml PO TID 05/28/22 07/02/23 folic acid 1 mg tablet 1 mg PO DAILY@08 05/28/22 07/02/23 sennosides 8.6 mg-docusate sodium 2 tab PO BID@08,05/28/22 07/02/23 50 mg tablet (Senna-S) Previous Rx's Medication Instructions Recorded DME: [facility] #1 ea 10/12/21 pantoprazole 40 mg tablet,delayed 40 mg PO BID #60 tabs 02/15/22 release umeclidinium 62.5 mcg/actuation 1 inh inhalation DAILY #30 ea 10/10/22 blister powder for inhalation (Incruse Ellipta) sodium chloride 1,000 mg soluble 1,000 mg PO BID #60 tabs 12/07/23 tablet Allergies Allergy/AdvReac Type Severity Reaction Status Date / Time No Known Allergies Allergy Verified 07/02/23 09:39 Review of Systems General: Reports: ROS unobtainable due to mental status PFSH ED PFSH: Medical History Osteoporosis COVID-19 vaccine administered J&J plus an mRNA booster per patient report History of PFTs 05/31 severe airflow obstruction, normal gas exchange, decreased FVC, FEV1 40%, FEVI/FVC reduced Anemia BPH (benign prostatic hyperplasia) COPD (chronic obstructive pulmonary disease) Vitamin D deficiency Mixed hyperlipidemia Essential hypertension Tardive akathisia Chronic schizophrenia Surgical History 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 05/2021 Family History Denies family history of CAD (coronary artery disease) Anesthesia complication Bleeding disorder Social History Smoking and tobacco/nicotine status: former use of tobacco/nicotine Quit status (tobacco/nicotine): has quit using Year quit tobacco: 2021 Former quit date comment: 1.5ppd x 51 year Hx Second hand smoke exposure: Yes Alcohol intake: former Substance/Drug Use: unknown Caregiver/support person: Yes Lives independently: No Household members: other Details: Resides at [facility] residential assisted living care facility Housing: Assisted Living Facility Marital status: Single service: No Current occupational status: disabled Pets and animals: Yes Do you think of yourself as: Straight/Heterosexual Current gender identity: Male Physical Exam Const: COMMON NORMALS: alert EXAM LIMITATIONS: altered mental status NUTRITIONAL APPEARANCE: cachectic ORIENTATION/CONSCIOUSNESS: Yes awake and Yes oriented to person OTHER: Patient's legs are crossed at time of examination with Podus boots present to both feet. Ordonez catheter placed draining into leg bag with straw-colored urine. Port-A-Cath right anterior chest wall HENMT: COMMON NORMALS: normocephalic, atraumatic and Normal external nose present HEAD & SCALP: normocephalic, atraumatic and abrasion forehead ; no Willis's sign, no hematoma, no laceration, no palpable skull fracture, no raccoon eyes and no scalp tenderness FACE & SINUS: normal facial exam NOSE: Normal external nose present Eye: COMMON NORMALS: Equal, round and reactive pupils present, EOMs intact bilaterally, conjunctivae normal and no scleral icterus CONJUNCTIVA: Yes conjunctivae normal PUPIL: Yes Equal, round and reactive pupils present Neck/C-Spine: COMMON NORMALS: full ROM CERVICAL SPINE: No pain with cervical ROM, No Cervical spine tenderness and No Paracervical muscle tenderness Chest: OTHER: Port-A-Cath right anterior chest wall Resp: COMMON NORMALS: normal respiratory effort and No use of accessory muscles OTHER: Diffuse expiratory wheezing Cardio: COMMON NORMALS: regular rate, regular rhythm, No gallops present (Cardio), No murmurs present (Cardio), No rub (Cardio) and Peripheral pulses 2+ throughout RATE: regular rate RHYTHM: regular rhythm PERIPHERAL PULSES: Peripheral pulses 2+ throughout GI: COMMON NORMALS: Normal to inspection, nondistended, normoactive bowel sounds present, Soft to palpation and non-tender PALPATION: Yes Soft to palpation Extremity: NARRATIVE EXTREMITY EXAM: No reproducible tenderness to palpation of either the left or right hip joint. Negative logroll, somewhat limited due to patient keeping his legs crossed at all times. Also difficult to ascertain shortness or internal/external rotation of the extremities. Neuro: COMMON NORMALS: moves all extremities, no focal motor deficits and no sensory deficits noted SENSORIUM/ORIENTATION: Yes alert and Yes oriented to person Skin: NARRATIVE SKIN EXAM: Decubitus ulcer Course Vital Signs: Vital signs: Vital Signs Temperature 97.7 F 12/12/23 17:25 Pulse Rate 71 12/12/23 21:30 Respiratory Rate 17 12/12/23 17:25 Blood Pressure 116/55 12/12/23 18:45 Pulse Oximetry 98 12/12/23 21:30 Oxygen Delivery Me thod Room Air 12/12/23 21:30 MDM - Fall Medical Decision Making Patient was here the other day for hyponatremia was discharged home afterwards with salt tablets. He is from half-way, had a fall the day where he supposedly hit his head and injured his bilateral hips though there was some confusion as to which pain was bothering him. X-ray of both did not demonstrate any acute findings. CT head and neck were also negative for any acute findings. With his lab work, sodium was chronically low, up 1 point from prior visit. However his hemoglobin did drop about a point and a half, he in reviewing his past labs he is chronically anemic and does have a history of. However due to his significant drop in the past few hours, did do rectal exam for Hemoccult testing and this was negative. For this I would like the patient to have his labs repeated on Friday to make sure that it is not dropping more precipitously, his urinalysis was unremarkable and the rest of his lab work unremarkable. He has not been having vomiting or any other symptoms, unknown why his hemoglobin would be dropping as much as it is other than it being due to his history of chronic anemia. His vitals have remained stable throughout the ED course, he will be discharged back to the half-way. Discussed patient's case with Dr. Corona. Lab Data 12/12/23 17:46 12/12/23 17:46 Radiology Impressions Cervical Spine CT 12/12/23 17:31 IMPRESSION: Multilevel degenerative changes of the cervical spine, without significant change with prior exam. No fracture or acute findings. Head CT 12/12/23 17:31 IMPRESSION: No acute intracranial abnormality or significant change with prior exam. Moderate atrophic changes. Hip/Pelvis X-Ray 12/12/23 17:31 IMPRESSION: No acute fracture identified in the pelvic ring or proximal femurs on plain radiography. Other chronic and postsurgical findings detailed above. Laboratory Results WBC 5.40 10^3/uL (3.29-11.43) 12/12/23 17:46 RBC 3.17 10^6/uL (3.85-5.65) L 12/12/23 17:46 Hgb 8.70 g/dL (11.27-16.99) L 12/12/23 17:46 Hct 26.3 % (37-53) L 12/12/23 17:46 MCV 83.0 fl (82-101) 12/12/23 17:46 MCH 27.4 pg (27-33) 12/12/23 17:46 MCHC 33.1 g/dL (30-55) 12/12/23 17:46 RDW 17.8 % (12.1-15.1) H 12/12/23 17:46 Plt Count 175 10^3/cmm (157-399) 12/12/23 17:46 MPV 9.9 fL (7.4-10.4) 12/12/23 17:46 Neut % (Auto) 59.4 % 12/12/23 17:46 Lymph % (Auto) 21.1 % 12/12/23 17:46 Stearns % (Auto) 12.6 % 12/12/23 17:46 Eos % (Auto) 5.4 % 12/12/23 17:46 Baso % (Auto) 0.9 % 12/12/23 17:46 Neut # (Auto) 3.21 10^3/uL (1.8-7.7) 12/12/23 17:46 Lymph # (Auto) 1.1 10^3/uL (0.8-4.8) 12/12/23 17:46 Stearns # (Auto) 0.7 10^3/uL (0.2-0.9) 12/12/23 17:46 Eos # (Auto) 0.3 10^3/uL (0.0-0.8) 12/12/23 17:46 Baso # (Auto) 0.1 10^3/uL (0.0-0.1) 12/12/23 17:46 Nucleated RBC % (auto) 0 % 12/12/23 17:46 Nucleated RBCs # 0.0 /100WBC 12/12/23 17:46 Sodium 128 mmol/L (136-145) L 12/12/23 17:46 Potassium 4.1 mmol/L (3.5-5.1) 12/12/23 17:46 Chloride 95 mmol/L (98-107) L 12/12/23 17:46 Carbon Dioxide 27 mmol/L (22-29) 12/12/23 17:46 Anion Gap 10.1 (5-19) 12/12/23 17:46 BUN 15 mg/dL (8-23) 12/12/23 17:46 Creatinine 0.4 mg/dL (0.7-1.2) L 12/12/23 17:46 GFR Calculation 213.9 mL/min (90-130) H 12/12/23 17:46 Glucose 83 mg/dL (65-115) 12/12/23 17:46 Calculated Osmolality 266 mOsm/kg (285-295) L 12/12/23 17:46 Calcium 7.8 mg/dL (8.5-10.5) L 12/12/23 17:46 Total Bilirubin 0.2 mg/dL (0.15-1.2) 12/12/23 17:46 AST 27 U/L (0-40) 12/12/23 17:46 ALT 24 U/L (0-41) 12/12/23 17:46 Alkaline Phosphatase 134 U/L (40-130) H 12/12/23 17:46 Creatine Kinase 158 U/L (39-308) 12/12/23 17:46 Total Protein 6.6 g/dL (6.6-8.7) 12/12/23 17:46 Albumin 2.7 g/dL (3.5-5.2) L 12/12/23 17:46 Globulin 3.9 g/dL (1.3-4.6) 12/12/23 17:46 Urine Color Yellow (Yellow) 12/12/23 18:28 Urine Appearance Cloudy (CLEAR) A 12/12/23 18:28 Urine pH 6.0 (5-7) 12/12/23 18:28 Ur Specific [place] 1.022 (1.005-1.030) 12/12/23 18:28 Urine Protein Trace (Negative) A 12/12/23 18:28 Urine Glucose (UA) Negative (Normal) 12/12/23 18:28 Urine Ketones Negative (Negative) 12/12/23 18:28 Urine Blood Negative (Negative) 12/12/23 18:28 Urine Nitrate Negative (Negative) 12/12/23 18:28 Urine Bilirubin Negative (Negative) 12/12/23 18: Urine Urobilinogen 0.2 mg/dL (Negative) 12/12/23 18:28 Ur Leukocyte Esterase 1+ (Negative) A 12/12/23 18:28 Urine RBC 0-4 /hpf (0-2) H 12/12/23 18:28 Urine WBC Rare /hpf (0-5) 12/12/23 18:28 Ur Squamous Epith Cells None /hpf (0-5) 12/12/23 18:28 Calcium Oxalate Crystal 5-10 /hpf H 12/12/23 18:28 Amorphous Sediment Not Reportable 12/12/23 18:28 Urine Bacteria None /hpf (NONE) 12/12/23 18:28 All radiology interpretation(s) finalized by discharge Discharge Plan Discharge Patient Disposition: Home Clinical Impression: Fall Qualifiers: Encounter type: initial encounter Qualified Code(s): W19.XXXA - Unspecified fall, initial encounter Anemia Qualifiers: Anemia type: unspecified type Qualified Code(s): D64.9 - Anemia, unspecified Decubitus ulcer Qualifiers: Pressure injury location: buttock Pressure injury stage: unspecified pressure injury stage Laterality: unspecified laterality Qualified Code(s): L89.309 - Pressure ulcer of unspecified buttock, unspecified stage CHI (closed head injury) Qualifiers: Encounter type: initial encounter Qualified Code(s): S09.90XA - Unspecified injury of head, initial encounter Condition: Stable Prescriptions: No Action (DME) DME: [facility] See Rx Instructions .Route Qty: 1 0RF Rx Instructions: Pureed diet with nectar thick liquids all meals Incruse Ellipta 62.5 mcg/actuation blister with device 1 inh inhalation DAILY Qty: 30 6RF sodium chloride 1,000 mg tablet,soluble 1,000 mg PO BID Qty: 60 0RF propranolol 10 mg tablet 10 mg PO BID@08,20 lorazepam 0.5 mg tablet 0.5 mg PO BEDTIME@20 Rx Instructions: Take one tablet at bedtime tamsulosin 0.4 mg capsule 0.8 mg PO BEDTIME@20 simvastatin 20 mg tablet 20 mg PO BEDTIME@20 aripiprazole [Abilify] 10 mg tablet 10 mg PO DAILY@0700 pantoprazole 40 mg Tablet,Delayed Release (Dr/Ec) 40 mg PO BID Qty: 60 0RF Rx Instructions: @08:00,20:00 magnesium hydroxide [Milk of Magnesia] 400 mg/5 mL Suspension 30 ml PO DAILY PRN (Reason: Constipation) bisacodyl 10 mg Suppository 10 mg SD DAILY PRN (Reason: Constipation) docusate sodium 100 mg Tablet 200 mg PO BID@08,20 naloxone 2 mg/2 mL Syringe Kit 2 mg IM Q3M PRN (Reason: overdose) Rx Instructions: NTExceed 10 mg total dose/episode Arginaid 4.5 gram-156 mg/9.2 gram Powder In Packet 4.5 g PO BID@08,18 Senna-S 8.6-50 mg Tablet 2 tab PO BID@08,20 folic acid 1 mg Tablet 1 mg PO DAILY@08 Medplus 120 ml PO TID Rx Instructions: at med pass Prostat Liquid 30 ml PO TID Discharge Orders: Discharge ED (Routine); Ordered 12/12/23 Ordered By: Marcellus Cohen Referrals: Benitez Fitzpatrick MD [Primary Care Provider] - Activity Restrictions/Additional Instructions: Please have your hemoglobin levels checked on Friday to reevaluate your anemia. Continue home medications. Follow-up with primary care and return with any new or worsening. 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 [facility] Fwd Documented by User: Сергей Corona, DO 12/13/23 15:45 HPI - Fall General: Chief Complaint: Extremity Injury, Lower Stated Complaint: right hip pain, fall Time Seen by Provider: 12/12/23 17:24 Related Data Home Medications Medication Instructions Recorded Confirmed aripiprazole 10 mg tablet (Abilify) 10 mg PO DAILY@0700 02/12/22 07/02/23 lorazepam 0.5 mg tablet 0.5 mg PO BEDTIME@20 02/12/22 07/02/23 propranolol 10 mg tablet 10 mg PO BID@08,20 02/12/22 07/02/23 simvastatin 20 mg tablet 20 mg PO BEDTIME@20 02/12/22 07/02/23 tamsulosin 0.4 mg capsule 0.8 mg PO BEDTIME@20 02/12/22 07/02/23 bisacodyl 10 mg rectal suppository 10 mg SD DAILY PRN Constipation 05/20/22 07/02/23 docusate sodium 100 mg tablet 200 mg PO BID@08,05/20/22 07/02/23 magnesium hydroxide 400 mg/5 mL 30 ml PO DAILY PRN Constipation 05/20/22 07/02/23 oral suspension (Milk of Magnesia) naloxone 2 mg/2 mL syringe kit 2 mg IM Q3M PRN overdose 05/20/22 07/02/23 arginine-vitamin C-vitamin E oral 4.5 g PO BID@08,18 05/27/22 07/02/23 4.5 gram-156 mg/9.2 gram powder pkt (Arginaid) Medplus 120 ml PO TID 05/28/22 07/02/23 Prostat Liquid 30 ml PO TID 05/28/22 07/02/23 folic acid 1 mg tablet 1 mg PO DAILY@08 05/28/22 07/02/23 sennosides 8.6 mg-docusate sodium 2 tab PO BID@08,05/28/22 07/02/23 50 mg tablet (Senna-S) Previous Rx's Medication Instructions Recorded DME: Vernon #1 ea 10/12/21 pantoprazole 40 mg tablet,delayed 40 mg PO BID #60 tabs 02/15/22 release umeclidinium 62.5 mcg/actuation 1 inh inhalation DAILY #30 ea 10/10/22 blister powder for inhalation (Incruse Ellipta) sodium chloride 1,000 mg soluble 1,000 mg PO BID #60 tabs 12/07/23 tablet Allergies Allergy/AdvReac Type Severity Reaction Status Date / Time No Known Allergies Allergy Verified 07/02/23 09:39 [facility] ED PFSH: Medical History Osteoporosis COVID-19 vaccine administered J&J plus an mRNA booster per patient report History of PFTs 05/31 severe airflow obstruction, normal gas exchange, decreased FVC, FEV1 40%, FEVI/FVC reduced Anemia BPH (benign prostatic hyperplasia) COPD (chronic obstructive pulmonary disease) Vitamin D deficiency Mixed hyperlipidemia Essential hypertension Tardive akathisia Chronic schizophrenia Surgical History 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 05/2021 Family History Denies family history of CAD (coronary artery disease) Anesthesia complication Bleeding disorder Social History Smoking and tobacco/nicotine status: former use of tobacco/nicotine Quit status (tobacco/nicotine): has quit using Year quit tobacco: 2021 Former quit date comment: 1.5ppd x 51 year Hx Second hand smoke exposure: Yes Alcohol intake: former Substance/Drug Use: unknown Caregiver/support person: Yes Lives independently: No Household members: other Details: Resides at [facility] residential assisted living care facility Housing: Assisted Living Facility Marital status: Single service: No Current occupational status: disabled Pets and animals: Yes Do you think of yourself as: Straight/Heterosexual Current gender identity: Male Course Vital Signs: Vital signs: Vital Signs Temperature 97.7 F 12/12/23 17:25 Pulse Rate 71 12/12/23 21:30 Respiratory Rate 17 12/12/23 17:25 Blood Pressure 116/55 12/12/23 18:45 Pulse Oximetry 98 12/12/23 21:30 Oxygen Delivery Me thod Room Air 12/12/23 21:30 MDM - Fall Medical Decision Making Patient was here the other day for hyponatremia was discharged home afterwards with salt tablets. He is from half-way, had a fall the day where he supposedly hit his head and injured his bilateral hips though there was some confusion as to which pain was bothering him. X-ray of both did not demonstrate any acute findings. CT head and neck were also negative for any acute findings. With his lab work, sodium was chronically low, up 1 point from prior visit. However his hemoglobin did drop about a point and a half, he in reviewing his past labs he is chronically anemic and does have a history of. However due to his significant drop in the past few hours, did do rectal exam for Hemoccult testing and this was negative. For this I would like the patient to have his labs repeated on Friday to make sure that it is not dropping more precipitously, his urinalysis was unremarkable and the rest of his lab work unremarkable. He has not been having vomiting or any other symptoms, unknown why his hemoglobin would be dropping as much as it is other than it being due to his history of chronic anemia. His vitals have remained stable throughout the ED course, he will be discharged back to the half-way. Discussed patient's case with Dr. Corona. This patient was originally seen by Mr. Noel PA-C. I agree with his history, evaluation, and treatment. Lab Data 12/12/23 17:46 12/12/23 17:46 Radiology Impressions Cervical Spine CT 12/12/23 17:31 IMPRESSION: Multilevel degenerative changes of the cervical spine, without significant change with prior exam. No fracture or acute findings. Head CT 12/12/23 17:31 IMPRESSION: No acute intracranial abnormality or significant change with prior exam. Moderate atrophic changes. Hip/Pelvis X-Ray 12/12/23 17:31 IMPRESSION: No acute fracture identified in the pelvic ring or proximal femurs on plain radiography. Other chronic and postsurgical findings detailed above. Laboratory Results WBC 5.40 10^3/uL (3.29-11.43) 12/12/23 17:46 RBC 3.17 10^6/uL (3.85-5.65) L 12/12/23 17:46 Hgb 8.70 g/dL (11.27-16.99) L 12/12/23 17:46 Hct 26.3 % (37-53) L 12/12/23 17:46 MCV 83.0 fl (82-101) 12/12/23 17:46 MCH 27.4 pg (27-33) 12/12/23 17:46 MCHC 33.1 g/dL (30-55) 12/12/23 17:46 RDW 17.8 % (12.1-15.1) H 12/12/23 17:46 Plt Count 175 10^3/cmm (157-399) 12/12/23 17:46 MPV 9.9 fL (7.4-10.4) 12/12/23 17:46 Neut % (Auto) 59.4 % 12/12/23 17:46 Lymph % (Auto) 21.1 % 12/12/23 17:46 Stearns % (Auto) 12.6 % 12/12/23 17:46 Eos % (Auto) 5.4 % 12/12/23 17:46 Baso % (Auto) 0.9 % 12/12/23 17:46 Neut # (Auto) 3.21 10^3/uL (1.8-7.7) 12/12/23 17:46 Lymph # (Auto) 1.1 10^3/uL (0.8-4.8) 12/12/23 17:46 Stearns # (Auto) 0.7 10^3/uL (0.2-0.9) 12/12/23 17:46 Eos # (Auto) 0.3 10^3/uL (0.0-0.8) 12/12/23 17:46 Baso # (Auto) 0.1 10^3/uL (0.0-0.1) 12/12/23 17:46 Nucleated RBC % (auto) 0 % 12/12/23 17:46 Nucleated RBCs # 0.0 /100WBC 12/12/23 17:46 Sodium 128 mmol/L (136-145) L 12/12/23 17:46 Potassium 4.1 mmol/L (3.5-5.1) 12/12/23 17:46 Chloride 95 mmol/L (98-107) L 12/12/23 17:46 Carbon Dioxide 27 mmol/L (22-29) 12/12/23 17:46 Anion Gap 10.1 (5-19) 12/12/23 17:46 BUN 15 mg/dL (8-23) 12/12/23 17:46 Creatinine 0.4 mg/dL (0.7-1.2) L 12/12/23 17:46 GFR Calculation 213.9 mL/min (90-130) H 12/12/23 17:46 Glucose 83 mg/dL (65-115) 12/12/23 17:46 Calculated Osmolality 266 mOsm/kg (285-295) L 12/12/23 17:46 Calcium 7.8 mg/dL (8.5-10.5) L 12/12/23 17:46 Total Bilirubin 0.2 mg/dL (0.15-1.2) 12/12/23 17:46 AST 27 U/L (0-40) 12/12/23 17:46 ALT 24 U/L (0-41) 12/12/23 17:46 Alkaline Phosphatase 134 U/L (40-130) H 12/12/23 17:46 Creatine Kinase 158 U/L (39-308) 12/12/23 17:46 Total Protein 6.6 g/dL (6.6-8.7) 12/12/23 17:46 Albumin 2.7 g/dL (3.5-5.2) L 12/12/23 17:46 Globulin 3.9 g/dL (1.3-4.6) 12/12/23 17:46 Urine Color Yellow (Yellow) 12/12/23 18:28 Urine Appearance Cloudy (CLEAR) A 12/12/23 18:28 Urine pH 6.0 (5-7) 12/12/23 18:28 Ur Specific [place] 1.022 (1.005-1.030) 12/12/23 18:28 Urine Protein Trace (Negative) A 12/12/23 18:28 Urine Glucose (UA) Negative (Normal) 12/12/23 18:28 Urine Ketones Negative (Negative) 12/12/23 18:28 Urine Blood Negative (Negative) 12/12/23 18:28 Urine Nitrate Negative (Negative) 12/12/23 18:28 Urine Bilirubin Negative (Negative) 12/12/23 18:28 Urine Urobilinogen 0.2 mg/dL (Negative) 12/12/23 18:28 Ur Leukocyte Esterase 1+ (Negative) A 12/12/23 18:28 Urine RBC 0-4 /hpf (0-2) H 12/12/23 18:28 Urine WBC Rare /hpf (0-5) 12/12/23 18:28 Ur Squamous Epith Cells None /hpf (0-5) 12/12/23 18:28 Calcium Oxalate Crystal 5-10 /hpf H 12/12/23 18:28 Amorphous Sediment Not Reportable 12/12/23 18:28 Urine Bacteria None /hpf (NONE) 12/12/23 18:28 Discharge Plan Discharge Patient Disposition: Home Clinical Impression: Fall Qualifiers: Encounter type: initial encounter Qualified Code(s): W19.XXXA - Unspecified fall, initial encounter Anemia Qualifiers: Anemia type: unspecified type Qualified Code(s): D64.9 - Anemia, unspecified Decubitus ulcer Qualifiers: Pressure injury location: buttock Pressure injury stage: unspecified pressure injury stage Laterality: unspecified laterality Qualified Code(s): L89.309 - Pressure ulcer of unspecified buttock, unspecified stage CHI (closed head injury) Qualifiers: Encounter type: initial encounter Qualified Code(s): S09.90XA - Unspecified injury of head, initial encounter Condition: Stable Prescriptions: No Action (DME) DME: [facility] Unit See Rx Instructions .Route Qty: 1 0RF Rx Instructions: Pureed diet with nectar thick liquids all meals Incruse Ellipta 62.5 mcg/actuation blister with device 1 inh inhalation DAILY Qty: 30 6RF sodium chloride 1,000 mg tablet,soluble 1,000 mg PO BID Qty: 60 0RF propranolol 10 mg tablet 10 mg PO BID@08,20 lorazepam 0.5 mg tablet 0.5 mg PO BEDTIME@20 Rx Instructions: Take one tablet at bedtime tamsulosin 0.4 mg capsule 0.8 mg PO BEDTIME@20 simvastatin 20 mg tablet 20 mg PO BEDTIME@20 aripiprazole [Abilify] 10 mg tablet 10 mg PO DAILY@0700 pantoprazole 40 mg Tablet,Delayed Release (Dr/Ec) 40 mg PO BID Qty: 60 0RF Rx Instructions: @08:00,20:00 magnesium hydroxide [Milk of Magnesia] 400 mg/5 mL Suspension 30 ml PO DAILY PRN (Reason: Constipation) bisacodyl 10 mg Suppository 10 mg SD DAILY PRN (Reason: Constipation) docusate sodium 100 mg Tablet 200 mg PO BID@08,20 naloxone 2 mg/2 mL Syringe Kit 2 mg IM Q3M PRN (Reason: overdose) Rx Instructions: NTExceed 10 mg total dose/episode Arginaid 4.5 gram-156 mg/9.2 gram Powder In Packet 4.5 g PO BID@08,18 Senna-S 8.6-50 mg Tablet 2 tab PO BID@08,20 folic acid 1 mg Tablet 1 mg PO DAILY@08 Medplus 120 ml PO TID Rx Instructions: at med pass Prostat Liquid 30 ml PO TID Discharge Orders: Discharge ED (Routine); Ordered 12/12/23 Ordered By: Marcellus Cohen Referrals: Benitez Fitzpatrick MD [Primary Care Provider] - Activity Restrictions/Additional Instructions: Please have your hemoglobin levels checked on Friday to reevaluate your anemia. Continue home medications. Follow-up with primary care and return with any new or worsening. 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 Geovanna Espinal
[2023-12-12 17:52] LABS: Basophils # 0.1 10^3/uL (0.0-0.1); Basophils % 0.9 %; Eosinophils # 0.3 10^3/uL (0.0-0.8); Eosinophils % 5.4 %; Hematocrit 26.3 % (37-53); Lymphocytes # 1.1 10^3/uL (0.8-4.8); Lymphocytes % 21.1 %; Mean Corpuscular HGB Conc 33.1 g/dL (30-55); Mean Corpuscular Hemoglobin 27.4 pg (27-33); Mean Platelet Volume 9.9 fL (7.4-10.4); Monocytes # 0.7 10^3/uL (0.2-0.9); Monocytes % 12.6 %; Neutrophils # 3.21 10^3/uL (1.8-7.7); Neutrophils % 59.4 %; Nucleated Red Blood Cells % 0 %; Platelet Count 175 10^3/cmm (157-399); Red Blood Count 3.17 10^6/uL (3.85-5.65); Red Cell Distribution Width 17.8 % (12.1-15.1)
[2023-12-12 18:08] LABS: Alanine Aminotransferase 24 U/L (0-41); Albumin Level 2.7 g/dL (3.5-5.2); Alkaline Phosphatase 134 U/L (40-130); Anion Gap 10.1 (5-19); Aspartate Amino Transferase 27 U/L (0-40); Blood Urea Nitrogen 15 mg/dL (8-23); Calcium 7.8 mg/dL (8.5-10.5); Carbon Dioxide 27 mmol/L (22-29); Chloride 95 mmol/L (98-107); Creatine Phosphokinase 158 U/L (39-308); Globulin 3.9 g/dL (1.3-4.6); Glomerular Filtration Rate 213.9 mL/min (90-130); Glucose 83 mg/dL (65-115); Osmolality Calculated 266 mOsm/kg (285-295); Potassium 4.1 mmol/L (3.5-5.1); Sodium 128 mmol/L (136-145); Total Bilirubin 0.2 mg/dL (0.15-1.2); Total Protein 6.6 g/dL (6.6-8.7)
[2023-12-12 18:44] LABS: Bilirubin Urine Negative (Negative); Blood Urine Negative (Negative); Glucose Urine UA Negative (Normal); Ketones Urine Negative (Negative); Leukocyte Esterase Urine 1+ (Negative); Nitrate Urine Negative (Negative); Protein Urine Trace (Negative); Specific Gravity, Urine 1.022 (1.005-1.030); Urine Appearance Cloudy (CLEAR); Urine Color Yellow (Yellow); Urobilinogen Urine 0.2 mg/dL (Negative)
[2023-12-12 18:45] VITALS: BP 116/55; PULSE 65; O2SAT 98
[2023-12-12 18:49] LABS: Add Urine Microscopic? YES
[2023-12-12 19:00] VITALS: PULSE 73; O2SAT 100
[2023-12-12 19:20] LABS: Add Urine Culture? No; RBC Urine 0-4 /hpf (0-2); UA Manual Slide Review YES; UA Slide Review UA Slide Review Perf; WBC Urine RARE /hpf (0-5)
[2023-12-12 19:30] VITALS: PULSE 70; O2SAT 98
[2023-12-12 21:30] VITALS: PULSE 71; O2SAT 98
== END 2023-12-12 22:07 | disposition home or self-care (01) ==
PROVIDERS: Emergency Provider Physician Assistant; PCP Internal Medicine
DX: S09.90XA Unspecified injury of head, initial encounter (principal); W19.XXXA Unspecified fall, initial encounter; D64.9 Anemia, unspecified; L89.309 Pressure ulcer of unspecified buttock, unspecified stage; Z87.891 Personal history of nicotine dependence; J44.9 Chronic obstructive pulmonary disease, unspecified; I10 Essential (primary) hypertension
CPT/HCPCS: 36415; 70450; 72125; 73522; 80053; 81001; 82550; 85025; 96374; 99285; J1642

== ENCOUNTER 2024-03-29 08:01 | Emergency (ER) | payer MEDICARE, MEDICAID, SELFPAY ==
[2024-03-29 08:01] VITALS: BP 92/59; PULSE 62; RESP 16; TEMP 36.7; O2SAT 96; BMI 16.2
--- NOTE | 2024-03-29 08:11 | W.ED.GENADLT ---
HPI - General Adult General: Chief complaint: General Medical Stated complaint: Displaced Cath Time Seen by Provider: 03/29/24 08:09 History of Present Illness: 68-year-old male presents to the emergency room via EMS from local longterm he had pulled out his suprapubic catheter through the evening. Patient has dementia and is unable to answer any questions. Related Data Home Medications ?Medication ?Instructions ?Recorded ?Confirmed propranolol 10 mg tablet 10 mg PO BID@08,02/12/22 03/29/24 simvastatin 20 mg tablet 20 mg PO BEDTIME@02/12/22 03/29/24 tamsulosin 0.4 mg capsule 0.8 mg PO BEDTIME@02/12/22 03/29/24 bisacodyl 10 mg rectal suppository 10 mg NJ DAILY PRN Constipation 05/20/22 03/29/24 docusate sodium 100 mg tablet 200 mg PO BID@08,05/20/22 03/29/24 magnesium hydroxide 400 mg/5 mL 30 ml PO DAILY PRN Constipation 05/20/22 03/29/24 oral suspension (Milk of Magnesia) naloxone 2 mg/2 mL syringe kit 2 mg IM Q3M PRN overdose 05/20/22 03/29/24 folic acid 1 mg tablet 1 mg PO DAILY@05/28/22 03/29/24 sennosides 8.6 mg-docusate sodium 2 tab PO BID@08,05/28/22 03/29/24 50 mg tablet (Senna-S) acetaminophen 325 mg tablet 650 mg PO Q6H PRN Pain 03/29/24 03/29/24 albuterol sulfate 1.25 mg/3 mL 2.5 mg inhalation Q8H 03/29/24 03/29/24 solution for nebulization ferrous sulfate 325 mg (65 mg 325 mg PO DAILY 03/29/24 03/29/24 iron) tablet hydrocodone 5 mg-acetaminophen 325 1 tab PO Q6H PRN Pain 03/29/24 03/29/24 mg tablet mirtazapine 30 mg tablet 30 mg PO DAILY 03/29/24 03/29/24 mupirocin 2 % topical ointment 1 applic topical Q8H 03/29/24 03/29/24 paroxetine HCl 40 mg tablet (Paxil) 40 mg PO DAILY 03/29/24 03/29/24 potassium chloride 20 mEq 20 meq PO DAILY 03/29/24 03/29/24 tablet,extended release quetiapine 100 mg tablet 100 mg PO DAILY 03/29/24 03/29/24 Previous Rx's ?Medication ?Instructions ?Recorded pantoprazole 40 mg tablet,delayed 40 mg PO BID #60 tabs 02/15/22 release umeclidinium 62.5 mcg/actuation 1 inh inhalation DAILY #30 ea 10/10/22 blister powder for inhalation (Incruse Ellipta) sodium chloride 1,000 mg soluble 1,000 mg PO BID #60 tabs 12/07/23 tablet Allergies Allergy/AdvReac Type Severity Reaction Status Date / Time No Known Allergies Allergy Verified 07/02/23 09:39 PFSH ED PFSH: Medical History Osteoporosis COVID-19 vaccine administered J&J plus an mRNA booster per patient report History of PFTs 05/31 severe airflow obstruction, normal gas exchange, decreased FVC, FEV1 40%, FEVI/FVC reduced Anemia BPH (benign prostatic hyperplasia) COPD (chronic obstructive pulmonary disease) Vitamin D deficiency Mixed hyperlipidemia Essential hypertension Tardive akathisia Chronic schizophrenia Surgical History 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 05/2021 Family History Denies family history of CAD (coronary artery disease) Anesthesia complication Bleeding disorder Social History Smoking and tobacco/nicotine status: former use of tobacco/nicotine Quit status (tobacco/nicotine): has quit using Year quit tobacco: 2021 Former quit date comment: 1.5ppd x 51 year Hx Second hand smoke exposure: Yes Alcohol intake: former Substance/Drug Use: unknown Caregiver/support person: Yes Lives independently: No Household members: other Details: Resides at [facility] residential assisted living care facility Housing: Assisted Living Facility Marital status: Single service: No Current occupational status: disabled Pets and animals: Yes Do you think of yourself as: Straight/Heterosexual Current gender identity: Male Physical Exam HENMT: COMMON NORMALS: normocephalic and atraumatic HEAD & SCALP: normocephalic and atraumatic Resp: COMMON NORMALS: normal respiratory effort, No retractions, No use of accessory muscles and clear to auscultation bilaterally AUSCULTATION: clear to auscultation bilaterally Cardio: COMMON NORMALS: regular rate, regular rhythm and No murmurs present (Cardio) RATE: regular rate RHYTHM: regular rhythm GI: COMMON NORMALS: Soft to palpation and No hepatosplenomegaly present AUSCULTATION: Yes normoactive bowel sounds PALPATION: Yes Soft to palpation, No Tenderness to palpation present (GI), No Guarding due to palpation present (GI) and Yes No hepatosplenomegaly present Extremity: COMMON NORMALS: normal to inspection, capillary refill normal, no clubbing, cyanosis or edema, no calf tenderness and no pedal edema Skin: COMMON NORMALS: no rashes or lesions noted GENERAL SKIN EXAM: no rashes or lesions noted Course Vital Signs: Vital signs: Vital Signs Temperature 98.0 F 03/29/24 08:01 Pulse Rate 62 03/29/24 08:01 Respiratory Rate 16 03/29/24 08:01 Blood Pressure 92/59 03/29/24 08:01 Pulse Oximetry 96 03/29/24 08:01 [facility] - General Adult Medical Decision Making Suprapubic catheter replaced without difficulty. Will discharge patient back to the longterm No radiology studies performed this visit Discharge Plan Discharge Patient Disposition: Home Clinical Impression: Suprapubic catheter dysfunction Condition: Stable Prescriptions: No Action Incruse Ellipta 62.5 mcg/actuation blister with device 1 inh inhalation DAILY Qty: 30 6RF sodium chloride 1,000 mg tablet,soluble 1,000 mg PO BID Qty: 60 0RF acetaminophen 325 mg Tablet 650 mg PO Q6H PRN (Reason: Pain) albuterol sulfate 1.25 mg/3 mL Solution For Nebulization 2.5 mg INHALATION Q8H hydrocodone-acetaminophen 5-325 mg Tablet 1 tab PO Q6H PRN (Reason: Pain) mirtazapine 30 mg Tablet 30 mg PO DAILY ferrous sulfate 325 mg (65 mg iron) Tablet 325 mg PO DAILY mupirocin 2 % Ointment 1 applic TOPICAL Q8H quetiapine 100 mg Tablet 100 mg PO DAILY paroxetine HCl [Paxil] 40 mg Tablet 40 mg PO DAILY potassium chloride 20 mEq Tablet Extended Release 20 meq PO DAILY propranolol 10 mg tablet 10 mg PO BID@08,20 tamsulosin 0.4 mg capsule 0.8 mg PO BEDTIME@20 simvastatin 20 mg tablet 20 mg PO BEDTIME@20 pantoprazole 40 mg Tablet,Delayed Release (Dr/Ec) 40 mg PO BID Qty: 60 0RF Rx Instructions: @08:00,20:00 magnesium hydroxide [Milk of Magnesia] 400 mg/5 mL Suspension 30 ml PO DAILY PRN (Reason: Constipation) bisacodyl 10 mg Suppository 10 mg NJ DAILY PRN (Reason: Constipation) docusate sodium 100 mg Tablet 200 mg PO BID@08,20 naloxone 2 mg/2 mL Syringe Kit 2 mg IM Q3M PRN (Reason: overdose) Rx Instructions: NTExceed 10 mg total dose/episode sennosides-docusate sodium [Senna-S] 8.6-50 mg Tablet 2 tab PO BID@08,20 folic acid 1 mg Tablet 1 mg PO DAILY@08 Discharge Orders: Discharge ED (Routine); Ordered 03/29/24 Ordered By: Orville Oh Referrals: Benitez Fitzpatrick MD [Primary Care Provider] - Discharge Diet: Usual diet Discharge Activity: Resume usual activity Patient Instructions: Opioid Safety, Pain Management Activity Restrictions/Additional Instructions: Thank you for choosing [facility] for your healthcare needs today. It is very important that you follow up as instructed or that you return to the Emergency Department should you have concerns or if your condition changes or worsens in any way. You were seen in the emergency room after your catheter was dislodged her catheter was replaced without difficulty follow-up with your primary care doctor or urologist as previously scheduled. Print Language: Amharic Coding Level of Care Code ED Gun Mechanic for Geovanna Espinal
[2024-03-29 08:53] VITALS: BP 92/61; PULSE 62; O2SAT 96
== END 2024-03-29 10:03 | disposition home or self-care (01) ==
PROVIDERS: Emergency Provider Family Medicine; PCP Internal Medicine
DX: T83.098A Other mechanical complication of other urinary catheter, initial encounter (principal); X58.XXXA Exposure to other specified factors, initial encounter; Z87.891 Personal history of nicotine dependence; J44.9 Chronic obstructive pulmonary disease, unspecified; I10 Essential (primary) hypertension; E78.2 Mixed hyperlipidemia
CPT/HCPCS: 99283

== ENCOUNTER 2024-04-18 00:19 | Inpatient (IN) | payer MEDICARE, MEDICAID, SELFPAY ==
[2024-04-18] VITALS (51 sets, daily range): BP systolic 80–131; BP diastolic 49–77; PULSE 58–76; RESP 14–27; TEMP 36.3–36.7; O2SAT 81–99; BMI 17.1
--- NOTE | 2024-04-18 00:41 | XRR_ITS ---
PROCEDURE INFORMATION: Exam: XR Chest Exam date and time: 04/18/2024 1:08 AM Age: 68 years old Clinical indication: EMS arrival from long-term for AMS. Patient non verbal. Hypotensive. History of schizophrenia. TECHNIQUE: Imaging protocol: Radiologic exam of the chest. Views: 1 view. COMPARISON: CR XR chest 1V portable [id number] 06/02/2022 2:33 PM FINDINGS: Tubes, catheters and devices: There is a right-sided port a catheter with tip region of the right atrium. Lungs: Unremarkable. No consolidation. Pleural spaces: Unremarkable. No pleural effusion. No pneumothorax. Heart/Mediastinum: Unremarkable. No cardiomegaly. Bones/joints: Unremarkable. Gastrointestinal tract: Incompletely imaged gas-filled bowel loops in the upper abdomen. XR/XR chest 1V portable [id number] IMPRESSION: No acute cardiopulmonary abnormality.
--- NOTE | 2024-04-18 00:41 | CTR_ITS ---
PROCEDURE INFORMATION: Exam: CT Head Without Contrast Exam date and time: 04/18/2024 1:16 AM Age: 68 years old Clinical indication: Altered mental status/memory loss; EMS arrival from long-term for AMS. Patient non verbal. Hypotensive. History of schizophrenia. TECHNIQUE: Imaging protocol: Computed tomography of the head without contrast. Radiation optimization: All CT scans at this facility use at least one of these dose optimization techniques: automated exposure control; mA and/or kV adjustment per patient size (includes targeted exams where dose is matched to clinical indication); or iterative reconstruction. COMPARISON: CT head wo con* [id number] 12/12/2023 5:51 PM RADIATION DOSE METRICS: Total DLP (mGy-cm): 1109.7 FINDINGS: Brain: Periventricular white matter changes likely related to chronic ischemic small vessel disease. No intracranial mass, hemorrhage or recent infarct. Brain atrophy present. Cerebral ventricles: Ventriculomegaly related to brain atrophy present. Paranasal sinuses: Visualized sinuses are unremarkable. No fluid levels. Mastoid air cells: Partial opacification of the mastoid air cells without bony destruction Bones: Unremarkable. No acute fracture. Soft tissues: Unremarkable. CT/CT head wo con* [id number] IMPRESSION: 1. No acute intracranial abnormality. 2. Partial opacification of the mastoid air cells. 3. Additional chronic findings as detailed
[2024-04-18] MEDS: sodium chloride 0.9% 1,000 ML 999 ML IV ×3 (00:58→05:33)
--- NOTE | 2024-04-18 01:00 | W.ED.AMS ---
HPI - Altered Mental Status General: Chief Complaint: Altered Mental Status Stated Complaint: AMS Time Seen by Provider: 04/18/24 00:41 History of Present Illness: 68-year-old nonverbal male patient from snf setting. He does answer questions by shaking his head yes or no. He was sent in for lethargy with low blood pressures. Pressures were evidently low on EMS arrival. They remain low on arrival here in the 90s systolic. He is awake. When asked if he is in any pain, he shakes his head no. When asked if he has had fever he shakes his head no. He has a suprapubic catheter that was not draining, and was replaced here 3 weeks ago. He does hold up 2 fingers on command. Related Data Home Medications ?Medication ?Instructions ?Recorded ?Confirmed propranolol 10 mg tablet 10 mg PO BID@08,02/12/22 03/29/24 simvastatin 20 mg tablet 20 mg PO BEDTIME@02/12/22 03/29/24 tamsulosin 0.4 mg capsule 0.8 mg PO BEDTIME@02/12/22 03/29/24 bisacodyl 10 mg rectal suppository 10 mg DE DAILY PRN Constipation 05/20/22 03/29/24 docusate sodium 100 mg tablet 200 mg PO BID@,05/20/22 03/29/24 magnesium hydroxide 400 mg/5 mL 30 ml PO DAILY PRN Constipation 05/20/22 03/29/24 oral suspension (Milk of Magnesia) naloxone 2 mg/2 mL syringe kit 2 mg IM Q3M PRN overdose 05/20/22 03/29/24 folic acid 1 mg tablet 1 mg PO DAILY@05/28/22 03/29/24 sennosides 8.6 mg-docusate sodium 2 tab PO BID@,05/28/22 03/29/24 50 mg tablet (Senna-S) acetaminophen 325 mg tablet 650 mg PO Q6H PRN Pain 03/29/24 03/29/24 albuterol sulfate 1.25 mg/3 mL 2.5 mg inhalation Q8H 03/29/24 03/29/24 solution for nebulization ferrous sulfate 325 mg (65 mg 325 mg PO DAILY 03/29/24 03/29/24 iron) tablet hydrocodone 5 mg-acetaminophen 325 1 tab PO Q6H PRN Pain 03/29/24 03/29/24 mg tablet mirtazapine 30 mg tablet 30 mg PO DAILY 03/29/24 03/29/24 mupirocin 2 % topical ointment 1 applic topical Q8H 03/29/24 03/29/24 paroxetine HCl 40 mg tablet (Paxil) 40 mg PO DAILY 03/29/24 03/29/24 potassium chloride 20 mEq 20 meq PO DAILY 03/29/24 03/29/24 tablet,extended release quetiapine 100 mg tablet 100 mg PO DAILY 03/29/24 03/29/24 Previous Rx's ?Medication ?Instructions ?Recorded pantoprazole 40 mg tablet,delayed 40 mg PO BID #60 tabs 02/15/22 release umeclidinium 62.5 mcg/actuation 1 inh inhalation DAILY #30 ea 10/10/22 blister powder for inhalation (Incruse Ellipta) sodium chloride 1,000 mg soluble 1,000 mg PO BID #60 tabs 12/07/23 tablet Allergies Allergy/AdvReac Type Severity Reaction Status Date / Time No Known Allergies Allergy Verified 07/02/23 09:39 PFS ED PFS: Medical History Osteoporosis COVID-19 vaccine administered J&J plus an mRNA booster per patient report History of PFTs 05/31 severe airflow obstruction, normal gas exchange, decreased FVC, FEV1 40%, FEVI/FVC reduced Anemia BPH (benign prostatic hyperplasia) COPD (chronic obstructive pulmonary disease) Vitamin D deficiency Mixed hyperlipidemia Essential hypertension Tardive akathisia Chronic schizophrenia Surgical History 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 05/2021 Family History Denies family history of CAD (coronary artery disease) Anesthesia complication Bleeding disorder Social History Smoking and tobacco/nicotine status: former use of tobacco/nicotine Quit status (tobacco/nicotine): has quit using Year quit tobacco: 2021 Former quit date comment: 1.5ppd x 51 year Hx Second hand smoke exposure: Yes Alcohol intake: former Substance/Drug Use: unknown Caregiver/support person: Yes Lives independently: No Household members: other Details: Resides at [facility] residential assisted living care facility Housing: Assisted Living Facility Marital status: Single service: No Current occupational status: disabled Pets and animals: Yes Do you think of yourself as: Straight/Heterosexual Current gender identity: Male Physical Exam Const: EXAM LIMITATIONS: language barrier GENERAL APPEARANCE: cooperative, lethargic, ill appearing and frail appearing NUTRITIONAL APPEARANCE: cachectic ORIENTATION/CONSCIOUSNESS: Yes awake, Yes oriented to person and Yes lethargic HENMT: COMMON NORMALS: atraumatic HEAD & SCALP: atraumatic FACE & SINUS: face symmetric MOUTH: moist mucous membranes abnormal Details: parched Eye: COMMON NORMALS: Equal, round and reactive pupils present and EOMs intact bilaterally PUPIL: Yes Equal, round and reactive pupils present Neck/C-Spine: GENERAL: Yes trachea midline Chest: CHEST: Yes Symmetrical chest wall rise Resp: COMMON NORMALS: normal respiratory effort, No use of accessory muscles and clear to auscultation bilaterally AUSCULTATION: clear to auscultation bilaterally Cardio: COMMON NORMALS: regular rate and regular rhythm RATE: regular rate RHYTHM: regular rhythm GI: COMMON NORMALS: Soft to palpation INSPECTION: No abdominal distension PALPATION: Yes Soft to palpation Back/Pelvis: OTHER: Large sacral decubitus ulcer present with rolled border. Sacrum is visible. No significant drainage. Neuro: JEN COMA SCALE: document GCS findings Jen coma scale eye opening: Spontaneous Jen coma scale verbal response: Sounds Jen coma scale motor response: Obey commands Roscoe coma scale total score: 12 SENSORIUM/ORIENTATION: Yes oriented to person and Yes lethargic Skin: NARRATIVE SKIN EXAM: See above Course Vital Signs: Vital signs: Vital Signs Temperature 97.4 F L 04/18/24 00:22 Pulse Rate 60 04/18/24 04:04 Respiratory Rate 21 H 04/18/24 04:04 Blood Pressure 107/62 04/18/24 04:04 Pulse Oximetry 97 04/18/24 04:04 Oxygen Delivery Me thod Room Air 04/18/24 04:04 MDM - Altered Mental Status Medical Decision Making This patient has had 2 L of fluid, which is more than a sepsis bolus for him. His pressure is still 89/56. Heart rate is 60. Saturations are normal. His sodium is 146, BUN 35 with a creatinine of 0.6. His hemoglobin is 10.4. His chest x-ray is nonacute. His head CT is nonacute. His abdominal and pelvic CT shows a suprapubic catheter that was replaced again this is morning by my nursing staff is in place. There is thick urine in the bladder. The bladder wall is thickened. There is sterile coral proctitis present. There are findings suspicious for chronic infection involving the patient's left femur fracture as well as a sacral decubitus ulcer with likely chronic osteomyelitis of this area as well. He is given antibiotics. He will be admitted. Hospitalist will see the patient Lab Data 04/18/24 00:49 04/18/24 00:49 Radiology Impressions Chest X-Ray 04/18/24 00:41 IMPRESSION: No acute cardiopulmonary abnormality. Head CT 04/18/24 00:41 IMPRESSION: 1. No acute intracranial abnormality. 2. Partial opacification of the mastoid air cells. 3. Additional chronic findings as detailed Abdomen/Pelvis CT 04/18/24 03:35 IMPRESSION: 1. Stercoral proctitis. Fecal stasis. 2. Diffuse urinary bladder wall thickening. Clinical correlation for cystitis recommended. 3. Sacral decubitus ulcer with findings of chronic osteomyelitis involving the distal sacrum. 4. Findings suspicious of chronic infection involving the patient's chronic left femur fracture suspected chronic osteomyelitis with surrounding phlegmon Laboratory Results WBC 10.57 10^3/uL (3.29-11.43) 04/18/24 00:49 RBC 3.76 10^6/uL (3.85-5.65) L 04/18/24 00:49 Hgb 10.40 g/dL (11.27-16.99) L 04/18/24 00:49 Hct 33.0 % (37-53) L 04/18/24 00:49 MCV 87.8 fl (82-101) 04/18/24 00:49 MCH 27.7 pg (27-33) 04/18/24 00:49 MCHC 31.5 g/dL (30-55) 04/18/24 00:49 RDW 16.7 % (12.1-15.1) H 04/18/24 00:49 Plt Count 204 10^3/cmm (157-399) 04/18/24 00:49 MPV 10.9 fL (7.4-10.4) H 04/18/24 00:49 Neut % (Auto) 61.6 % 04/18/24 00:49 Lymph % (Auto) 25.4 % 04/18/24 00:49 [place] % (Auto) 9.1 % 04/18/24 00:49 Eos % (Auto) 2.9 % 04/18/24 00:49 Baso % (Auto) 0.7 % 04/18/24 00:49 Neut # (Auto) 6.52 10^3/uL (1.8-7.7) 04/18/24 00:49 Lymph # (Auto) 2.7 10^3/uL (0.8-4.8) 04/18/24 00:49 [place] # (Auto) 1.0 10^3/uL (0.2-0.9) H 04/18/24 00:49 Eos # (Auto) 0.3 10^3/uL (0.0-0.8) 04/18/24 00:49 Baso # (Auto) 0.1 10^3/uL (0.0-0.1) 04/18/24 00:49 Nucleated RBC % (auto) 0 % 04/18/24 00:49 Nucleated RBCs # 0.0 /100WBC 04/18/24 00:49 Specimen Type Arterial 04/18/24 00:57 Sample Site Brachial, right 04/18/24 00:57 ABG pH 7.44 (7.35-7.45) 04/18/24 00:57 ABG pCO2 39.0 mmHg (35-45) 04/18/24 00:57 ABG pO2 81.4 mmHg (80.0-100.0) 04/18/24 00:57 ABG HCO3 26.7 mmol/L (22-26) H 04/18/24 00:57 ABG Base Excess 2.4 mmol/L (-2.0-2.0) H 04/18/24 00:57 Joey Test N/a 04/18/24 00:57 Hematocrit 32.4 % (42-52) L 04/18/24 00:57 O2 Delivery Device Room air 04/18/24 00:57 Head Of Music ID [email or web address] 04/18/24 00:57 Sodium 146 mmol/L (136-145) H 04/18/24 00:49 Potassium 4.0 mmol/L (3.5-5.1) 04/18/24 00:49 Chloride 111 mmol/L (98-107) H 04/18/24 00:49 Carbon Dioxide 25 mmol/L (22-29) 04/18/24 00:49 Anion Gap 14.0 (5-19) 04/18/24 00:49 BUN 35 mg/dL (8-23) H 04/18/24 00:49 Creatinine 0.6 mg/dL (0.7-1.2) L 04/18/24 00:49 GFR Calculation 134.0 mL/min (90-130) H 04/18/24 00:49 Glucose 118 mg/dL (65-115) H 04/18/24 00:49 Calculated Osmolality 311 mOsm/kg (285-295) H 04/18/24 00:49 Lactic Acid 1.0 mmol/L (0.5-2.2) 04/18/24 00:49 Calcium 8.9 mg/dL (8.5-10.5) 04/18/24 00:49 Magnesium 2.0 mg/dL (1.7-2.3) 04/18/24 00:49 Total Bilirubin 0.2 mg/dL (0.15-1.2) 04/18/24 00:49 AST 16 U/L (0-40) 04/18/24 00:49 ALT 12 U/L (0-41) 04/18/24 00:49 Alkaline Phosphatase 135 U/L (40-130) H 04/18/24 00:49 Creatine Kinase 19 U/L (39-308) L 04/18/24 00:49 C-Reactive Protein 81.1 mg/L (0.0-4.9) H 04/18/24 00:49 Total Protein 8.2 g/dL (6.6-8.7) 04/18/24 00:49 Albumin 2.6 g/dL (3.5-5.2) L 04/18/24 00:49 Globulin 5.6 g/dL (1.3-4.6) H 04/18/24 00:49 Urine Color Other (Yellow) A 04/18/24 03:09 Urine Appearance Turbid (CLEAR) A 04/18/24 03:09 Urine pH Not Reportable 04/18/24 03:09 Ur Specific [place] Not Reportable 04/18/24 03:09 Urine Protein Not Reportable 04/18/24 03:09 Urine Glucose (UA) Not Reportable 04/18/24 03:09 Urine Ketones Not Reportable 04/18/24 03:09 Urine Blood Not Reportable 04/18/24 03:09 Urine Nitrate Not Reportable 04/18/24 03:09 Urine Bilirubin Not Reportable 04/18/24 03:09 Urine Urobilinogen Not Reportable 04/18/24 03:09 Ur Leukocyte Esterase Not Reportable 04/18/24 03:09 Urine RBC Too numerous to cnt /hpf (0-2) H 04/18/24 03:09 Urine WBC Too numerous to cnt /hpf (0-5) H 04/18/24 03:09 Ur Squamous Epith Cells 0-4 /hpf (0-5) H 04/18/24 03:09 Triple Phos Crystals 5-10 /hpf H 04/18/24 03:09 Amorphous Sediment Not Reportable 04/18/24 03:09 Urine Bacteria 4+ /hpf (NONE) H 04/18/24 03:09 Ethyl Alcohol < 10 mg/dL (0-10) 04/18/24 00:49 Influenza A (PCR) Negative (Negative) 04/18/24 01:03 Influenza Type B (PCR) Negative (Negative) 04/18/24 01:03 RSV (PCR) Negative (Negative) 04/18/24 01:03 SARS-CoV-2 (PCR) Negative (Negative) 04/18/24 01:03 All radiology interpretation(s) finalized by discharge Discharge Plan Discharge Patient Disposition: Admitted As Inpatient Clinical Impression: Decubitus ulcer, Infected prosthesis of left hip, Acute hypotension, Urinary tract infection Condition: Fair Prescriptions: No Action Incruse Ellipta 62.5 mcg/actuation blister with device 1 inh inhalation DAILY Qty: 30 6RF sodium chloride 1,000 mg tablet,soluble 1,000 mg PO BID Qty: 60 0RF acetaminophen 325 mg Tablet 650 mg PO Q6H PRN (Reason: Pain) albuterol sulfate 1.25 mg/3 mL Solution For Nebulization 2.5 mg INHALATION Q8H hydrocodone-acetaminophen 5-325 mg Tablet 1 tab PO Q6H PRN (Reason: Pain) mirtazapine 30 mg Tablet 30 mg PO DAILY ferrous sulfate 325 mg (65 mg iron) Tablet 325 mg PO DAILY mupirocin 2 % Ointment 1 applic TOPICAL Q8H quetiapine 100 mg Tablet 100 mg PO DAILY paroxetine HCl [Paxil] 40 mg Tablet 40 mg PO DAILY potassium chloride 20 mEq Tablet Extended Release 20 meq PO DAILY propranolol 10 mg tablet 10 mg PO BID@08,20 tamsulosin 0.4 mg capsule 0.8 mg PO BEDTIME@20 simvastatin 20 mg tablet 20 mg PO BEDTIME@20 pantoprazole 40 mg Tablet,Delayed Release (Dr/Ec) 40 mg PO BID Qty: 60 0RF Rx Instructions: @08:00,20:00 magnesium hydroxide [Milk of Magnesia] 400 mg/5 mL Suspension 30 ml PO DAILY PRN (Reason: Constipation) bisacodyl 10 mg Suppository 10 mg DE DAILY PRN (Reason: Constipation) docusate sodium 100 mg Tablet 200 mg PO BID@08,20 naloxone 2 mg/2 mL Syringe Kit 2 mg IM Q3M PRN (Reason: overdose) Rx Instructions: NTExceed 10 mg total dose/episode sennosides-docusate sodium [Senna-S] 8.6-50 mg Tablet 2 tab PO BID@08,20 folic acid 1 mg Tablet 1 mg PO DAILY@08 Referrals: Benitez Fitzpatrick MD [Primary Care Provider] - Patient Instructions: Altered Mental Status (ED) Print Language: Salvadorean Coding Level of Care Code ED Divinity Teacher for Geovanna Espinal
[2024-04-18 01:08] LABS: ABG PH Result 7.44 (7.35-7.45); Arterial Blood Gas Hematocrit 32.4 % (42-52); Base Excess ABG 2.4 mmol/L (-2.0-2.0); Blood Gas Sample Site Brachial, right; Blood Gas Sample Type Arterial; HCO3 ABG 26.7 mmol/L (22-26); Oxygen Device ROOM AIR; PO2 ABG 81.4 mmHg (80.0-100.0)
[2024-04-18 01:09] LABS: Basophils # 0.1 10^3/uL (0.0-0.1); Basophils % 0.7 %; Eosinophils # 0.3 10^3/uL (0.0-0.8); Eosinophils % 2.9 %; Lymphocytes # 2.7 10^3/uL (0.8-4.8); Lymphocytes % 25.4 %; Mean Corpuscular HGB Conc 31.5 g/dL (30-55); Mean Corpuscular Hemoglobin 27.7 pg (27-33); Mean Corpuscular Volume 87.8 fl (82-101); Mean Platelet Volume 10.9 fL (7.4-10.4); Monocytes % 9.1 %; Neutrophils # 6.52 10^3/uL (1.8-7.7); Neutrophils % 61.6 %; Nucleated Red Blood Cells % 0 %; Platelet Count 204 10^3/cmm (157-399); Red Blood Count 3.76 10^6/uL (3.85-5.65); Red Cell Distribution Width 16.7 % (12.1-15.1); White Blood Count 10.57 10^3/uL (3.29-11.43)
[2024-04-18 01:25] LABS: Alanine Aminotransferase 12 U/L (0-41); Albumin Level 2.6 g/dL (3.5-5.2); Alkaline Phosphatase 135 U/L (40-130); Aspartate Amino Transferase 16 U/L (0-40); Blood Urea Nitrogen 35 mg/dL (8-23); C Reactive Protein 81.1 mg/L (0.0-4.9); Calcium 8.9 mg/dL (8.5-10.5); Carbon Dioxide 25 mmol/L (22-29); Chloride 111 mmol/L (98-107); Creatine Phosphokinase 19 U/L (39-308); Creatinine Clr Calc Pharmacy 64.6375; Globulin 5.6 g/dL (1.3-4.6); Glucose 118 mg/dL (65-115); Osmolality Calculated 311 mOsm/kg (285-295); Sodium 146 mmol/L (136-145); Total Bilirubin 0.2 mg/dL (0.15-1.2); Total Protein 8.2 g/dL (6.6-8.7)
[2024-04-18 01:27] LABS: Alcohol Level < 10 mg/dL (0-10)
[2024-04-18 01:54] LABS: Influenza A NEGATIVE (Negative); Influenza B NEGATIVE (Negative); Respiratory Syncytial Virus Ce NEGATIVE (Negative); SARS-CoV-2 PCR NEGATIVE (Negative)
[2024-04-18 03:12] LABS: Add Urine Microscopic? NO; Urine Appearance Turbid (CLEAR); Urine Color Other (Yellow)
[2024-04-18 03:14] LABS: Add Urine Culture? Yes; Bacteria Urine 4+ /hpf; RBC Urine TOO NUMEROUS TO CNT /hpf (0-2); Squamous Epithelial Cell Urine 0-4 /hpf (0-5); WBC Urine TOO NUMEROUS TO CNT /hpf (0-5)
[2024-04-18 03:15] LABS: Charge for UA Resulting for Rev
--- NOTE | 2024-04-18 03:35 | CTR_ITS ---
PROCEDURE INFORMATION: Exam: CT Abdomen And Pelvis Without Contrast Exam date and time: 04/18/2024 3:49 AM Age: 68 years old Clinical indication: Other: Uti/hypotension; Prior surgery; Surgery date: 6+ months; Surgery type: Supra pubic cath. RT deep; UTI with hypotension. Purulent output from nair. ; Additional info: UTI, hypotension TECHNIQUE: Imaging protocol: Computed tomography of the abdomen and pelvis without contrast. Radiation optimization: All CT scans at this facility use at least one of these dose optimization techniques: automated exposure control; mA and/or kV adjustment per patient size (includes targeted exams where dose is matched to clinical indication); or iterative reconstruction. COMPARISON: CR XR hip BI 3-4V wo/w pel [id number] 12/12/2023 5:58 PM RADIATION DOSE METRICS: Total DLP (mGy-cm): 1153.87 FINDINGS: Tubes, catheters and devices: A suprapubic Nair catheter present. Lungs: There are few areas of tree-in-bud in the lung bases. Liver: Normal. No mass. Gallbladder and biliary ducts: Normal. No calcified stones. No ductal dilation. Pancreas: Normal. No ductal dilation. Spleen: Normal. No splenomegaly. Adrenal glands: Normal. No mass. Kidneys and ureters: Normal. No hydronephrosis. Stomach and bowel: There is fecal stasis. A moderate amount of stool present within the rectum. There is surrounding inflammation involving the rectum. No signs of bowel obstruction. Appendix: No evidence of appendicitis. Intraperitoneal space: Unremarkable. No free air. No significant fluid collection. Vasculature: Calcific plaque involves the abdominal aorta and its major branches. The abdominal aorta is free of aneurysm. Lymph nodes: Unremarkable. No enlarged lymph nodes. Urinary bladder: There is diffuse urinary bladder wall thickening. Are multiple tiny stones within the urinary bladder. Reproductive: Unremarkable as visualized. Bones/joints: Postoperative changes from right total hip replacement. Old fracture deformity with extensive heterotopic bone formation involves the left proximal femur. There are few foci of air associated with the left femur with surrounding edema and inflammation. These findings are concerning for chronic infection. There is a sacral decubitus ulcer findings of chronic osteomyelitis involving the distal sacrum. Soft tissues: See Bones/joints finding. CT/CT kidney stone [id number] IMPRESSION: 1. Stercoral proctitis. Fecal stasis. 2. Diffuse urinary bladder wall thickening. Clinical correlation for cystitis recommended. 3. Sacral decubitus ulcer with findings of chronic osteomyelitis involving the distal sacrum. 4. Findings suspicious of chronic infection involving the patient's chronic left femur fracture suspected chronic osteomyelitis with surrounding phlegmon
[2024-04-18] MEDS: cefTRIAXone 1,000 mg SDV 1000 MG IVP (03:58)
--- NOTE | 2024-04-18 04:39 | PM.HP ---
Providers/Chief Complaint Primary Care Provider: Aristeo Fitzpatrick MD Chief Complaint: AMS History of Present Illness Herson Ovalle is a 68 year old male with history of schizophrenia tardive dyskinesia hypertension COPD removal of infected right hip hardware 05/27/22, chronic sacral ulcer, chronic osteomyelitis, [facility] of blood pressure and lethargy. When I examined the patient he was staring at the ceiling. However able to follow commands able to answer yes and no. Able to give me a thumbs up. I called [facility] to get more information. Patient is full code, has a legal guardian public senior unix administrator at [facility]. At baseline patient is bedbound, last suprapubic catheter change was on 04/06, patient had a low-grade fever 99.9, he has not been eating very well, as per the [facility] he can make short sentences, does not have a big appetite, PROFESSOR OF MUSICOLOGY checked on him and he was stating at the ceiling that is why the scene was made to send him to the hospital for evaluation Workup in the ER consistent with UTI, suprapubic catheter has been exchanged with a new 1, and he is afebrile no leukocytosis, his blood pressure was extremely low he has been given IV fluids, He has a sacral area ulcer with tunneling which does not look infected He does have a significant penile rash with concern for urinary leak Review of Systems General: Reports: ROS unobtainable due to medical condition Medications/Allergies Home Medications ?Medication ?Instructions ?Recorded ?Confirmed ?Last Taken ?Type propranolol 10 mg tablet 10 mg PO BID@,02/12/22 03/29/24 02/25/22 History simvastatin 20 mg tablet 20 mg PO BEDTIME@02/12/22 03/29/24 02/24/22 History tamsulosin 0.4 mg capsule 0.8 mg PO BEDTIME@02/12/22 03/29/24 02/24/22 History pantoprazole 40 mg tablet,delayed 40 mg PO BID #60 tabs 02/15/22 03/29/24 02/25/22 Rx release bisacodyl 10 mg rectal suppository 10 mg FL DAILY PRN Constipation 05/20/22 03/29/24 Unknown History docusate sodium 100 mg tablet 200 mg PO BID@,05/20/22 03/29/24 Unknown History magnesium hydroxide 400 mg/5 mL 30 ml PO DAILY PRN Constipation 05/20/22 03/29/24 Unknown History oral suspension (Milk of Magnesia) naloxone 2 mg/2 mL syringe kit 2 mg IM Q3M PRN overdose 05/20/22 03/29/24 Unknown History folic acid 1 mg tablet 1 mg PO DAILY@08 05/28/22 03/29/24 Unknown History sennosides 8.6 mg-docusate sodium 2 tab PO BID@08,20 05/28/22 03/29/24 Unknown History 50 mg tablet (Senna-S) umeclidinium 62.5 mcg/actuation 1 inh inhalation DAILY #30 ea 10/10/22 03/29/24 Unknown Rx blister powder for inhalation (Incruse Ellipta) sodium chloride 1,000 mg soluble 1,000 mg PO BID #60 tabs 12/07/23 03/29/24 Unknown Rx tablet acetaminophen 325 mg tablet 650 mg PO Q6H PRN Pain 03/29/24 03/29/24 Unknown History albuterol sulfate 1.25 mg/3 mL 2.5 mg inhalation Q8H 03/29/24 03/29/24 Unknown History solution for nebulization ferrous sulfate 325 mg (65 mg 325 mg PO DAILY 03/29/24 03/29/24 Unknown History iron) tablet hydrocodone 5 mg-acetaminophen 325 1 tab PO Q6H PRN Pain 03/29/24 03/29/24 Unknown History mg tablet mirtazapine 30 mg tablet 30 mg PO DAILY 03/29/24 03/29/24 Unknown History mupirocin 2 % topical ointment 1 applic topical Q8H 03/29/24 03/29/24 Unknown History paroxetine HCl 40 mg tablet (Paxil) 40 mg PO DAILY 03/29/24 03/29/24 Unknown History potassium chloride 20 mEq 20 meq PO DAILY 03/29/24 03/29/24 Unknown History tablet,extended release quetiapine 100 mg tablet 100 mg PO DAILY 03/29/24 03/29/24 Unknown History Allergies Allergy/AdvReac Type Severity Reaction Status Date / Time No Known Allergies Allergy Verified 07/02/23 09:39 PFSH Acute PFSH: Medical History Osteoporosis COVID-19 vaccine administered J&J plus an mRNA booster per patient report History of PFTs 05/31 severe airflow obstruction, normal gas exchange, decreased FVC, FEV1 40%, FEVI/FVC reduced Anemia BPH (benign prostatic hyperplasia) COPD (chronic obstructive pulmonary disease) Vitamin D deficiency Mixed hyperlipidemia Essential hypertension Tardive akathisia Chronic schizophrenia Surgical History 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 05/2021 Family History Denies family history of CAD (coronary artery disease) Anesthesia complication Bleeding disorder Social History Smoking and tobacco/nicotine status: former use of tobacco/nicotine Quit status (tobacco/nicotine): has quit using Year quit tobacco: 2021 Former quit date comment: 1.5ppd x 51 year Hx Second hand smoke exposure: Yes Alcohol intake: former Substance/Drug Use: unknown Caregiver/support person: Yes Lives independently: No Household members: other Details: Resides at [facility] residential assisted living care facility Housing: Assisted Living Facility Marital status: Single service: No Current occupational status: disabled Pets and animals: Yes Do you think of yourself as: Straight/Heterosexual Current gender identity: Male Vitals/I&O/Wt Last Vital Signs Temp 97.4 F L 04/18/24 00:22 Pulse 60 04/18/24 04:04 Resp 21 H 04/18/24 04:04 BP 107/62 04/18/24 04:04 Pulse Ox 97 04/18/24 04:04 O2 Del Method Room Air 04/18/24 04:04 04/17/24 04/17/24 04/18/24 14:59 22:59 07:59 Intake Total 1999 Balance 1999 Weight last 48 hrs Weight 51.71 kg Physical Exam Narrative: Patient is stating at the ceiling Able to follow commands Able to give me a thumbs up when asked him if he was feeling comfortable without pain Cachectic Malnourished Sarcopenia Protein calorie malnourishment Dry mucous membrane Suprapubic catheter in place Penile rash with concern for urinary leak S1, S2 sinus rhythm Afebrile Sacral area stage IV ulcer with tunneling, edges of the wound do not look infected No active drainage or purulence noted Urinary Catheter Management: Suprapubic: Cath Placed During This Visit: yes Urinary Catheter Date of Insertion: 04/18/24 Urinary Catheter Time of Insertion: 03:00 Data 04/18/24 00:49 04/18/24 00:49 A&P Assessment and plan (1) Osteoporosis: (2) Vitamin D deficiency: (3) Urinary tract infection: (4) BPH (benign prostatic hyperplasia): (5) Acute hypotension: (6) Chronic schizophrenia: (7) Tardive akathisia: (8) Decubitus ulcer: (9) COPD (chronic obstructive pulmonary disease): Qualifiers: COPD type: emphysema Emphysema type: panlobular Qualified Code(s): J43.1 - Panlobular emphysema (10) Sarcopenia: (11) Protein calorie malnutrition: Plan Hypotension Monitor for signs of sepsis No fever, no leukocytosis Abnormal UA noted, suprapubic catheter exchange Considering history of E. coli and MRSA I will put patient on vancomycin and ceftriaxone Suprapubic catheter exchange 04/18 Chronic osteomyelitis of sacral area, sacral area ulcer stage IV does not look actively infected Patient does have penile lesion with skin erosion, Infected prosthesis left hip history Status post removal of infected hardware Patient has received antibiotics and long-term antibiotics Cultures were positive for E. coli and MRSA he was treated with ceftriaxone and vancomycin Chronic osteomyelitis, sacral area ulcer, CT scan showing for a foci of air around left femur concerning for chronic infection Continue antibiotics Metabolic encephalopathy related to UTI No active tremors noted Patient able to follow commands No acute decompensation for chronic history of tardive dyskinesia and schizophrenia Sarcopenia/protein calorie malnourishment Will benefit from dietary consultation Poor p.o. intake Patient is bedbound with poor p.o. intake, Legal guardian is a public senior unix administrator [facility] Patient at risk of further deterioration, will admit to ICU DVT prophylaxis heparin prison records reviewed PDMP PDMP Reviewed: Not Reviewed Attestations Medical Necessity Statement*: More than 2 midnights anticipated Diagnoses Osteoporosis M81.0 Vitamin D deficiency E55.9 Urinary tract infection N39.0 Benign prostatic hyperplasia without lower urinary tract symptoms N40.0 Acute hypotension I95.9 Chronic schizophrenia F20.9 Tardive akathisia G25.71 Decubitus ulcer L89.90 Panlobular emphysema J43.1 COPD type: emphysema Emphysema type: panlobular Sarcopenia M62.84 Protein calorie malnutrition E46
[2024-04-18 05:14] LABS: Procalcitonin 0.07 ng/mL (0-0.5)
--- NOTE | 2024-04-18 06:50 | PHA.VACGOAL ---
Vancomycin Goal - Goal Vancomycin Goal:: 15-20 mg/L Vancomycin Indication:: Osteo - Therapy Current therapy:: Other Antibiotic (CEFTRIAXONE) Day of therpy:: Day []of [] . Actual body weight (kg): 51.71 kg - Data Labs: WBC 10.57 10^3/uL (3.29-11.43) 04/18/24 00:49 RBC 3.76 10^6/uL (3.85-5.65) L 04/18/24 00:49 Hgb 10.40 g/dL (11.27-16.99) L 04/18/24 00:49 Hct 33.0 % (37-53) L 04/18/24 00:49 MCV 87.8 fl (82-101) 04/18/24 00:49 MCH 27.7 pg (27-33) 04/18/24 00:49 MCHC 31.5 g/dL (30-55) 04/18/24 00:49 RDW 16.7 % (12.1-15.1) H 04/18/24 00:49 Sodium 146 mmol/L (136-145) H 04/18/24 00:49 Potassium 4.0 mmol/L (3.5-5.1) 04/18/24 00:49 Chloride 111 mmol/L (98-107) H 04/18/24 00:49 Carbon Dioxide 25 mmol/L (22-29) 04/18/24 00:49 Anion Gap 14.0 (5-19) 04/18/24 00:49 BUN 35 mg/dL (8-23) H 04/18/24 00:49 Creatinine 0.6 mg/dL (0.7-1.2) L 04/18/24 00:49 GFR Calculation 134.0 mL/min (90-130) H 04/18/24 00:49 Treatment plan:: new consult Regimen:: New start vancomycin for Osteomyelitis. 1500 mg load dose ordered. Maintenance dose of 500 mg q12h started using population based pharmacokinetic nomogram.
[2024-04-18] MEDS: hydrocortisone 100 mg/2 mL SDV IVP (07:38)
[2024-04-18] MEDS: vancomycin 1,500 MG/300 ML PIGGYBACK 200 MG IV (07:38)
--- NOTE | 2024-04-18 10:42 | USCV_ITS ---
Herson Ovalle Age: 68 Gender: M : 1955 Exam Date: 04/18/2024 14:21 Ordering Phys: Negro Rasmussen MD Technologist: Aamir Valdovinos Exam Location: [facility] Indication: chf BP: / HR: Rhythm: Sinus Technical Quality: Very technically difficult study MEASUREMENTS (Male / Female) Normal Values FINDINGS Left Ventricle Right Ventricle Right Atrium Left Atrium Mitral Valve Aortic Valve Tricuspid Valve Pulmonic Valve Pericardium Aorta IVC CONCLUSIONS Multiple views were attempted however patient has no ultrasonic windows. No cardiac structures seen. Juan Wilde MD (Electronically Signed) Final Date: 19 April 2024 08:06 S
--- OUTSIDE RECORDS SUMMARY | 2024-04-18 10:53 | XMS_ITS | Clinical Summary ---
Author Organization [facility] Address [address] [place] [address] Care Team Providers Care Microfilmer Name Role Phone Benitez Fitzpatrick MD Primary Care Provider [phone] Allergies No known active allergies Medications Medication Sig Dispensed Refills Start Date End Date Status ARIPiprazole (ABILIFY) 10 MG tablet Take 10 mg by mouth in the morning. Active budesonide-glycopy r-formoterol (Breztri Aerosphere) 160-9-4.8 mcg/actuation HFA aerosol inhaler Inhale. Active enoxaparin (LOVENOX) 30 mg/0.3 mL syringe Inject 30 mg under the skin in the morning. Active folic acid (FOLVITE) 1 MG tablet Take 1 mg by mouth in the morning. Active pantoprazole (PROTONIX) 40 MG EC tablet Take 40 mg by mouth 2 (two) times a day with breakfast and supper. Active sennosides-docusat e sodium (SENOKOT-S) 8.6-50 mg tablet Take 1 tablet by mouth in the morning and 1 tablet in the evening. Active simvastatin (ZOCOR) 20 MG tablet Take 20 mg by mouth nightly. Active tamsulosin (FLOMAX) 0.4 mg 24 hr capsule Take 0.4 mg by mouth every evening. Active oxyCODONE (ROXICODONE) 5 MG immediate release (IR) tabletIndications: Pressure injury of deep tissue of left heel Take 1 tablet (5 mg total) by mouth every 4 (four) hours as needed for breakthrough pain. Max Daily Amount: 30 mg 1 tablet 03/18/2022 Active LORazepam (ATIVAN) 0.5 mg tabletIndications: HUGO (generalized anxiety disorder) Take 1 tablet (0.5 mg total) by mouth nightly. 30 tablet 04/29/2022 Active HYDROcodone-acetam inophen (NORCO) 5-325 mg per tabletIndications: Periprosthetic fracture around internal prosthetic left hip joint, subsequent encounter Take 1 tablet by mouth every 6 (six) hours as needed for moderate pain. 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 Notify physican if no improvement or worsens will refer to wound care or podiatry. Immunizations Name Administration Dates Next Due Influenza, injectable, MDCK, quadrivalent, preservative (FLUCELVAX MDV) 11/06/2017 Moderna SARS-CoV-2 (SPIKEVAX ) Fall Seasonal (12+ y.o.) 03/07/2023 Moderna SARS-CoV-2 Vaccination 05/10/2021,2020,03/17/2020 Tdap (BOOSTRIX, ADACEL) 04/06/2016 pneumococcal conjugate PCV 20 (PREVNAR 20) 11/01,03/29/2022 pneumococcal polysaccharide PPV 23 (PNEUMOVAX 23) 04/05/2016 Social History Tobacco Use Types Packs/Day Years Used Date Smoking Tobacco: Unknown Tobacco Cessation:Counseling Given: Not Answered Alcohol Use Standard Drinks/Week Comments Defer 0 (1 standard drink = 0.6 oz pur e alcohol) PHQ-2 Answer Date Recorded PHQ-2 Score 0 02/24/2024 Sex and Gender Information Value Date Recorded Sex Assigned at Not on file Gender Identity Not on file Sexual Orientation Not on file Last Filed Vital Signs Vital Sign Reading Time Taken Comments Blood Pressure 96/58 03/23/2024 6:26 AM BOOTH MANAGER Pulse 63 03/23/2024 6:26 AM BOOTH MANAGER Temperature 36.5 ??C (97.7 ??F) 03/23/2024 6:26 AM CS T Respiratory Rate 17 03/23/2024 6:26 AM BOOTH MANAGER Oxygen Saturation 92% 03/23/2024 6:26 AM BOOTH MANAGER Inhaled Oxygen Concentration - - Weight 51.4 kg (113 lb 4.8 oz) 03/23/2024 6:26 A M BOOTH MANAGER Height 152.4 cm (5') 03/23/2024 6:26 AM BOOTH MANAGER Body Mass Index 22.13 03/23/2024 6:26 AM BOOTH MANAGER Plan of Treatment Upcoming Encounters Date Type Department Care Team (Late st Contact Info) Description 04/20/2024 9:40 AM CDT External Patient Visit [facility] - Primary [facility] [address] [facility] [address] [place] [address] Benitez Fitzpatrick MD [address] [facility] [address] [place] [address] Health Maintenance Due Date Last Done Comments Foot Exam 1955 Hemoglobin A1C 1955 Ophthalmology Exam 09/21/1965 Urine Microalbumin 09/21/1965 Colonoscopy 09/21/2000 Shingrix (ZOSTER RECOMBINANT) (1 of 2) 09/21/2005 RSV 60+ (1 - Risk 60-74 years 1-dose series) 2015 Influenza Vaccination (#1) 09/11/202303/28, 11/06/2017, 11/06/2017 COVID-19 Vaccine ( season) 2023 03/07/2023, 05/10/2021, 04/14/2020, Additional history exists Medicare Annual Wellness 01/15/2025 024, 01/16/2024, 08/01/2017, Additional history exists Td, Tdap Vaccines Adult 04/06/2026 04/06/2016 Pneumococcal Vaccine: 50+ Years Completed 11/01/2022, 03/29/2022, 04/05/2016 HIB Vaccines Aged Out No longer eligi ble based on patient's age to complete this topic HPV Vaccines Aged Out No longer eligi ble based on patient's age to complete this topic Hepatitis A Vaccines Aged Out No long er eligible based on patient's age to complete this topic Hepatitis B Vaccines Aged Out No long er eligible based on patient's age to complete this topic IPV Vaccines Aged Out No longer eligi ble based on patient's age to complete this topic Meningococcal Vaccines Aged Out No lo nger eligible based on patient's age to complete this topic RSV Mab Nirsevimab (Beyfortus) <20 months Aged Out No longer eligibl e based on patient's age to complete this topic Rotavirus Vaccines Aged Out No longer eligible based on patient's age to complete this topic Care Teams Microfilmer Relationship Specialty Start Date End Date Benitez Fitzpatrick MD [address] [place] [address] PCP - General Internal Medicine 02/28/22
--- OUTSIDE RECORDS SUMMARY | 2024-04-18 10:53 | XMS_ITS | Encounter Summary ---
Author Organization [facility] Address [address] [place] [address] Care Team Providers Care Academic Registrar Name Role Phone Unavailable Primary Care Provider Unavailabl e Reason for Visit * Reason Comments Establish Care COPD * Eval and Treat (Routine) - Closed Specialty Diagnoses / Procedures Referred By Darrius t Referred To Contact Pulmonology Diagnoses COPD (chronic obstructive pulmonary disease) ([facility]/HCC) Benitez Fitzpatrick MD [address] [place] [address] Phone: tel: fax: [facility] [address] [place] [address] Phone: tel: fax: Referral ID Status Reason Start Date Expiration Date Visits Re quested Visits Authorized [id number] Closed 10/15/2023 11/14/2024 1 1 Encounter Details Date Type Department Care Team ([facility] Contact Info) Description 03/23/2024 9:00 AM BRINE TANK SEPARATOR OPERATOR Office Visit [facility] [address] [place] [address] [place] [address] Collin Sherman MD [address] [place] [address] Panlobular emphysema ([facility]/HCC) (Primary Dx) Social History Tobacco Use Types Packs/Day Years Used Date Smoking Tobacco: Former Cigarettes Q uit: 03/31/2016 Smokeless Tobacco: Never Tobacco Cessation:Counseling Given: Not Answered Alcohol Use Standard Drinks/Week Comments No 0 (1 standard drink = 0.6 oz pur e alcohol) Feeling Safe Answer Date Recorded Are you in a relationship wi th someone who hurts you emotionally and/or physically? No 12/17/2023 Sex and Gender Information Value Date Recorded Sex Assigned at Not on file Legal Sex Male 3:38 AM BRINE TANK SEPARATOR OPERATOR Gender Identity Not on file Sexual Orientation Not on file documented as of this encounter Last Filed Vital Signs Vital Sign Reading Time Taken Comments Blood Pressure 110/70 03/23/2024 9:01 AM BRINE TANK SEPARATOR OPERATOR Pulse 61 03/23/2024 9:01 AM BRINE TANK SEPARATOR OPERATOR Temperature - - Respiratory Rate - - Oxygen Saturation 97% 03/23/2024 9:01 AM BRINE TANK SEPARATOR OPERATOR Inhaled Oxygen Concentration - - Weight - - Height 180.3 cm (5' 11 ) 03/23/2024 9:01 AM BRINE TANK SEPARATOR OPERATOR Body Mass Index - - documented in this encounter Progress Notes * Collin Sherman MD - 03/23/2024 9:37 AM CST [facility] Initial Visit Note History of presenting illness: Herson Ovalle is an 68 y.o. male referred by Benitez Fitzpatrick MD for evaluation and treatment of COPD This patient was sent from his [facility] with his social media manager. He has schizophrenia and can not comprehend . I talked to his nurse Sarika in his [facility] on phone and she told me that patientwas being followed by a fiber product cutting machine operator in [facility]. That physician retired so this patient needs to establish care with us going forward. This man is on Incruse Ellipta inhaler for COPD . He has not required his Albuterol nebulizer in last several months. This morning patient is comfortable in his wheel chair and no respiratory difficulty noted. Social History Tobacco Use Smoking Status Former Current packs/day: 0.00 Types: Cigarettes Quit date: 03/31/2016 Years since quittin.9 Smokeless Tobacco Never Body mass index is 17.29 kg/m??. Examination: BP 110/70 (BP Location: Left arm, Patient Position (BP): Sitting, BP Cuff Size: Adult) Pulse 61 Ht 5' 11 (1.803 m) SpO2 97% BMI 17.29 kg/m?? General: Vital signs as documented, appears stated age. No cyanosis noted. Schizophrenic Head: Normocephalic, without obvious abnormality, atraumatic. Eyes: Conjunctivae/corneas clear. PERRL. Ears: Auricle inspection and palpation normal both ears. Throat: Lips, mucosa, and tongue normal. Neck: Supple, symmetrical, trachea midline, no adenopathy, thyroid: no enlargement nodules, no JVD. Lungs: Clear to percussion and auscultation Chest wall: No deformity. Heart: Regular rate and rhythm, S1, S2 normal, no murmur, click, rub or gallop. Extremities: Purposeless movements of legs. Skin: Skin color, texture, turgor normal. No rashes or lesions. Lymph nodes: Cervical, supraclavicular, nodes not palpable. Neurologic: Can not follow commands. Relevant review of systems obtained from patient and summarized as above. Relevant past medical history, past surgical history, family history and social history have been reviewed and summarized in the note as appropriate. Allergies and current medications have been reviewed in epic. Diagnostic Reports: The following images/results were independently interpreted by me in this visit including personal update of information since last visit with me Imaging Studies Chest Xray: Results for orders placed or performed during the hospital encounter of 05/22/22 XR CHEST PA AND LATERAL 2 VW Impression IMPRESSION: Please see below. Exam: XR CHEST PA AND LATERAL 2 VW Date/Time of Exam: 05/22/2022 11:25 AM Reason For Exam: See Diagnosis. Diagnosis: Pneumonia of lower lobe due to infectious organism, unspecified laterality. Findings: Comparison 07/25/2021. Evidence of old granulomatous disease again noted. No acute pulmonary pathology. No pleural effusion. Cardiomediastinal contours remarkable for thoracic aortic tortuosity which is also unchanged. Degenerative change again noted in the spine. IMPRESSION: No acute pathology or significant interval change. [id number] Results for orders placed or performed during the hospital encounter of 07/25/21 XR CHEST PA OR AP 1 VW Impression IMPRESSION: Please see below. Exam: XR CHEST PA OR AP 1 VW Date/Time of Exam: 07/25/2021 2:55 PM Reason For Exam: Chest Pain. Diagnosis: See Reason for Exam. Findings: No pleural effusion or pneumothorax. Lungs and cardiac silhouette unremarkable. Imaged skeleton without gross acute pathology. Chest CT: No results found for this or any previous visit. PROBLEMS There is no problem list on file for this patient. IMPRESSION & RECOMMENDATIONS: ICD-10-CM ICD-9-CM 1. Panlobular emphysema (CMS/HCC) J43.1 492.8 PLAN: Chest xray film done this morning reviewed and appears free from active disease Continue Incruse ellipta inhaler daily Continue Albuterol nebulizer as needed Chest xray report reviewed. No clinical sign of infection Return to pulmonary clinic one year Thank you so much for allowing me to participate in the care of Herson Ovalle Please feel free to call with questions. On the day of this visit I spent 47 minutes providing care to this patient including Preparing to see the patient, Obtaining and/or reviewing separately obtained history, Examining the patient with two-way synchronous audio & visual technology, Coordinating with bedside members of the care team, Counseling and educating the patient/family/caregiver, Ordering medications, tests or procedures, Documenting clinical information in the medical record, Referring and communication with other health career manager (not separately reported), Independently interpreting results and communicatingresults to the patient/family/caregiver (not separately reported), Care coordination (not separately reported), and Excluding time spent performing separately billed procedures and/or services E TANK SEPARATOR OPERATOR documented in this encounter Plan of Treatment Upcoming Encounters Date Type Department Care Team (Late st Contact Info) Description 08/03/2024 10:30 AM CDT Office Visit [facility] Urology- [place] [address]tr[address], [address]rd [place] [address] Brionna Mccord PA [address] [place] [address] documented as of this encounter Visit Diagnoses Diagnosis Panlobular emphysema (CMS/HCC)- Primary Other emphysema documented in this encounter
--- OUTSIDE RECORDS SUMMARY | 2024-04-18 10:53 | XMS_ITS | Continuity of Care Document ---
Author Organization [facility] Address [id number] [address] Phone Care Team Providers Care Combat Rifle Crewmember Name Role Phone Unavailable Unavailable Unavailable Allergies, Adverse Reactions, Alerts Substance Reaction Status Criticality ibuprofen Active No Information Medications Medication Instructions Dosage Effective Dates (start - stop) Status Comments simvastatin 20 mg Tab SI tab(s) orally once a day (at bedtime) for 30 day(s) pt needs appt before anymore refills - Active FLEXERIL (unknown strength) SI.5 tab(s) to 1 tab(s) orally 2 times a day PRN(as needed for spasm) Not Available - Active Naprosyn 500 mg Tab SI tab(s) orally 2 times a day with food - Active MIRTAZAPINE (unknown strength) SI.5 tab(s) orally once a day (at bedtime) for 30 day(s) Not Available - Active Abilify 15 mg Tab SI tab(s) orally once a day for 30 day(s) - Active simvastatin 20 mg Tab SI tab(s) orally once a day (at bedtime) for 30 day(s) - Active Tylenol 325 mg Tab SI tab(s) orally every 4 hours for 3 day(s) - Active MYLANTA (unknown strength) SI cc (liq) po q 3-4 times for GI upset Other instruction Not Available - Active simvastatin 20 mg Tab SI tab(s) orally once a day (at bedtime) for 30 day(s) - No Longer Active Procedures Procedure Date MICROALBUMIN, QUANTITATIVE GLYCATED HEMOGLOBIN TEST COMPREHEN METABOLIC PANEL Office/Outpatient Visit, Est LIPID PANEL QUEST COMPLETE CBC W/AUTO DIFF WBC URINALYSIS NONAUTO W/O SCOPE PSA, TOTAL URINALYSIS NONAUTO W/O SCOPE X-RAY SPINE, LUMBAR - 2 OR 3 VIEWS Office/Outpatient Visit, Est URINALYSIS NONAUTO W/O SCOPE NEW-COMPR/MOD COMPLEXITY Advance Directives Directive Yes / No Effective Date File Name No Information Encounters Encounter Description Practice Location Reason(s) For Visit Diagnoses Date Provider Providers Copied on Encounter [facility], [id number], [id number], [place] tel:[phone] Family Medicine F1 No Information 9 No Information [facility], [id number], [id number], [place] tel:[phone] Family Medicine F1 No Information 9 No Information Office/Outpa tient Visit, [facility], [id number] [place], [place], [id number], [place] tel:[phone] Family Medicine F1 No Information 6200 9 No Information Office/Outpa tient Visit, [facility], [id number], [id number], [place] tel:[phone] Family Medicine F1 Spasm of muscleLumbagoUrin kiya frequency 3200 9 No Information [facility], [id number] [facility] [place], [address], tel:[phone] Family Medicine F1 Nocturia 8 No Information NEW-COMPR/MO D COMPLEXITY [facility], [id number] [place], [id number], tel:[phone] Family Medicine F1 Benign essential hypertensionDiabe miguel angel mellitus without mention of complication, type II or unspecified type, uncontrolledAnxie ty state, unspecifiedParano id type schizophrenia, unspecified stateSocial maladjustmentOste oarthrosis, localized, primary, involving other specified sites 8 No Information Family History Family Member Type Diagnosis Age At Onset No Information Payers Payer name Insurance type Covered libertarian ID Authoriza tion(s) No Information Social History Type Description Quantity Date Captured Comments Sex Male Smoking Status No Information Chief Complaint And Reason For Visit No Information Reason For Referral Reason For Referral No Information History Of Present Illness Encounter Date Complaint History Of Prese nt Illness No Information Functional Status Date Functional Assessmen t No Information Instructions Date Instruction Additional Infor mation No Information Assessments Type Assessment Date No Information Patient Care Teams Name Effective Dates (start - stop) Status Members No Information
--- OUTSIDE RECORDS SUMMARY | 2024-04-18 10:53 | XMS_ITS | Clinical Summary ---
Author Organization [facility] Address [address] [place]aria: Epic Prelude ADT [place] [address] Care Team Providers Care City Superintendent Name Role Phone Unavailable Primary Care Provider Unavailabl e Allergies No known active allergies Medications propranoloL (INDERAL) 10 mg tablet Take 10 mg by mouth 2 times daily. Active tamsulosin (FLOMAX) 0.4 mg capsule Take 8 mg by mouth daily. Active albuterol sulfate 90 mcg/Actuation inhaler Take 2 Puffs by inhalation every 6 hours as needed for Shortness of Breath. 04/06/19 17 Active simvastatin (ZOCOR) 20 mg tablet Take 20 mg by mouth late in the day. 04/06/19 17 Active folic acid (FOLVITE) 1 mg tablet Take 1 mg by mouth daily. 04/06/19 17 Active acetaminophen (TYLENOL) 325 mg tablet Take 325 mg by mouth every 4 hours as needed for Pain. Active bisacodyL (DULCOLAX) 10 mg Suppository Insert 10 mg by rectum daily. Active docusate sodium (COLACE) 100 mg capsule Take 100 mg by mouth 2 times daily. Active umeclidinium (Incruse Ellipta) 62.5 mcg/actuation Disk with Device Take 1 Puff by inhalation daily. Active mirtazapine (REMERON) 30 mg tablet Take 30 mg by mouth daily at bedtime. Active pantoprazole (PROTONIX) [address] for susp in Packet 40 mg daily. Active PARoxetine HCl (PAXIL) 20 mg tablet Take 20 mg by mouth daily. Active potassium chloride (KLOR-CON) 20 mEq Extended Release tablet Take 20 mEq by mouth daily. Active QUEtiapine (SEROquel XR) 50 mg Extended Release 24 hour tablet Take 100 mg by mouth late in the day. Active magnesium hydroxide (MILK OF MAGNESIA) 400 mg/5 mL suspension Take 30 mL by mouth 1 time daily as needed for Constipation. Active mupirocin (BACTROBAN) 2 % Ointment Apply to affected area daily. Active naloxone (NARCAN) 0.4 mg/mL Solution Inject 2 mg by intramuscular injection see administration instructions. Active HYDROcodone-hunter taminophen (NORCO) 5-325 mg tablet Take 1 Tablet by mouth every 6 hours as needed for Pain, Moderate. Active sennosides-docu sate sodium (SENNA-S) 8.6-50 mg tablet Take 2 Tablets by mouth 2 times daily. Active sulfamethoxazol e-trimethoprim (BACTRIM DS) 800-160 mg tablet Take 1 Tablet by mouth 2 times daily. Active cefepime HCl (CEFEPIME IV) Inject 2 Grams by intravenous injection 2 times daily. For osteomyelitis Active ertapenem (INVanz) 1 gram Recon Soln Inject 1,000 mg by intravenous injection every 24 hours. osteomyelitis 12/09/19 24 Active Sodium Chloride 1,000 mg Tablet, Soluble Take 1,000 mg by mouth 2 times daily with meals. Active vancomycin (VANCOCIN) 1,000 mg Recon Soln Inject 1,500 mg by intravenous injection every 24 hours. Osteomyelitis 12/10/19 24 Active HYDROcodone-hunter taminophen (NORCO) 5-325 mg tabletIndicatio ns:Urinary retention Take 1 Tablet by mouth every 6 hours as needed for Pain. Max Daily Amount: 4 Tablets 8 Tablet 12/17/19 24 Active Active Problems No known active problems Encounters Date Type Department Care Team Description 03/29/2024 - 03/29/2024 11:59 PM COASTAL AND ESTUARY SPECIALIST Hospital Encounter [facility] Emergency Medical Services [place] [address] [place] [address] Ambulance, [facility] Discharge Disposition: [facility] 03/23/2024 9:00 AM COASTAL AND ESTUARY SPECIALIST Office Visit [facility] Pulmonology [address] [place] [address] Collin Sherman MD Panlobular emphysema (CMS/HCC) (Primary Dx) 03/23/2024 8:40 AM COASTAL AND ESTUARY SPECIALIST Ancillary Procedure [facility] Spine and Pain Radiology [address] [place] [address] Collin Sherman MD Chronic obstructive pulmonary disease, unspecified COPD type ([facility]) 03/10/2024 External Device Data STL ABSTRACTION Provider, Abstract 03/09/2024 External Device Data STL ABSTRACTION Provider, Abstract 03/04/2024 External Device Data STL ABSTRACTION Provider, Abstract 02/03/2024 External Device Data STL ABSTRACTION Provider, Abstract 01/28/2024 Abstract [facility] Pulmonology [address] [place] [address] Provider, Abstract 01/20/2024 10:00 AM COASTAL AND ESTUARY SPECIALIST Office Visit [facility] Urology- [address] Entr[address] B, 3rd [place] [address] Brionna Mccord PA Urinary retention (Primary Dx) from Last 3 Months Immunizations Immunization Administration Dates Next Due (ADACEL/BOOSTRIX)(10 YR UP) TDAP VACCINE, 0.5ML, IM 04/06/2016 Social History Tobacco Use Types Packs/Day Years [...] on file Legal Sex Male 3:38 AM COASTAL AND ESTUARY SPECIALIST Gender Identity Not on file Sexual Orientation Not on file Last Filed Vital Signs Vital Sign Reading Time Taken Comments Blood Pressure 110/70 03/23/2024 9:01 AM COASTAL AND ESTUARY SPECIALIST Pulse 61 03/23/2024 9:01 AM COASTAL AND ESTUARY SPECIALIST Temperature 36.1 ??C (97 ??F) 12/17/2023 9:50 AM COASTAL AND ESTUARY SPECIALIST Respiratory Rate 16 12/17/2023 9:50 AM COASTAL AND ESTUARY SPECIALIST Oxygen Saturation 97% 03/23/2024 9:01 AM COASTAL AND ESTUARY SPECIALIST Inhaled Oxygen Concentration - - Weight 56.2 kg (124 lb) 12/17/2023 6:00 AM COASTAL AND ESTUARY SPECIALIST Height 180.3 cm (5' 11 ) 03/23/2024 9:01 AM COASTAL AND ESTUARY SPECIALIST Body Mass Index 17.29 12/17/2023 6:00 AM COASTAL AND ESTUARY SPECIALIST Plan of Treatment Upcoming Encounters Date Type Department Care Team (Late st Contact Info) Description 08/03/2024 10:30 AM CDT Office Visit [facility] Urology- [place] [address]tr[address], 3rd [place] [address] Brionna Mccord PA [address] [place] [address] Health Maintenance Due Date Last Done Comments Traditional Medicare (ACO) A nnual Wellness Visit 09/21/1974 COLORECTAL SCREENING 09/21/2000 Colorectal Cancer Screening 09/21/2000 FIT-DNA Q 3 years 09/21/2000 FIT/FOBT Q 1 year 09/21/2000 Flex Sig/CT Colonography Q 5 years 09/21/2000 ZOSTER VACCINE (1 of 2) 09/21/2005 RSV VACCINE (60+ or ) (1 - Risk 60-74 years 1-dose series) 2015 Abdominal Aortic Aneurysm (A AA) Screening 09/21/2020 INFLUENZA VACCINE (#1) 2023 11/06/2017 COVID-19 Vaccine (5 - 2023-2 5 season) 2023 03/07/2023, 05/10/2021, 04/14/2020, Additional history exists DTAP/TDAP/TD VACCINES (2 - T d or Tdap) 04/06/2026 04/06/2016 PNEUMOCOCCAL VACCINE 50+ YEARS Completed 0 11/01/2022, 03/29/2022, 04/05/2016 Procedures Procedure Name Priority Date/Time Associated Diagnosis Comments XR CHEST PA OR AP 1 VW Routine 03/23/2024 8:52 AM COASTAL AND ESTUARY SPECIALIST Chronic obstructive pulmonary disease, unspecified COPD type (CMS/HCC) from Last 3 Months Results * XR CHEST PA OR AP 1 VW (03/23/2024 8:52 AM COASTAL AND ESTUARY SPECIALIST) Anatomical Region Laterality Modality Chest Computed Radiogr aphy 03/23/2024 8:53 AM COASTAL AND ESTUARY SPECIALIST Narrative 03/23/2024 9:51 AM COASTAL AND ESTUARY SPECIALIST XR CHEST PA OR AP 1 VW Reason For Exam: See Diagnosis. Diagnosis: Chronic obstructive pulmonary disease, unspecified COPD type (CMS/HCC). COMPARISON: 05/22/2022 FINDINGS: Port tip vertex over the expected location of the right atrium. ??Cardiomediastinal silhouette is within normal limits. ?? Bilateral subtle groundglass opacities noted within the left mid and right lower lung zones concerning for multifocal pneumonia in the appropriate clinical context. No pneumothorax. No large pleural effusion. Follow-up radiograph to ensure resolution the bilateral suspected infiltrates is recommended. Procedure Note Devon Roman MD - 03/23/2024 XR CHEST PA OR AP 1 VW Reason For Exam: See Diagnosis. Diagnosis: Chronic obstructive pulmonary disease, unspecified COPD type (CMS/HCC). COMPARISON: 05/22/2022 FINDINGS: Port tip vertex over the expected location of the right atrium. Cardiomediastinal silhouette is within normal limits. Bilateral subtle groundglass opacities noted within the left mid and right lower lung zones concerning for multifocal pneumonia in the appropriate clinical context. No pneumothorax. No large pleural effusion. Follow-up radiograph to ensure resolution the bilateral suspected infiltrates is recommended. Collin Sherman MD DIAGNOSTIC IMAGING ORDERABLES F inal Result from Last 3 Months Insurance MEDICARE PART A AND B [place] Advance Directives For more information, please contact: [phone] * Full Code (Latest Code Status on File) Date Activated Date Inactivated Comments 12/17/2023 6:54 AM 12/17/2023 2:24 PM
--- OUTSIDE RECORDS SUMMARY | 2024-04-18 10:53 | XMS_ITS | Encounter Summary ---
Author Organization [facility] Address [address] [place] [address] Care Team Providers Care Cotton Expert Name Role Phone Unavailable Primary Care Provider Unavailabl e Encounter Details Date Type Department Care Team (Latest Contact Info) Description 03/23/2024 8:40 AM PROFESSIONAL SERVICES MANAGER Ancillary Procedure [facility] Spine and Pain Radiology [address] [place] [address] Collin Sherman MD [address] [place] [address] Chronic obstructive pulmonary disease, unspecified COPD type (CMS/HCC) Social History Tobacco Use Types Packs/Day Years Used Date Smoking Tobacco: Former Cigarettes Q uit: 03/31/2016 Smokeless Tobacco: Never Alcohol Use Standard Drinks/Week Comments No 0 (1 standard drink = 0.6 oz pur e alcohol) Feeling Safe Answer Date Recorded Are you in a relationship wi th someone who hurts you emotionally and/or physically? No 12/17/2023 Sex and Gender Information Value Date Recorded Sex Assigned at Not on file Legal Sex Male 3:38 AM PROFESSIONAL SERVICES MANAGER Gender Identity Not on file Sexual Orientation Not on file documented as of this encounter Plan of Treatment Upcoming Encounters Date Type Department Care Team (Late st Contact Info) Description 08/03/2024 10:30 AM CDT Office Visit [facility] Urology- [place] [address]tr[address], [address]rd [place] [address] Brionna Mccord PA [address] [place] [address] documented as of this encounter Procedures Procedure Name Priority Date/Time Associated Diagnosis Comments XR CHEST PA OR AP 1 VW Routine 03/23/2024 8:52 AM PROFESSIONAL SERVICES MANAGER Chronic obstructive pulmonary disease, unspecified COPD type (CMS/HCC) documented in this encounter Results * XR CHEST PA OR AP 1 VW (03/23/2024 8:52 AM PROFESSIONAL SERVICES MANAGER) Anatomical Region Laterality Modality Chest Computed Radiogr aphy 03/23/2024 8:53 AM PROFESSIONAL SERVICES MANAGER Narrative 03/23/2024 9:51 AM PROFESSIONAL SERVICES MANAGER XR CHEST PA OR AP 1 VW [...] resolution the bilateral suspected infiltrates is recommended. us Collin Sherman MD DIAGNOSTIC IMAGING ORDERABLES F inal Result documented in this encounter Visit Diagnoses Diagnosis Chronic obstructive pulmonary disease, unspecified COPD type (CMS/HCC) documented in this encounter
--- OUTSIDE RECORDS SUMMARY | 2024-04-18 10:53 | XMS_ITS | Encounter Summary ---
Author Organization [facility] Address [address] [place] [address] Care Team Providers Care Election Assistant Name Role Phone Unavailable Primary Care Provider Unavailabl e Encounter Details Date Type Department Care Team (Latest Contact Info) Description 03/29/2024 - 03/29/2024 11:59 PM SALESPERSON TRAILERS AND MOTOR HOMES Hospital Encounter [facility] Emergency [facility] Services [address] [address] Ambulance, [address] [address] Discharge Disposition: Short term general hospital Social History Tobacco Use Types Packs/Day Years [...] on file Legal Sex Male 3:38 AM SALESPERSON TRAILERS AND MOTOR HOMES Gender Identity Not on file Sexual Orientation Not on file documented as of this encounter Medications at Time of Discharge HYDROcodone-acet aminophen (NORCO) 5-325 mg tabletIndication s:Urinary retention Take 1 Tablet by mouth every 6 hours as needed for Pain. Max Daily Amount: 4 Tablets 8 Tablet 12/17/2023 sulfamethoxazole -trimethoprim (BACTRIM DS) 800-160 mg tablet Take 1 Tablet by mouth 2 times daily. cefepime HCl (CEFEPIME IV) Inject 2 Grams by intravenous injection 2 times daily. For osteomyelitis ertapenem (INVanz) 1 gram Recon Soln Inject 1,000 mg by intravenous injection every 24 hours. osteomyelitis 12/09/2023 Sodium Chloride 1,000 mg Tablet, Soluble Take 1,000 mg by mouth 2 times daily with meals. vancomycin (VANCOCIN) 1,000 mg Recon Soln Inject 1,500 mg by intravenous injection every 24 hours. Osteomyelitis 12/10/2023 magnesium hydroxide (MILK OF MAGNESIA) 400 mg/5 mL suspension Take 30 mL by mouth 1 time daily as needed for Constipation. mupirocin (BACTROBAN) 2 % Ointment Apply to affected area daily. naloxone (NARCAN) 0.4 mg/mL Solution Inject 2 mg by intramuscular injection see administration instructions. HYDROcodone-acet aminophen (NORCO) 5-325 mg tablet Take 1 Tablet by mouth every 6 hours as needed for Pain, Moderate. sennosides-docus ate sodium (SENNA-S) 8.6-50 mg tablet Take 2 Tablets by mouth 2 times daily. acetaminophen (TYLENOL) 325 mg tablet Take 325 mg by mouth every 4 hours as needed for Pain. bisacodyL (DULCOLAX) 10 mg Suppository Insert 10 mg by rectum daily. docusate sodium (COLACE) 100 mg capsule Take 100 mg by mouth 2 times daily. umeclidinium (Incruse Ellipta) 62.5 mcg/actuation Disk with Device Take 1 Puff by inhalation daily. mirtazapine (REMERON) 30 mg tablet Take 30 mg by mouth daily at bedtime. pantoprazole (PROTONIX) [address] for susp in Packet 40 mg daily. PARoxetine HCl (PAXIL) 20 mg tablet Take 20 mg by mouth daily. potassium chloride (KLOR-CON) 20 mEq Extended Release tablet Take 20 mEq by mouth daily. QUEtiapine (SEROquel XR) 50 mg Extended Release 24 hour tablet Take 100 mg by mouth late in the day. propranoloL (INDERAL) 10 mg tablet Take 10 mg by mouth 2 times daily. tamsulosin (FLOMAX) 0.4 mg capsule Take 8 mg by mouth daily. albuterol sulfate 90 mcg/Actuation inhaler Take 2 Puffs by inhalation every 6 hours as needed for Shortness of Breath. 04/06/2016 simvastatin (ZOCOR) 20 mg tablet Take 20 mg by mouth late in the day. 04/06/2016 folic acid (FOLVITE) 1 mg tablet Take 1 mg by mouth daily. 04/06/2016 documented as of this encounter Plan of Treatment Upcoming Encounters Date Type Department Care Team (Late st Contact Info) Description 08/03/2024 10:30 AM CDT Office Visit [facility] Urology- [address]tr[address], 3rd [place] [address] Brionna Mccord PA [address] [place] [address] documented as of this encounter Visit Diagnoses Not on filedocumented in this encounter
[2024-04-18 10:58] LABS: Reticulocyte % 1.1 % (0.5-2.0)
[2024-04-18] MEDS: heparin 5,000 unit/mL INJ 1 mL 5000 UNIT SUBCUT ×2 (11:04→21:27)
[2024-04-18 11:11] LABS: Iron 19 ug/dL (59-158); Percent Saturation 15.3 % (20-50); Total Iron Binding Capacity 124 mcg/dl; Unsaturated Iron Binding 105 ug/dL (112-347)
[2024-04-18] MEDS: dextrose 5%-sod chloride 0.9% 1,000 ML 75 ML IV ×2 (11:13→23:35)
[2024-04-18 11:26] LABS: Vitamin B12 1184 pg/mL (232-1245)
--- OUTSIDE RECORDS SUMMARY | 2024-04-18 11:33 | XMS_ITS | Encounter Summary ---
Author Organization [facility] Address [address] [place] [address] Care Team Providers Care Leather Sorter Name Role Phone Unavailable Primary Care Provider Unavailabl e Encounter Details Date Type Department Care Team (Latest Contact Info) Description 03/29/2024 - 03/29/2024 11:59 PM ENDODONTIC ASSISTANT Hospital Encounter [facility] Emergency Medical Services [address] [address] Ambulance, [address] [address] Discharge Disposition: Short term general hospital Social [...] on file Legal Sex Male 3:38 AM ENDODONTIC ASSISTANT Gender Identity Not on file Sexual Orientation [...] 08/03/2024 10:30 AM CDT Office Visit [facility] Urology- [address] Entrance B, 3rd [place] [address] Brionna Mccord PA [address] [place] [address] documented as of this encounter Visit Diagnoses Not on filedocumented in this encounter
--- OUTSIDE RECORDS SUMMARY | 2024-04-18 11:33 | XMS_ITS | Encounter Summary ---
Author Organization [facility] Address [address] [place] [address] Care Team Providers Care Flatbed Driver Name Role Phone Unavailable Primary Care Provider Unavailabl e Reason for Visit * Reason Comments Establish Care COPD * Eval and Treat (Routine) - Closed Specialty Diagnoses / Procedures Referred By Darrius t Referred To Contact Pulmonology Diagnoses COPD (chronic obstructive pulmonary disease) ([facility]/HCC) Benitez Fitzpatrick MD [address] [facility] [address] [place] [address] Phone: tel: fax: [facility] Pulmonology [address] [place] [address] Phone: tel: fax: Referral ID Status Reason Start Date Expiration Date Visits Re quested Visits Authorized [id number] Closed 10/15/2023 11/14/2024 1 1 Encounter Details Date Type Department Care Team ([facility] Contact Info) Description 03/23/2024 9:00 AM SCREEN WRITER Office Visit [facility] Pulmonology [address] [place] [address] Collin Sherman MD [address] [place] [address] Panlobular emphysema ([facility]/HCC) (Primary Dx) Social History Tobacco Use Types [...] on file Legal Sex Male 3:38 AM SCREEN WRITER Gender Identity Not on file Sexual Orientation Not on file documented as of this encounter Last Filed Vital Signs Vital Sign Reading Time Taken Comments Blood Pressure 110/70 03/23/2024 9:01 AM SCREEN WRITER Pulse 61 03/23/2024 9:01 AM SCREEN WRITER Temperature - - Respiratory Rate - - Oxygen Saturation 97% 03/23/2024 9:01 AM SCREEN WRITER Inhaled Oxygen Concentration - - Weight - - Height 180.3 cm (5' 11 ) 03/23/2024 9:01 AM SCREEN WRITER Body Mass Index - - documented in this encounter Progress Notes * Collin Sherman MD - 03/23/2024 9:37 AM CST [facility] Initial Visit Note History of presenting illness: Herson Ovalle is an 68 y.o. male referred by Benitez Fitzpatrick MD for evaluation and treatment of COPD This [facility] with his transition social worker. He has schizophrenia and can not comprehend . I talked to his nurse Sarika in his [facility] on phone and she told me that patientwas being followed by a rehabilitation construction specialist in [facility]. That physician retired so this patient [...] No acute pathology or significant interval change. [id number] Results for orders placed or performed during [...] record, Referring and communication with other health acute care clinical nurse specialist (not separately reported), Independently interpreting results and communicatingresults to the patient/family/caregiver (not separately reported), Care coordination (not separately reported), and Excluding time spent performing separately billed procedures and/or services EN WRITER documented in this encounter Plan of Treatment Upcoming Encounters Date Type Department Care Team (Late st Contact Info) Description 08/03/2024 10:30 AM CDT Office Visit [facility] Urology- [place] [address] Entr[address], 3rd [place] [address] Brionna Mccord PA [address] [place] [address] documented as of this encounter Visit Diagnoses Diagnosis Panlobular emphysema (CMS/HCC)- Primary Other emphysema documented in this encounter
--- OUTSIDE RECORDS SUMMARY | 2024-04-18 11:33 | XMS_ITS | Clinical Summary ---
Author Organization [facility] Address [address] [facility] [address] Santamaria: Epic Prelude ADT [place] [address] Care Team Providers Care Trimming Assembler Name Role Phone Unavailable Primary Care Provider [...] Team Description 03/29/2024 - 03/29/2024 11:59 PM CARPENTRY SUPERVISOR Hospital Encounter [facility] Emergency Medical Services [place] [address] [place] [address] Ambulance, [facility] Discharge Disposition: [facility] 03/23/2024 9:00 AM CARPENTRY SUPERVISOR Office Visit [facility] Pulmonology [address] [place] [address] Collin Sherman MD Panlobular emphysema (CMS/HCC) (Primary Dx) 03/23/2024 8:40 AM CARPENTRY SUPERVISOR Ancillary Procedure [facility] Spine and Pain Radiology [address] [place] [address] Collin Sherman MD Chronic obstructive pulmonary disease, unspecified COPD type ([facility]) 03/10/2024 External Device Data [facility] ABSTRACTION Provider, Abstract 03/09/2024 External Device Data [facility] ABSTRACTION Provider, Abstract 03/04/2024 External Device Data [facility] ABSTRACTION Provider, Abstract 02/03/2024 External Device Data [facility] ABSTRACTION Provider, Abstract 01/28/[address] [facility] Pulmonology [address] [place] [address] Provider, Abstract 01/20/2024 10:00 AM CARPENTRY SUPERVISOR Office Visit [facility] Urology- [address] Entrance B, 3rd [place] [address] Brionna Mccord PA Urinary retention (Primary Dx) [...] on file Legal Sex Male 3:38 AM CARPENTRY SUPERVISOR Gender Identity Not on file Sexual Orientation Not on file Last Filed Vital Signs Vital Sign Reading Time Taken Comments Blood Pressure 110/70 03/23/2024 9:01 AM CARPENTRY SUPERVISOR Pulse 61 03/23/2024 9:01 AM CARPENTRY SUPERVISOR Temperature 36.1 ??C (97 ??F) 12/17/2023 9:50 AM CARPENTRY SUPERVISOR Respiratory Rate 16 12/17/2023 9:50 AM CARPENTRY SUPERVISOR Oxygen Saturation 97% 03/23/2024 9:01 AM CARPENTRY SUPERVISOR Inhaled Oxygen Concentration - - Weight 56.2 kg (124 lb) 12/17/2023 6:00 AM CARPENTRY SUPERVISOR Height 180.3 cm (5' 11 ) 03/23/2024 9:01 AM CARPENTRY SUPERVISOR Body Mass Index 17.29 12/17/2023 6:00 AM CARPENTRY SUPERVISOR Plan of Treatment Upcoming Encounters Date Type Department Care Team (Late st Contact Info) Description 08/03/2024 10:30 AM CDT Office Visit [facility] Urology- [place] [address]tr[address] B, 3rd [place] [address] Brionna Mccord PA [address] [place] [address] Health Maintenance Due Date Last [...] AP 1 VW Routine 03/23/2024 8:52 AM CARPENTRY SUPERVISOR Chronic obstructive pulmonary disease, unspecified COPD type (CMS/HCC) from Last 3 Months Results * XR CHEST PA OR AP 1 VW (03/23/2024 8:52 AM CARPENTRY SUPERVISOR) Anatomical Region Laterality Modality Chest Computed Radiogr aphy 03/23/2024 8:53 AM CARPENTRY SUPERVISOR Narrative 03/23/2024 9:51 AM CARPENTRY SUPERVISOR XR CHEST PA OR AP 1 VW [...] Advance Directives For more information, please contact: [phone] * Full Code (Latest Code Status on File) Date Activated Date Inactivated Comments 12/17/2023 6:54 AM 12/17/2023 2:24 PM
--- OUTSIDE RECORDS SUMMARY | 2024-04-18 11:33 | XMS_ITS | Clinical Summary ---
Author Organization [facility] Address [address] [place] [address] Care Team Providers Care Heliarc Welder Name Role Phone Benitez Fitzpatrick MD Primary Care Provider [phone] Allergies No known active allergies Medications Medication [...] 02/25/2023 Assessment & Plan (03/14/2022 11:27 AM RESIDENT DIRECTOR): Continue to wound prep and offload heel [...] Comments Blood Pressure 96/58 03/23/2024 6:26 AM RESIDENT DIRECTOR Pulse 63 03/23/2024 6:26 AM RESIDENT DIRECTOR Temperature 36.5 ??C (97.7 ??F) 03/23/2024 6:26 AM CS T Respiratory Rate 17 03/23/2024 6:26 AM RESIDENT DIRECTOR Oxygen Saturation 92% 03/23/2024 6:26 AM RESIDENT DIRECTOR Inhaled Oxygen Concentration - - Weight 51.4 kg (113 lb 4.8 oz) 03/23/2024 6:26 A M RESIDENT DIRECTOR Height 152.4 cm (5') 03/23/2024 6:26 AM RESIDENT DIRECTOR Body Mass Index 22.13 03/23/2024 6:26 AM RESIDENT DIRECTOR Plan of Treatment Upcoming Encounters Date Type Department Care Team (Late st Contact Info) Description 04/20/2024 9:40 AM CDT External Patient Visit [facility] - Primary Care [address] [facility] [address] [place] [address] Benitez Fitzpatrick MD [address] [facility] [address] [place] [address] Health Maintenance Due Date Last Done Comments [...] age to complete this topic Care Teams Heliarc Welder Relationship Specialty Start Date End Date Benitez Fitzpatrick MD [address] [place] [address] PCP - General Internal Medicine 02/28/22
--- OUTSIDE RECORDS SUMMARY | 2024-04-18 11:33 | XMS_ITS | Encounter Summary ---
Author Organization [facility] Address [address] [place] [address] Care Team Providers Care Vulcanizer Name Role Phone Unavailable Primary Care Provider Unavailabl e Encounter Details Date Type Department Care Team (Latest Contact Info) Description 03/23/2024 8:40 AM TICKET COUNTER Ancillary Procedure [facility] Rad[facility] [address] [place] [address] Collin Sherman MD [address] [place] [address] Chronic obstructive pulmonary disease, unspecified [...] on file Legal Sex Male 3:38 AM TICKET COUNTER Gender Identity Not on file Sexual Orientation Not on file documented as of this encounter Plan of Treatment Upcoming Encounters Date Type Department Care Team (Late st Contact Info) Description 08/03/2024 10:30 AM CDT Office Visit [facility] Urology- [place] [address] Entr[address] B, 3rd [place] [address] Brionna Mccord PA [address] [place] [address] documented as of this encounter Procedures Procedure Name Priority Date/Time Associated Diagnosis Comments XR CHEST PA OR AP 1 VW Routine 03/23/2024 8:52 AM TICKET COUNTER Chronic obstructive pulmonary disease, unspecified COPD type (CMS/HCC) documented in this encounter Results * XR CHEST PA OR AP 1 VW (03/23/2024 8:52 AM TICKET COUNTER) Anatomical Region Laterality Modality Chest Computed Radiogr aphy 03/23/2024 8:53 AM TICKET COUNTER Narrative 03/23/2024 9:51 AM TICKET COUNTER XR CHEST PA OR AP 1 VW [...]
--- OUTSIDE RECORDS SUMMARY | 2024-04-18 11:33 | XMS_ITS | Continuity of Care Document ---
Author Organization [facility] Address [id number] [address] Phone Care Team Providers Care Service Desk Lead Name Role Phone Unavailable Unavailable Unavailable Allergies, [...] Diagnoses Date Provider Providers Copied on Encounter [facility], [id number], [id number], [place] tel:[phone] Family Medicine F1 No Information 9 No Information [facility], [id number], [id number], [place] tel:[phone] Family Medicine F1 No Information 9 No Information Office/Outpa tient Visit, [facility], [id number], [id number], [place] tel:[phone] Family Medicine F1 No Information 6200 9 No Information Office/Outpa tient Visit, [facility], [id number], [id number], [place] tel:[phone] Family Medicine F1 Spasm of muscleLumbagoUrin ikya frequency 3200 9 No Information [facility], [id number], [id number], tel:[phone] Family Medicine F1 Nocturia 8 No Information NEW-COMPR/MO D COMPLEXITY [facility], [id number] [place], [place], [id number], tel:[phone] Family Medicine F1 Benign essential hypertensionDiabe miguel angel mellitus without mention of complication, type II or unspecified type, uncontrolledAnxie ty state, unspecifiedParano id type schizophrenia, unspecified stateSocial maladjustmentOste oarthrosis, localized, primary, involving other specified sites 8 No Information Family History Family Member Type Diagnosis Age At Onset No Information Payers Payer name Insurance type Covered republican ID Authoriza tion(s) No Information Social History [...]
--- NOTE | 2024-04-18 14:03 | P.MISC_ITS ---
Miscellaneous Note Purpose of Documentation: Cross coverage. Note: Admitted earlier today morning. Patient seen in the ER. Patient is awake, following with his eyes, nonverbal, following some directions. Remains on room air. Blood pressure on examination 90 systolic. Patient looks chronically extremely sick. Staring at the roof breathing by his mouth. Has a state appointed guardian. Full code as per paperwork from longterm. Labs showing hypernatremia. Plan: Continue with IV ceftriaxone and vancomycin. Giurgius for creatinine Ference. Follow-up urine culture. Send blood culture. Somehow not sent on admission. Appreciate CT scan with concerns for chronic infection. BMP showing hypernatremia. Start on D5 NS at 75 cc/h. Keep NPO. Speech evaluation. Goal blood pressure less than 140/90 mmHg with mean over 65. Blood pressure soft. Hold off on antihypertensives. Suprapubic catheter changed overnight. Other Coding Information Prolonged care (total time indicated above or notated here) (Hypernatremia, hypotension)
[2024-04-18 14:35] LABS: Estmated Average Glucose 117; Hemoglobin A1C 5.7 % (4.0-6.0)
[2024-04-18 15:44] LABS: Procalcitonin 0.05 ng/mL (0-0.5); Thyroid Stimulating Hormone 0.32 uIU/mL (0.27-4.20)
[2024-04-18 15:55] LABS: Anion Gap 12.6 (5-19); Blood Urea Nitrogen 20 mg/dL (8-23); Calcium 7.9 mg/dL (8.5-10.5); Carbon Dioxide 21 mmol/L (22-29); Chloride 113 mmol/L (98-107); Glomerular Filtration Rate 213.9 mL/min (90-130); Glucose 141 mg/dL (65-115); Osmolality Calculated 301 mOsm/kg (285-295); Potassium 3.6 mmol/L (3.5-5.1); Sodium 143 mmol/L (136-145)
[2024-04-18] MEDS: pantoprazole 40 mg SDV IVP (18:10)
[2024-04-18] MEDS: vancomycin 500 MG in sodium chloride 0.9% (plus) 100 ML 200 MG IV (21:27)
[2024-04-19] VITALS (30 sets, daily range): BP systolic 91–128; BP diastolic 55–105; PULSE 57–73; RESP 14–32; TEMP 36.6–36.8; O2SAT 93–98
--- NOTE | 2024-04-19 02:16 | ECG_ITS ---
whoactually Test Date: 2024-04-19 Pat Name: Herson Ovalle Department: Room: ICU05 Gender: Male Jeeper Operator: : 1955 Requested By: Angelika Benitez Order Number: [id number] Reading MD: ANGELIKA LEAL Measurements Intervals [place] Rate: 62 P: 78 [place]: 145 QRS: 64 QRSD: 84 T: 77 QT: 408 QTc: 417 Interpretive Statements SINUS RHYTHM SEPTAL MYOCARDIAL INFARCTION , PROBABLY OLD [40+ ms Q WAVE IN V1/V2] Compared to ECG 02/25/2022 11:09:37 Myocardial infarct finding now present Electronically Signed On 04-19-2024 22:14:26 CDT by ANGELIKA LEAL [email or web address]
[2024-04-19] MEDS: lidocaine 1% 5 ML in potassium chloride premix 100 ML 53 ML IV ×2 (02:31→04:29)
--- NOTE | 2024-04-19 02:45 | PC.NURSE ---
VTACH: Patient had a nonsustained run of Vtach with pulse, for approximately 30 secs, patient had several more runs about 5 seconds long. Patient was asymptomatic and was alert and talking. Dr. Benitez notified and ordered 40meq IV Potassium and EKG. Dr. Benitez stated to start an amioderone drip if patient goes back into vtach and sustains longer than 30 seconds.
[2024-04-19] MEDS: cefTRIAXone 1,000 MG in sodium chloride 0.9% (plus) 50 ML 100 MG IV (04:31)
[2024-04-19 04:36] LABS: Basophils # 0.1 10^3/uL (0.0-0.1); Basophils % 0.7 %; Eosinophils # 0.1 10^3/uL (0.0-0.8); Eosinophils % 1.3 %; Hematocrit 28.8 % (37-53); Lymphocytes # 2.4 10^3/uL (0.8-4.8); Lymphocytes % 27.7 %; Mean Corpuscular HGB Conc 31.3 g/dL (30-55); Mean Corpuscular Hemoglobin 27.7 pg (27-33); Mean Corpuscular Volume 88.6 fl (82-101); Monocytes # 0.8 10^3/uL (0.2-0.9); Monocytes % 9.1 %; Neutrophils # 5.31 10^3/uL (1.8-7.7); Nucleated Red Blood Cells % 0 %; Platelet Count 173 10^3/cmm (157-399); Red Blood Count 3.25 10^6/uL (3.85-5.65); Red Cell Distribution Width 16.8 % (12.1-15.1)
[2024-04-19 04:59] LABS: Alanine Aminotransferase 8 U/L (0-41); Albumin Level 2.2 g/dL (3.5-5.2); Alkaline Phosphatase 102 U/L (40-130); Anion Gap 10.4 (5-19); Aspartate Amino Transferase 12 U/L (0-40); Blood Urea Nitrogen 18 mg/dL (8-23); Calcium 8.1 mg/dL (8.5-10.5); Carbon Dioxide 22 mmol/L (22-29); Chloride 116 mmol/L (98-107); Chol HDL Ratio 2.28 mg/dL (1.0-5.00); Cholesterol 66 mg/dL (0-200); Globulin 4.7 g/dL (1.3-4.6); Glomerular Filtration Rate 165.4 mL/min (90-130); Glucose 101 mg/dL (65-115); HDL Cholesterol 29 mg/dL (60-100); LDL Cholesterol Calculated 25 mg/dL (50-129); LDL HDL Ratio 0.86 RATIO (0.00-3.22); Magnesium 1.7 mg/dL (1.7-2.3); Osmolality Calculated 302 mOsm/kg (285-295); Phosphorus 2.4 mg/dL (2.5-4.5); Potassium 3.4 mmol/L (3.5-5.1); Sodium 145 mmol/L (136-145); Total Bilirubin 0.2 mg/dL (0.15-1.2); Total Protein 6.9 g/dL (6.6-8.7); Triglycerides 58 mg/dL (0-150)
[2024-04-19 05:02] LABS: Procalcitonin 0.05 ng/mL (0-0.5)
[2024-04-19 05:29] LABS: Folate Level > 20.0 ng/mL (4.5-32.2)
[2024-04-19] MEDS: heparin 5,000 unit/mL INJ 1 mL 5000 UNIT SUBCUT ×2 (09:27→20:24)
[2024-04-19] MEDS: sennosides-docusate Tablet 1 TAB PO (09:27)
[2024-04-19] MEDS: docusate sodium 100 mg Capsule PO ×2 (09:27→18:20)
[2024-04-19] MEDS: vancomycin 500 MG in sodium chloride 0.9% (plus) 100 ML 200 MG IV ×2 (09:29→21:07)
--- NOTE | 2024-04-19 13:39 | P.CONIM_ITS ---
<Statement entered by Behzad Scott MD - 04/20/24 07:56> I have reviewed the documentation and plan of care and agree with the assessment and plan of care as written. I concur with Ms. Arevalo that the left hip wound is most concerning, particularly after review of the most recent CT scan. Obviously, this patient has numerous comorbidities. Will be interested in our orthopedic colleagues assessment as to whether this patient can tolerate a surgical debridement or perhaps [place]. Dr. Behzad Scott Providers/Reason For Consult 2 Consulting Physician/Specialty*: Wound Care Reason for Consult*: Open wounds Requesting Physician: Dr. Bales Attending Physician: Dr. Dami Bales Primary Care Provider: Aristeo Fitzpatrick MD History of Present Illness History of Present Illness Herson Ovalle is a 68 year old male admitted to the hospital for UTI, chronic osteomyelitis of the sacrum, and hypotension. His past medical history includes hypertension, hyperlipidemia, COPD, schizophrenia, BPH, anemia, osteoporosis, malnutrition, and tardive akathisia. He is noted to have lower extremity contractures. He is currently on vancomycin and ceftriaxone. He resides at [facility]. Wound care was consulted for chronic pressure ulcer to his sacrum complicated by osteomyelitis. He is also noted to have an open ulceration to his left hip. CT from April 18 shows: Sacral decubitus ulcer with findings of chronic osteomyelitis involving the distal sacrum. Findings suspicious of chronic infection involving the patient's chronic left femur fracture suspected chronic osteomyelitis with surrounding phlegmon. Review of Systems 2 General: Reports: ROS unobtainable due to mental status Medications/Allergies Home Medications ?Medication ?Instructions ?Recorded ?Confirmed ?Last Taken ?Type propranolol 10 mg tablet 10 mg PO BID@08,02/12/22 04/18/24 04/17/24 History simvastatin 20 mg tablet 20 mg PO BEDTIME@20 02/12/22 04/18/24 04/17/24 History tamsulosin 0.4 mg capsule 0.8 mg PO BEDTIME@ 3 04/18/24 04/17/24 History pantoprazole 40 mg tablet,delayed 40 mg PO BID #60 tab s 02/15/22 04/18/24 04/17/24 Rx release bisacodyl 10 mg rectal suppository 10 mg MS DAILY PRN Constipation 05/20/22 04/18/24 Unknown History docusate sodium 100 mg tablet 200 mg PO BID@,20 04/04/18/24 04/17/24 History magnesium hydroxide 400 mg/5 mL 30 ml PO DAILY PRN Con stipation 05/20/22 04/18/24 Unknown History oral suspension (Milk of Magnesia) naloxone 2 mg/2 mL syringe kit 2 mg IM Q3M PRN overdos e 05/20/22 04/18/24 Unknown History folic acid 1 mg tablet 1 mg PO DAILY@08 05/28/2204/17/24 History sennosides 8.6 mg-docusate sodium 2 tab PO BID@ 0 05/28/22 04/18/24 04/17/24 History 50 mg tablet (Senna-S) umeclidinium 62.5 mcg/actuation 1 inh inhalation DAILY #30 ea 10/10/22 04/18/24 04/17/24 Rx blister powder for inhalation (Incruse Ellipta) acetaminophen 325 mg tablet 650 mg PO Q6H PRN Pain 04/18/24 Unknown History albuterol sulfate 1.25 mg/3 mL 2.5 mg inhalation Q8H P RN 03/29/24 04/18/24 Unknown History solution for nebulization Shortness Of Breath ferrous sulfate 325 mg (65 mg 325 mg PO DAILY 03/29/24 04/18/24 04/17/24 History iron) tablet hydrocodone 5 mg-acetaminophen 325 1 tab PO Q6H PRN Pa in 03/29/24 04/18/24 Unknown History mg tablet mirtazapine 30 mg tablet 30 mg PO BEDTIME 03/29/2404/17/24 History mupirocin 2 % topical ointment 1 applic topical Q8H MS N Skin 03/29/24 04/18/24 04/17/24 History Irritation paroxetine HCl 40 mg tablet (Paxil) 40 mg PO BEDTIME 0 03/29/24 04/18/24 04/17/24 History potassium chloride 20 mEq 20 meq PO DAILY 03/29/2411/0404/17/24 History tablet,extended release quetiapine 100 mg tablet 100 mg PO BEDTIME 03/29/24 0 04/18/24 04/17/24 History sodium chloride 1,000 mg soluble 1,000 mg PO TID 04/1804/18/24 04/17/24 History tablet Allergies Allergy/AdvReac Type Severity Reaction Status Date / Time No Known Allergies Allergy Verified 07/02/23 09:39 Current Medications Generic Name Dose Route Start Last Admin Trade Name Hanq PRN Reason Stop Dose Admin Docusate Sodium 100 mg 04/18/24 18:00 04/19/24 09:27 Docusate Sodium 100 Mg Capsule PO 100 mg BID TIKI Administration Heparin Sodium (Porcine) 5,000 unit 04/18/24 09:00 04/19/24 09:27 Heparin 5,000 Unit/Ml Inj 1 Ml SUBCUT 5,000 unit Q12H TIKI Administration Ceftriaxone Sodium 1,000 mg/ 50 mls @ 100 mls/hr 04/19/24 04:00 04/19/24 05:24 Sodium Chloride IV Infused Q24H TIKI Infusion Protocol Vancomycin HCl 500 mg/ Sodium 100 mls @ 200 mls/hr 04/18/24 22:00 04/19/24 10:10 Chloride IV Infused Q12H TIKI Infusion Pantoprazole Sodium 40 mg 04/18/24 14:15 04/18/24 18:10 Pantoprazole 40 Mg Sdv IVP 40 mg Q24H TIKI Administration Senna/Docusate Sodium 1 tab 04/18/24 09:00 04/19/24 09:27 Sennosides-Docusate Tablet PO 1 tab DAILY TIKI Administration PFSH Acute 2 PFSH: Medical History Osteoporosis COVID-19 vaccine administered J&J plus an mRNA booster per patient report History of PFTs 05/31 severe airflow obstruction, normal gas exchange, decreased FVC, FEV1 40%, FEVI/FVC reduced Anemia BPH (benign prostatic hyperplasia) COPD (chronic obstructive pulmonary disease) Vitamin D deficiency Mixed hyperlipidemia Essential hypertension Tardive akathisia Chronic schizophrenia Surgical History 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 05/2021 Family History Denies family history of CAD (coronary artery disease) Anesthesia complication Bleeding disorder Social History Smoking and tobacco/nicotine status: former use of tobacco/nicotine Quit status (tobacco/nicotine): has quit using Year quit tobacco: 2021 Former quit date comment: 1.5ppd x 51 year Hx Second hand smoke exposure: Yes Alcohol intake: former Substance/Drug Use: unknown Caregiver/support person: Yes Lives independently: No Household members: other Details: Resides at [facility] assisted living care facility Housing: Assisted Living Facility Marital status: Single service: No Current occupational status: disabled Pets and animals: Yes Do you think of yourself as: Straight/Heterosexual Current gender identity: Male Vitals/I&O/Wt Last Vital Signs Temp 98.2 F 04/19/24 08:00 Pulse 64 04/19/24 12:30 Resp 22 H 04/19/24 12:30 BP 121/73 04/19/24 12:30 Pulse Ox 94 04/19/24 12:30 O2 Del Method Room Air 04/19/24 12:30 04/18/24 04/19/24 04/19/24 22:59 06:59 14:59 Intake Total 100 / 1400 1081.733 / 2481.733 130 / 130 Output Total 600 / 600 400 / 1000 Balance -500 / 800 681.733 / 1481.733 130 / 130 Weight last 48 hrs Weight 51.301 kg Weight 51.301 kg Weight 52.617 kg Weight 51.71 kg Physical Exam 2 Const: COMMON NORMALS: no acute distress; negative for patient oriented x3 GENERAL APPEARANCE: cooperative and comfortable ORIENTATION/CONSCIOUSNESS: Yes awake Eye: GENERAL EYE: appearance normal, both eyes and all related structures Neck/C-Spine: GENERAL: Yes normal visual inspection Chest: CHEST: Yes Symmetrical chest wall rise Resp: COMMON NORMALS: normal respiratory effort Cardio: COMMON NORMALS: regular rate RATE: regular rate Extremity: NARRATIVE EXTREMITY EXAM: contractures noted to lower extremities; unable to flex knees, in extension with legs crossed Neuro: COMMON NORMALS: negative for patient oriented x3 Skin: WOUNDS: Yes wounds noted (see wound assessment) Urinary Catheter Management: Suprapubic: Cath Placed During This Visit: yes Reason for Continuing Indwelling Catheter: Chronic Indwelling Urinary Catheter on Admission Urinary Catheter Date of Insertion: 04/18/24 Urinary Catheter Time of Insertion: 03:00 Data 04/19/24 03:57 04/19/24 03:57 Micro: Microbiology 04/18/24 03:09 Urine Culture - Preliminary Urine,Clean Catch Gram Negative Rods A&P Assessment and plan (1) Stage III pressure ulcer of sacral region: (2) Chronic osteomyelitis with draining sinus, left femur: Plan Patient is currently receiving IV vancomycin and ceftriaxone. The open ulceration to his sacrum does not appear to be acutely infected. Continue with wet-to-dry dressings to this wound twice daily utilizing saline. This should be covered with a dry gauze and a sacral Optifoam. The open ulceration to his left hip overlies a scarred area. This wound probes down to 5.5 cm towards the hip joint. There is undermining noted from 12-12 o'clock with a maximum of 1.5 cm. Purulent exudate was noted upon palpation and examination of the wound. Culture was collected and sent to lab for processing. There is no substantial periwound erythema or warmth. Given the wound characteristics and that the CT was suspicious for infection underlying this area, it would be beneficial for orthopedics to be consulted. I have talked with Dr. Bales regarding this. For now the wound should be packed with 1/2 inch nugauze twice daily. This should be covered with an Optifoam. Nutrition will be especially important for wound healing. Mr. Ovalle should frequently change positions to relieve pressure on the affected area. He should be on a tight turning schedule, at least every 2 hours. Use pillows, foam cushions, mattress pads, or other aids to reduce pressure on vulnerable areas. Remove pressure from medical devices like catheters and oxygen tubing. He would benefit from a [id number]-nsj-wheu mattress. PDMP PDMP Reviewed: Not Reviewed Consult Attestations 2 Time Spent in Patient Care: 16 - 35 minutes Coding Level of Care Code Acute Code for Chg Fwd Diagnoses Stage III pressure ulcer of sacral region L89.153 Chronic osteomyelitis with draining sinus, left femur M86.452 Wound Assessment Wound Assessment Wound Number 1 Sacrum: Primary Etiology:: Pressure Ulcer Length: (cm): 5 cm Width: (cm): 6.5 cm Depth: (cm): 0.7 cm Tunneling:: No Undermining:: Yes (2-5o'clock with a maximum of 2cm) Classification: Stage 3 Limited to Skin Breakdown: No Exudate Amount:: Medium Drainage Type: Serosanguineous Foul Odor After Cleansing:: No Slough/Fibrin?: Yes Granulation Amount: Small (1-33%) Granulation Quality:: [place] Necrotic Amount:: Medium (34-66%) Necrotic Type:: Adherent Slough Wound Number 2 Hip: Descriptor: Left Primary Etiology:: Bacterial Osteomyelitis Length: (cm): 3 cm Width: (cm): 0.5 cm Depth: (cm): 5.5 cm Epithelialization:: None Undermining:: Yes (12-12o'clock with a maximum of 1.5) Limited to Skin Breakdown: No Exudate Amount:: Medium Drainage Type: Purulent Foul Odor After Cleansing:: No Slough/Fibrin?: Yes Granulation Amount: Small (1-33%) Granulation Quality:: Hyper-Granulation Necrotic Amount:: Medium (34-66%) Necrotic Type:: Adherent Slough Wound Orders Wound Number 1: sacrum Dressing change frequency: Twice Daily Wound Cleansing: Saline Primary Wound Care Dressing: wet to dry dressing Secondary Wound Care Dressing: dry gauze, sacral optifoam Off-Loading: Low air-loss mattress and Turn and reposition every 2 hours Wound Number 2: left hip Dressing change frequency: Twice Daily Wound Cleansing: Saline Primary Wound Care Dressin/2 gauze packing Secondary Wound Care Dressing: optifoam
--- NOTE | 2024-04-19 13:40 | PC.NURSE ---
Wound care: Chalino, from woundcare, here to assess and dress pt's wounds. Cultures of left hip sent to lab.
--- NOTE | 2024-04-19 16:16 | PC.NURSE ---
Pt has pulled both IVs out this shift. New start to left wrist.
[2024-04-19] MEDS: pantoprazole 40 mg SDV IVP (18:24)
--- NOTE | 2024-04-19 19:16 | PC.NURSE ---
Shift summary: Pt rested in bed throughout shift. Sinus rhythm noted on monitor. Pt on room air. Pt had speech therapy evaluation, he is back on his dysphagia diet and mildly thickened liquids ( He has this diet at [facility]). Wound care came by : sacrum dressing changed, left hip packed and dressing applied. Wound cultures sent to lab. Pt has removed the packing and dressing. Pt picks at the open area on the right side of his neck. He has removed 3 IVs. After the insertion of the forth IV, he immediately asked if he should take it off. Site secured with half a roll of Coban. He has pulled off his patient ID band and torn it. It was replace with new ID band. Suprapubic cath site cleansed this afternoon. It started slightly oozing blood around site, 2 hours after. His urine is cloudy with a pinkish tinge. OUt put of 825 noted this shift. He denied pain this shift.
--- NOTE | 2024-04-19 19:54 | P.PN_ITS ---
Subjective 2 Subjective: 68-year-old male with history of schizop hrenia, tardive dyskinesia, hypertension, COPD, and right hip replacement complicated by hardware infection s/p removal in May 2022, who presented with sepsis secondary to infected sacral decubitus ulcer and was found to be hypotensive in the emergency department. The patient was admitted on 04/18/2024 and noted to have a chronic stage 3-4 sacral decubitus ulcer. In the emergency department, he was found to be hypotensive with a blood pressure of 112/59 and was given IV fluids. Workup revealed leukocytosis with WBC 8.7, anemia with hemoglobin 9.0 and hematocrit 28, hypokalemia with potassium 3.4, and elevated CRP at 81 yesterday, down to [address] abdomen/pelvis showed sterocholar pertitis, fecal stasis, diffuse urinary bladder wall thickening, findings consistent with chronic osteomyelitis of the distal sacrum, and suspected chronic osteomyelitis surrounding the patient's chronic left femur fracture. On examination, the patient was noted to have a penile ulcer, which appears to be a new finding. He is on a dysphagia diet at baseline, but it is unclear if he requires thickened liquids. Speech therapy consult was placed for further evaluation prior to advancing his diet. Urine culture is growing gram-negative rods, and the patient has a history of E. coli growing from his sacral wounds in February. He was started on ceftriaxone and vancomycin empirically. The patient remains hemodynamically stable off pressors and continues on IV fluids at 75 mL/hr. Vitals/I&O/Wt Last Vital Signs Temp 97.9 F 04/19/24 16:00 Pulse 60 04/19/24 16:00 Resp 23 H 04/19/24 16:00 BP 121/68 04/19/24 16:00 Pulse Ox 94 04/19/24 16:00 O2 Del Method Room Air 04/19/24 16:00 04/19/24 04/19/24 04/19/24 06:59 14:59 22:59 Intake Total 1081.733 / 2481.733 1105 / 1105 400 / 1505 Output Total 400 / 1000 825 / 825 Balance 681.733 / 4356.328 8233 / 1105 -425 / 680 Weight last 48 hrs Weight 51.301 kg Weight 51.301 kg Weight 52.617 kg Weight 51.71 kg Physical Exam 2 Narrative: Ch. Ill appearing Cachectic Malnourished Sarcopenia Protein calorie malnourishment Dry mucous membrane Suprapubic catheter in place Penile rash with concern for urinary leak S1, S2 sinus rhythm Afebrile Sacral area stage IV ulcer with tunneling, edges of the wound do not look infected No active drainage or purulence noted Urinary Catheter Management: Suprapubic: Cath Placed During This Visit: yes Reason for Continuing Indwelling Catheter: Chronic Indwelling Urinary Catheter on Admission Urinary Catheter Date of Insertion: 04/18/24 Urinary Catheter Time of Insertion: 03:00 Data 04/19/24 03:57 04/19/24 03:57 Micro: Microbiology 04/19/24 13:45 Gram Stain - Final Hip - Left 04/18/24 03:09 Urine Culture - Preliminary Urine,Clean Catch Gram Negative Rods A&P Assessment and plan (1) Osteoporosis: (2) Vitamin D deficiency: (3) Urinary tract infection: (4) BPH (benign prostatic hyperplasia): (5) Acute hypotension: (6) Chronic schizophrenia: (7) Tardive akathisia: (8) Decubitus ulcer: (9) COPD (chronic obstructive pulmonary disease): Qualifiers: COPD type: emphysema Emphysema type: panlobular Qualified Code(s): J 43.1 - Panlobular emphysema (10) Sarcopenia: (11) Protein calorie malnutrition: Plan Sepsis secondary to infected hip osteomylitis - Continue broad-spectrum antibiotics with ceftriaxone and vancomycin. - Monitor vital signs, WBC, and CRP closely for signs of clinical improvement. - Wound care consult for management of osteo - Await wound culture results to guide antibiotic therapy. Hypotension - Likely secondary to sepsis. Responsive to IV fluid resuscitation. - Continue maintenance IVF at 75 mL/hr. Monitor fluid balance and electrolytes. - Maintain MAP > 65 mmHg. Start pressors if needed. Dysphagia - Speech therapy consult placed for swallow evaluation prior to advancing diet. - Maintain NPO status until cleared by speech therapy. - Aspiration precautions. Penile ulcer - New finding on exam today. Appears as an open lesion with skin erosion. - Gauze placed between penis and scrotum to keep area dry. - Monitor closely for signs of infection. Consider wound culture if worsens. Hypokalemia - Potassium 3.4 on admission. Replaced. - Continue to monitor potassium levels and replace as needed. Constipation - Started on lactulose 10 grams SD daily for bowel regimen. - Monitor bowel movements. Adjust regimen as needed. Chronic osteomyelitis - CT scan showing findings of chronic osteomyelitis involving the distal sacrum and suspected chronic infection involving the left femur fracture with surrounding phlegmon. - Continue antibiotics. - ortho consult in am Schizophrenia - No acute decompensation noted. Patient able to follow commands. - Continue home antipsychotic medications. Tardive dyskinesia - No active tremors noted. - Continue current management. Protein-calorie malnutrition - Poor oral intake noted. At risk for further deterioration. - Dietary consultation for nutritional optimization. - Consider enteral feeding if oral intake remains poor. PDMP PDMP Reviewed: Not Reviewed Attestations 2 Medical Necessity Statement*: More than 2 midnights anticipated Coding Level of Care Code Acute Code for g Fwd Diagnoses Osteoporosis M81.0 Vitamin D deficiency E55.9 Urinary tract infection N39.0 Benign prostatic hyperplasia without lower urinary tract symptoms N40.0 Acute hypotension I95.9 Chronic schizophrenia F20.9 Tardive akathisia G25.71 Decubitus ulcer L89.90 Panlobular emphysema J43.1 COPD type: emphysema Emphysema type: panlobular Sarcopenia M62.84 Protein calorie malnutrition E46
--- NOTE | 2024-04-19 22:53 | PC.NURSE ---
Transfer Transferred patient to [facility] bed 251-2. All belongings taken with patient. Chart left with [facility] executive legal secretary. Patient voicing no complaints at this time.
[2024-04-20] VITALS (7 sets, daily range): BP systolic 115–151; BP diastolic 72–84; PULSE 66–100; RESP 16–18; TEMP 36.5–36.9; O2SAT 93–96; BMI 16.7
--- NOTE | 2024-04-20 01:47 | PC.NURSE ---
Patient started removing telemetry. This nurse tried to redirect patient several times. Patient continued to remove telemetry patches and leads, this nurse removed telemetry unit. This nurse will try to apply again later in to shift.
[2024-04-20] MEDS: cefTRIAXone 1,000 MG in sodium chloride 0.9% (plus) 50 ML 100 MG IV (03:58)
[2024-04-20 05:45] LABS: Basophils # 0.1 10^3/uL (0.0-0.1); Basophils % 0.8 %; Eosinophils # 0.2 10^3/uL (0.0-0.8); Eosinophils % 2.8 %; Hematocrit 27.6 % (37-53); Lymphocytes # 2.2 10^3/uL (0.8-4.8); Lymphocytes % 35.5 %; Mean Corpuscular HGB Conc 32.2 g/dL (30-55); Mean Corpuscular Hemoglobin 28.3 pg (27-33); Mean Corpuscular Volume 87.9 fl (82-101); Mean Platelet Volume 11.1 fL (7.4-10.4); Monocytes # 0.6 10^3/uL (0.2-0.9); Monocytes % 9.2 %; Neutrophils # 3.16 10^3/uL (1.8-7.7); Neutrophils % 51.5 %; Nucleated Red Blood Cells % 0 %; Platelet Count 181 10^3/cmm (157-399); Red Blood Count 3.14 10^6/uL (3.85-5.65); Red Cell Distribution Width 16.6 % (12.1-15.1); White Blood Count 6.12 10^3/uL (3.29-11.43)
[2024-04-20 06:07] LABS: Alanine Aminotransferase 10 U/L (0-41); Albumin Level 2.2 g/dL (3.5-5.2); Alkaline Phosphatase 102 U/L (40-130); Anion Gap 12.6 (5-19); Aspartate Amino Transferase 16 U/L (0-40); Blood Urea Nitrogen 10 mg/dL (8-23); C Reactive Protein 30.8 mg/L (0.0-4.9); Calcium 7.6 mg/dL (8.5-10.5); Carbon Dioxide 21 mmol/L (22-29); Chloride 112 mmol/L (98-107); Globulin 4.7 g/dL (1.3-4.6); Glomerular Filtration Rate 213.9 mL/min (90-130); Glucose 76 mg/dL (65-115); Osmolality Calculated 292 mOsm/kg (285-295); Potassium 3.6 mmol/L (3.5-5.1); Sodium 142 mmol/L (136-145); Total Bilirubin 0.2 mg/dL (0.15-1.2); Total Protein 6.9 g/dL (6.6-8.7)
[2024-04-20] MEDS: sennosides-docusate Tablet 1 TAB PO (08:40)
[2024-04-20] MEDS: docusate sodium 100 mg Capsule PO ×2 (08:40→16:46)
[2024-04-20] MEDS: heparin 5,000 unit/mL INJ 1 mL 5000 UNIT SUBCUT ×2 (08:40→20:15)
[2024-04-20] MEDS: vancomycin 500 MG in sodium chloride 0.9% (plus) 100 ML 200 MG IV (08:43)
--- NOTE | 2024-04-20 11:38 | P.PN_ITS ---
Subjective 2 Subjective: - The patient has a past medical history significant for chronic obstructive pulmonary disease, history of chronic smoking, hypertension, hyperlipidemia, schizophrenia, and bed bound status. He has a stage 4 chronic sacrococcygeal ulcer followed by wound care and a history of left hip infection. 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 Despite multiple rounds of oral antibiotics with cephalexin and ciprofloxacin, the infection progressed, and hardware was removed in May 2022 without spacer or remaining hardware placement. Cultures grew MRSA, sensitive to ceftriaxone and resistant to fluoroquinolones. The patient was treated with 6 weeks of IV antibiotics (ceftriaxone 2g daily and vancomycin) from 05/27/2022 to 07/08/2022. No documentation of orthopedic follow-up since. - The patient presented with hypotension (BP 107/62) and increased lethargy at the facility. Initial vitals: HR 60, temp 97.4?F. Labs notable for WBC 10, Hgb 10, Hct 33, Plt 204, Na 146, K 4.0, CO2 25, BUN 35, Cr 0.6. - The patient was admitted to the ICU fo r close monitoring for signs of sepsis and impending shock. Started on vancomycin and ceftriaxone empirically. Suprapubic catheter exchanged on 04/18/2024. - CXR: No acute cardiopulmonary abnormal ity. Head CT: No acute intracranial abnormality, partial specification. Abd/Pelvis CT: Stercoral proctitis, fecal stasis, diffuse urinary bladder wall thickening, known sacroiliac arthritis, osteomyelitis involving distal sacrum, chronic infection involving chronic left femur fracture, suspected chronic osteomyelitis with surrounding phlegmon, old fracture deformity with extensive heterotopic bone formation. - The patient was transferred out of the ICU on 04/19/2024, remaining hemodynamically stable with stable labs. Urine culture from 04/18/2024 growing gram-negative rods, most likely E. coli based on previous cultures. - Wound care evaluation noted open alter ation to left hip probing to 5.5cm towards hip joint, undermining from 12 to 12 o'clock maximum 1.5cm, purulent exudate with cultures obtained, wound packed with 1.5 inch nu gauze. Sacral wound did not appear infected. - Orthopedic surgery consulted for chron ic osteomyelitis management. 04/20 - No new clinical events overnight. Vitals/I&O/Wt Last Vital Signs Temp 98.5 F 04/20/24 11:30 Pulse 73 04/20/24 11:30 Resp 16 04/20/24 11:30 BP 149/84 04/20/24 11:30 Pulse Ox 96 04/20/24 11:30 O2 Del Method Room Air 04/20/24 11:30 04/19/24 04/20/24 04/20/24 22:59 06:59 14:59 Intake Total 740 / 1845 50 / 1895 160 / 160 Output Total 825 / 825 350 / 1175 1000 / 1000 Balance -85 / 1020 -300 / 720 -840 / -840 Weight last 48 hrs Weight 51.284 kg Weight 51.301 kg Weight 51.301 kg Weight 52.617 kg Physical Exam 2 Urinary Catheter Management: Suprapubic: Cath Placed During This Visit: yes Reason for Continuing Indwelling Catheter: Chronic Indwelling Urinary Catheter on Admission Urinary Catheter Date of Insertion: 04/18/24 Urinary Catheter Time of Insertion: 03:00 Data 04/20/24 05:11 04/20/24 05:11 Micro: Microbiology 04/19/24 13:45 Gram Stain - Final Hip - Left Anaerobic Culture - Preliminary Wound Culture - Preliminary Gram Negative Rods 04/18/24 03:09 Urine Culture - Preliminary Urine,Clean Catch Gram Negative Rods A&P Assessment and plan (1) Osteoporosis: (2) Vitamin D deficiency: (3) Urinary tract infection: (4) BPH (benign prostatic hyperplasia): (5) Acute hypotension: (6) Chronic schizophrenia: (7) Tardive akathisia: (8) Decubitus ulcer: (9) COPD (chronic obstructive pulmonary disease): Qualifiers: COPD type: emphysema Emphysema type: panlobular Qualified Code(s): J 43.1 - Panlobular emphysema (10) Sarcopenia: (11) Protein calorie malnutrition: Plan Sepsis secondary to infected left hip osteomylitis/wound - Continue broad-spectrum antibiotics with ceftriaxone and vancomycin. - Wound care on board. Culture so far growing gram negative rods - likely E-coli - similar to prior cultures. - Previously did grow MRSA as well however none at this time however still pre- tellez cultures - CT abd/pelvis showed suspected chronic infection involving the left femur fracture with surrounding phlegmon. Plan: - Discussed with orthopedic surgery - No surgical intervention at this time - Recommeded 6 weeks of IV abx based on culture for acute tx then antibiotic prophylaxis Urinary tract infection in setting of chronic SPC - Ordonez was changed on admission - Culture growing e-coli which is likely a colinization Plan: - On IV abx for now Hypotension - Likely secondary to sepsis. Responsive to IV fluid resuscitation. - Continue to hold antihypertensive for now - D/C IVF Dysphagia - Speech therapy consult - Aspiration precautions. Penile ulcer - New finding on exam today. Appears as an open lesion with skin erosion. - Gauze placed between penis and scrotum to keep area dry. - Monitor closely for signs of infection. Consider wound culture if worsens. Constipation - Continue robby regimen - May need to discuss with surgery - Monitor bowel movements. Adjust regimen as needed. Chronic stage IV sacral decubitus ulcer with sacral osteomyelitis - CT scan showing findings of chronic osteomyelitis involving the distal sacrum - Does not appear to have any superficial acute infection - Will need to consider plastics consult in [place] if considering flap Schizophrenia - No acute decompensation noted. Patient able to follow commands. - Continue home antipsychotic medications. Tardive dyskinesia - No active tremors noted. - Continue current management. Protein-calorie malnutrition - Poor oral intake noted. At risk for further deterioration. - Dietary consultation for nutritional optimization. PDMP PDMP Reviewed: Not Reviewed Attestations 2 Medical Necessity Statement*: More than 2 midnights anticipated Coding Level of Care Code Acute Code for [facility] Fwd Diagnoses Osteoporosis M81.0 Vitamin D deficiency E55.9 Urinary tract infection N39.0 Benign prostatic hyperplasia without lower urinary tract symptoms N40.0 Acute hypotension I95.9 Chronic schizophrenia F20.9 Tardive akathisia G25.71 Decubitus ulcer L89.90 Panlobular emphysema J43.1 COPD type: emphysema Emphysema type: panlobular Sarcopenia M62.84 Protein calorie malnutrition E46
--- NOTE | 2024-04-20 15:09 | PC.NURSE ---
Wound care completed by Nurse Practitioner.
--- NOTE | 2024-04-20 15:46 | PM.CONSULT ---
Providers/Reason For Consult Consulting Physician/Specialty*: Prabhjot Gastelum MD orthopedic surgery Reason for Consult*: Chronic draining osteomyelitis left hip Requesting Physician: Dr. Bales Attending Physician: Dami Bales Primary Care Provider: Aristeo Fitzpatrick MD History of Present Illness History of Present Illness Herson Ovalle is a 68 year old male who has a long history of problems of his left hip. He initially had replacement surgery of that eventually got infected had to be removed. 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 He has had chronic osteomyelitis in the area. He has had decubitus that have eroded almost down to the sacrum. He was treated back in May 2022 for his osteomyelitis with a 6-week course of IV antibiotics. However after that did not have any other suppressive medications/antibiotics. He is now back in at this time for sepsis and acute hypotensive notes. jail indicates that his blood pressures of worsen over the course of time. He was admitted on 04/18/2024. Wound care was consulted and they felt that it would be beneficial to have orthopedic surgery evaluate the patient for possible further surgical debridement. Patient is a poor historian cannot add to the history. Review of Systems General: Reports: ROS unobtainable due to mental status Medications/Allergies Home Medications ?Medication ?Instructions ?Recorded ?Confirmed ?Last Taken ?Type propranolol 10 mg tablet 10 mg PO BID@02/12/22 04/18/24 04/17/24 History simvastatin 20 mg tablet 20 mg PO BEDTIME@20 02/12/22 04/18/24 04/17/24 History tamsulosin 0.4 mg capsule 0.8 mg PO BEDTIME@02/12/22 04/18/24 04/17/24 History pantoprazole 40 mg tablet,delayed 40 mg PO BID #60 tabs 02/15/22 04/18/24 04/17/24 Rx release bisacodyl 10 mg rectal suppository 10 mg DC DAILY PRN Constipation 05/20/22 04/18/24 Unknown History docusate sodium 100 mg tablet 200 mg PO BID@08,20 05/20/22 04/18/24 04/17/24 History magnesium hydroxide 400 mg/5 mL 30 ml PO DAILY PRN Constipation 05/20/22 04/18/24 Unknown History oral suspension (Milk of Magnesia) naloxone 2 mg/2 mL syringe kit 2 mg IM Q3M PRN overdose 05/20/22 04/18/24 Unknown History folic acid 1 mg tablet 1 mg PO DAILY@08 05/28/22 04/18/24 04/17/24 History sennosides 8.6 mg-docusate sodium 2 tab PO BID@08,20 05/28/22 04/18/24 04/17/24 History 50 mg tablet (Senna-S) umeclidinium 62.5 mcg/actuation 1 inh inhalation DAILY #30 ea 10/10/22 04/18/24 04/17/24 Rx blister powder for inhalation (Incruse Ellipta) acetaminophen 325 mg tablet 650 mg PO Q6H PRN Pain 03/29/24 04/18/24 Unknown History albuterol sulfate 1.25 mg/3 mL 2.5 mg inhalation Q8H PRN 03/29/24 04/18/24 Unknown History solution for nebulization Shortness Of Breath ferrous sulfate 325 mg (65 mg 325 mg PO DAILY 03/29/24 04/18/24 04/17/24 History iron) tablet hydrocodone 5 mg-acetaminophen 325 1 tab PO Q6H PRN Pain 03/29/24 04/18/24 Unknown History mg tablet mirtazapine 30 mg tablet 30 mg PO BEDTIME 03/29/24 04/18/24 04/17/24 History mupirocin 2 % topical ointment 1 applic topical Q8H PRN Skin 03/29/24 04/18/24 04/17/24 History Irritation paroxetine HCl 40 mg tablet (Paxil) 40 mg PO BEDTIME 03/29/24 04/18/24 04/17/24 History potassium chloride 20 mEq 20 meq PO DAILY 03/29/24 04/18/24 04/17/24 History tablet,extended release quetiapine 100 mg tablet 100 mg PO BEDTIME 03/29/24 04/18/24 04/17/24 History sodium chloride 1,000 mg soluble 1,000 mg PO TID 04/18/24 04/18/24 04/17/24 History tablet Allergies Allergy/AdvReac Type Severity Reaction Status Date / Time No Known Allergies Allergy Verified 07/02/23 09:39 Current Medications Generic Name Dose Route Start Last Admin Trade Name Freq PRN Reason Stop Dose Admin Docusate Sodium 100 mg 04/18/24 18:00 04/20/24 08:40 Docusate Sodium 100 Mg Capsule PO 100 mg BID TIKI Administration Heparin Sodium (Porcine) 5,000 unit 04/18/24 09:00 04/20/24 08:40 Heparin 5,000 Unit/Ml Inj 1 Ml SUBCUT 5,000 unit Q12H TIKI Administration Ceftriaxone Sodium 1,000 mg/ 50 mls @ 100 mls/hr 04/19/24 04:00 04/20/24 04:33 Sodium Chloride IV Infused Q24H TIKI Infusion Protocol Vancomycin HCl 500 mg/ Sodium 100 mls @ 200 mls/hr 04/19/24 22:00 04/20/24 10:41 Chloride IV Infused Q12H TIKI Infusion Senna/Docusate Sodium 1 tab 04/18/24 09:00 04/20/24 08:40 Sennosides-Docusate Tablet PO 1 tab DAILY TIKI Administration PFSH Acute PFSH: Medical History Osteoporosis COVID-19 vaccine administered J&J plus an mRNA booster per patient report History of PFTs 05/31 severe airflow obstruction, normal gas exchange, decreased FVC, FEV1 40%, FEVI/FVC reduced Anemia BPH (benign prostatic hyperplasia) COPD (chronic obstructive pulmonary disease) Vitamin D deficiency Mixed hyperlipidemia Essential hypertension Tardive akathisia Chronic schizophrenia Surgical History 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 05/2021 Family History Denies family history of CAD (coronary artery disease) Anesthesia complication Bleeding disorder Social History Smoking and tobacco/nicotine status: former use of tobacco/nicotine Quit status (tobacco/nicotine): has quit using Year quit tobacco: 2021 Former quit date comment: 1.5ppd x 51 year Hx Second hand smoke exposure: Yes Alcohol intake: former Substance/Drug Use: unknown Caregiver/support person: Yes Lives independently: No Household members: other Details: Resides at [facility] assisted living care facility Housing: Assisted Living Facility Marital status: Single service: No Current occupational status: disabled Pets and animals: Yes Do you think of yourself as: Straight/Heterosexual Current gender identity: Male Vitals/I&O/Wt Last Vital Signs Temp 98.5 F 04/20/24 11:30 Pulse 73 04/20/24 11:30 Resp 16 04/20/24 11:30 BP 149/84 04/20/24 11:30 Pulse Ox 96 04/20/24 11:30 O2 Del Method Room Air 04/20/24 11:30 04/20/24 04/20/24 04/20/24 06:59 14:59 22:59 Intake Total 50 / 1895 280 / 280 Output Total 350 / 1175 1300 / 1300 Balance -300 / 720 -1020 / -1020 Weight last 48 hrs Weight 113 lb 1 oz Weight 113 lb 1.6 oz Weight 113 lb 1.6 oz Physical Exam Narrative: Patient seen today. Orthopedic evaluation finds that he has a small sinus tract to the posterior aspect of his greater trochanter of his left hip. Presently there is new gauze and it is a drain. This appears to be damp with the serous fluid but no allie pus or signs of infection in the area. There is only mild amount of erythema over the sinus tract. Patient does not appear to have any tenderness to this area as I palpate the region. No other gross abnormalities in the area. Const: COMMON NORMALS: no acute distress; negative for patient oriented x3 GENERAL APPEARANCE: cooperative and comfortable ORIENTATION/CONSCIOUSNESS: Yes awake Eye: GENERAL EYE: appearance normal, both eyes and all related structures Neck/C-Spine: GENERAL: Yes normal visual inspection Chest: CHEST: Yes Symmetrical chest wall rise Resp: COMMON NORMALS: normal respiratory effort Cardio: COMMON NORMALS: regular rate RATE: regular rate Extremity: NARRATIVE EXTREMITY EXAM: contractures noted to lower extremities; unable to flex knees, in extension with legs crossed Neuro: COMMON NORMALS: negative for patient oriented x3 Skin: WOUNDS: Yes wounds noted (see wound assessment) Urinary Catheter Management: Suprapubic: Cath Placed During This Visit: yes Reason for Continuing Indwelling Catheter: Chronic Indwelling Urinary Catheter on Admission Urinary Catheter Date of Insertion: 04/18/24 Urinary Catheter Time of Insertion: 03:00 Data 04/20/24 05:11 04/20/24 05:11 Micro: Microbiology 04/19/24 13:45 Gram Stain - Final Hip - Left Anaerobic Culture - Preliminary Wound Culture - Preliminary Gram Negative Rods 04/18/24 03:09 Urine Culture - Preliminary Urine,Clean Catch Gram Negative Rods Other data: X-rays were reviewed demonstrating hypertrophic bone formation in the previous debrided proximal femur. Left proximal femur is absent the head and neck and proximal portion. No other gross abnormalities are noted A&P Assessment and plan (1) Stage III pressure ulcer of sacral region: (2) Chronic osteomyelitis with draining sinus, left femur: (3) Chronic osteomyelitis: Patient has a history of chronic osteomyelitis of the left hip/proximal femur. Now with a chronic sinus that drains from the area. Patient's C-reactive protein has diminished down to 30 from 81 since initial admission. White count has been normal, and temperature has been afebrile Plan Patient is currently receiving IV vancomycin and ceftriaxone. The open ulceration to his sacrum does not appear to be acutely infected. Continue with wet-to-dry dressings to this wound twice daily utilizing saline. This should be covered with a dry gauze and a sacral Optifoam. The open ulceration to his left hip overlies a scarred area. This wound probes down to 5.5 cm towards the hip joint. There is undermining noted from 12-12 o'clock with a maximum of 1.5 cm. Purulent exudate was noted upon palpation and examination of the wound. Culture was collected and sent to lab for processing. There is no substantial periwound erythema or warmth. Given the wound characteristics and that the CT was suspicious for infection underlying this area, it would be beneficial for orthopedics to be consulted. I have talked with Dr. Bales regarding this. For now the wound should be packed with 1/2 inch nugauze twice daily. This should be covered with an Optifoam. Nutrition will be especially important for wound healing. Mr. Ovalle should frequently change positions to relieve pressure on the affected area. He should be on a tight turning schedule, at least every 2 hours. Use pillows, foam cushions, mattress pads, or other aids to reduce pressure on vulnerable areas. Remove pressure from medical devices like catheters and oxygen tubing. He would benefit from a [id number] mattress. Orthopedic plan at this time is just for observation. Surgical intervention is not warranted at this time. Risks outweigh the benefits due to the fact the patient has multiple comorbidities and with a long history of chronic osteomyelitis. Patient has already had his hip joint removed. Literature suggest that chronic suppression of his osteomyelitis is favored in this type of scenario. Therefore, if believe that appropriate 6 weeks of IV antibiotics to suppress is present infection and then go onto oral suppressive antibiotics would be indicated at this point. PDMP PDMP Reviewed: Not Reviewed Consult Attestations Time Spent in Patient Care: 16 - 35 minutes Coding Level of Care Code 73590 Diagnoses Stage III pressure ulcer of sacral region L89.153 Chronic osteomyelitis with draining sinus, left femur M86.452 Chronic osteomyelitis M86.60
--- NOTE | 2024-04-20 15:53 | P.CONIM_ITS ---
<Statement entered by Behzad Scott MD - 04/21/24 07:54> I have reviewed the documentation and plan of care and agree with the assessment and plan of care as written. I concur with Ms. Arevalo that it is doubtful this wound can be healed with Mr. Ovalle's current overall medical status. If no definitive plans are in place related to his osteomyelitis, he would be of benefit for infectious disease input as to whether these wounds should be treated strictly locally or whether suppression antibiotic therapy may play a role. Bhezad Scott MD Providers/Reason For Consult 2 Consulting Physician/Specialty*: Wound Care Reason for Consult*: Open wounds Requesting Physician: Dr. Bales Attending Physician: Dami Bales Primary Care Provider: Aristeo Fitzpatrick MD History of Present Illness History of Present Illness Patient was evaluated at bedside today on the [facility] floor. He is resting comfortably in bed. Orthopedics have been consulted for the osteomyelitis of his left hip with chronic draining sinus. Upon evaluation there was no dressing on the left hip ulceration. There is a dressing noted on the sacral ulcer. His heels were inspected and there was no evidence of skin breakdown. He has padded heel protectors in place. Review of Systems 2 General: Reports: ROS unobtainable due to mental status Medications/Allergies Home Medications ?Medication ?Instructions ?Recorded ?Confirmed ?Last Taken ?Type propranolol 10 mg tablet 10 mg PO BID@,02/12/22 04/18/24 04/17/24 History simvastatin 20 mg tablet 20 mg PO BEDTIME@20 02/12/22 04/18/24 04/17/24 History tamsulosin 0.4 mg capsule 0.8 mg PO BEDTIME@ 3 04/18/24 04/17/24 History pantoprazole 40 mg tablet,delayed 40 mg PO BID #60 tab s 02/15/22 04/18/24 04/17/24 Rx release bisacodyl 10 mg rectal suppository 10 mg NJ DAILY PRN Constipation 05/20/22 04/18/24 Unknown History docusate sodium 100 mg tablet 200 mg PO BID@08,20 0404/18/24 04/17/24 History magnesium hydroxide 400 mg/5 mL 30 ml PO DAILY PRN Con stipation 05/20/22 04/18/24 Unknown History oral suspension (Milk of Magnesia) naloxone 2 mg/2 mL syringe kit 2 mg IM Q3M PRN overdos e 05/20/22 04/18/24 Unknown History folic acid 1 mg tablet 1 mg PO DAILY@08 05/28/2204/17/24 History sennosides 8.6 mg-docusate sodium 2 tab PO BID@08,20 0 05/28/22 04/18/24 04/17/24 History 50 mg tablet (Senna-S) umeclidinium 62.5 mcg/actuation 1 inh inhalation DAILY #30 ea 10/10/22 04/18/24 04/17/24 Rx blister powder for inhalation (Incruse Ellipta) acetaminophen 325 mg tablet 650 mg PO Q6H PRN Pain 04/18/24 Unknown History albuterol sulfate 1.25 mg/3 mL 2.5 mg inhalation Q8H P RN 03/29/24 04/18/24 Unknown History solution for nebulization Shortness Of Breath ferrous sulfate 325 mg (65 mg 325 mg PO DAILY 03/29/24 04/18/24 04/17/24 History iron) tablet hydrocodone 5 mg-acetaminophen 325 1 tab PO Q6H PRN Pa in 03/29/24 04/18/24 Unknown History mg tablet mirtazapine 30 mg tablet 30 mg PO BEDTIME 03/29/2404/17/24 History mupirocin 2 % topical ointment 1 applic topical Q8H NJ N Skin 03/29/24 04/18/24 04/17/24 History Irritation paroxetine HCl 40 mg tablet (Paxil) 40 mg PO BEDTIME 0 03/29/24 04/18/24 04/17/24 History potassium chloride 20 mEq 20 meq PO DAILY 03/29/2411/0404/17/24 History tablet,extended release quetiapine 100 mg tablet 100 mg PO BEDTIME 03/29/24 0 04/18/24 04/17/24 History sodium chloride 1,000 mg soluble 1,000 mg PO TID 04/1804/18/24 04/17/24 History tablet Allergies Allergy/AdvReac Type Severity Reaction Status Date / Time No Known Allergies Allergy Verified 07/02/23 09:39 Current Medications Generic Name Dose Route Start Last Admin Trade Name Hanq PRN Reason Stop Dose Admin Docusate Sodium 100 mg 04/18/24 18:00 04/20/24 08:40 Docusate Sodium 100 Mg Capsule PO 100 mg BID TIKI Administration Heparin Sodium (Porcine) 5,000 unit 04/18/24 09:00 04/20/24 08:40 Heparin 5,000 Unit/Ml Inj 1 Ml SUBCUT 5,000 unit Q12H TIKI Administration Ceftriaxone Sodium 1,000 mg/ 50 mls @ 100 mls/hr 04/19/24 04:00 04/20/24 04:33 Sodium Chloride IV Infused Q24H TIKI Infusion Protocol Vancomycin HCl 500 mg/ Sodium 100 mls @ 200 mls/hr 04/19/24 22:00 04/20/24 10:41 Chloride IV Infused Q12H TIKI Infusion Senna/Docusate Sodium 1 tab 04/18/24 09:00 04/20/24 08:40 Sennosides-Docusate Tablet PO 1 tab DAILY TIKI Administration PFSH Acute 2 PFSH: Medical History Osteoporosis COVID-19 vaccine administered J&J plus an mRNA booster per patient report History of PFTs 05/31 severe airflow obstruction, normal gas exchange, decreased FVC, FEV1 40%, FEVI/FVC reduced Anemia BPH (benign prostatic hyperplasia) COPD (chronic obstructive pulmonary disease) Vitamin D deficiency Mixed hyperlipidemia Essential hypertension Tardive akathisia Chronic schizophrenia Surgical History 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 05/2021 Family History Denies family history of CAD (coronary artery disease) Anesthesia complication Bleeding disorder Social History Smoking and tobacco/nicotine status: former use of tobacco/nicotine Quit status (tobacco/nicotine): has quit using Year quit tobacco: 2021 Former quit date comment: 1.5ppd x 51 year Hx Second hand smoke exposure: Yes Alcohol intake: former Substance/Drug Use: unknown Caregiver/support person: Yes Lives independently: No Household members: other Details: Resides at [facility] assisted [facility] facility Housing: Assisted Living Facility Marital status: Single service: No Current occupational status: disabled Pets and animals: Yes Do you think of yourself as: Straight/Heterosexual Current gender identity: Male Vitals/I&O/Wt Last Vital Signs Temp 98.5 F 04/20/24 11:30 Pulse 73 04/20/24 11:30 Resp 16 04/20/24 11:30 BP 149/84 04/20/24 11:30 Pulse Ox 96 04/20/24 11:30 O2 Del Method Room Air 04/20/24 11:30 04/20/24 04/20/24 04/20/24 06:59 14:59 22:59 Intake Total 50 / 1895 280 / 280 Output Total 350 / 1175 1300 / 1300 Balance -300 / 720 -1020 / -1020 Weight last 48 hrs Weight 51.284 kg Weight 51.301 kg Weight 51.301 kg Physical Exam 2 Const: COMMON NORMALS: no acute distress; negative for patient oriented x3 GENERAL APPEARANCE: cooperative and comfortable ORIENTATION/CONSCIOUSNESS: Yes awake Eye: GENERAL EYE: appearance normal, both eyes and all related structures Neck/C-Spine: GENERAL: Yes normal visual inspection Chest: CHEST: Yes Symmetrical chest wall rise Resp: COMMON NORMALS: normal respiratory effort Cardio: COMMON NORMALS: regular rate RATE: regular rate Extremity: NARRATIVE EXTREMITY EXAM: contractures noted to lower extremities; unable to flex knees, in extension with legs crossed Neuro: COMMON NORMALS: negative for patient oriented x3 Skin: WOUNDS: Yes wounds noted (see wound assessment) Data 04/20/24 05:11 04/20/24 05:11 Micro: Microbiology 04/19/24 13:45 Gram Stain - Final Hip - Left Anaerobic Culture - Preliminary Wound Culture - Preliminary Gram Negative Rods A&P Assessment and plan (1) Stage III pressure ulcer of sacral region: (2) Chronic osteomyelitis with draining sinus, left femur: Plan Patient is on IV vancomycin and ceftriaxone. The open ulceration to his sacrum has not deteriorated further upon evaluation. Continue with wet-to-dry dressings to this wound twice daily utilizing saline. This should be covered with a dry gauze and a sacral Optifoam. The open ulceration to his left hip wound probes down to 5.5 cm towards the hip joint. There is hypergranulation noted to the wound. There is undermining noted from 12-12 o'clock with a maximum of 1.5 cm. Serosanguineous drainage was noted. There is no substantial periwound erythema or warmth. The wound should be packed with 1/2 inch nugauze twice daily. This should be covered with an Optifoam. The orthopedic surgeon consulted today and recommended IV antibiotics for 6 weeks with suppression after this. Wound cultures are pending. Preliminary results show few gram-negative rods as of 04/20. Will plan for Mr. Ovalle to follow-up with us at [facility] wound care for for follow-up after discharge. Both wounds will be very difficult wounds to heal given his current health status and chronic osteomyelitis. Nutrition will be especially important for wound healing. Mr. Ovalle should frequently change positions to relieve pressure on the affected area. He should be on a tight turning schedule, at least every 2 hours. Use pillows, foam cushions, mattress pads, or other aids to reduce pressure on vulnerable areas. Remove pressure from medical devices like catheters and oxygen tubing. He would benefit from a [id number] mattress. Will sign off for now. Further wound care recommendations should be guided by hospitalist service. PDMP PDMP Reviewed: Not Reviewed Consult Attestations 2 Time Spent in Patient Care: 16 - 35 minutes Coding Level of Care Code Acute Code for Chg Fwd Diagnoses Stage III pressure ulcer of sacral region L89.153 Chronic osteomyelitis with draining sinus, left femur M86.452 Wound Assessment Wound Assessment Wound Number 1 Sacrum: Primary Etiology:: Pressure Ulcer Length: (cm): 5 cm Width: (cm): 6.5 cm Depth: (cm): 0.7 cm Tunneling:: No Undermining:: Yes (2-5o'clock with a maximum of 2cm) Classification: Stage 3 Limited to Skin Breakdown: No Exudate Amount:: Medium Drainage Type: Serosanguineous Foul Odor After Cleansing:: No Slough/Fibrin?: Yes Granulation Amount: Small (1-33%) Granulation Quality:: [place] Necrotic Amount:: Medium (34-66%) Necrotic Type:: Adherent Slough Wound Number 2 Hip: Descriptor: Left Primary Etiology:: Bacterial Osteomyelitis Length: (cm): 1 cm Width: (cm): 0.5 cm Depth: (cm): 5.5 cm Epithelialization:: None Undermining:: Yes (12-12o'clock with a maximum of 1.5) Limited to Skin Breakdown: No Exudate Amount:: Medium Drainage Type: Serosanguineous Foul Odor After Cleansing:: No Slough/Fibrin?: Yes Granulation Amount: Small (1-33%) Granulation Quality:: Hyper-Granulation Necrotic Amount:: Medium (34-66%) Necrotic Type:: Adherent Slough Wound Orders Wound Number 1: sacrum Dressing change frequency: Twice Daily Wound Cleansing: Saline Primary Wound Care Dressing: wet to dry dressing Secondary Wound Care Dressing: dry gauze, sacral optifoam Off-Loading: Low air-loss mattress and Turn and reposition every 2 hours Wound Number 2: left hip Dressing change frequency: Twice Daily Wound Cleansing: Saline Primary Wound Care Dressin/2 gauze packing Secondary Wound Care Dressing: optifoam
[2024-04-20] MEDS: pantoprazole DR 40 mg Tablet PO (16:47)
[2024-04-20] MEDS: quetiapine 100 mg Tablet PO (20:15)
[2024-04-20] MEDS: ATORVASTATIN 10 MG TABLET PO (20:15)
[2024-04-20] MEDS: mirtazapine 30 mg Tablet PO (20:15)
[2024-04-20] MEDS: tamsulosin 0.4 mg Capsule 0.8 MG PO (20:15)
[2024-04-20 21:29] LABS: Vancomycin Trough 10.7 ug/mL (10-15)
[2024-04-20] MEDS: VANCOMYCIN ADD-Vantage 750 MG in 0.9% NaCl ADD-Vantage 250 ML 250 MG IV (22:01)
[2024-04-21] VITALS (8 sets, daily range): BP systolic 114–135; BP diastolic 65–74; PULSE 64–98; RESP 15–17; TEMP 36.3–36.6; O2SAT 92–97; BMI 16.7
[2024-04-21] MEDS: cefTRIAXone 1,000 MG in sodium chloride 0.9% (plus) 50 ML 100 MG IV (03:36)
[2024-04-21 05:04] LABS: Basophils % 0.6 %; Eosinophils # 0.2 10^3/uL (0.0-0.8); Eosinophils % 3.3 %; Hematocrit 28.5 % (37-53); Lymphocytes % 30.6 %; Mean Corpuscular HGB Conc 32.6 g/dL (30-55); Mean Corpuscular Hemoglobin 28.2 pg (27-33); Mean Corpuscular Volume 86.4 fl (82-101); Mean Platelet Volume 11.1 fL (7.4-10.4); Monocytes # 0.6 10^3/uL (0.2-0.9); Neutrophils # 3.61 10^3/uL (1.8-7.7); Neutrophils % 56.2 %; Nucleated Red Blood Cells % 0 %; Platelet Count 183 10^3/cmm (157-399); Red Cell Distribution Width 16.2 % (12.1-15.1); White Blood Count 6.43 10^3/uL (3.29-11.43)
[2024-04-21 05:26] LABS: Alanine Aminotransferase 9 U/L (0-41); Albumin Level 2.3 g/dL (3.5-5.2); Alkaline Phosphatase 108 U/L (40-130); Anion Gap 12.9 (5-19); Aspartate Amino Transferase 15 U/L (0-40); Blood Urea Nitrogen 6 mg/dL (8-23); Calcium 7.6 mg/dL (8.5-10.5); Carbon Dioxide 23 mmol/L (22-29); Chloride 107 mmol/L (98-107); Globulin 4.6 g/dL (1.3-4.6); Glomerular Filtration Rate 298.2 mL/min (90-130); Glucose 78 mg/dL (65-115); Osmolality Calculated 286 mOsm/kg (285-295); Sodium 140 mmol/L (136-145); Total Bilirubin 0.2 mg/dL (0.15-1.2); Total Protein 6.9 g/dL (6.6-8.7)
[2024-04-21 05:37] LABS: Potassium 2.9 mmol/L (3.5-5.1)
[2024-04-21] MEDS: lidocaine 1% 5 ML in potassium chloride premix 100 ML 26.25 ML IV (05:53)
[2024-04-21] MEDS: PARoxetine 20 mg Tablet 40 MG PO (09:22)
[2024-04-21] MEDS: heparin 5,000 unit/mL INJ 1 mL 5000 UNIT SUBCUT ×2 (09:22→21:41)
[2024-04-21] MEDS: sennosides-docusate Tablet 1 TAB PO (09:22)
[2024-04-21] MEDS: folic acid 1 mg Tablet PO (09:22)
[2024-04-21] MEDS: docusate sodium 100 mg Capsule PO ×2 (09:22→17:50)
[2024-04-21] MEDS: pantoprazole DR 40 mg Tablet PO ×2 (09:22→17:50)
--- NOTE | 2024-04-21 10:23 | PC.SOCIAL ---
IMM Update pg 2 of IMM reviewed and updated w/ patients guardian. Copy left @ bedside and copy dated, initialed and placed in chart.
[2024-04-21] MEDS: VANCOMYCIN ADD-Vantage 750 MG in 0.9% NaCl ADD-Vantage 250 ML 250 MG IV (11:32)
[2024-04-21] MEDS: cefepime 2,000 mg SDV 2000 MG IVP (15:01)
--- NOTE | 2024-04-21 20:42 | P.PN_ITS ---
Subjective 2 Subjective: - The patient has a past medical history significant for chronic obstructive pulmonary disease, history of chronic smoking, hypertension, hyperlipidemia, schizophrenia, and bed bound status. He has a stage 4 chronic sacrococcygeal ulcer followed by wound care and a history of left hip infection. 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 Despite multiple rounds of oral antibiotics with cephalexin and ciprofloxacin, the infection progressed, and hardware was removed in May 2022 without spacer or remaining hardware placement. Cultures grew MRSA, sensitive to ceftriaxone and resistant to fluoroquinolones. The patient was treated with 6 weeks of IV antibiotics (ceftriaxone 2g daily and vancomycin) from 05/27/2022 to 07/08/2022. No documentation of orthopedic follow-up since. - The patient presented with hypotension (BP 107/62) and increased lethargy at the facility. Initial vitals: HR 60, temp 97.4?F. Labs notable for WBC 10, Hgb 10, Hct 33, Plt 204, Na 146, K 4.0, CO2 25, BUN 35, Cr 0.6. - The patient was admitted to the ICU fo r close monitoring for signs of sepsis and impending shock. Started on vancomycin and ceftriaxone empirically. Suprapubic catheter exchanged on 04/18/2024. - CXR: No acute cardiopulmonary abnormal ity. Head CT: No acute intracranial abnormality, partial specification. Abd/Pelvis CT: Stercoral proctitis, fecal stasis, diffuse urinary bladder wall thickening, known sacroiliac arthritis, osteomyelitis involving distal sacrum, chronic infection involving chronic left femur fracture, suspected chronic osteomyelitis with surrounding phlegmon, old fracture deformity with extensive heterotopic bone formation. - The patient was transferred out of the ICU on 04/19/2024, remaining hemodynamically stable with stable labs. Urine culture from 04/18/2024 growing gram-negative rods, most likely E. coli based on previous cultures. - Wound care evaluation noted open alter ation to left hip probing to 5.5cm towards hip joint, undermining from 12 to 12 o'clock maximum 1.5cm, purulent exudate with cultures obtained, wound packed with 1.5 inch nu gauze. Sacral wound did not appear infected. - Orthopedic surgery consulted for chron ic osteomyelitis management. 04/21 - No new clinical events overnight. Vitals/I&O/Wt Last Vital Signs Temp 97.8 F 04/21/24 20:00 Pulse 68 04/21/24 20:00 Resp 16 04/21/24 20:00 BP 115/72 04/21/24 20:00 Pulse Ox 95 04/21/24 20:00 O2 Del Method Room Air 04/21/24 20:00 04/21/24 04/21/24 04/21/24 06:59 14:59 22:59 Intake Total 300 / 1180 355 / 355 240 / 595 Output Total 500 / 2500 950 / 950 300 / 1250 Balance -200 / -1320 -595 / -595 -60 / -655 Weight last 48 hrs Weight 51.256 kg Weight 51.284 kg Physical Exam 2 Const: COMMON NORMALS: no acute distress; negative for patient oriented x3 GENERAL APPEARANCE: cooperative and comfortable ORIENTATION/CONSCIOUSNESS: Yes awake Eye: GENERAL EYE: appearance normal, both eyes and all related structures Neck/C-Spine: GENERAL: Yes normal visual inspection Chest: CHEST: Yes Symmetrical chest wall rise Resp: COMMON NORMALS: normal respiratory effort Cardio: COMMON NORMALS: regular rate RATE: regular rate Extremity: NARRATIVE EXTREMITY EXAM: contractures noted to lower extremities; unable to flex knees, in extension with legs crossed Neuro: COMMON NORMALS: negative for patient oriented x3 Skin: WOUNDS: Yes wounds noted (see wound assessment) Urinary Catheter Management: Suprapubic: Cath Placed During This Visit: yes Reason for Continuing Indwelling Catheter: Chronic Indwelling Urinary Catheter on Admission Urinary Catheter Date of Insertion: 04/18/24 Urinary Catheter Time of Insertion: 03:00 Data 04/21/24 04:19 04/21/24 04:19 Micro: Microbiology 04/19/24 13:45 Gram Stain - Final Hip - Left Anaerobic Culture - Preliminary Wound Culture - Preliminary Gram Negative Rods Coag positive Staphylococcus 04/18/24 03:09 Urine Culture - Final Urine,Clean Catch Proteus mirabilis A&P Assessment and plan (1) Stage III pressure ulcer of sacral region: (2) Chronic osteomyelitis with draining sinus, left femur: (3) Osteoporosis: (4) Vitamin D deficiency: (5) Urinary tract infection: (6) BPH (benign prostatic hyperplasia): (7) Acute hypotension: (8) Chronic schizophrenia: (9) Tardive akathisia: (10) Decubitus ulcer: (11) COPD (chronic obstructive pulmonary disease): Qualifiers: COPD type: emphysema Emphysema type: panlobular Qualified Code(s): J 43.1 - Panlobular emphysema (12) Sarcopenia: (13) Protein calorie malnutrition: Plan Sepsis secondary to infected left hip osteomylitis/wound - Continue broad-spectrum antibiotics with ceftriaxone and vancomycin. - Wound care on board. Culture so far growing gram negative rods - likely E-coli - similar to prior cultures. - Previously did grow MRSA as well however none at this time however still pre- tellez cultures - CT abd/pelvis showed suspected chronic infection involving the left femur fracture with surrounding phlegmon. Plan: - Discussed with orthopedic surgery - No surgical intervention at this time - Recommeded 6 weeks of IV abx based on culture - Vancomycin and Ceftriaxone discontinued - Cefepime ordered - PICC line ordered Urinary tract infection in setting of chronic SPC - Ordonez was changed on admission - Culture growing e-coli which is likely a colinization Plan: - On IV abx for now Hypotension - Likely secondary to sepsis. Responsive to IV fluid resuscitation. - Continue to hold antihypertensive for now - D/C IVF Dysphagia - Speech therapy consult - Aspiration precautions. Penile ulcer - New finding on exam today. Appears as an open lesion with skin erosion. - Gauze placed between penis and scrotum to keep area dry. - Monitor closely for signs of infection. Consider wound culture if worsens. Constipation - Continue robby regimen - May need to discuss with surgery - Monitor bowel movements. Adjust regimen as needed. Chronic stage IV sacral decubitus ulcer with sacral osteomyelitis - CT scan showing findings of chronic osteomyelitis involving the distal sacrum - Does not appear to have any superficial acute infection - Will need to consider plastics consult in [place] if considering flap Schizophrenia - No acute decompensation noted. Patient able to follow commands. - Continue home antipsychotic medications. Tardive dyskinesia - No active tremors noted. - Continue current management. Protein-calorie malnutrition - Poor oral intake noted. At risk for further deterioration. - Dietary consultation for nutritional optimization. Plan: Possible d/c in am for 6 weeks abx ID appointment on at 1 pm Follow up on final organism and sensitivities. PDMP PDMP Reviewed: Not Reviewed Attestations 2 Medical Necessity Statement*: More than 2 midnights anticipated Coding Level of Care Code Acute Code for Chg Fwd Diagnoses Stage III pressure ulcer of sacral region L89.153 Chronic osteomyelitis with draining sinus, left femur M86.452 Osteoporosis M81.0 Vitamin D deficiency E55.9 Urinary tract infection N39.0 Benign prostatic hyperplasia without lower urinary tract symptoms N40.0 Acute hypotension I95.9 Chronic schizophrenia F20.9 Tardive akathisia G25.71 Decubitus ulcer L89.90 Panlobular emphysema J43.1 COPD type: emphysema Emphysema type: panlobular Sarcopenia M62.84 Protein calorie malnutrition E46
[2024-04-21] MEDS: mirtazapine 30 mg Tablet PO (21:42)
[2024-04-21] MEDS: quetiapine 100 mg Tablet PO (21:42)
[2024-04-21] MEDS: ATORVASTATIN 10 MG TABLET PO (21:42)
[2024-04-21] MEDS: tamsulosin 0.4 mg Capsule 0.8 MG PO (21:52)
[2024-04-22] VITALS (8 sets, daily range): BP systolic 93–122; BP diastolic 57–68; PULSE 74–93; RESP 16–19; TEMP 36.4–36.7; O2SAT 90–96
[2024-04-22 05:06] LABS: Basophils # 0.1 10^3/uL (0.0-0.1); Basophils % 0.9 %; Eosinophils # 0.3 10^3/uL (0.0-0.8); Eosinophils % 6.1 %; Hematocrit 30.7 % (37-53); Lymphocytes # 1.6 10^3/uL (0.8-4.8); Lymphocytes % 29.5 %; Mean Corpuscular HGB Conc 31.6 g/dL (30-55); Mean Corpuscular Hemoglobin 27.6 pg (27-33); Mean Corpuscular Volume 87.5 fl (82-101); Mean Platelet Volume 11.3 fL (7.4-10.4); Monocytes # 0.5 10^3/uL (0.2-0.9); Monocytes % 8.6 %; Neutrophils # 2.97 10^3/uL (1.8-7.7); Neutrophils % 54.5 %; Nucleated Red Blood Cells % 0 %; Platelet Count 190 10^3/cmm (157-399); Red Blood Count 3.51 10^6/uL (3.85-5.65); Red Cell Distribution Width 16.4 % (12.1-15.1); White Blood Count 5.45 10^3/uL (3.29-11.43)
[2024-04-22 05:29] LABS: Anion Gap 13.6 (5-19); Blood Urea Nitrogen 8 mg/dL (8-23); Calcium 7.9 mg/dL (8.5-10.5); Carbon Dioxide 22 mmol/L (22-29); Chloride 109 mmol/L (98-107); Glomerular Filtration Rate 165.4 mL/min (90-130); Glucose 57 mg/dL (65-115); Osmolality Calculated 288 mOsm/kg (285-295); Potassium 3.6 mmol/L (3.5-5.1); Sodium 141 mmol/L (136-145)
[2024-04-22] MEDS: cefepime 2,000 mg SDV 2000 MG IVP ×2 (05:45→17:14)
[2024-04-22] MEDS: docusate sodium 100 mg Capsule PO ×2 (07:50→17:14)
[2024-04-22] MEDS: folic acid 1 mg Tablet PO (07:50)
[2024-04-22] MEDS: pantoprazole DR 40 mg Tablet PO ×2 (07:50→17:14)
[2024-04-22] MEDS: heparin 5,000 unit/mL INJ 1 mL 5000 UNIT SUBCUT ×2 (07:50→21:10)
[2024-04-22] MEDS: sennosides-docusate Tablet 1 TAB PO (07:50)
[2024-04-22] MEDS: PARoxetine 20 mg Tablet 40 MG PO (07:50)
--- NOTE | 2024-04-22 09:34 | PICC.NOTE ---
Referred to vascular access nurse for PICC placement for 6 weeks IV antibiotics. Upon assessment, port in place to right chest. Dr. Bales notified via phone. Order for PICC cancelled.
--- NOTE | 2024-04-22 12:47 | P.PN_ITS ---
Subjective 2 Subjective: - The patient has a past medical history significant for chronic obstructive pulmonary disease, history of chronic smoking, hypertension, hyperlipidemia, schizophrenia, and bed bound status. He has a stage 4 chronic sacrococcygeal ulcer followed by wound care and a history of left hip infection. 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 Despite multiple rounds of oral antibiotics with cephalexin and ciprofloxacin, the infection progressed, and hardware was removed in May 2022 without spacer or remaining hardware placement. Cultures grew MRSA, sensitive to ceftriaxone and resistant to fluoroquinolones. The patient was treated with 6 weeks of IV antibiotics (ceftriaxone 2g daily and vancomycin) from 05/27/2022 to 07/08/2022. No documentation of orthopedic follow-up since. - The patient presented with hypotension (BP 107/62) and increased lethargy at the facility. Initial vitals: HR 60, temp 97.4?F. Labs notable for WBC 10, Hgb 10, Hct 33, Plt 204, Na 146, K 4.0, CO2 25, BUN 35, Cr 0.6. - The patient was admitted to the ICU fo r close monitoring for signs of sepsis and impending shock. Started on vancomycin and ceftriaxone empirically. Suprapubic catheter exchanged on 04/18/2024. - CXR: No acute cardiopulmonary abnormal ity. Head CT: No acute intracranial abnormality, partial specification. Abd/Pelvis CT: Stercoral proctitis, fecal stasis, diffuse urinary bladder wall thickening, known sacroiliac arthritis, osteomyelitis involving distal sacrum, chronic infection involving chronic left femur fracture, suspected chronic osteomyelitis with surrounding phlegmon, old fracture deformity with extensive heterotopic bone formation. - The patient was transferred out of the ICU on 04/19/2024, remaining hemodynamically stable with stable labs. Urine culture from 04/18/2024 growing gram-negative rods, most likely E. coli based on previous cultures. - Wound care evaluation noted open alter ation to left hip probing to 5.5cm towards hip joint, undermining from 12 to 12 o'clock maximum 1.5cm, purulent exudate with cultures obtained, wound packed with 1.5 inch nu gauze. Sacral wound did not appear infected. - Orthopedic surgery consulted for chron ic osteomyelitis management. 04/21 - No new clinical events overnight. 04/22 - Stable overnight. Did not have any res piratory distress. No fever, chills, nausea or vomiting. Vitals/I&O/Wt Last Vital Signs Temp 98.0 F 04/22/24 12:00 Pulse 80 04/22/24 12:00 Resp 19 H 04/22/24 12:00 BP 107/65 04/22/24 12:00 Pulse Ox 93 04/22/24 12:00 O2 Del Method Room Air 04/22/24 12:00 O2 Flow Rate 3 04/22/24 00:00 04/21/24 04/22/24 04/22/24 22:59 06:59 14:59 Intake Total 240 / 595 50 / 50 Output Total 650 / 1600 500 / 2100 Balance -410 / -1005 -500 / -1505 50 / 50 Weight last 48 hrs Weight 44.225 kg Weight 51.256 kg Physical Exam 2 Narrative: Ch. Ill appearing Cachectic Malnourished Sarcopenia Protein calorie malnourishment Dry mucous membrane Suprapubic catheter in place Penile rash with concern for urinary leak S1, S2 sinus rhythm Afebrile Sacral area stage IV ulcer with tunneling, edges of the wound do not look infected No active drainage or purulence noted Urinary Catheter Management: Suprapubic: Cath Placed During This Visit: yes Reason for Continuing Indwelling Catheter: Chronic Indwelling Urinary Catheter on Admission Urinary Catheter Date of Insertion: 04/18/24 Urinary Catheter Time of Insertion: 03:00 Data 04/22/24 04:32 04/22/24 04:32 Micro: Microbiology 04/19/24 13:45 Gram Stain - Final Hip - Left Anaerobic Culture - Preliminary Wound Culture - Preliminary Gram Negative Rods Coag positive Staphylococcus 04/18/24 03:09 Urine Culture - Final Urine,Clean Catch Proteus mirabilis A&P Assessment and plan (1) Stage III pressure ulcer of sacral region: (2) Chronic osteomyelitis with draining sinus, left femur: (3) Osteoporosis: (4) Vitamin D deficiency: (5) Urinary tract infection: (6) BPH (benign prostatic hyperplasia): (7) Acute hypotension: (8) Chronic schizophrenia: (9) Tardive akathisia: (10) Decubitus ulcer: (11) COPD (chronic obstructive pulmonary disease): Qualifiers: COPD type: emphysema Emphysema type: panlobular Qualified Code(s): J 43.1 - Panlobular emphysema (12) Sarcopenia: (13) Protein calorie malnutrition: Plan Sepsis secondary to infected left hip osteomylitis/wound - Was on ceftriaxone and vancomycin. - Wound care on board. Culture so far growing gram negative rods and also coag negative strep - Previously did grow MRSA as well however none at this time however still pre- tellez cultures - CT abd/pelvis showed suspected chronic infection involving the left femur fracture with surrounding phlegmon. - Orthopedic surgery on - Antibiotics were changed to Cefepime 2g IV q12hr - Plan for 6 weeks of IV abx Plan: - Patient has port to use for IV abx - Will need to follow up on final organsim and suseptabilities prior to discharge - Repeat labs in am - Will follow up with Dr. Mallory outpatient on at 1 pm Urinary tract infection in setting of chronic SPC - Ordonez was changed on admission - Culture growing proteus Plan: - On IV abx for now Dysphagia - Speech therapy consult - Aspiration precautions. Penile ulcer - New finding on exam today. Appears as an open lesion with skin erosion. - Gauze placed between penis and scrotum to keep area dry. - Monitor closely for signs of infection. Consider wound culture if worsens. - Will need urology follow up outpatient arranged as well at discharge Constipation - Continue robby regimen - May need to discuss with surgery - Monitor bowel movements. Adjust regimen as needed. - Avoid agressive laxatives due to sig sacral decubitus ulcer - Having BM since admission Chronic stage IV sacral decubitus ulcer with sacral osteomyelitis - CT scan showing findings of chronic osteomyelitis involving the distal sacrum - Does not appear to have any superficial acute infection - Will need to consider plastics consult in [place] if considering flap Schizophrenia - No acute decompensation noted. Patient able to follow commands. - Continue home antipsychotic medications. Tardive dyskinesia - No active tremors noted. - Continue current management. Protein-calorie malnutrition - Poor oral intake noted. At risk for further deterioration. - Dietary consultation for nutritional optimization. PDMP PDMP Reviewed: Not Reviewed Attestations 2 Medical Necessity Statement*: More than 2 midnights anticipated Coding Level of Care Code Acute Code for [facility] Fwd Diagnoses Stage III pressure ulcer of sacral region L89.153 Chronic osteomyelitis with draining sinus, left femur M86.452 Osteoporosis M81.0 Vitamin D deficiency E55.9 Urinary tract infection N39.0 Benign prostatic hyperplasia without lower urinary tract symptoms N40.0 Acute hypotension I95.9 Chronic schizophrenia F20.9 Tardive akathisia G25.71 Decubitus ulcer L89.90 Panlobular emphysema J43.1 COPD type: emphysema Emphysema type: panlobular Sarcopenia M62.84 Protein calorie malnutrition E46
[2024-04-22] MEDS: magnesium hydroxide 30 mL UDC PO (17:14)
[2024-04-22] MEDS: tamsulosin 0.4 mg Capsule 0.8 MG PO (20:52)
[2024-04-22] MEDS: mirtazapine 30 mg Tablet PO (20:52)
[2024-04-22] MEDS: quetiapine 100 mg Tablet PO (20:52)
[2024-04-22] MEDS: ATORVASTATIN 10 MG TABLET PO (20:52)
[2024-04-22] MEDS: VANCOMYCIN ADD-Vantage 750 MG in 0.9% NaCl ADD-Vantage 250 ML 250 MG IV (21:10)
[2024-04-23] VITALS (8 sets, daily range): BP systolic 93–115; BP diastolic 54–71; PULSE 62–80; RESP 16–19; TEMP 36.4–36.9; O2SAT 92–95
--- NOTE | 2024-04-23 02:25 | PC.NURSE ---
patient resting in bed with eyes closed. nurse and parking lot attendant and cashier in room to turn patient and nurse to change wound dressings. dressing applied to left upper hip and left outer hip, small amout of yellowish drainage noted. cleansed with saline and covered with optifoam. dressing to sacrum changed, packed with wet to dry gauze and covered with optifoam. patient tolerated well
--- NOTE | 2024-04-23 02:28 | PC.NURSE ---
patient pulled out the iv in his left wrist. catheter intact.
[2024-04-23 02:56] LABS: Basophils % 0.5 %; Eosinophils # 0.4 10^3/uL (0.0-0.8); Eosinophils % 6.8 %; Hematocrit 29.6 % (37-53); Lymphocytes # 1.5 10^3/uL (0.8-4.8); Mean Corpuscular HGB Conc 31.8 g/dL (30-55); Mean Corpuscular Hemoglobin 27.6 pg (27-33); Mean Corpuscular Volume 86.8 fl (82-101); Mean Platelet Volume 10.9 fL (7.4-10.4); Monocytes # 0.7 10^3/uL (0.2-0.9); Monocytes % 12.1 %; Neutrophils # 2.95 10^3/uL (1.8-7.7); Neutrophils % 53.2 %; Nucleated Red Blood Cells % 0 %; Platelet Count 167 10^3/cmm (157-399); Red Blood Count 3.41 10^6/uL (3.85-5.65); Red Cell Distribution Width 16.4 % (12.1-15.1); White Blood Count 5.55 10^3/uL (3.29-11.43)
[2024-04-23 03:23] LABS: Anion Gap 11.8 (5-19); Blood Urea Nitrogen 10 mg/dL (8-23); Calcium 7.7 mg/dL (8.5-10.5); Carbon Dioxide 25 mmol/L (22-29); Chloride 108 mmol/L (98-107); Glomerular Filtration Rate 213.9 mL/min (90-130); Glucose 106 mg/dL (65-115); Osmolality Calculated 291 mOsm/kg (285-295); Potassium 3.8 mmol/L (3.5-5.1); Sodium 141 mmol/L (136-145)
[2024-04-23] MEDS: cefepime 2,000 mg SDV 2000 MG IVP ×2 (05:31→18:42)
[2024-04-23] MEDS: folic acid 1 mg Tablet PO (08:17)
[2024-04-23] MEDS: sennosides-docusate Tablet 1 TAB PO (08:17)
[2024-04-23] MEDS: VANCOMYCIN ADD-Vantage 750 MG in 0.9% NaCl ADD-Vantage 250 ML 250 MG IV ×2 (08:17→21:33)
[2024-04-23] MEDS: heparin 5,000 unit/mL INJ 1 mL 5000 UNIT SUBCUT ×2 (08:17→21:33)
[2024-04-23] MEDS: PARoxetine 20 mg Tablet 40 MG PO (08:17)
[2024-04-23] MEDS: docusate sodium 100 mg Capsule PO ×2 (08:17→18:42)
[2024-04-23] MEDS: pantoprazole DR 40 mg Tablet PO ×2 (08:17→18:42)
--- NOTE | 2024-04-23 11:41 | PC.SOCIAL ---
IMM Update pg 2 of IMM updated and reviewed w/ patient. Copy provided and copy dated, initialed and placed in chart.
--- NOTE | 2024-04-23 12:18 | P.PN_ITS ---
Subjective 2 Subjective: - The patient has a past medical history significant for chronic obstructive pulmonary disease, history of chronic smoking, hypertension, hyperlipidemia, schizophrenia, and bed bound status. He has a stage 4 chronic sacrococcygeal ulcer followed by wound care and a history of left hip infection. 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 Despite multiple rounds of oral antibiotics with cephalexin and ciprofloxacin, the infection progressed, and hardware was removed in May 2022 without spacer or remaining hardware placement. Cultures grew MRSA, sensitive to ceftriaxone and resistant to fluoroquinolones. The patient was treated with 6 weeks of IV antibiotics (ceftriaxone 2g daily and vancomycin) from 05/27/2022 to 07/08/2022. No documentation of orthopedic follow-up since. - The patient presented with hypotension (BP 107/62) and increased lethargy at the facility. Initial vitals: HR 60, temp 97.4?F. Labs notable for WBC 10, Hgb 10, Hct 33, Plt 204, Na 146, K 4.0, CO2 25, BUN 35, Cr 0.6. - The patient was admitted to the ICU fo r close monitoring for signs of sepsis and impending shock. Started on vancomycin and ceftriaxone empirically. Suprapubic catheter exchanged on 04/18/2024. - CXR: No acute cardiopulmonary abnormal ity. Head CT: No acute intracranial abnormality, partial specification. Abd/Pelvis CT: Stercoral proctitis, fecal stasis, diffuse urinary bladder wall thickening, known sacroiliac arthritis, osteomyelitis involving distal sacrum, chronic infection involving chronic left femur fracture, suspected chronic osteomyelitis with surrounding phlegmon, old fracture deformity with extensive heterotopic bone formation. - The patient was transferred out of the ICU on 04/19/2024, remaining hemodynamically stable with stable labs. Urine culture from 04/18/2024 growing gram-negative rods, most likely E. coli based on previous cultures. - Wound care evaluation noted open alter ation to left hip probing to 5.5cm towards hip joint, undermining from 12 to 12 o'clock maximum 1.5cm, purulent exudate with cultures obtained, wound packed with 1.5 inch nu gauze. Sacral wound did not appear infected. - Orthopedic surgery consulted for chron ic osteomyelitis management. 04/21 - No new clinical events overnight. 04/22 - Stable overnight. Did not have any res piratory distress. No fever, chills, nausea or vomiting. 04/23 - No overnight issues. Patient was noted to have MRSA. Tolerated vancomycin Vitals/I&O/Wt Last Vital Signs Temp 97.6 F 04/23/24 07:23 Pulse 69 04/23/24 08:04 Resp 16 04/23/24 08:04 BP 93/54 04/23/24 07:23 Pulse Ox 94 04/23/24 08:04 O2 Del Method Room Air 04/23/24 08:04 O2 Flow Rate 3 04/23/24 00:00 04/22/24 04/23/24 04/23/24 22:59 06:59 14:59 Intake Total 490 / 660 30 / 690 250 / 250 Output Total 1180 / 1180 Balance -690 / -520 30 / -490 250 / 250 Weight last 48 hrs Weight 44.225 kg Weight 44.225 kg Physical Exam 2 Narrative: Ch. Ill appearing Cachectic Malnourished Sarcopenia Protein calorie malnourishment Dry mucous membrane Suprapubic catheter in place Penile rash with concern for urinary leak S1, S2 sinus rhythm Afebrile Sacral area stage IV ulcer with tunneling, edges of the wound do not look infected No active drainage or purulence noted Urinary Catheter Management: Suprapubic: Cath Placed During This Visit: yes Reason for Continuing Indwelling Catheter: Chronic Indwelling Urinary Catheter on Admission Urinary Catheter Date of Insertion: 04/18/24 Urinary Catheter Time of Insertion: 03:00 Data 04/23/24 02:43 04/23/24 02:43 Micro: Microbiology 04/19/24 13:45 Gram Stain - Final Hip - Left Anaerobic Culture - Preliminary Wound Culture - Final Escherichia coli Methicillin Resis Staph Aureus A&P Assessment and plan (1) Stage III pressure ulcer of sacral region: (2) Chronic osteomyelitis with draining sinus, left femur: (3) Osteoporosis: (4) Vitamin D deficiency: (5) Urinary tract infection: (6) BPH (benign prostatic hyperplasia): (7) Acute hypotension: (8) Chronic schizophrenia: (9) Tardive akathisia: (10) Decubitus ulcer: (11) COPD (chronic obstructive pulmonary disease): Qualifiers: COPD type: emphysema Emphysema type: panlobular Qualified Code(s): J 43.1 - Panlobular emphysema (12) Sarcopenia: (13) Protein calorie malnutrition: Plan Sepsis secondary to infected left hip osteomylitis/wound - Was on ceftriaxone and vancomycin. - Wound care on board. Culture so far growing gram negative rods and also coag negative strep - Previously did grow MRSA as well however none at this time however still pre- tellez cultures - CT abd/pelvis showed suspected chronic infection involving the left femur fracture with surrounding phlegmon. - Orthopedic surgery on baord - Antibiotics were changed to Cefepime 2g IV q12hr - Vancomycin was added due to positive MRSA. - Plan for 4 weeks of IV abx Plan: - Continue vancomycin pharmacy to dose. Checking trough tonight. Will continue 4 weeks of vancomycin ? Additionally will continue cefepime ? Patient has a follow-up appointment with infectious disease in 1 week. Urinary tract infection in setting of chronic SPC - Ordonez was changed on admission - Culture growing proteus Plan: - On IV abx for now Dysphagia - Speech therapy consult - Aspiration precautions. Penile ulcer - New finding on exam today. Appears as an open lesion with skin erosion. - Gauze placed between penis and scrotum to keep area dry. - Monitor closely for signs of infection. Consider wound culture if worsens. - Will need urology follow up outpatient arranged as well at discharge Constipation - Continue robby regimen - May need to discuss with surgery - Monitor bowel movements. Adjust regimen as needed. - Avoid agressive laxatives due to sig sacral decubitus ulcer - Having BM since admission Chronic stage IV sacral decubitus ulcer with sacral osteomyelitis - CT scan showing findings of chronic osteomyelitis involving the distal sacrum - Does not appear to have any superficial acute infection - Will need to consider plastics consult in [place] if considering flap Schizophrenia - No acute decompensation noted. Patient able to follow commands. - Continue home antipsychotic medications. Tardive dyskinesia - No active tremors noted. - Continue current management. Protein-calorie malnutrition - Poor oral intake noted. At risk for further deterioration. - Dietary consultation for nutritional optimization. Anticipate discharge tomorrow once final vancomycin dose arranged. PDMP PDMP Reviewed: Not Reviewed Attestations 2 Medical Necessity Statement*: More than 2 midnights anticipated Coding Level of Care Code Acute Code for [facility] Fwd Diagnoses Stage III pressure ulcer of sacral region L89.153 Chronic osteomyelitis with draining sinus, left femur M86.452 Osteoporosis M81.0 Vitamin D deficiency E55.9 Urinary tract infection N39.0 Benign prostatic hyperplasia without lower urinary tract symptoms N40.0 Acute hypotension I95.9 Chronic schizophrenia F20.9 Tardive akathisia G25.71 Decubitus ulcer L89.90 Panlobular emphysema J43.1 COPD type: emphysema Emphysema type: panlobular Sarcopenia M62.84 Protein calorie malnutrition E46
[2024-04-23 20:41] LABS: Vancomycin Trough 12.8 ug/mL (10-15)
[2024-04-23] MEDS: ATORVASTATIN 10 MG TABLET PO (21:32)
[2024-04-23] MEDS: mirtazapine 30 mg Tablet PO (21:32)
[2024-04-23] MEDS: quetiapine 100 mg Tablet PO (21:32)
[2024-04-23] MEDS: tamsulosin 0.4 mg Capsule 0.8 MG PO (21:32)
[2024-04-24 04:00] VITALS: BP 93/57; PULSE 75; RESP 18; TEMP 36.7; O2SAT 91
[2024-04-24] MEDS: cefepime 2,000 mg SDV 2000 MG IVP (04:45)
[2024-04-24 07:22] VITALS: BP 95/59; PULSE 70; RESP 15; TEMP 36.9; O2SAT 92
[2024-04-24 07:33] LABS: Anion Gap 12.7 (5-19); Blood Urea Nitrogen 9 mg/dL (8-23); Calcium 7.7 mg/dL (8.5-10.5); Carbon Dioxide 24 mmol/L (22-29); Chloride 107 mmol/L (98-107); Glomerular Filtration Rate 213.9 mL/min (90-130); Glucose 81 mg/dL (65-115); Osmolality Calculated 288 mOsm/kg (285-295); Potassium 3.7 mmol/L (3.5-5.1); Sodium 140 mmol/L (136-145)
[2024-04-24 07:53] VITALS: PULSE 68; RESP 16; O2SAT 94
[2024-04-24] MEDS: PARoxetine 20 mg Tablet 40 MG PO (09:31)
[2024-04-24] MEDS: docusate sodium 100 mg Capsule PO (09:31)
[2024-04-24] MEDS: folic acid 1 mg Tablet PO (09:31)
[2024-04-24] MEDS: sennosides-docusate Tablet 1 TAB PO (09:31)
[2024-04-24] MEDS: heparin 5,000 unit/mL INJ 1 mL 5000 UNIT SUBCUT (09:31)
[2024-04-24] MEDS: pantoprazole DR 40 mg Tablet PO (09:31)
[2024-04-24] MEDS: VANCOMYCIN ADD-Vantage 1,000 MG in 0.9% NaCl ADD-Vantage 250 ML 250 MG IV (09:32)
[2024-04-24 11:37] VITALS: BP 101/56; PULSE 71; RESP 16; TEMP 37; O2SAT 93
--- NOTE | 2024-04-24 14:00 | PC.NURSE ---
Report called to ISAC Lopez at [facility]. ISAC Lopez stated she believed they had all his medications and information faxed over to them.
[2024-04-24 15:23] VITALS: BP 103/65; PULSE 66; RESP 17; TEMP 36.4; O2SAT 93
--- NOTE | 2024-04-24 16:23 | PC.NURSE ---
Josefina at [facility] was notified that patient left the facility at 1603. Josefina stated she would let ISAC Lopez know. All lines were removed and dressings were changed prior to discharge.
--- NOTE | 2024-04-24 16:24 | PC.NURSE ---
Patient transferred to EMS stretcher by this nurse, Daisy, DOBIE WORKER, and two EMS transport with no complications. Patient exited facility via stretcher at 1603 with all belongings at 1603.
[2024-04-24 16:26] VITALS: BP 103/65; PULSE 66; RESP 17; TEMP 36.4; O2SAT 93
--- NOTE | 2024-05-14 12:46 | P.DS_ITS ---
Discharge Providers Date of Admission: 04/18/24 04:50 Date of Discharge: 04/24/2024 Attending Provider at Admission: Angelika Benitez MD Attending Provider at Discharge: Dami Bales Primary Care Provider: Aristeo Fitzpatrick MD Diagnoses at Discharge Discharge Diagnosis (1) Stage III pressure ulcer of sacral region: Status: Acute (2) Chronic osteomyelitis with draining sinus, left femur: Status: Acute (3) Osteoporosis: Status: Chronic (4) Vitamin D deficiency: Status: Chronic (5) Urinary tract infection: Status: Acute (6) BPH (benign prostatic hyperplasia): Status: Chronic (7) Acute hypotension: Status: Acute (8) Chronic schizophrenia: Status: Chronic (9) Tardive akathisia: Status: Chronic (10) Decubitus ulcer: Status: Acute (11) COPD (chronic obstructive pulmonary disease): Status: Chronic Qualifiers: COPD type: emphysema Emphysema type: panlobular Qualified Code(s): J43.1 - Panlobular emphysema (12) Sarcopenia: Status: Acute (13) Protein calorie malnutrition: Status: Acute Reason for Visit Reason for Visit: [facility] Hospital Course Hospital Course 68 year old with significant past medical history of chronic obstructive pulmonary disease, chronic smoking, hypertension, hyperlipidemia, schizophrenia, and a bed-bound status, was admitted on 04/18/2024 due to hypotension and increased lethargy. 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 Despite previous treatment with oral antibiotics, the infection persisted, leading to the removal of the prosthetic hardware in May 2022 and a six-week course of IV antibiotics. Upon this admission, the patient was initially monitored in the ICU due to concerns of sepsis and impending shock, with empirical treatment initiated using vancomycin and ceftriaxone. Vital signs showed hypotension with a blood pressure of 107/62, heart rate of 60, and a temperature of 97.4?F. Laboratory findings were notable for mild anemia and elevated BUN, suggesting renal stress or dehydration. Imaging studies, including chest X-ray and head CT, showed no acute abnormalities, while abdominal and pelvic CT revealed stercoral proctitis, fecal stasis, diffuse urinary bladder wall thickening, and chronic osteomyelitis involving the distal sacrum and left femur fracture, with suspected chronic osteomyelitis and surrounding phlegmon. The patient's condition stabilized, allowing transfer out of the ICU on 04/19/2024. Urine cultures from the day of admission grew gram-negative rods, likely E. coli, necessitating continued antibiotic therapy. Wound care evaluation revealed an open alteration to the left hip probing to 5.5cm towards the hip joint with purulent exudate, and cultures were obtained. The sacral wound did not appear infected, but orthopedic surgery was consulted for chronic osteomyelitis management.Did not feel any surgical intervention was warrented. Throughout the hospital stay, the patient remained hemodynamically stable with no new clinical events or respiratory distress. On 04/23/2024, cultures showed gram-negative rods and coag-negative strep, while MRSA was noted previously but not in current preliminary cultures. Antibiotics were adjusted to Cefepime 2g IV q12hr, with vancomycin continued for MRSA coverage, planning for a four-week course of IV antibiotics. A follow-up appointment with infectious disease was scheduled for one week post-discharge. The patient's urinary tract infection was managed with IV antibiotics, and the suprapubic catheter was exchanged. Dysphagia was addressed with a speech therapy consult and aspiration precautions. A newly identified penile ulcer was monitored closely, with gauze placed to keep the area dry, and outpatient urology follow-up arranged. Constipation management included a bowel regimen, with monitoring of bowel movements and avoidance of aggressive laxatives due to the sacral ulcer. The chronic stage IV sacral decubitus ulcer was assessed with imaging showing chronic osteomyelitis involving the distal sacrum, without superficial acute infection, warranting consideration for a plastics consult for potential flap surgery in the future. Schizophrenia was managed with continued antipsychotic medications, as no acute decompensation was noted. Tardive dyskinesia was stable with no active tremors observed. Due to poor oral intake, the patient was at risk for protein-calorie malnutrition, prompting a dietary consultation for nutritional optimization. The patient was discharged on 04/24/2024 with plans to continue IV antibiotics and follow up closely with infectious disease. Additional outpatient follow-ups for wound care, urology, and dietary management were arranged to ensure comprehensive care and management of his complex medical conditions Physical Exam Narrative: Ch. Ill appearing Cachectic Malnourished Sarcopenia Protein calorie malnourishment Dry mucous membrane Suprapubic catheter in place Penile rash with concern for urinary leak S1, S2 sinus rhythm Afebrile Sacral area stage IV ulcer with tunneling, edges of the wound do not look infected No active drainage or purulence noted Urinary Catheter Management: Suprapubic: Cath Placed During This Visit: yes Reason for Continuing Indwelling Catheter: Chronic Indwelling Urinary Catheter on Admission Urinary Catheter Date of Insertion: 04/18/24 Urinary Catheter Time of Insertion: 03:00 Discharge Data Studies Completed and Pending Completed Studies During Hospitalization Category Date Time Status CT head wo con* [id number] Stat Cat Scan 04/18/24 00:[address] kidney stone [id number] Stat Cat Scan 04/18/24 03:35 Completed XR chest 1V portable [id number] Stat Exams 04/18/24 00:41 Completed CV. echo complete* [id number] Routine Ultrasound 04/18/24 10:42 Completed Radiology Impressions Chest X-Ray 04/18/24 00:41 IMPRESSION: No acute cardiopulmonary abnormality. Head CT 04/18/24 00:41 IMPRESSION: 1. No acute intracranial abnormality. 2. Partial opacification of the mastoid air cells. 3. Additional chronic findings as detailed Abdomen/Pelvis CT 04/18/24 03:35 IMPRESSION: 1. Stercoral proctitis. Fecal stasis. 2. Diffuse urinary bladder wall thickening. Clinical correlation for cystitis recommended. 3. Sacral decubitus ulcer with findings of chronic osteomyelitis involving the distal sacrum. 4. Findings suspicious of chronic infection involving the patient's chronic left femur fracture suspected chronic osteomyelitis with surrounding phlegmon Laboratory Results WBC 5.55 10^3/uL (3.29-11.43) 04/23/24 02:43 RBC 3.41 10^6/uL (3.85-5.65) L 04/23/24 02:43 Hgb 9.40 g/dL (11.27-16.99) L 04/23/24 02:43 Hct 29.6 % (37-53) L 04/23/24 02:43 MCV 86.8 fl (82-101) 04/23/24 02:43 MCH 27.6 pg (27-33) 04/23/24 02:43 MCHC 31.8 g/dL (30-55) 04/23/24 02:43 RDW 16.4 % (12.1-15.1) H 04/23/24 02:43 Plt Count 167 10^3/cmm (157-399) 04/23/24 02:43 MPV 10.9 fL (7.4-10.4) H 04/23/24 02:43 Neut % (Auto) 53.2 % 04/23/24 02:43 Lymph % (Auto) 27.0 % 04/23/24 02:43 Moffat % (Auto) 12.1 % 04/23/24 02:43 Eos % (Auto) 6.8 % 04/23/24 02:43 Baso % (Auto) 0.5 % 04/23/24 02:43 Reticulocyte % (Auto) 1.1 % (0.5-2.0) 04/18/24 00:49 Neut # (Auto) 2.95 10^3/uL (1.8-7.7) 04/23/24 02:43 Lymph # (Auto) 1.5 10^3/uL (0.8-4.8) 04/23/24 02:43 Moffat # (Auto) 0.7 10^3/uL (0.2-0.9) 04/23/24 02:43 Eos # (Auto) 0.4 10^3/uL (0.0-0.8) 04/23/24 02:43 Baso # (Auto) 0.0 10^3/uL (0.0-0.1) 04/23/24 02:43 Nucleated RBC % (auto) 0 % 04/23/24 02:43 Nucleated RBCs # 0.0 /100WBC 04/23/24 02:43 Specimen Type Arterial 04/18/24 00:57 Sample Site Brachial, right 04/18/24 00:57 ABG pH 7.44 (7.35-7.45) 04/18/24 00:57 ABG pCO2 39.0 mmHg (35-45) 04/18/24 00:57 ABG pO2 81.4 mmHg (80.0-100.0) 04/18/24 00:57 ABG HCO3 26.7 mmol/L (22-26) H 04/18/24 00:57 ABG Base Excess 2.4 mmol/L (-2.0-2.0) H 04/18/24 00:57 Joey Test N/a 04/18/24 00:57 Hematocrit 32.4 % (42-52) L 04/18/24 00:57 O2 Delivery Device Room air 04/18/24 00:57 Conservation Assistant ID [email or web address] 04/18/24 00:57 Sodium 140 mmol/L (136-145) 04/24/24 05:41 Potassium 3.7 mmol/L (3.5-5.1) 04/24/24 05:41 Chloride 107 mmol/L (98-107) 04/24/24 05:41 Carbon Dioxide 24 mmol/L (22-29) 04/24/24 05:41 Anion Gap 12.7 (5-19) 04/24/24 05:41 BUN 9 mg/dL (8-23) 04/24/24 05:41 Creatinine 0.4 mg/dL (0.7-1.2) L 04/24/24 05:41 GFR Calculation 213.9 mL/min (90-130) H 04/24/24 05:41 Glucose 81 mg/dL (65-115) 04/24/24 05:41 Estimat Average Glucose 117 04/18/24 00:49 Hemoglobin A1c 5.7 % (4.0-6.0) 04/18/24 00:49 Calculated Osmolality 288 mOsm/kg (285-295) 04/24/24 05:41 Lactic Acid 1.0 mmol/L (0.5-2.2) 04/18/24 00:49 Calcium 7.7 mg/dL (8.5-10.5) L 04/24/24 05:41 Phosphorus 2.4 mg/dL (2.5-4.5) L 04/19/24 03:57 Magnesium 1.7 mg/dL (1.7-2.3) 04/19/24 03:57 Iron 19 ug/dL (59-158) L 04/18/24 00:49 TIBC 124 mcg/dl 04/18/24 00:49 % Saturation 15.3 % (20-50) L 04/18/24 00:49 Unsat Iron Binding 105 ug/dL (112-347) L 04/18/24 00:49 Total Bilirubin 0.2 mg/dL (0.15-1.2) 04/21/24 04:19 AST 15 U/L (0-40) 04/21/24 04:19 ALT 9 U/L (0-41) 04/21/24 04:19 Alkaline Phosphatase 108 U/L (40-130) 04/21/24 04:19 Creatine Kinase 19 U/L (39-308) L 04/18/24 00:49 C-Reactive Protein 30.8 mg/L (0.0-4.9) H 04/20/24 05:11 Total Protein 6.9 g/dL (6.6-8.7) 04/21/24 04:19 Albumin 2.3 g/dL (3.5-5.2) L 04/21/24 04:19 Globulin 4.6 g/dL (1.3-4.6) 04/21/24 04:19 Triglycerides 58 mg/dL (0-150) 04/19/24 03:57 Triglycerides Cancelled 04/19/24 03:57 Cholesterol 66 mg/dL (0-200) 04/19/24 03:57 Cholesterol Cancelled 04/19/24 03:57 LDL Cholesterol, Calc 25 mg/dL (50-129) L 04/19/24 03:57 LDL Cholesterol, Calc Cancelled 04/19/24 03:57 HDL Cholesterol 29 mg/dL (60-100) L 04/19/24 03:57 HDL Cholesterol Cancelled 04/19/24 03:57 LDL/HDL Ratio 0.86 RATIO (0.00-3.22) 04/19/24 03:57 LDL/HDL Ratio Cancelled 04/19/24 03:57 Cholesterol/HDL Ratio 2.28 mg/dL (1.0-5.00) 04/19/24 03:57 Cholesterol/HDL Ratio Cancelled 04/19/24 03:57 Vitamin B12 1184 pg/mL (232-1245) 04/18/24 00:49 Folate > 20.0 ng/mL (4.5-32.2) 04/19/24 03:57 Procalcitonin 0.05 ng/mL (0-0.5) 04/19/24 03:57 Procalcitonin Cancelled 04/19/24 03:57 TSH 0.32 uIU/mL (0.27-4.20) 04/18/24 15:11 Urine Color Other (Yellow) A 04/18/24 03:09 Urine Appearance Turbid (CLEAR) A 04/18/24 03:09 Urine pH Not Reportable 04/18/24 03:09 Ur Specific [place] Not Reportable 04/18/24 03:09 Urine Protein Not Reportable 04/18/24 03:09 Urine Glucose (UA) Not Reportable 04/18/24 03:09 Urine Ketones Not Reportable 04/18/24 03:09 Urine Blood Not Reportable 04/18/24 03:09 Urine Nitrate Not Reportable 04/18/24 03:09 Urine Bilirubin Not Reportable 04/18/24 03:09 Urine Urobilinogen Not Reportable 04/18/24 03:09 Ur Leukocyte Esterase Not Reportable 04/18/24 03:09 Urine RBC Too numerous to cnt /hpf (0-2) H 04/18/24 03:09 Urine WBC Too numerous to cnt /hpf (0-5) H 04/18/24 03:09 Ur Squamous Epith Cells 0-4 /hpf (0-5) H 04/18/24 03:09 Triple Phos Crystals 5-10 /hpf H 04/18/24 03:09 Amorphous Sediment Not Reportable 04/18/24 03:09 Urine Bacteria 4+ /hpf (NONE) H 04/18/24 03:09 Vancomycin Trough 12.8 ug/mL (10-15) 04/23/24 20:11 Ethyl Alcohol < 10 mg/dL (0-10) 04/18/24 00:49 Influenza A (PCR) Negative (Negative) 04/18/24 01:03 Influenza Type B (PCR) Negative (Negative) 04/18/24 01:03 RSV (PCR) Negative (Negative) 04/18/24 01:03 SARS-CoV-2 (PCR) Negative (Negative) 04/18/24 01:03 Vitals Last Vital Signs Temp 97.5 F L 04/24/24 16:26 Pulse 66 04/24/24 16:26 Resp 17 04/24/24 16:26 BP 103/65 04/24/24 16:26 Pulse Ox 93 04/24/24 16:26 O2 Del Method Room Air 04/24/24 15:23 O2 Flow Rate 3 04/23/24 00:00 Discharge Plan Discharge Patient Disposition: Xfer SNF Condition: Stable Prescriptions: Continued Incruse Ellipta 62.5 mcg/actuation blister with device 1 inh inhalation DAILY Qty: 30 6RF acetaminophen 325 mg Tablet 650 mg PO Q6H PRN (Reason: Pain) albuterol sulfate 1.25 mg/3 mL Solution For Nebulization 2.5 mg INHALATION Q8H PRN (Reason: Shortness Of Breath) hydrocodone-acetaminophen 5-325 mg Tablet 1 tab PO Q6H PRN (Reason: Pain) mirtazapine 30 mg Tablet 30 mg PO BEDTIME ferrous sulfate 325 mg (65 mg iron) Tablet 325 mg PO DAILY mupirocin 2 % Ointment 1 applic TOPICAL Q8H PRN (Reason: Skin Irritation) quetiapine 100 mg Tablet 100 mg PO BEDTIME paroxetine HCl [Paxil] 40 mg Tablet 40 mg PO BEDTIME tamsulosin 0.4 mg capsule 0.8 mg PO BEDTIME@20 simvastatin 20 mg tablet 20 mg PO BEDTIME@20 pantoprazole 40 mg Tablet,Delayed Release (Dr/Ec) 40 mg PO BID Qty: 60 0RF Rx Instructions: @08:00,20:00 magnesium hydroxide [Milk of Magnesia] 400 mg/5 mL Suspension 30 ml PO DAILY PRN (Reason: Constipation) bisacodyl 10 mg Suppository 10 mg [place] DAILY PRN (Reason: Constipation) docusate sodium 100 mg Tablet 200 mg PO BID@08,20 naloxone 2 mg/2 mL Syringe Kit 2 mg IM Q3M PRN (Reason: overdose) Rx Instructions: NTExceed 10 mg total dose/episode sennosides-docusate sodium [Senna-S] 8.6-50 mg Tablet 2 tab PO BID@08,20 folic acid 1 mg Tablet 1 mg PO DAILY@08 Discontinued potassium chloride 20 mEq Tablet Extended Release 20 meq PO DAILY sodium chloride 1,000 mg tablet,soluble 1,000 mg PO TID propranolol 10 mg tablet 10 mg PO BID@08,20 No Action cefepime 2 gram recon soln 2 g IV Q12H vancomycin 1,000 mg recon soln 1 g IV ONCE 28-800 mg-mcg Tablet 1 tab PO DAILY Discharge Orders: Discharge Order (Routine); Ordered 04/24/24 Ordered By: Dami Bales Referrals: [facility] [Outside] Benitez Fitzpatrick MD [Primary Care Provider] - (We have notified your physician's clinic of the need for a follow-up appointment to be scheduled. If you have not heard from them within the next 2 business days, please call them directly. ) Delores Mallory MD [Hospitalist] - 05/03/24 1:00 pm (Infectious Disease Specialist) Discharge Diet: Usual diet Discharge Activity: Increase activity as tolerated Patient Instructions: Vancomycin (By injection), Cefepime (By injection), Osteomyelitis (GEN), Altered Mental Status (ED), Opioid Safety Discharge Attestations Time Spent in Discharge Care*: greater than 30 min Status at Discharge: Cognitive status at discharge: moderately impaired cognition , Behavioral status at discharge: cooperative , Functional status at discharge: bed bound , Overall status at discharge: patient is back to baseline Quality Metrics Clinical Quality Measures [ No reported AMI, CVA or VTE this stay] Coding Level of Care Code Acute Code for Chg Fwd Diagnoses Stage III pressure ulcer of sacral region L89.153 Chronic osteomyelitis with draining sinus, left femur M86.452 Osteoporosis M81.0 Vitamin D deficiency E55.9 Urinary tract infection N39.0 Benign prostatic hyperplasia without lower urinary tract symptoms N40.0 Acute hypotension I95.9 Chronic schizophrenia F20.9 Tardive akathisia G25.71 Decubitus ulcer L89.90 Panlobular emphysema J43.1 COPD type: emphysema Emphysema type: panlobular Sarcopenia M62.84 Protein calorie malnutrition E46
== END 2024-04-24 16:03 | disposition skilled nursing facility (03) | DRG 871 ==
LOC: ER 04:52 → MEDSURG 05:50 → ER IP 07:55 → ICU 11:31 → MEDSURG 04-19 22:49
PROVIDERS: Student in an Organized Health Care Education/Training Program; Admitting Provider Internal Medicine; Emergency Provider Emergency Medicine; PCP Internal Medicine; Visit Provider Hospitalist
DX: A41.9 Sepsis, unspecified organism (principal); G93.41 Metabolic encephalopathy; L89.154 Pressure ulcer of sacral region, stage 4; N39.0 Urinary tract infection, site not specified; T83.518A Infection and inflammatory reaction due to other urinary catheter, initial encounter; M86.452 Chronic osteomyelitis with draining sinus, left femur; E46 Unspecified protein-calorie malnutrition; Z68.1 Body mass index [BMI] 19.9 or less, adult; E87.0 Hyperosmolality and hypernatremia; R64 Cachexia; M81.0 Age-related osteoporosis without current pathological fracture; N40.0 Benign prostatic hyperplasia without lower urinary tract symptoms; F20.9 Schizophrenia, unspecified; G25.71 Drug induced akathisia; Z79.899 Other long term (current) drug therapy; Z88.8 Allergy status to other drugs, medicaments and biological substances; E78.2 Mixed hyperlipidemia; Z87.891 Personal history of nicotine dependence; Z11.52 Encounter for screening for COVID-19; J43.1 Panlobular emphysema; I95.9 Hypotension, unspecified; Z86.14 Personal history of Methicillin resistant Staphylococcus aureus infection; Z74.01 Bed confinement status; Y73.8 Miscellaneous gastroenterology and urology devices associated with adverse incidents, not elsewhere classified; R13.10 Dysphagia, unspecified; Z96.643 Presence of artificial hip joint, bilateral; E87.6 Hypokalemia; N48.5 Ulcer of penis; R21 Rash and other nonspecific skin eruption; J44.9 Chronic obstructive pulmonary disease, unspecified; B96.20 Unspecified Escherichia coli [E. coli] as the cause of diseases classified elsewhere; K59.00 Constipation, unspecified
CPT/HCPCS: 36415; 36600; 51702; 70450; 71045; 74176; 80048; 80053; 80061; 80202; 80307; 81003; 82550; 82607; 82746; 82803; 83036; 83540; 83550; 83605; 83735; 84100; 84145; 84443; 85025; 85045; 86140; 87070; 87075; 87077; 87086; 87186; 87205; 87637; 92526; 93005; 93306; 94664; 96365; 96372; 96374; 96375; 96376; 99285; J0692; J0696; J1644; J1720; J2470; J3370; J3480; J7030; J7042; J7050; J9999

== ENCOUNTER 2024-04-30 11:45 | Emergency (ER) | payer MEDICARE, MEDICAID, SELFPAY ==
[2024-04-30] VITALS (19 sets, daily range): BP systolic 81–155; BP diastolic 56–120; PULSE 97–112; RESP 16–33; TEMP 36.8; O2SAT 84–100; BMI 16.2
--- NOTE | 2024-04-30 12:02 | XR_ITS ---
WS: [id number] Portable AP semiupright chest, 04/30/2024 Clinical Data: Possible Sepsis Comparison: Portable chest, 04/18/2024 Findings: The endotracheal tube ends above the tatinaa. The enteric tube ends in the dilated stomach. The right infusion catheter remains in the same position. There is a patchy opacity throughout the right lung which may represent pulmonary edema and/or pneumonia. The left lung is clear. The heart is not enlarged. The aortic arch and descending thoracic aorta show tortuosity. There is no pneumothorax. The aortic arch and descending thoracic aorta are tortuous. Monitor leads are on the chest wall. XR/XR chest 1V portable [id number] Impression: 1. Endotracheal tube ends above the tatiana. 2. Patchy right lung opacity which could represent unilateral pulmonary edema a nd/or pneumonia. 3. Dilated stomach. 4. Atherosclerosis.
--- NOTE | 2024-04-30 12:15 | ECG_ITS ---
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 Measurements Intervals Savage Rate: 107 P: 0 CT: 0 QRS: 50 QRSD: 80 T: 80 QT: 324 QTc: 433 Interpretive Statements SINUS TACHYCARDIA NON SPECIFIC ST T WAVE CHANGES Compared to ECG 04/19/2024 02:16:01 ST (T wave) deviation now present Myocardial infarct finding still present Electronically Signed On 05-01-2024 07:47:10 CDT by Juan Wilde M.D. [email or web address]
[2024-04-30] MEDS: midazolam 1 mg/mL INJ 2 mL 2 MG IVP ×3 (12:25→19:29)
[2024-04-30] MEDS: rocuronium 10 mg/mL INJ 5mL 50 MG IVP (12:27)
[2024-04-30] MEDS: sodium chloride 0.9% 1,496.85 ML 1496.85 ML IV (12:32)
[2024-04-30] MEDS: cefepime 2,000 mg SDV 2000 MG IVP (12:33)
[2024-04-30] MEDS: norepinephrine 4 MG/250 ML BAG 30 MG IV (12:35)
[2024-04-30 12:41] LABS: Basophils # 0.1 10^3/uL (0.0-0.1); Basophils % 0.4 %; Eosinophils # 0.3 10^3/uL (0.0-0.8); Eosinophils % 1.7 %; Hematocrit 31.9 % (37-53); Lymphocytes # 1.3 10^3/uL (0.8-4.8); Lymphocytes % 8.9 %; Mean Corpuscular Volume 90.4 fl (82-101); Mean Platelet Volume 10.7 fL (7.4-10.4); Monocytes # 0.7 10^3/uL (0.2-0.9); Monocytes % 4.7 %; Neutrophils # 12.43 10^3/uL (1.8-7.7); Neutrophils % 83.9 %; Nucleated Red Blood Cells % 0 %; Platelet Count 219 10^3/cmm (157-399); Red Blood Count 3.53 10^6/uL (3.85-5.65); Red Cell Distribution Width 17.3 % (12.1-15.1); White Blood Count 14.82 10^3/uL (3.29-11.43)
[2024-04-30 12:44] LABS: ABG PCO2 56.2 mmHg (35-45); ABG PH Result 7.24 (7.35-7.45); Alveolar-Arterial Oxygen Gradi 36.3 mmHg (5-10); Arterial Blood Gas Hematocrit 27.8 % (42-52); Base Excess ABG -3.5 mmol/L (-2.0-2.0); Blood Gas Allen Test Pos; Blood Gas Operator Identificat WALCI; Blood Gas Sample Site Radial, right; Blood Gas Sample Type Arterial; Carboxyhemoglobin 0.6 %THgb (0.4-20.1); HCO3 ABG 24.1 mmol/L (22-26); HGB O2 Sat 97.1 % (95-100); Ionized Calcium Level - ABG 1.2 mmol/L (1.1-1.4); Methemoglobin 1.2 % (0.4-1.5); Oxygen Device VENT; Oxygen Saturation ABG 98.9; PO2 FiO2 Ratio Arterial Blood 214; Potassium Level - ABG 2.9 mmol/L (3.5-5.0); Total Hemoglobin 9.1 g/dL (14-18)
[2024-04-30 13:13] LABS: Procalcitonin 0.06 ng/mL (0-0.5)
[2024-04-30 13:25] LABS: Alanine Aminotransferase 9 U/L (0-41); Albumin Level 2.4 g/dL (3.5-5.2); Alkaline Phosphatase 100 U/L (40-130); Anion Gap 12.9 (5-19); Aspartate Amino Transferase 13 U/L (0-40); Blood Urea Nitrogen 16 mg/dL (8-23); Calcium 7.1 mg/dL (8.5-10.5); Carbon Dioxide 22 mmol/L (22-29); Chloride 109 mmol/L (98-107); Creatinine Clr Calc Pharmacy 64.6375; Globulin 4.7 g/dL (1.3-4.6); Glomerular Filtration Rate 298.2 mL/min (90-130); Glucose 166 mg/dL (65-115); Magnesium 1.7 mg/dL (1.7-2.3); Osmolality Calculated 297 mOsm/kg (285-295); Sodium 141 mmol/L (136-145); Total Bilirubin 0.2 mg/dL (0.15-1.2); Total Protein 7.1 g/dL (6.6-8.7)
[2024-04-30 13:28] LABS: Potassium 2.9 mmol/L (3.5-5.1)
--- NOTE | 2024-04-30 13:48 | ED_ITS ---
HPI - SOB/Dyspnea 2 General: Chief Complaint: Shortness of Breath/Dyspnea Stated Complaint: SOB Time Seen by Provider: 04/30/24 12:02 History of Present Illness: HPI Narrative: 68-year-old male brought to the emergenc y department by EMS. He lives at a assisted facility. The original call was for cardiac arrest. On EMS arrival, he was not in cardiac arrest but the nursing staff reported that his SpO2 was in the 30s when they found him. EMS was able to find a pulse and he was still breathing. Nursing staff at the facility had done [id number] resuscitation and then put him on a simple facemask at 8 L/min. EMS reports they put him on a CPAP. He woke up with the CPAP and was looking at them and following basic commands. He does have a history of unspecified intellectual disabilities and is not communicating verbally. The patient has a large list of chronic medical problems. He was recently hospitalized with a deep sacrococcygeal wound tracking towards the left hip. He has chronic osteomyelitis. He is reportedly on cefepime and vancomycin for this. He was recently admitted to the hospital for this. The staff there were concerned that he may have aspirated as he seemed to cough after reportedly drinking some milk aspirated as he seemed to cough after reportedly drinking some milk. On arrival to the emergency department his oxygenation is still impaired and he has crackles. EMS reports he seemed to have some particular matter in his esophagus or throat that they were hearing. They tried suctioning but did not get anything as it seemed deeper. The patient also has a distended abdomen with tympany. After assessing the patient, he seems unsafe to be on BiPAP. He is awake but he does not communicate and I do not think he understands anything that I am saying other than very basic yes/no questions that he intermittently answers with a nod. Suspect the patient has aspirated as he has crackles predominantly in the right middle and lower lobes. The decision was made to intubate the patient for airway control and for improved oxygenation and ventilation. The patient is a full code per his paperwork. His guardian is a state lithographic press operator. Related Data Home Medications ?Medication ?Instructions ?Recorded ?Confirmed simvastatin 20 mg tablet 20 mg PO BEDTIME@02/12/22 04/30/24 tamsulosin 0.4 mg capsule 0.8 mg PO BEDTIME@ 3 04/30/24 bisacodyl 10 mg rectal suppository 10 mg ME DAILY PRN Constipation 05/20/22 04/30/24 docusate sodium 100 mg tablet 200 mg PO BID@08,20 04/04/30/24 magnesium hydroxide 400 mg/5 mL 30 ml PO DAILY PRN Con stipation 05/20/22 04/30/24 oral suspension (Milk of Magnesia) naloxone 2 mg/2 mL syringe kit 2 mg IM Q3M PRN overdos e 05/20/22 04/30/24 folic acid 1 mg tablet 1 mg PO DAILY@08 05/28/22 sennosides 8.6 mg-docusate sodium 2 tab PO BID@08,20 0 05/28/22 04/30/24 50 mg tablet (Senna-S) acetaminophen 325 mg tablet 650 mg PO Q6H PRN Pain 04/30/24 albuterol sulfate 1.25 mg/3 mL 2.5 mg inhalation Q8H P RN 03/29/24 04/30/24 solution for nebulization Shortness Of Breath ferrous sulfate 325 mg (65 mg 325 mg PO DAILY 03/29/24 04/30/24 iron) tablet hydrocodone 5 mg-acetaminophen 325 1 tab PO Q6H PRN Pa in 03/29/24 04/30/24 mg tablet mirtazapine 30 mg tablet 30 mg PO BEDTIME 03/29/24 mupirocin 2 % topical ointment 1 applic topical Q8H ME N Skin 03/29/24 04/30/24 Irritation paroxetine HCl 40 mg tablet (Paxil) 40 mg PO BEDTIME 0 03/29/24 04/30/24 quetiapine 100 mg tablet 100 mg PO BEDTIME 03/29/24 0 04/30/24 cefepime 2 gram solution for 2 g IV Q12H 04/30/2404/11 injection vit no.133-ferrous 1 tab PO DAILY 04/30/24 fumarate 28 mg-folic acid 800 mcg tablet () vancomycin 1,000 mg intravenous 1 g IV ONCE 04/30/24 0 04/30/24 injection Previous Rx's ?Medication ?Instructions ?Recorded pantoprazole 40 mg tablet,delayed 40 mg PO BID #60 tab s 02/15/22 release umeclidinium 62.5 mcg/actuation 1 inh inhalation DAILY #30 ea 10/10/22 blister powder for inhalation (Incruse Ellipta) Allergies Allergy/AdvReac Type Severity Reaction Status Date / Time No Known Allergies Allergy Verified 07/02/23 09:39 PFS ED 2 PFS: Medical History Osteoporosis COVID-19 vaccine administered J&J plus an mRNA booster per patient report History of PFTs 05/31 severe airflow obstruction, normal gas exchange, decreased FVC, FEV1 40%, FEVI/FVC reduced Anemia BPH (benign prostatic hyperplasia) COPD (chronic obstructive pulmonary disease) Vitamin D deficiency Mixed hyperlipidemia Essential hypertension Tardive akathisia Chronic schizophrenia Surgical History 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 05/2021 Family History Denies family history of CAD (coronary artery disease) Anesthesia complication Bleeding disorder Social History Smoking and tobacco/nicotine status: former use of tobacco/nicotine Quit status (tobacco/nicotine): has quit using Year quit tobacco: 2021 Former quit date comment: 1.5ppd x 51 year Hx Second hand smoke exposure: Yes Alcohol intake: former Substance/Drug Use: unknown Caregiver/support person: Yes Lives independently: No Household members: other Details: Resides at [facility] residential assisted living care facility Housing: Assisted Living Facility Marital status: Single service: No Current occupational status: disabled Pets and animals: Yes Do you think of yourself as: Straight/Heterosexual Current gender identity: Male Physical Exam 2 Narrative: EXAM NARRATIVE: Alert. Does not communicate verbally. He does shake his head or nod occasionally. It is unclear whether he is retaining and understanding information. He makes eye contact at times and other times seems to stare. He does move his arms. He occasionally makes small movements in his legs. His legs are crossed and there is increased tone in both lower extremities. He has diffuse muscle wasting confirming that he is bedbound. He is slightly tachycardic. His radial pulses 1+. His abdomen is soft but distended and tympanitic. No hyperactive or high-pitched bowel sounds. Suspect he had gastric distention from [id number] ventilation. Respiratory rate is increased. There crackles/rales appreciated in multiple areas anteriorly and posteriorly. Patient has a wound with a bandage overlying the coccygeal region. The patient is actively having stools and therefore the bandage was not removed. The skin is warm. Capillary refill is 2 and half seconds. Pupils are equal. HENMT: COMMON NORMALS: normocephalic, atraumatic and external ears normal H EAD & SCALP: normocephalic and atraumatic EXTERNAL EAR: Yes external ears normal MOUTH: no muffled voice Eye: COMMON NORMALS: conjunctivae normal and no scleral icterus C ONJUNCTIVA: Yes conjunctivae normal Neck/C-Spine: GENERAL: Yes normal visual inspection and Yes trachea midline Procedures Intubation Time out performed: Yes (Identified patient, medications, suction, indication) sedative: Versed Mg Given: 2 paralytic: Rocuronium Mg Given: 50 Laryngoscope: other (Hyperacute blade) ET Tube Size: 8 ET Tube Uncuffed: No Tube Secured Depth (cm): 21 Tube Placement Confirmation: visualized tube passing through cords, equal breath sounds bilaterally and no breath sounds over epigastrium Patient Tolerated Procedure: well Intubation Complications: hypotension (Postintubation hypotension) Additional Comments: Patient had vomitus right at the opening of the esophagus. It is highly likely that he had been aspirating. Cuffed tube was used and suction was utilized. Course 2 Vital Signs: Vital signs: Vital Signs Temperature 98.2 F 04/30/24 11:46 Pulse Rate 110 H 04/30/24 14:39 Respiratory Rate 24 H 04/30/24 16:49 Blood Pressure 155/120 04/30/24 14:39 Pulse Oximetry 94 04/30/24 14:39 Oxygen Delivery Me thod Mechanical Ventil ation 04/30/24 14:39 Oxygen Flow Rate 15 04/30/24 11:46 Fraction of Inspir ed Oxygen 85 04/30/24 16:49 MDM - SOB/Dyspnea Medical Decision Making 68-year-old male here with reported respiratory failure. On arrival the patient is still hypoxic on CPAP. He was moved to [facility]. I evaluated him rapidly and noted that he had significant abdominal distention. EMS reports that they thought he was gurgling and possibly aspirating. The [facility]p thought he had maybe aspirated milk. His shirt has vomit on it. I decided that it was unsafe for him to be on a BiPAP. He cannot remove it or tell us if he feels like he needs to throw up. He has a chronic intellectual disability. He is listed as a full code on his paperwork and is a m[place]ney of the [employer]. Patient was intubated for airway protection. He was fortunate that we chose to do this as there was vomit appreciated high up in the esophagus that had to be suctioned. Makes the likelihood of aspiration even higher. Patient had postintubation hypotension. This was corrected with IV fluids. He needed sedation and therefore norepinephrine was started so that we could keep him appropriately sedated. He seems to be very sensitive to medications. Lactic acid was mildly elevated. Patient received 30 cc/kg of IV fluids. Blood cultures were ordered. Vancomycin and cefepime were given as this is what the patient is on for his osteomyelitis and should adequately cover his aspiration in addition to his chronic osteomyelitis. White blood cell count is elevated, hemoglobin is low at 9.9, platelets 219,000. pH showed respiratory acidosis and hypoxemia Chemistry showed a creatinine of 0.3. He has poor muscle mass Sodium 141, chloride 109 Bicarb 22, anion gap 12.9 Glucose 166 Lactic 2.4 Low albumin. Procalcitonin today 0.06. EKG was obtained at 1148. EP interpretation it is difficult to interpret due to for quality but overall there is what appears to be a sinus rhythm, tachycardia at a rate of 107, a wandering baseline, some ST depressions laterally, does not appear to be consistent with STEMI. Chest x-ray 1 view. EP interpretation. Several chest x-rays were taken. The patient does have infiltrate in the right lower and mid area of the lung; he alsoo has ET tube and OG tube. The EG tube and OG tube were adjusted. On repeat x-rays, they appear appropriate. Discussed with the hospitalist. They report since the patient likely aspirated and we are continuing to get some fluid from the ET tube with suctioning that they recommend transfer as the patient is likely to develop ARDS and need pulmonology for bronchoscopy and lavage. [facility] was consulted for transfer. [address] Cook, [facility], to ICU. Lab Data 04/30/24 12:30 04/30/24 12:30 Labs/Radiology: Radiology Impressions Chest X-Ray 04/30/24 12:02 Impression: 1. Endotracheal tube ends above the tatiana. 2. Patchy right lung opacity which could represent unilateral pulmonary edema and/or pneumonia. 3. Dilated stomach. 4. Atherosclerosis. Laboratory Results WBC 14.82 10^3/uL (3.29-11.43) H 04/30/24 12:30 RBC 3.53 10^6/uL (3.85-5.65) L 04/30/24 12:30 Hgb 9.90 g/dL (11.27-16.99) L 04/30/24 12:30 Hct 31.9 % (37-53) L 04/30/24 12:30 MCV 90.4 fl (82-101) 04/30/24 12:30 MCH 28.0 pg (27-33) 04/30/24 12:30 MCHC 31.0 g/dL (30-55) 04/30/24 12:30 RDW 17.3 % (12.1-15.1) H 04/30/24 12:30 Plt Count 219 10^3/cmm (157-399) 04/30/24 12:30 MPV 10.7 fL (7.4-10.4) H 04/30/24 12:30 Neut % (Auto) 83.9 % 04/30/24 12:30 Lymph % (Auto) 8.9 % 04/30/24 12:30 Wilkinson % (Auto) 4.7 % 04/30/24 12:30 Eos % (Auto) 1.7 % 04/30/24 12:30 Baso % (Auto) 0.4 % 04/30/24 12:30 Neut # (Auto) 12.43 10^3/uL (1.8-7.7) H 04/30/24 12:30 Lymph # (Auto) 1.3 10^3/uL (0.8-4.8) 04/30/24 12:30 Wilkinson # (Auto) 0.7 10^3/uL (0.2-0.9) 04/30/24 12:30 Eos # (Auto) 0.3 10^3/uL (0.0-0.8) 04/30/24 12:30 Baso # (Auto) 0.1 10^3/uL (0.0-0.1) 04/30/24 12:30 Nucleated RBC % (auto) 0 % 04/30/24 12:30 Nucleated RBCs # 0.0 /100WBC 04/30/24 12:30 PT 16.20 SECONDS (12.1-14.9) H 04/30/24 13:47 INR 1.21 (0.8-1.2) H 04/30/24 13:47 APTT 34.7 SECONDS (23.9-36.7) 04/30/24 13:47 Specimen Type Arterial 04/30/24 14:02 Sample Site Radial, right 04/30/24 14:02 ABG pH 7.20 (7.35-7.45) L 04/30/24 14:02 ABG pCO2 57.3 mmHg (35-45) H 04/30/24 14:02 ABG pO2 69.9 mmHg (80.0-100.0) L 04/30/24 14:02 ABG PO2/FiO2 Ratio 99 04/30/24 14:02 ABG HCO3 22.6 mmol/L (22-26) 04/30/24 14:02 ABG O2 Saturation 89.1 04/30/24 14:02 ABG Base Excess -5.6 mmol/L (-2.0-2.0) L 04/30/24 14:02 Joey Test Pos 04/30/24 14:02 A-a O2 Gradient 46.6 mmHg (5-10) H 04/30/24 14:02 Hematocrit 31.8 % (42-52) L 04/30/24 14:02 Hgb O2 Saturation 87.4 % (95-100) L 04/30/24 14:02 Carboxyhemoglobin 0.7 %THgb (0.4-20.1) 04/30/24 14:02 Methemoglobin 1.1 % (0.4-1.5) 04/30/24 14:02 Total Hemoglobin 10.4 g/dL (14-18) L 04/30/24 14:02 Sodium 144.0 mmol/L (131-143) H 04/30/24 14:02 Potassium 2.9 mmol/L (3.5-5.0) L 04/30/24 14:02 Glucose 183.0 mg/dL (70-115) H 04/30/24 14:02 Ionized Calcium 1.2 mmol/L (1.1-1.4) 04/30/24 14:02 O2 Delivery Device Vent 04/30/24 14:02 FiO2 70.0 % 04/30/24 14:02 Tidal Volume 0.50 04/30/24 14:02 PEEP 6.0 cmH20 04/30/24 14:02 Client Experience Consultant ID [place] 04/30/24 14:02 Sodium 141 mmol/L (136-145) 04/30/24 12:30 Potassium 2.9 mmol/L (3.5-5.1) L 04/30/24 12:30 Chloride 109 mmol/L (98-107) H 04/30/24 12:30 Carbon Dioxide 22 mmol/L (22-29) 04/30/24 12:30 Anion Gap 12.9 (5-19) 04/30/24 12:30 BUN 16 mg/dL (8-23) 04/30/24 12:30 Creatinine 0.3 mg/dL (0.7-1.2) L 04/30/24 12:30 GFR Calculation 298.2 mL/min (90-130) H 04/30/24 12:30 Glucose 166 mg/dL (65-115) H 04/30/24 12:30 Calculated Osmolality 297 mOsm/kg (285-295) H 04/30/24 12:30 Lactic Acid 2.4 mmol/L (0.5-2.2) H 04/30/24 13:47 Calcium 7.1 mg/dL (8.5-10.5) L 04/30/24 12:30 Magnesium 1.7 mg/dL (1.7-2.3) 04/30/24 12:30 Total Bilirubin 0.2 mg/dL (0.15-1.2) 04/30/24 12:30 AST 13 U/L (0-40) 04/30/24 12:30 ALT 9 U/L (0-41) 04/30/24 12:30 Alkaline Phosphatase 100 U/L (40-130) 04/30/24 12:30 Total Protein 7.1 g/dL (6.6-8.7) 04/30/24 12:30 Albumin 2.4 g/dL (3.5-5.2) L 04/30/24 12:30 Globulin 4.7 g/dL (1.3-4.6) H 04/30/24 12:30 Procalcitonin 0.06 ng/mL (0-0.5) 04/30/24 12:30 XR interpretation done by ED provider, pending radiology final review Critical Care Time 2 Critical Care Time: Critical Care Time: Yes Total Critical Care Time: 90 Attestation: This case had a high probability of a clinically significant, sudden, or life threatening deterioration of this patient's condition which required my full and direct attention, intervention and personal management. Risks include respiratory failure, hypoxemia, hypercapnia, acidosis, aspiration, sepsis. Discharge Plan Discharge Patient Disposition: Xfer Short-Term Hosp Clinical Impression: Aspiration pneumonia, Chronic osteomyelitis, Acute respiratory failure with hypoxia and hypercapnia, Acute hypokalemia Condition: Stable Prescriptions: No Action Incruse Ellipta 62.5 mcg/actuation blister with device 1 inh inhalation DAILY Qty: 30 6RF acetaminophen 325 mg Tablet 650 mg PO Q6H PRN (Reason: Pain) albuterol sulfate 1.25 mg/3 mL Solution For Nebulization 2.5 mg INHALATION Q8H PRN (Reason: Shortness Of Breath) hydrocodone-acetaminophen 5-325 mg Tablet 1 tab PO Q6H PRN (Reason: Pain) mirtazapine 30 mg Tablet 30 mg PO BEDTIME ferrous sulfate 325 mg (65 mg iron) Tablet 325 mg PO DAILY mupirocin 2 % Ointment 1 applic TOPICAL Q8H PRN (Reason: Skin Irritation) quetiapine 100 mg Tablet 100 mg PO BEDTIME paroxetine HCl [Paxil] 40 mg Tablet 40 mg PO BEDTIME cefepime 2 gram recon soln 2 g IV Q12H vancomycin 1,000 mg recon soln 1 g IV ONCE 28-800 mg-mcg Tablet 1 tab PO DAILY tamsulosin 0.4 mg capsule 0.8 mg PO BEDTIME@20 simvastatin 20 mg tablet 20 mg PO BEDTIME@20 pantoprazole 40 mg Tablet,Delayed Release (Dr/Ec) 40 mg PO BID Qty: 60 0RF Rx Instructions: @08:00,20:00 magnesium hydroxide [Milk of Magnesia] 400 mg/5 mL Suspension 30 ml PO DAILY PRN (Reason: Constipation) bisacodyl 10 mg Suppository 10 mg ME DAILY PRN (Reason: Constipation) docusate sodium 100 mg Tablet 200 mg PO BID@08,20 naloxone 2 mg/2 mL Syringe Kit 2 mg IM Q3M PRN (Reason: overdose) Rx Instructions: NTExceed 10 mg total dose/episode sennosides-docusate sodium [Senna-S] 8.6-50 mg Tablet 2 tab PO BID@08,20 folic acid 1 mg Tablet 1 mg PO DAILY@08 Referrals: Benitez Fitzpatrick MD [Primary Care Provider] - Print Language: Malawian Coding Level of Care Code ED Refractory Manager for Geovanna Espinal
--- NOTE | 2024-04-30 14:10 | CTR_ITS ---
PROCEDURE INFORMATION: Exam: CTA Chest With Contrast Exam date and time: 04/30/2024 4:26 PM Age: 68 years old Clinical indication: Other: Resp failure TECHNIQUE: Imaging protocol: Computed tomographic angiography of the chest with contrast. Exam focused on the arteries. 3D rendering (Not supervised by radiologist): MIP and/or 3D reconstructed images were created by the technologist. Radiation optimization: All CT scans at this facility use at least one of these dose optimization techniques: automated exposure control; mA and/or kV adjustment per patient size (includes targeted exams where dose is matched to clinical indication); or iterative reconstruction. Contrast material: OMNI 350; Contrast volume: 100 ml; Contrast route: INTRAVENOUS (IV); COMPARISON: CR XR chest 1V portable [id number] 04/30/2024 1:05 PM RADIATION DOSE METRICS: Total DLP (mGy-cm): 799.72 FINDINGS: Tubes, catheters and devices: Patient is intubated, endotracheal tube terminates about 2.4 cm from the tatiana. Enteric tube traverses midline, terminates within the stomach. Pulmonary arteries: Normal. No pulmonary emboli. Aorta: Unremarkable. No aortic aneurysm. No aortic dissection. Trachea: Multifocal opacities in the tertiary airways of the bilateral lower lobes. Lungs: Innumerable mixed density nodules throughout the bilateral lungs. A single lesion demonstrates cavitation in the left upper apex (series 7, image 78). Consolidation within the right upper and right lower lobe posteriorly. Pleural spaces: Small right pleural effusion. Heart: Unremarkable. No cardiomegaly. No pericardial effusion. Coronary arteries: Heavy coronary calcified atherosclerotic disease. Lymph nodes: Unremarkable. No enlarged lymph nodes. Bones/joints: Mildly demineralized bones. Degenerative change of the visualized osseous structures. Soft tissues: Unremarkable. PROCEDURE INFORMATION: Exam: CT Abdomen And Pelvis With Contrast Exam date and time: 04/30/2024 4:26 PM Age: 68 years old Clinical indication: Other: Resp failure TECHNIQUE: Imaging protocol: Computed tomography of the abdomen and pelvis with contrast. Radiation optimization: All CT scans at this facility use at least one of these dose optimization techniques: automated exposure control; mA and/or kV adjustment per patient size (includes targeted exams where dose is matched to clinical indication); or iterative reconstruction. Contrast material: OMNI 350; Contrast volume: 100 ml; Contrast route: INTRAVENOUS (IV); COMPARISON: CT kidney stone [id number] 04/18/2024 2:49 AM RADIATION DOSE METRICS: Total DLP (mGy-cm): 799.72 FINDINGS: Tubes, catheters and devices: Enteric tube terminates within the proximal stomach. Liver: Normal. No mass. Gallbladder and biliary ducts: Normal. No calcified stones. No ductal dilation. Pancreas: Mild pancreatic atrophy. Spleen: Normal. No splenomegaly. Adrenal glands: Normal. No mass. Kidneys and ureters: Bilateral extrarenal pelves, perhaps mildly inflamed urothelial lining. Stomach and bowel: Moderate colonic stool burden. Severe distal colonic stool burden with thickening of the rectal wall. Dilated loops of small bowel in the left upper quadrant with multiple air-fluid levels. No focal transition point is seen. Some liquid stool is seen within the proximal colon. Appendix: No evidence of appendicitis. Intraperitoneal space: Unremarkable. No free air. No significant fluid collection. Vasculature: Moderate atherosclerotic disease. Lymph nodes: Unremarkable. No enlarged lymph nodes. Urinary bladder: Decompressed urinary bladder due to catheterization. Suprapubic urinary bladder catheterization. Reproductive: Unremarkable as visualized. Bones/joints: Chronic left hip fracture. Right total hip arthroplasty. Soft tissues: Stable sacral ulcer. CT/CT angio chest w abd pel w con IMPRESSION: 1. No pulmonary embolus. 2. Intubated patient, endotracheal tube terminating appropriately 2.4 cm from the tatiana. 3. Findings concerning for septic emboli with superimposed aspiration and possible pneumonia given the above described lung findings. IMPRESSION: 1. Findings of which can be seen in enterocolitis, difficult to exclude evolving obstruction. 2. Stercoral colitis. 3. Findings which can be seen in urinary tract infection. Correlate clinically. 4. Sacral ulcer is seen in stable without involving the adjacent bony structures.
[2024-04-30 14:11] LABS: Lactic Sepsis W/Reflex 2.4 mmol/L (0.5-2.2)
[2024-04-30 14:12] LABS: ABG PCO2 57.3 mmHg (35-45); Alveolar-Arterial Oxygen Gradi 46.6 mmHg (5-10); Arterial Blood Gas Hematocrit 31.8 % (42-52); Base Excess ABG -5.6 mmol/L (-2.0-2.0); Blood Gas Allen Test Pos; Blood Gas Operator Identificat WALCI; Blood Gas Sample Site Radial, right; Blood Gas Sample Type Arterial; Carboxyhemoglobin 0.7 %THgb (0.4-20.1); HCO3 ABG 22.6 mmol/L (22-26); HGB O2 Sat 87.4 % (95-100); Ionized Calcium Level - ABG 1.2 mmol/L (1.1-1.4); Methemoglobin 1.1 % (0.4-1.5); Oxygen Device VENT; Oxygen Saturation ABG 89.1; PO2 ABG 69.9 mmHg (80.0-100.0); PO2 FiO2 Ratio Arterial Blood 99; Potassium Level - ABG 2.9 mmol/L (3.5-5.0); Total Hemoglobin 10.4 g/dL (14-18)
[2024-04-30 14:18] LABS: INR 1.21 (0.8-1.2); Partial Thromboplastin Time 34.7 SECONDS (23.9-36.7)
[2024-04-30] MEDS: propofol 1,000 MG/100 ML INJ 1.55 MG IV (14:21)
[2024-04-30] MEDS: propofol 10 mg/mL SDV 20 mL 20 MG IVP (14:38)
[2024-04-30] MEDS: ketamine 100 mg/mL Inj 5 mL IVP (15:06)
[2024-04-30 15:26] LABS: Reflex Lactate Order REFLEX LACTIC ORDERD
[2024-04-30] MEDS: sodium chloride 0.9% 500 ML 999 ML IV (15:32)
[2024-04-30] MEDS: iohexol 350 mg/mL 500 mL Btl (per mL) IV (16:35)
[2024-04-30 17:10] LABS: Lactic Acid level (Lactate) 3.7 mmol/L (0.5-2.2)
[2024-04-30] MEDS: fentaNYL 1,000 MCG/100 ML BAG 2.5 MCG IV (17:20)
[2024-04-30] MEDS: potassium chloride premix 100 ML 25 MEQ IV (17:24)
[2024-04-30] MEDS: norepinephrine 4 MG/250 ML BAG 60 MG IV (18:32)
--- NOTE | 2024-04-30 18:44 | PC.NURSE ---
INTUBATION 1225 VERSED 2MG 1227 ROCC 50MG IVP 1228 INTUBATED SIZE 8 25 AT THE LIP 1230 VERSED 2 MG
--- NOTE | 2024-04-30 18:46 | PC.NURSE ---
FIRST 100ML BOTTLE PROPOFOL DROPPED AND SHATTERED. WASTED WITH TANVIR PADILLA RN.
[2024-04-30 19:05] LABS: Bilirubin Urine Negative (Negative); Blood Urine 1+ (Negative); Glucose Urine UA Negative (Normal); Ketones Urine Negative (Negative); Leukocyte Esterase Urine Negative (Negative); Nitrate Urine Negative (Negative); Protein Urine 1+ (Negative); Specific Gravity, Urine 1.029 (1.005-1.030); Urine Appearance Clear (CLEAR); Urine Color Yellow (Yellow); Urobilinogen Urine 0.2 mg/dL (Negative); pH Urine 6.5 (5-7)
[2024-04-30 19:10] LABS: Add Urine Microscopic? YES; Bacteria Urine None Seen /hpf; Hyaline Casts Urine 23.57 /lpf; RBC Urine 21-50 /hpf (0-2); Squamous Epithelial Cell Urine 0-5 /hpf (0-5); Universal Test for UA Present (0); WBC Urine 0-5 /hpf (0-5)
[2024-04-30 19:28] LABS: Add Urine Culture? Yes
== END 2024-04-30 19:56 | disposition short-term general hospital (02) ==
PROVIDERS: Emergency Provider Emergency Medicine; PCP Internal Medicine
DX: J69.0 Pneumonitis due to inhalation of food and vomit (principal); J96.02 Acute respiratory failure with hypercapnia; J96.01 Acute respiratory failure with hypoxia; E87.6 Hypokalemia; Z87.891 Personal history of nicotine dependence; J44.9 Chronic obstructive pulmonary disease, unspecified; E78.2 Mixed hyperlipidemia; I10 Essential (primary) hypertension; M86.9 Osteomyelitis, unspecified
CPT/HCPCS: 31500; 36415; 36600; 71045; 71275; 74177; 80051; 80053; 81001; 82330; 82805; 83605; 83735; 84145; 85025; 85610; 85730; 87040; 87070; 87077; 87086; 87186; 87205; 93005; 94002; 94660; 94799; 96365; 96366; 96367; 96375; 99291; J0692; J2250; J2704; J3010; J3480; J3490; J7030; J7040; J9999